=== PATIENT | male | born 1960 | race Caucasian/White ===

== ENCOUNTER 2020-09-04 10:04 | Outpatient (CLI) | payer MEDICARE, SELFPAY ==
--- NOTE | 2020-09-04 10:15 | US_ITS ---
WS: [id number] ULTRASOUND SOFT TISSUES LEFT neck. HISTORY: mass at base of neck, into left shoulder, 6 months COMPARISON: None available. TECHNIQUE: 2-D and color Doppler imaging is submitted. There is a large solid mass with central increased vascularity in the LEFT supraclavicular location. Mass is variable echogenicity but is predominantly hypoechoic. There is distortion of the adjacent so ft tissues by the mass. Mass measures 4.8 x 5.1 x 4.0 cm. There are a few additional cervical chain l ymph nodes. These additional cervical chain lymph nodes also appear abnormal and they are bilateral. Loss of the normal fatty maty. These additional lymph nodes are not enlarged but do appear abnormal. US/US soft tissue head neck [id number] IMPRESSION: 1. Palpable mass in the LEFT supraclavicular location corresponds to an abnorm al lymph node. Although small there are additional lymph nodes with abnormal co nfiguration in the cervical chains. Metastatic adenopathy versus lymphoma. 2. Recommend follow-up CT neck and chest with IV contrast.
== END 2020-09-04 10:05 | disposition home or self-care (01) ==
PROVIDERS: PCP Family Medicine Adult Medicine; Visit Provider Emergency Medicine
DX: R22.1 Localized swelling, mass and lump, neck (principal)
CPT/HCPCS: 76536

== ENCOUNTER 2020-09-08 12:40 | Outpatient (CLI) | payer MEDICARE, SELFPAY ==
--- NOTE | 2020-09-08 13:00 | CT_ITS ---
WS: [id number] CT CHEST TECHNIQUE: Contrast enhanced CT of the chest with coronal and sagittal reformatted images. CLINICAL INFORMATION: R22.1 - Localized swelling, mass and lump, neck COMPARISON: None. DLP: 588.[address] scans at [facility] use at least one of these dose optimization techniques: automat ed exposure control; mA and/or kV adjustment per patient size (includes targeted exams where dose is matched to clinical indication); or iterative reconstruction. FINDINGS: Left hilar and suprahilar mass measuring approximately 3.1 x 2.9 x 4.8 cm AP by transverse by cranioc audal. This abuts the left hilum extends into the left upper lobe. Multiple surrounding satellite so ft tissue nodules. Associated pleural thickening in the left upper lobe medially. Patchy nodular infi ltrates the left upper lobe medially which may represent postobstructive pneumonia versus additional disease. Proximal main pulmonary arteries are normal. Normal caliber thoracic aorta. No mediastinal or hilar l ymphadenopathy. No axillary lymphadenopathy. A few calcified granulomas. Slight atelectasis in the ebenezer ng bases. 2 or 3 tiny subcentimeter noncalcified subpleural nodules in the right upper lobe and right lower lobe laterally. No anterior mediastinal lymphadenopathy. No subcarinal lymphadenopathy. Normal right hilum. Low-attenuation lesion in the right hepatic lobe measuring 12 mm is indeterminant and may represent a small complex cyst or hemangioma. This can be further evaluated with ultrasound or CT abdomen pelvis . This measures approximately 12 mm. Cholelithiasis. Adrenal glands are normal. Normal GE junction. Haziness within the mid mesentery with prominent lymph nodes partially visualized. This is nonspecifi c but can be seen with sclerosing mesenteritis and lymphoma. Normal thoracic spine. CT/CT chest w con* [id number] IMPRESSION: 1. Left hilar and suprahilar mass with associated satellite nodules. Findings consistent with neoplasm. 2. Additional nodular infiltrates in the left upper lobe medially abutting the pleura may be due to additional disease versus postobstructive pneumonia. 3. No other suspicious pulmonary parenchymal opacities. 4. No anterior mediastinal lymphadenopathy. 5. Nonspecific 12 mm low-attenuation lesion within the right hepatic lobe may represent small complex cyst or hemangioma. Metastatic disease is less likely b ut not entirely excluded. This can be further evaluated with CT abdomen pelvis or ultrasound. 6. Cholelithiasis. 7. Partially visualized induration and inflammatory changes in the mid mesente ry with prominent lymph nodes nonspecific but can be seen with sclerosing mesen teritis and lymphoma. This can be further evaluated with CT abdomen pelvis.
--- NOTE | 2020-09-08 13:30 | CT_ITS ---
WS: [id number] CT NECK TECHNIQUE: Contrast-enhanced CT of the neck with coronal and sagittal reformatted images. CLINICAL INFORMATION: R22.1 - Localized swelling, mass and lump, neck COMPARISON: Ultrasound September 04, 2020 DLP: 2619.[address] scans at [facility] use at least one of these dose optimization techniques: automat ed exposure control; mA and/or kV adjustment per patient size (includes targeted exams where dose is matched to clinical indication); or iterative reconstruction. FINDINGS:Large heterogeneously enhancing centrally necrotic left supraclavicular lymph node measuring 4.8 x 4.4 x 6.8 cm (AP by transverse by craniocaudal.) This corresponds to the lymph node seen on th e recent ultrasound. Partially visualized left hilar and suprahilar mass will be discussed on the [facility] st CT. Additional enlarged left supraclavicular lymph nodes and lower cervical chain lymph nodes on the left . Partially visualized intracranial contents are normal. Mastoid air cells are well aerated. Paranasal sinuses are well aerated. Parotid glands and submandibular glands are normal. Tongue base is normal i n appearance. Normal parapharyngeal fat. No evidence of supraglottic or glottic mass. Normal piriform sinuses. Small left thyroid nodule measuring 4mm Mild spondylitic changes cervical spine. CT/CT neck w con* [id number] IMPRESSION: 1. Large heterogeneously enhancing left supra clavicular lymph node consistent with metastatic disease measuring 4.8 x 4.4 x 6.8 cm corresponds to findings o n recent ultrasound. 2. Additional enlarged pathologic lymph nodes in the left lower cervical chain and supraclavicular region. 3. Partially visualized left hilar and suprahilar mass will be discussed on th e chest CT.
[2020-09-08] MEDS: iohexol 300 mg/mL 100 mL Btl IV ×2 (13:56)
== END 2020-09-08 12:41 | disposition home or self-care (01) ==
LOC: RADWPI 12:51
PROVIDERS: PCP Family Medicine Adult Medicine; Visit Provider Emergency Medicine
DX: R22.1 Localized swelling, mass and lump, neck (principal); K76.9 Liver disease, unspecified; K80.20 Calculus of gallbladder without cholecystitis without obstruction
CPT/HCPCS: 70491; 71260; Q9967

== ENCOUNTER 2020-09-18 08:56 | Outpatient (CLI) | payer MEDICARE, SELFPAY ==
[2020-09-18] MEDS: iohexol 300 mg/mL 50 mL Btl PO (09:42)
--- NOTE | 2020-09-18 10:30 | CT_ITS ---
WS: [id number] CT scan of the abdomen and pelvis with Oral and IV contrast. Additional two-dimensional coronal and s agittal reconstruction was performed. 09/18/2020 Clinical Data: R59.0 - Localized enlarged lymph nodes Comparison: None. DLP: 1062.38 mGy-cm All CT scans at [facility] use at least one of these dose optimization techniques: automat ed exposure control; mA and/or kV adjustment per patient size (includes targeted exams where dose is matched to clinical indication); or iterative reconstruction. Findings: The lower lungs show no nodules, masses or effusions. The liver, gallbladder, spleen, adrenal glands and pancreas are normal. There is a low density area i n the anterior aspect of the right lobe measuring 1.4 cm which is probably a cyst. The kidneys show e qual bilateral contrast excretion with no cyst or masses. No hydronephrosis or renal calculi are seen . The abdominal aorta is normal in size. No appendicitis or diverticulitis is seen. Oral contrast is in the stomach, small bowel and colon, an d there is no bowel dilatation. No abscess, adenopathy, ascites, mass, obstruction or free air is see n. The bladder is unremarkable. No inguinal hernia is seen. The bones of the lower thorax, lumbar spine, pelvis, and hips are normal. No metastatic bony lesions are seen. CT/CT abdomen pelvis w con* [id number] Impression: 1. Negative for metastatic disease to the abdomen or pelvis. 2. Probable cyst of the right lobe of the liver.
[2020-09-18] MEDS: iohexol 300 mg/mL 100 mL Btl IV (10:37)
== END 2020-09-18 08:57 | disposition home or self-care (01) ==
LOC: RADWPI 09:03
PROVIDERS: PCP Family Medicine Adult Medicine; Visit Provider Emergency Medicine
DX: R22.1 Localized swelling, mass and lump, neck
CPT/HCPCS: 74177; Q9967

== ENCOUNTER → 2020-10-07 11:56 | Day surgery (SDC) | payer MEDICARE, SELFPAY ==
[2020-10-05 12:20] VITALS: BMI 27.4
--- NOTE | 2020-10-07 12:21 | US_ITS ---
WS: [id number] ULTRASOUND GUIDED BIOPSY LEFT SUPRACLAVICULAR MASS. HISTORY: left neck mass Procedure, risks, and complications are explained to the patient. Consent was obtained. Skin is clean sed with ChloraPrep and anesthetized with 1% buffered lidocaine. There is a solid mass in the LEFT supraclavicular region with increased vascularity. This mass measur es 6.7 x 3.3 cm in length and is most likely abnormal lymph node. This mass is targeted for biopsy. B iopsy is made with an 18 gauge Temno needle. Cores placed within saline as requested by pathology. No complications were encountered. Numerous biopsies were obtained. US/ biopsy [id number] IMPRESSION: Uncomplicated biopsy of the LEFT supraclavicular mass. Final pathology results are pending.
[2020-10-07 12:25] VITALS: BP 125/82; PULSE 101; RESP 18; TEMP 36.3; O2SAT 97
[2020-10-07] MEDS: sodium chloride 0.9% 1,000 ML 30 ML IV (12:41)
[2020-10-09 07:07] LABS: Miscellaneous Test See Scanned Lab Rpt
== END ==
PROVIDERS: Radiology Diagnostic Radiology; PCP Family Medicine Adult Medicine; Visit Provider Family Medicine Adult Medicine
DX: C76.8 Malignant neoplasm of other specified ill-defined sites (principal)
CPT/HCPCS: 76942; 88184; 88185; 88307; 96360; J7030; P9041

== ENCOUNTER 2020-10-13 09:50 | Outpatient (CLI) | payer MEDICARE, SELFPAY ==
[2020-10-13 12:11] LABS: Basophils % 0.5 %; Eosinophils # 0.2 10^3/uL (0.0-0.8); Eosinophils % 3.2 %; Hematocrit 30.3 % (42.0-52.0); Hemoglobin 8.5 g/dL (11.7-16.6); Lymphocytes # 0.9 10^3/uL (0.8-4.8); Lymphocytes % 14.3 %; Mean Corpuscular HGB Conc 28.1 g/dL (30.0-36.0); Mean Corpuscular Hemoglobin 20.3 pg (28.0-34.0); Mean Corpuscular Volume 72.3 fL (80-94); Mean Platelet Volume 10.2 fL (7.4-10.4); Monocytes # 0.4 10^3/uL (0.2-0.9); Monocytes % 5.5 %; Neutrophils # 4.94 10^3/uL (1.8-7.7); Nucleated Red Blood Cells % 0 %; Platelet Count 596 10^3/cmm (130-400); Red Blood Count 4.19 10^6/uL (4.1-5.3); Red Cell Distribution Width 17.4 % (12.1-15.1); White Blood Count 6.5 10^3/uL (4.0-10.0)
[2020-10-13 12:36] LABS: Alanine Aminotransferase 9 U/L (0-41); Albumin Level 3.8 g/dL (3.5-5.2); Alkaline Phosphatase 94 IU/L (40-130); Anion Gap 12.7 (5-19); Aspartate Amino Transferase 15 U/L (0-40); Blood Urea Nitrogen 5 mg/dL (6-20); Calcium 8.7 mg/dL (8.5-10.5); Carbon Dioxide 26 mmol/L (22-29); Chloride 104 mmol/L (98-107); Globulin 3.3 g/dL (1.3-4.6); Glomerular Filtration Rate 98.9 mL/min (90-130); Glucose 98 mg/dL (65-115); Lactate Dehydrogenase 281 U/L (135-225); Osmolality Calculated 285 mOsm/kg (285-295); Potassium 3.7 mmol/L (3.5-5.1); Sodium 139 mmol/L (136-145); Total Bilirubin 0.2 mg/dL (0.15-1.2); Total Protein 7.1 g/dL (6.6-8.7)
--- NOTE | 2020-10-13 18:14 | ONC CON_ITS ---
Dr. Cole New Patient Note Patient: Adarsh Parson Unit #: [id number]: 1960 Dicatated By: Curtis Cole M.D.Date of Visit: October 13, 2020 Onc MED New Patient/Consult Referring Physician: Shaniqua Suarez Chief Complaint: Metastatic melanoma. 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 This patient has a history of having undergone excision of a melanoma from the right lower back somewhere in the range of 3 to 4 years ago. The records are currently not available. The procedure was done through [facility] in [place], and it included a sentinel right axillary lymph node biopsy. He did not require any further treatment. 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 In July 2020 he presented to [facility] with a lump in the left side of his neck. He had been aware of it for about 6 months. An initial ultrasound on 09/04/2020 showed a left supraclavicular mass measuring 4.8 x 5.1 x 4.0 cm consistent with an abnormal lymph node. Further evaluation with CT scans of the neck and chest on 09/08/2020 showed a large heterogeneously enhancing left supraclavicular lymph node measuring 4.8 x 4.4 x 6.8 cm with additional enlarged pathologic lymph nodes in the lower cervical chain and supraclavicular region. A left hilar and suprahilar mass measuring approximately 3.1 x 2.9 x 4.8 cm was noted to abut the left hilum, extending into the left upper lobe. There were multiple surrounding satellite soft tissue nodules and there was associated pleural thickening in the left upper lobe medially. There were no other suspicious pulmonary parenchymal nodules and there was no mediastinal adenopathy. A 12 mm low-attenuation lesion in the right hepatic lobe was felt to be indeterminate. Haziness within the mid mesentery with prominent lymph nodes was partially visualized. Further evaluation with CT of the abdomen/pelvis on 09/18/2020 was reported to be negative for metastatic disease. The lesion in the right lobe of the liver was felt to probably be a cyst. He then underwent ultrasound directed biopsy of the left supraventricular mass on 10/07/2020. 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 By IHC, the tumor cells were positive for trim 29, melanin A, HMB-45, Sox 10, and S100 protein, consistent with metastatic melanoma. Staging PET/CT on 10/10/2020 showed FDG positive left supraclavicular mass measuring 6.1 x 4.2 cm, SUV 38.3. 2 additional adjacent nodes measuring 1.8 cm were also FDG positive. A left upper lobe lung mass measuring 4.2 x 4.6 cm and SUV 22.2 and a left upper quadrant small bowel mass measuring 5.6 x 5.2 cm had SUV 43.4, high probability of malignancy. Multiple enlarged mesenteric lymph nodes had minimal FDG activity, but were likely metastatic. He is seen now for further management. He still feels pretty good generally. He does have somewhat limited activity tolerance, mainly due to to shortness of breath. He is still doing light work. His ECOG score is 1. His appetite is not as good, and his weight is down about 10 pounds. He has not had documented fever, but he does tend to feel hot and have sweating every night. He has been having pain in the mid abdominal area which comes and goes. It is being managed adequately with hydrocodone/APAP. He has shortness of breath with activity. He has cough which comes and goes. He occasionally has chest pain. He has no other associated GI complaints. He does have some chronic constipation, but it is managed adequately with a laxative. He has no complaints. He has chronic back pain which has been managed by Dr. Pool at pain clinic. He does not complain of headache or dizziness. He occasionally has numbness in his fingers. He has no other focal neurologic symptoms. Past Medical History: He has chronic back pain. He has a history of accidental electrocution, and he has a history of melanoma skin cancer. Past Surgical History: He underwent excision of melanoma from the right lower back with sentinel right axillary lymph node biopsy 3 or 4 years ago. His other surgical/procedural history includes arthroscopic knee surgery and back surgery. Medications: HYDROcodone-Acetaminophen 1 (7.5-325 mg) Tablet Oral q 4 hours PRN Allergies: No Known Allergies. Social History: Mr. Parson is . He is a non-smoker. He does not drink alcohol. Family History: He has very little knowledge regarding his family history. He does not know anything about his father. His mother, his brother, and one sister are all , but specific cause in each case is unknown to him. Three sisters are still living. Review Of Symptoms: Constitutional - His energy is pretty good, but he does have somewhat limited activity due to shortness of breath. His appetite is not as good. His weight is down about 10 pounds. He does not have documented fever, but he does tend to feel hot and have sweating at night. ECOG score is 1, Eyes - No change in vision, ENMT - No hearing loss or tinnitus. No sinus congestion/drainage. No mouth sores. No sore throat or difficulty swallowing, Hematologic/Lymphatic - No abnormal bruising or bleeding, Respiratory - He has shortness of breath with activity. He sometimes has cough. It comes and goes. No pleuritic pain or hemoptysis, Cardiovascular - He occasionally has a little chest pain. No palpitations, Gastrointestinal - No nausea or vomiting. No heartburn or acid reflux. He has constipation, which he manages adequately with a laxative. No blood in the stool or black stools, Genitourinary (M) - No dysuria or hematuria. No urinary frequency. 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 He occasionally has numbness in his fingers. No other focal neurologic symptoms, Psychiatric - No anxiety or depression. No insomnia. Vital Signs: Performed on October 13, 2020 11:09: 2, 0, 27.08, 1.86 sq.m, 66 in, 96 %, 101 /min (HIGH), 18 /min, 134/79 mm(hg), 98.2 F (LOW), and 167.8 lbs (HIGH). Physical Examination: Constitutional - He appears to be in good general health, Eyes - Sclerae nonicteric. Conjunctivae clear, ENMT - No lesions noted in the oral cavity, Neck - There is a large mass in the left supraclavicular area measuring 8 cm. There is no other mass or adenopathy noted in the neck area, Hematologic/Lymphatic - No axillary adenopathy, Respiratory - Lungs are clear with good air movement bilaterally, Cardiovascular - Heart rhythm is regular. There is a II/ systolic murmur. There is no gallop or rub noted, Abdomen - Soft and non-tender. Liver and spleen are not enlarged. There is no abdominal mass or ascites noted and there is no inguinal adenopathy, Back/Spine - No spine or CVA tenderness noted, Extremities - No edema. Pedal pulses are palpable bilaterally, Integumentary - There are no suspicious skin lesions noted, Neurologic - No focal neurologic deficits noted. Problem List: 1. Patient with metastatic melanoma presenting with large left supraclavicular mass. By PET/CT, there are additional areas of involvement in the left suprahilar region and the left upper quadrant small bowel. 2. He has a history of having undergone excision of melanoma from the right lower back 3 or 4 years ago. The procedure included sentinel right axillary lymph node biopsy. 3. He has chronic back pain. Problems Addressed with this Encounter and Plan: Patient with metastatic melanoma presenting with large left supraclavicular mass. By PET/CT, there are additional areas of involvement in the left suprahilar region and the left upper quadrant small bowel. He has a history of having undergone excision of melanoma from the right lower back 3 or 4 years ago. The procedure included sentinel right axillary lymph node biopsy. Those records are currently not available. It appears that there was no indication for further treatment. The CT and PET/CT findings were reviewed with the patient, and I also reviewed the images with him. We discussed the fact that he now has metastatic melanoma. I do want to request records from [facility] to verify his previous treatment and pathology, but at this point he will need to proceed with systemic therapy. For future reference I am going to request a BRAF mutation analysis on the recent biopsy, but I am planning to proceed now with a trial of dual immunotherapy with nivolumab/ipilimumab, subject to verification of insurance coverage. I am going to have him see Dr. Slaughter for placement of Port-A-Cath venous access device, and he will need an a brain MRI to complete his staging. I reviewed anticipated side effects with the immunotherapy which may include enteritis/colitis, pneumonitis, endocrinopathies, dermatitis, and hepatic and/or renal dysfunction, among others. Signed By: Curtis Cole M.D. <<Signature on File>>
== END 2020-10-13 09:51 | disposition home or self-care (01) ==
LOC: ONCMED 09:53
PROVIDERS: PCP Family Medicine Adult Medicine; Visit Provider Internal Medicine Medical Oncology
DX: C49.6 Malignant neoplasm of connective and soft tissue of trunk, unspecified (principal); C77.8 Secondary and unspecified malignant neoplasm of lymph nodes of multiple regions; C78.4 Secondary malignant neoplasm of small intestine; G89.29 Other chronic pain; M54.5 Low back pain; Z79.899 Other long term (current) drug therapy
CPT/HCPCS: 36415; 80053; 81210; 83615; 85025; 99205

== ENCOUNTER 2020-10-15 09:30 | Emergency (ER) | payer MEDICARE, SELFPAY ==
--- NOTE | 2020-10-15 10:07 | ED_ITS ---
HPI - Nausea/Vomiting/Diarrhea General: Chief complaint: Nausea/Vomiting/Diarrhea Stated complaint: N/V, Trouble Eating Time Seen by Provider: 10/15/20 09:43 History of Present Illness: HPI Narrative: 60-year-old male presents to the emergency room with complaint of nausea and vomiting anorexia the last several days progressively worsening. Patient has a known history of melanoma that was treated about 5 years ago with excisional lymph node dissection. He began to notice a supra supraclavicular swelling on the left and had it biopsied came back as melanoma recurrence on further work-up he was found to have disseminated metastasis in the abdomen and chest. He is been seen by oncology and they are planning to start immune therapy he has been scheduled to have a port placed but has not been done yet. Is been taking hydrocodone for the pain seems to exacerbate his stomach issues. MD elicited complaint: nausea, vomiting and abdominal pain Pertinent past history: other (Recurrence of melanoma with disseminated metastasis) Onset (ago): day(s) Description of vomiting: watery Associated nausea: Yes Associated abdominal pain: Yes Location of pain: Diffuse Severity: moderate Quality: cramping Exacerbating factors: none Relieving factors: none Associated symtoms: Reports bloating, fatigue, anorexia, malaise, myalgias, nausea and weakness; Denies altered mental status, anxiety, change in vision, chest pain, cough, diaphoresis, decreased urine output, dizziness, dysuria, epistaxis, fecal incontinence, fevers/chills, headache(s), numbness, palpitations, rash, short of breath, syncope, tenesmus or tinnitus Review of Systems Const: Reports: fatigue and malaise; Denies: diaphoresis Eyes: Denies: change in vision ENMT: Denies: tinnitus or epistaxis Card: Denies: chest pain, palpitations or syncope Resp: Denies: dyspnea, productive cough or non-productive cough GI: Reports: nausea and bloating; Denies: fecal incontinence : Denies: dysuria Skin/Breast: Denies: rash or pruritus Neuro: Denies: headache(s) or dizziness Psych: Denies: anxiety PFS ED PFSH: Medical History (Updated 10/15/20 @ 12:00 by Adolfo Quispe DO) Accidental electrocution Hx of lymphadenopathy Lymphadenopathy of head and neck region Mass of left side of neck Melanoma Surgical History History of back surgery Hx of arthroscopy of left knee Social History Smoking and tobacco status: never smoked Alcohol intake: never Marital status: / Number of children: 1 Number of grandchildren: 3 Current occupational status: retired Physical Exam Const: COMMON NORMALS: no acute distress EXAM LIMITATIONS: no altered mental status GENERAL APPEARANCE: cooperative and comfortable ORIENTATION/CONSCIOUSNESS: Yes awake, Yes oriented to person, Yes oriented to place and Yes oriented to time HENMT: COMMON NORMALS: normocephalic, atraumatic and hearing grossly normal bilaterally HEAD & SCALP: normocephalic and atraumatic Neck/C-Spine: COMMON NORMALS: no JVD Lymph: LYMPHATIC: lymphadenopathy (Left supraclavicular) Resp: COMMON NORMALS: normal respiratory effort, No retractions, No use of accessory muscles and clear to auscultation bilaterally AUSCULTATION: clear to auscultation bilaterally Cardio: COMMON NORMALS: no JVD, regular rate, regular rhythm and No murmurs present (Cardio) RATE: regular rate RHYTHM: regular rhythm GI: COMMON NORMALS: Soft to palpation and No hepatosplenomegaly present AUSCULTATION: Yes normoactive bowel sounds PALPATION: Yes Soft to palpation, No Tenderness to palpation present (GI), No Guarding due to palpation present (GI) and Yes No hepatosplenomegaly present Extremity: COMMON NORMALS: normal to inspection, capillary refill normal, no clubbing, cyanosis or edema, no calf tenderness and no pedal edema Neuro: SENSORIUM/ORIENTATION: Yes oriented to person, Yes oriented to place and Yes oriented to time Skin: COMMON NORMALS: no rashes or lesions noted GENERAL SKIN EXAM: no rashes or lesions noted Course Vital Signs: Vital signs: Vital Signs Pulse Rate 83 10/15/20 12:35 Respiratory Rate 14 10/15/20 12:35 Blood Pressure 137/88 10/15/20 12:35 Pulse Oximetry 97 10/15/20 12:35 MDM - Nausea/Vomiting/Diarrhea MDM Narrative: Medical decision making narrative: Change him to Percocet add ondansetron. Follow-up with Dr. Cole return if has worsening problems Lab Data: Labs: Lab Results 10/15/20 10/15/20 10/15/20 Range/Units 10:28 10:28 10:28 WBC 8.9 (4.0-10.0) 10^3/ uL RBC 4.76 (4.1-5.3) 10^6/u L Hgb 9.5 L (11.7-16.6) g/dL Hct 32.5 L (42.0-52.0) % MCV 68.3 L (80-94) fL MCH 20.0 L (28.0-34.0) pg MCHC 29.2 L (30.0-36.0) g/dL RDW 17.4 H (12.1-15.1) % Plt Count 861 H (130-400) 10^3/c mm MPV 9.4 (7.4-10.4) fL Neut % (Auto) 84.8 % Lymph % (Auto) 8.8 % [place] % (Auto) 5.2 % Eos % (Auto) 0.5 % Baso % (Auto) 0.2 % Neut # (Auto) 7.51 (1.8-7.7) 10^3/u L Lymph # (Auto) 0.8 (0.8-4.8) 10^3/u L [place] # (Auto) 0.5 (0.2-0.9) 10^3/u L Eos # (Auto) 0.0 (0.0-0.8) 10^3/u L Baso # (Auto) 0.0 (0.0-0.1) 10^3/u L Nucleated RBC % (a uto) 0 % Nucleated RBCs # 0.0 /100WBC Sodium 134 L (136-145) mmol/L Potassium 4.0 (3.5-5.1) mmol/L Chloride 89 L (98-107) mmol/L Carbon Dioxide 31 H (22-29) mmol/L Anion Gap 18.0 (5-19) BUN 14 (6-20) mg/dL Creatinine 0.8 (0.7-1.2) mg/dL GFR Calculation 98.9 (90-130) mL/min Glucose 119 H (65-115) mg/dL Calculated Osmolal ity 280 L (285-295) mOsm/k g Lactic Acid 1.2 (0.5-2.2) mmol/L Calcium 9.6 (8.5-10.5) mg/dL Magnesium 2.3 (1.7-2.3) mg/dL Total Bilirubin 0.3 (0.15-1.2) mg/dL AST 12 (0-40) U/L ALT 9 (0-41) U/L Alkaline Phosphata se 105 (40-130) IU/L Creatine Kinase 42 (39-308) U/L Total Protein 8.1 (6.6-8.7) g/dL Albumin 4.2 (3.5-5.2) g/dL Globulin 3.9 (1.3-4.6) g/dL Lipase 10 L (13-60) U/L Urine Color (Yellow) Urine Appearance (CLEAR) Urine pH (5-7) Ur Specific Gravit y (1.005-1.030) Urine Protein (Negative) Urine Glucose (UA) (Normal) Urine Ketones (Negative) Urine Blood (Negative) Urine Nitrate (Negative) Urine Bilirubin (Negative) Urine Urobilinogen (Negative) mg/dL Ur Leukocyte Kandy ase (Negative) Urine RBC (0-2) /hpf Urine WBC (0-5) /hpf Ur Squamous Epith Cells (0-5) /hpf Amorphous Sediment Urine Bacteria (NONE) /hpf Hyaline Casts /lpf Urine Mucus /hpf Serum Ketones (Negative) 10/15/20 10/15/20 Range/Units 10:28 11:10 WBC (4.0-10.0) 10^3/ uL RBC (4.1-5.3) 10^6/u L Hgb (11.7-16.6) g/dL Hct (42.0-52.0) % MCV (80-94) fL MCH (28.0-34.0) pg MCHC (30.0-36.0) g/dL RDW (12.1-15.1) % Plt Count (130-400) 10^3/c mm MPV (7.4-10.4) fL Neut % (Auto) % Lymph % (Auto) % [place] % (Auto) % Eos % (Auto) % Baso % (Auto) % Neut # (Auto) (1.8-7.7) 10^3/u L Lymph # (Auto) (0.8-4.8) 10^3/u L [place] # (Auto) (0.2-0.9) 10^3/u L Eos # (Auto) (0.0-0.8) 10^3/u L Baso # (Auto) (0.0-0.1) 10^3/u L Nucleated RBC % (a uto) % Nucleated RBCs # /100WBC Sodium (136-145) mmol/L Potassium (3.5-5.1) mmol/L Chloride (98-107) mmol/L Carbon Dioxide (22-29) mmol/L Anion Gap (5-19) BUN (6-20) mg/dL Creatinine (0.7-1.2) mg/dL GFR Calculation (90-130) mL/min Glucose (65-115) mg/dL Calculated Osmolal ity (285-295) mOsm/k g Lactic Acid (0.5-2.2) mmol/L Calcium (8.5-10.5) mg/dL Magnesium (1.7-2.3) mg/dL Total Bilirubin (0.15-1.2) mg/dL AST (0-40) U/L ALT (0-41) U/L Alkaline Phosphata se (40-130) IU/L Creatine Kinase (39-308) U/L Total Protein (6.6-8.7) g/dL Albumin (3.5-5.2) g/dL Globulin (1.3-4.6) g/dL Lipase (13-60) U/L Urine Color Yellow (Yellow) Urine Appearance Sl hazy (CLEAR) Urine pH 5 (5-7) Ur Specific Gravit y 1.025 (1.005-1.030) Urine Protein Trace (Negative) Urine Glucose (UA) Norm (Normal) Urine Ketones 1+ H (Negative) Urine Blood Neg (Negative) Urine Nitrate Negative (Negative) Urine Bilirubin 1+ H (Negative) Urine Urobilinogen Norm (Negative) mg/dL Ur Leukocyte Kandy ase Negative (Negative) Urine RBC 0-4 H (0-2) /hpf Urine WBC 0-4 H (0-5) /hpf Ur Squamous Epith Cells None (0-5) /hpf Amorphous Sediment Not Reportable Urine Bacteria Trace (NONE) /hpf Hyaline Casts 0-4 H /lpf Urine Mucus 1+ /hpf Serum Ketones Negative (Negative) Discharge Plan Discharge Patient Disposition: Home Clinical Impression: Melanoma, Metastatic melanoma Condition: Stable Prescriptions: New Zofran 4 mg tablet 4 mg PO Q6H PRN (Reason: nausea and vomiting) Qty: 20 RF: 0 oxycodone 10 mg tablet 10 mg PO Q8H PRN (Reason: pain) Qty: 30 RF: 0 No Action hydrocodone-acetaminophen 7.5-325 mg tablet 1 tab PO Q4H PRN (Reason: Pain) RF: 0 Discharge Orders: Discharge ED (Routine); Ordered 10/15/20 Ordered By: Adolfo Quispe Referrals: Onofre Churchill MD [Primary Care Provider] - Patient Instructions: Opioid Safety Coding Level of Care Code ED Compensation And Benefits Advisor for Emmag Fwd Exam Comprehensive
[2020-10-15 10:08] VITALS: BMI 28.2
--- NOTE | 2020-10-15 10:10 | ECG_ITS ---
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 Measurements Intervals [place] Rate: 85 P: 44 CT: 140 QRS: 24 QRSD: 83 T: 34 QT: 352 QTc: 420 Interpretive Statements SINUS RHYTHM No previous ECG available for comparison Electronically Signed On 10-15-2020 20:48:37 CDT by Nnai Appiah M.D. [id number]
[2020-10-15] MEDS: sodium chloride 0.9% 1,000 ML 999 ML IV ×2 (10:32→11:59)
[2020-10-15 10:34] VITALS: RESP 18; O2SAT 96
[2020-10-15] MEDS: morphine 4 mg/mL SDV 1 mL IVP (10:34)
[2020-10-15] MEDS: ondansetron 2 mg/ML SDV 2 mL 4 MG IVP (10:34)
[2020-10-15 10:42] LABS: Basophils % 0.2 %; Eosinophils % 0.5 %; Hematocrit 32.5 % (42.0-52.0); Hemoglobin 9.5 g/dL (11.7-16.6); Lymphocytes # 0.8 10^3/uL (0.8-4.8); Lymphocytes % 8.8 %; Mean Corpuscular HGB Conc 29.2 g/dL (30.0-36.0); Mean Corpuscular Volume 68.3 fL (80-94); Mean Platelet Volume 9.4 fL (7.4-10.4); Monocytes # 0.5 10^3/uL (0.2-0.9); Monocytes % 5.2 %; Neutrophils # 7.51 10^3/uL (1.8-7.7); Neutrophils % 84.8 %; Nucleated Red Blood Cells % 0 %; Platelet Count 861 10^3/cmm (130-400); Red Blood Count 4.76 10^6/uL (4.1-5.3); Red Cell Distribution Width 17.4 % (12.1-15.1); White Blood Count 8.9 10^3/uL (4.0-10.0)
[2020-10-15 10:49] LABS: Ketone (Acetest) Serum Negative (Negative)
[2020-10-15 10:56] LABS: Lactic Sepsis W/Reflex 1.2 mmol/L (0.5-2.2)
[2020-10-15 10:58] LABS: Alanine Aminotransferase 9 U/L (0-41); Albumin Level 4.2 g/dL (3.5-5.2); Alkaline Phosphatase 105 IU/L (40-130); Aspartate Amino Transferase 12 U/L (0-40); Blood Urea Nitrogen 14 mg/dL (6-20); Calcium 9.6 mg/dL (8.5-10.5); Carbon Dioxide 31 mmol/L (22-29); Chloride 89 mmol/L (98-107); Creatine Phosphokinase 42 U/L (39-308); Globulin 3.9 g/dL (1.3-4.6); Glomerular Filtration Rate 98.9 mL/min (90-130); Glucose 119 mg/dL (65-115); Lipase 10 U/L (13-60); Magnesium 2.3 mg/dL (1.7-2.3); Osmolality Calculated 280 mOsm/kg (285-295); Sodium 134 mmol/L (136-145); Total Bilirubin 0.3 mg/dL (0.15-1.2); Total Protein 8.1 g/dL (6.6-8.7)
[2020-10-15 11:07] VITALS: BP 130/86; PULSE 79; RESP 16; O2SAT 98
--- NOTE | 2020-10-15 11:09 | PC.NURSE ---
Pt resting quietly between care, vss, pt sts he is feeling much better, no pain to speak of. Attempting to provide UA at this time, no other immediate needs identified, will continue to monitor.
[2020-10-15 11:39] LABS: Add Urine Microscopic? YES; Bacteria Urine TRACE /hpf; Bilirubin Urine 1+ (Negative); Blood Urine Neg (Negative); Glucose Urine UA Norm (Normal); Hyaline Casts Urine 0-4 /lpf; Ketones Urine 1+ (Negative); Leukocyte Esterase Urine Negative (Negative); Mucus Urine 1+ /hpf; Nitrate Urine Negative (Negative); Protein Urine Trace (Negative); RBC Urine 0-4 /hpf (0-2); Specific Gravity, Urine 1.025 (1.005-1.030); Urine Appearance SL Hazy (CLEAR); Urine Color Yellow (Yellow); Urobilinogen Urine Norm (Negative); WBC Urine 0-4 /hpf (0-5); pH Urine 5 (5-7)
[2020-10-15 11:59] VITALS: BP 122/81; PULSE 79; RESP 14; O2SAT 98
[2020-10-15 12:35] VITALS: BP 137/88; PULSE 83; RESP 14; O2SAT 97
== END 2020-10-15 12:37 | disposition home or self-care (01) ==
PROVIDERS: Emergency Provider Family Medicine; PCP Family Medicine Adult Medicine
DX: C43.9 Malignant melanoma of skin, unspecified (principal)
CPT/HCPCS: 80053; 81001; 82009; 82550; 83605; 83690; 83735; 85025; 93005; 96361; 96374; 96375; 99284; J2270; J2405; J7030

== ENCOUNTER 2020-10-16 04:13 | Inpatient (IN) | payer MEDICARE, SELFPAY ==
[2020-10-16] VITALS (21 sets, daily range): BP systolic 120–135; BP diastolic 76–97; PULSE 70–102; RESP 12–22; TEMP 36.6–37.4; O2SAT 92–100; BMI 26.6
--- NOTE | 2020-10-16 04:17 | CTR_ITS ---
PROCEDURE INFORMATION: Exam: CT Abdomen And Pelvis With Contrast Exam date and time: 10/16/2020 4:21 AM Age: 60 years old Clinical indication: Abdominal pain; Patient HX: Epigastric pain. History of metastatic melanoma. ; Additional info: Abd pain TECHNIQUE: Imaging protocol: Computed tomography of the abdomen and pelvis with contrast. Radiation optimization: All CT scans at this facility use at least one of these dose optimization techniques: automated exposure control; mA and/or kV adjustment per patient size (includes targeted exams where dose is matched to clinical indication); or iterative reconstruction. Contrast material: OMNI 300; Contrast volume: 95 ml; Contrast route: INTRAVENOUS (IV); COMPARISON: CT abdomen pelvis w con* [id number] 09/18/2020 10:34 AM RADIATION DOSE METRICS: Total DLP (mGy-cm): 1488.4 FINDINGS: Lungs: Continued 3 mm nodule in the left lower lobe on image 1 of series 2 and 3 calcified granulomas of similar size in the posterior medial left lung base. Interval decreased visualization of a 2 mm nodule far medially in the right lower lobe on image 3. Interval increase in the stranding atelectasis in the medial aspect of the right posterior sulcus. Liver: No significant change in the 12 mm mass measuring 9 HU in the anterior margin of the right liver. Too much smaller low-density foci also evident in the liver. Gallbladder and bile ducts: Gallstones again evident. Still no biliary ductal dilatation. Pancreas: No interval pancreatic disease. Spleen: Still no splenomegaly. Adrenal glands: Still no adrenal mass. Kidneys and ureters: Still no hydronephrosis. Stomach and bowel: Interval prominent gastric, duodenal and proximal jejunal dilatation. Interval worsening of the jejunojejunal intussusception in the left mid abdomen with a mass effect at the head of the intussusception still likely; interval increase in the depth of the distal part of the intussusception from 5.4 cm to 5.9 cm and suspicion of interval increase in the length of the intussusception despite the bending of the bowel in this area. Wall thickening at the proximal end of the intussusception slightly more apparent than before. Continued slight haziness in the left upper mesentery. No dilatation of the small bowel distal to the intussusception. Appendix: Normal appendix. Intraperitoneal space: Still no free air. Vasculature: Continued slight atherosclerosis. Still no aortic aneurysm. Lymph nodes: Continued enlarged periportal node and enlargement of several mesenteric nodes. No interval enlarged nodes elsewhere. Urinary bladder: Unremarkable as visualized. Reproductive: Continued prostatic enlargement. Bones/joints: Old compression fractures again evident. Continued degeneration of several discs. No interval large bony mass. Soft tissues: Continued small dense calcification in the subcutaneous fat lateral to the left hip. Continued short linear focus of fat in the inferior right iliopsoas muscle. CT/CT abdomen pelvis w con* [id number] IMPRESSION: 1. Interval worsening of the jejunojejunal intussusception resulting in development of a small bowel obstruction. Concern for developing or worsening ischemic change in some of the small bowel due to the intussusception. Still no free air. 2. Continued slight haziness and several enlarged nodes in the proximal mesentery and an enlarged periportal node. 3. Cholelithiasis again evident. 4. No change in the possible cyst in the right lobe of the liver. Two much smaller low-density foci also evident in the liver, too small to characterize. 5. Continued prostatic enlargement. Calcified granulomas and other possible granulomas still present in the lung bases. Other findings detailed above. Radiation Dose CTDIVOL = (mGy): DLP = 1488.4 (mGy-cm)
--- NOTE | 2020-10-16 04:22 | W.ED.ABDPA2 ---
HPI - Abdominal Pain General: Chief Complaint: Abdominal Pain Stated Complaint: abd pain/has stomach cancer Time Seen by Provider: 10/16/20 04:16 Source: patient Mode of arrival: ambulatory Limitations: no limitations History of Present Illness: HPI narrative: 60-year-old male has a history of melanoma with metastatic disease to his chest and abdomen. Patient has chronic abdominal pain from this but states has had increasing pain over last 2 days. He was seen here yesterday and has been taking Percocet and states his pain is continued. He states he has had constipation along with vomiting. He states his pain is diffuse and rates it an 8 out of 10. Denies any worsening improving factors. MD elicited complaint: abdominal pain Associated Symptoms: Reports constipation, nausea and vomiting; Denies chills, dysuria and fever(s) Review of Systems Const: Denies: fever(s), chills, body aches or change in appetite Eyes: Denies: blurry vision or eye discomfort ENMT: Denies: throat pain or dental pain Card: Denies: chest pain Resp: Denies: dyspnea GI: Reports: abdominal pain, nausea, vomiting and constipation : Denies: dysuria Musc: Denies: neck pain or back pain Skin/Breast: Denies: rash Neuro: Denies: headache(s) Psych: Denies: depression [place]/Lymph: Denies: easy bruising All/Imm: Denies: urticaria PFSH ED PFSH: Medical History (Updated 10/16/20 @ 05:49 by Fanny Mishra MD) Accidental electrocution Hx of lymphadenopathy Lymphadenopathy of head and neck region Mass of left side of neck Melanoma Surgical History History of back surgery Hx of arthroscopy of left knee Social History Smoking and tobacco status: never smoked Alcohol intake: never Marital status: / Number of children: 1 Number of grandchildren: 3 Current occupational status: retired Physical Exam Const: COMMON NORMALS: no acute distress, patient oriented x3 and healthy appearing HENMT: COMMON NORMALS: normocephalic and atraumatic HEAD & SCALP: normocephalic and atraumatic Eye: COMMON NORMALS: Equal, round and reactive pupils present and EOMs intact bilaterally PUPIL: Yes Equal, round and reactive pupils present Neck/C-Spine: COMMON NORMALS: full ROM and supple Chest: COMMONS NORMALS: normal inspection of the chest and normal palpation of entire chest wall Resp: COMMON NORMALS: normal respiratory effort, No retractions, No use of accessory muscles and clear to auscultation bilaterally AUSCULTATION: clear to auscultation bilaterally Cardio: COMMON NORMALS: regular rate, regular rhythm and No murmurs present (Cardio) RATE: regular rate RHYTHM: regular rhythm GI: COMMON NORMALS: Normal to inspection, nondistended, normoactive bowel sounds present, Soft to palpation, non-tender and no masses PALPATION: Yes Soft to palpation Extremity: COMMON NORMALS: normal to inspection and full ROM Neuro: COMMON NORMALS: patient oriented x3, moves all extremities and no focal motor deficits Psych: COMMON NORMALS: mental status grossly normal, Normal thought process present and cooperative THOUGHT PROCESS: Normal thought process present Skin: COMMON NORMALS: no rashes or lesions noted and no wounds GENERAL SKIN EXAM: no rashes or lesions noted Course Vital Signs: Vital signs: Vital Signs Temperature 98.1 F 10/16/20 04:17 Pulse Rate 70 10/16/20 05:25 Respiratory Rate 16 10/16/20 05:25 Blood Pressure 122/76 10/16/20 05:25 Pulse Oximetry 97 10/16/20 05:25 MDM - Abdominal Pain MDM Narrative: Medical decision making narrative: Patient presents with abdominal pain along with vomiting. Patient CT scan here showed a bowel obstruction with intussusception that seen a month ago. Patient's white count here is normal and he is afebrile and he had no free air. We will send a lactate. I spoke to the hospitalist who is admitting also spoke to surgeon informed him of the findings of the CT scan and he is consulted. We will place an NG tube. Patient has been stable while here. Lab Data: Labs: Lab Results 10/16/20 10/16/20 Range/Units 04:36 04:36 WBC 7.8 (4.0-10.0) 10^3/ uL RBC 4.67 (4.1-5.3) 10^6/u L Hgb 9.2 L (11.7-16.6) g/dL Hct 32.8 L (42.0-52.0) % MCV 70.2 L (80-94) fL MCH 19.7 L (28.0-34.0) pg MCHC 28.0 L (30.0-36.0) g/dL RDW 17.6 H (12.1-15.1) % Plt Count 842 H (130-400) 10^3/c mm MPV 9.0 (7.4-10.4) fL Neut % (Auto) 81.8 % Lymph % (Auto) 9.7 % [place] % (Auto) 7.3 % Eos % (Auto) 0.5 % Baso % (Auto) 0.3 % Neut # (Auto) 6.40 (1.8-7.7) 10^3/u L Lymph # (Auto) 0.8 (0.8-4.8) 10^3/u L [place] # (Auto) 0.6 (0.2-0.9) 10^3/u L Eos # (Auto) 0.0 (0.0-0.8) 10^3/u L Baso # (Auto) 0.0 (0.0-0.1) 10^3/u L Nucleated RBC % (a uto) 0 % Nucleated RBCs # 0.0 /100WBC Sodium 135 L (136-145) mmol/L Potassium 3.7 (3.5-5.1) mmol/L Chloride 92 L (98-107) mmol/L Carbon Dioxide 31 H (22-29) mmol/L Anion Gap 15.7 (5-19) BUN 12 (6-20) mg/dL Creatinine 0.7 (0.7-1.2) mg/dL GFR Calculation 115.4 (90-130) mL/min Glucose 128 H (65-115) mg/dL Calculated Osmolal ity 281 L (285-295) mOsm/k g Calcium 8.8 (8.5-10.5) mg/dL Total Bilirubin 0.2 (0.15-1.2) mg/dL AST 10 (0-40) U/L ALT 7 (0-41) U/L Alkaline Phosphata se 92 (40-130) IU/L Total Protein 7.4 (6.6-8.7) g/dL Albumin 4.0 (3.5-5.2) g/dL Globulin 3.4 (1.3-4.6) g/dL Lipase 9 L (13-60) U/L Imaging Data ^: CT Abd/Pel: Radiologist's impression: [employer] [id number] [address] Scan Report Signed Patient: Adarsh Parson Unit #: [id number] : 1960 Age/Sex: 60 / M ADM Date: 10/16/20 Loc: ER Room/Bed: Attending Dr: Ordering Provider/Ordering MD: Fanny Mishra MD Date of Service: 10/16/20 Procedure(s): CT abdomen pelvis w con* [id number] Accession Number(s): [id number] Report Number: [id number] PROCEDURE INFORMATION: Exam: CT Abdomen And Pelvis With Contrast Exam date and time: 10/16/2020 4:21 AM Age: 60 years old Clinical indication: Abdominal pain; Patient HX: Epigastric pain. History of metastatic melanoma. ; Additional info: Abd pain TECHNIQUE: Imaging protocol: Computed tomography of the abdomen and pelvis with contrast. Radiation optimization: All CT scans at this facility use at least one of these dose optimization techniques: automated exposure control; mA and/or kV adjustment per patient size (includes targeted exams where dose is matched to clinical indication); or iterative reconstruction. Contrast material: OMNI 300; Contrast volume: 95 ml; Contrast route: INTRAVENOUS (IV); COMPARISON: CT abdomen pelvis w con* [id number] 09/18/2020 10:34 AM RADIATION DOSE METRICS: Total DLP (mGy-cm): 1488.4 FINDINGS: Lungs: Continued 3 mm nodule in the left lower lobe on image 1 of series 2 and 3 calcified granulomas of similar size in the posterior medial left lung base. Interval decreased visualization of a 2 mm nodule far medially in the right lower lobe on image 3. Interval increase in the stranding atelectasis in the medial aspect of the right posterior sulcus. Liver: No significant change in the 12 mm mass measuring 9 HU in the anterior margin of the right liver. Too much smaller low-density foci also evident in the liver. Gallbladder and bile ducts: Gallstones again evident. Still no biliary ductal dilatation. Pancreas: No interval pancreatic disease. Spleen: Still no splenomegaly. Adrenal glands: Still no adrenal mass. Kidneys and ureters: Still no hydronephrosis. Stomach and bowel: Interval prominent gastric, duodenal and proximal jejunal dilatation. Interval worsening of the jejunojejunal intussusception in the left mid abdomen with a mass effect at the head of the intussusception still likely; interval increase in the depth of the distal part of the intussusception from 5.4 cm to 5.9 cm and suspicion of interval increase in the length of the intussusception despite the bending of the bowel in this area. Wall thickening at the proximal end of the intussusception slightly more apparent than before. Continued slight haziness in the left upper mesentery. No dilatation of the small bowel distal to the intussusception. Appendix: Normal appendix. Intraperitoneal space: Still no free air. Vasculature: Continued slight atherosclerosis. Still no aortic aneurysm. Lymph nodes: Continued enlarged periportal node and enlargement of several mesenteric nodes. No interval enlarged nodes elsewhere. Urinary bladder: Unremarkable as visualized. Reproductive: Continued prostatic enlargement. Bones/joints: Old compression fractures again evident. Continued degeneration of several discs. No interval large bony mass. Soft tissues: Continued small dense calcification in the subcutaneous fat lateral to the left hip. Continued short linear focus of fat in the inferior right iliopsoas muscle. CT/CT abdomen pelvis w con* [id number] IMPRESSION: 1. Interval worsening of the jejunojejunal intussusception resulting in development of a small bowel obstruction. Concern for developing or worsening ischemic change in some of the small bowel due to the intussusception. Still no free air. 2. Continued slight haziness and several enlarged nodes in the proximal mesentery and an enlarged periportal node. 3. Cholelithiasis again evident. 4. No change in the possible cyst in the right lobe of the liver. Two much smaller low-density foci also evident in the liver, too small to characterize. 5. Continued prostatic enlargement. Calcified granulomas and other possible granulomas still present in the lung bases. Other findings detailed above. Discharge Plan Discharge Patient Disposition: Admitted As Inpatient Clinical Impression: Metastatic melanoma, Bowel obstruction, Intussusception Condition: Stable Coding Level of Care Code ED American History Teacher for Yael Fwd Exam Comprehensive
[2020-10-16] MEDS: sodium chloride 0.9% 1,000 ML 999 ML IV (04:28)
[2020-10-16] MEDS: ondansetron 2 mg/ML SDV 2 mL 4 MG IVP ×2 (04:35→23:24)
[2020-10-16] MEDS: HYDROmorphone 1 mg/mL INJ 1 mL IVP (04:44)
[2020-10-16] MEDS: iohexol 300 mg/mL 100 mL Btl IV (04:44)
[2020-10-16 04:46] LABS: Basophils % 0.3 %; Eosinophils % 0.5 %; Hematocrit 32.8 % (42.0-52.0); Hemoglobin 9.2 g/dL (11.7-16.6); Lymphocytes # 0.8 10^3/uL (0.8-4.8); Lymphocytes % 9.7 %; Mean Corpuscular Hemoglobin 19.7 pg (28.0-34.0); Mean Corpuscular Volume 70.2 fL (80-94); Monocytes # 0.6 10^3/uL (0.2-0.9); Monocytes % 7.3 %; Neutrophils % 81.8 %; Nucleated Red Blood Cells % 0 %; Platelet Count 842 10^3/cmm (130-400); Red Blood Count 4.67 10^6/uL (4.1-5.3); Red Cell Distribution Width 17.6 % (12.1-15.1); White Blood Count 7.8 10^3/uL (4.0-10.0)
[2020-10-16 05:02] LABS: Alanine Aminotransferase 7 U/L (0-41); Alkaline Phosphatase 92 IU/L (40-130); Anion Gap 15.7 (5-19); Aspartate Amino Transferase 10 U/L (0-40); Blood Urea Nitrogen 12 mg/dL (6-20); Calcium 8.8 mg/dL (8.5-10.5); Carbon Dioxide 31 mmol/L (22-29); Chloride 92 mmol/L (98-107); Globulin 3.4 g/dL (1.3-4.6); Glomerular Filtration Rate 115.4 mL/min (90-130); Glucose 128 mg/dL (65-115); Lipase 9 U/L (13-60); Osmolality Calculated 281 mOsm/kg (285-295); Potassium 3.7 mmol/L (3.5-5.1); Sodium 135 mmol/L (136-145); Total Bilirubin 0.2 mg/dL (0.15-1.2); Total Protein 7.4 g/dL (6.6-8.7)
[2020-10-16 05:53] LABS: Lactate (Lactic Acid level) 1.1 mmol/L (0.5-2.2)
[2020-10-16] MEDS: LORazepam 2 mg/mL INJ 1 mL 1 MG IVP (05:57)
--- NOTE | 2020-10-16 06:24 | P.HP_ITS ---
Providers/Chief Complaint Admitting Physician: Malik Godinez MD Primary Care Provider: Onofre Churchill MD Chief Complaint: abd pain/has stomach cancer History of Present Illness Adarsh Parson is a 60 year old male who has history of metastatic large cell cancer, metastatic melanoma, left supraclavicular mass(currently awaiting Port-A-Cath placement for initiation of immunotherapy) presented today with chief complaint of worsening abdominal pain. Patient is stating that his sympt oms probably started around 5 weeks ago, he did not seek any medical attention in the beginning, he kept taking hydrocodone that he used to take for his back pain but his symptoms worsened in the last few days, he has not been able to keep anything down for last 1 week at least, every time he would eat he experiences projectile vomiting. He has not noticed any fever, chest pain, his last bowel movement was on Monday. He was seen in the ER 24 hours ago for his complaints, he was discharged after getting opioids. At home his symptoms worsened, his abdominal pain was excruciating and he was experiencing recurrent nausea and vomiting hence came back in the ER. Diagnostics in the ER revealed small obstruction, NG tube was placed by the time I saw him NG tube was draining bilious content he was hemodynamically stable was able to mention above HPI. Dr. Slaughter has been notified, normal CBC and BMP, EKG is normal without QTC prolongation His left neck mass biopsy report preliminary report is showing large cell carcinoma. IMPRESSION: 1. Interval worsening of the jejunojejunal intussusception resulting in development of a small bowel obstruction. Concern for developing or worsening ischemic change in some of the small bowel due to the intussusception. Still no free air. 2. Continued slight haziness and several enlarged nodes in the proximal mesentery and an enlarged periportal node. 3. Cholelithiasis again evident. 4. No change in the possible cyst in the right lobe of the liver. Two much smaller low-density foci also evident in the liver, too small to characterize. 5. Continued prostatic enlargement. Calcified granulomas and other possible granulomas still present in the lung bases Review of Systems Const: Denies: fever(s) Eyes: Denies: change in vision ENMT: Denies: throat pain Card: Denies: chest pain Resp: Denies: dyspnea GI: Reports: abdominal pain, nausea, vomiting and constipation : Denies: flank pain Musc: Denies: neck pain Skin/Breast: Reports: rash and lesions Neuro: Denies: headache(s) Psych: Denies: anxiety Endo: Denies: polyuria Gómez/Lymph: Denies: easy bruising All/Imm: Denies: urticaria Medications/Allergies Home Medications Medication Instructions Recorded Confirmed Last Taken Type hydrocodone 7.5 mg-acetaminophen 1 tab PO Q4H PRN 08/03/20 10/07/20 10/06/20 19:00 History 325 mg tablet ondansetron HCl [Zofran] 4 mg PO Q6H PRN #20 tab 10/15/20 Unknown Rx oxycodone 10 mg PO Q8H PRN #30 tab 10/15/20 Unknown Rx Allergies Allergy/AdvReac Type Severity Reaction Status Date / Time No Known Allergies Allergy Verified 10/16/20 04:20 PFSH Acute PFSH: Medical History Accidental electrocution Hx of lymphadenopathy Lymphadenopathy of head and neck region Mass of left side of neck Melanoma Surgical History History of back surgery Hx of arthroscopy of left knee Family History (Updated 10/16/20 @ 06:57 by Malik Godinez MD) Other Family history non-contributory Social History Smoking and tobacco status: never smoked Alcohol intake: never Marital status: / Number of children: 1 Number of grandchildren: 3 Current occupational status: retired Vitals/I&O/Wt Last Vital Signs Temp 98.1 F 10/16/20 04:17 Pulse 70 10/16/20 05:25 Resp 16 10/16/20 05:25 BP 122/76 10/16/20 05:25 Pulse Ox 97 10/16/20 05:25 10/15/20 10/15/20 10/16/20 14:59 22:59 06:59 Intake Total 1000 / 1000 Balance 1000 / 1000 Weight last 48 hrs Weight 74.843 kg Physical Exam Narrative: EXAM NARRATIVE: Very pleasant and cooperative middle-aged male He has NG tube which is draining bilious content Hemodynamically stable Awake alert oriented x3 GCS 15 Clinically looks dehydrated S1, S2 no murmur appreciated Abdomen soft on palpation bowel sounds hyperactive, no active signs of peritonitis Lower extremity no edema gangrene ulcer Bilateral breath sounds without adventitious rhonchi or audible wheezing Appropriate mood and affect Very pleasant and cooperative Left supraclavicular mass Data : 10/16/20 04:36 10/16/20 04:36 A&P Assessment and plan (1) Metastatic melanoma: Status: Acute (2) Bowel obstruction: Status: Acute (3) Intussusception: Status: Acute (4) Mass of left side of neck: Status: Acute (5) Mass of left lung: Status: Acute (6) Lymphadenopathy of head and neck region: Status: Acute Additional A&P Information Small bowel obstruction Never had any abdominal surgery Lymphadenopathy evident on CT abdomen, not sure whether this is related to metastatic cancer, previous scan did show involvement of left upper quadrant of small bowel Currently hemodynamically stable no active signs of peritonitis, no active signs of sepsis, NG tube draining bilious content patient symptoms improved after placement of NG tube CT abdomen pelvis report reviewed N.p.o., Dr. Slaughter consulted and notified No need of antibiotics, continue IV fluid hydration Left supraclavicular mass Biopsy report is showing large cell carcinoma History of metastatic melanoma as well Patient is awaiting placement of Port-A-Cath by Dr. Hauser for initiation of immunotherapy He follows up with Dr. Cole Has history of excision of melanoma from lower back 3 to 4 years ago Takes hydrocodone for chronic back pain N.p.o. Full code DVT prophylaxis SCDs no anticoagulation in anticipation of any intervention Attestations Medical Necessity Statement*: Anticipating stay in the hospital cross more than 2 midnights for SBO Time Spent in Patient Care: (>than 50% of time spent in counselling and/or direct pt care on unit) . 30mins Coding Level of Care Code Acute Physician Relations Manager for Chg Fwd Diagnoses Metastatic melanoma C79.9 Bowel obstruction K56.609 Intussusception K56.1 Mass of left side of neck R22.1 Mass of left lung R91.8 Lymphadenopathy of head and neck region R59.0
--- NOTE | 2020-10-16 06:40 | PC.NURSE ---
Per Dr Barahona, xray confirmation not required due to verification by suction
--- NOTE | 2020-10-16 07:16 | PC.NURSE ---
Spoke with 2nd floor Cherri regarding if pt was waiting on something for transport. Per Cherri, graphics manager was waiting for change of shift report to be done. Pt may be transported.
--- NOTE | 2020-10-16 08:33 | P.CONIM_ITS ---
Providers/Reason For Consult Consulting Physican/Specialty*: Kerwin Slaughter MD Reason for Consult*: Small bowel obstruction with intussusception Attending Physician: January Cotto MD Primary Care Provider: Onofre Churchill MD History of Present Illness History of Present Illness Chief Complaint: Abdominal pain History of present illness: Mr. Adarsh Parson is a pleasant 60 year old male presents to the emergency department with worsening upper abdominal pain and multiple episodes of nausea and vomiting. Patient's pain is more dull aching last bowel movement he had was last Monday and he continues to pass intermittently gas. Patient gives remote history of back lipoma with sentinel lymph node that was done o about 4 years ago. Apparently the patient had a CT scan back in September 2020 and showed: Previously described induration in the mesentery with prominent lymph nodes non specific but can be seen with mesenteric adenitis or lymphoma. This is similar to the prior CT. In addition there is small bowel intussusception in the left upper quadrant with a targetoid appearance suspicious for intraluminal small bowel mass such as lymphoma. This is best seen on series 2 image 31. No evidence of high-grade small or large bowel obstruction. Consider PET CT for further evaluation. Further work-up was done at the emergency department and showed on the CT scan; 1. Interval worsening of the jejunojejunal intussusception resulting in development of a small bowel obstruction. Concern for developing or worsening ischemic change in some of the small bowel due to the intussusception. Still no free air. 2. Continued slight haziness and several enlarged nodes in the proximal mesentery and an enlarged periportal node. 3. Cholelithiasis again evident. 4. No change in the possible cyst in the right lobe of the liver. Two much smaller low-density foci also evident in the liver, too small to characterize. 5. Continued prostatic enlargement. Calcified granulomas and other possible granulomas still present in the lung bases. Other findings detailed above. Based on the fact that most likely the patient's bowel obstruction picture secondary to the jejunal jejunal intussusception. NG tube was placed in the emergency department and general surgery was consulted for further evaluation potential management. Patient already feels better after NG being placed. Review of Systems General: Reports: 10 or more systems reviewed and unremarkable except in HPI and below Meds/Allergies Home Medications and Allergies Home Medications Medication Instructions Recorded Confirmed Last Taken Type hydrocodone 7.5 mg-acetaminophen 1 tab PO Q4H PRN 08/03/20 10/16/20 10/06/20 19:00 History 325 mg tablet ondansetron HCl [Zofran] 4 mg PO Q6H PRN #20 tab 10/15/20 10/16/20 Unknown Rx oxycodone 10 mg PO Q8H PRN #30 tab 10/15/20 10/16/20 Unknown Rx Allergies Allergy/AdvReac Type Severity Reaction Status Date / Time No Known Allergies Allergy Verified 10/16/20 10:02 PFSH Acute PFSH: Medical History Accidental electrocution Hx of lymphadenopathy Lymphadenopathy of head and neck region Mass of left side of neck Melanoma Surgical History History of back surgery Hx of arthroscopy of left knee Family History Other Family history non-contributory Social History Smoking and tobacco status: never smoked Alcohol intake: never Marital status: / Number of children: 1 Number of grandchildren: 3 Current occupational status: retired Vitals/I&O/Wt Last Vital Signs Temp 98.0 F 10/16/20 07:57 Pulse 91 10/16/20 07:57 Resp 18 10/16/20 07:57 BP 125/78 10/16/20 07:57 Pulse Ox 95 10/16/20 07:57 10/15/20 10/16/20 10/16/20 22:59 06:59 14:59 Intake Total 1000 / 1000 0 / 0 Balance 1000 / 1000 0 / 0 Weight last 48 hrs Weight 165 lb Physical Exam Narrative: EXAM NARRATIVE: Patient is conscious alert oriented X3 BMI 27 Head and neck examination PERRLA no masses no cervical lymphadenopathy no jaundice NG in place with gastric content in the canister Cardiac examination audible S1-S2 no murmurs no gallops no arrhythmias Chest is clear bilateral,abscence of Rhonchi or wheezes,no surgical emphysema Abdomen nontender nondistended soft no organomegaly guarding or rigidity/no signs of peritonitis Extremities no cyanosis no clubbing no edema A&P Assessment and plan (1) Bowel obstruction: After thorough history physical examination and reviewing the chart and images of the CT scan of the abdomen and pelvis with my personal interpretation. I did prevocational/rehabilitation counselor the patient for diagnostic laparoscopy with possible laparotomy with possible bowel resection. Indications, risks, benefits and alternatives all discussed with the patient and he did agree to proceed accordingly. Informed consent per chart Thank you for consulting general surgery to participate taking care Mr. Parson Status: Acute Consult Attestations Medical Necessity Statement: Inpatient hospitalization for perioperative surgical care. Time Spent in Patient Care: (>than 50% of time spent in counselling and/or direct pt care on unit) . Coding Level of Care Code Acute Wolf Hunter for Yael Jimenez Diagnoses Bowel obstruction K56.609
[2020-10-16] MEDS: dextrose 5%-sod chloride 0.45% 1,000 ML 75 ML IV (08:39)
--- NOTE | 2020-10-16 11:14 | P.PN_ITS ---
Subjective Subjective: Interval history: Overnight labs and H&P reviewed. Continue to complain of abdominal pain and multiple episodes of nausea and vomiting, plan for or this afternoon. Medications: Reviewed: Yes Vitals/I&O/Wt Last Vital Signs Temp 98.0 F 10/16/20 07:57 Pulse 91 10/16/20 07:57 Resp 18 10/16/20 07:57 BP 125/78 10/16/20 07:57 Pulse Ox 95 10/16/20 07:57 10/15/20 10/16/20 10/16/20 22:59 06:59 14:59 Intake Total 1000 / 1000 0 / 0 Balance 1000 / 1000 0 / 0 Weight last 48 hrs Weight 74.843 kg Physical Exam Narrative: EXAM NARRATIVE: GEN: Awake, alert and oriented, no acute distress CVS: S1S2 N RS: CTA B/L all areas Abd: Soft, distended FINISHED CARPET INSPECTOR: no focal neuro deficits Data : 10/16/20 04:36 10/16/20 04:36 A&P Assessment and plan (1) Metastatic melanoma: Status: Acute (2) Bowel obstruction: Status: Acute (3) Intussusception: Status: Acute (4) Mass of left side of neck: Status: Acute (5) Mass of left lung: Status: Acute (6) Lymphadenopathy of head and neck region: Status: Acute Additional A&P Information Small bowel obstruction 2/2 jejunojejunal intussusception Planned for OR this afternoon Appreciate surgery consult Currently on abx coverage with Unasyn Left supraclavicular mass Biopsy report is showing large cell carcinoma History of metastatic melanoma as well Has history of excision of melanoma from lower back 3 to 4 years ago Takes hydrocodone for chronic back pain N.p.o. Full code DVT prophylaxis SCDs for now Attestations Medical Necessity Statement*: Planned for OR this afternoon Coding Level of Care Code Acute Financial Analysis Advisor for g Fwd Diagnoses Metastatic melanoma C79.9 Bowel obstruction K56.609 Intussusception K56.1 Mass of left side of neck R22.1 Mass of left lung R91.8 Lymphadenopathy of head and neck region R59.0
[2020-10-16] MEDS: acetaminophen 1,000 MG/100 ML PIGGYBACK 400 MG IV (12:23)
--- NOTE | 2020-10-16 12:29 | P.ANESASSM_ITS ---
Pre-Anesthetic Assessment Pre-Anesthetic Assessment: Height/Weight: Height 1.68 m Weight 74.843 kg Temp Pulse Resp BP Pulse Ox 98.2 F 96 18 135/85 96 10/16/20 12:18 10/16/20 12:18 10/16/20 12:18 10/16/20 12:18 10/16/20 12:18 Preop Diagnosis: Small bowel obstruction with intussusception Proposed Procedure: Operation Date: 10/16/20 12:00 Proposed Procedures p exploratory laparoscopy, possible laparotomy, possible bowel resection(Not Applicable) - Kerwin Slaughter MD Familial anesthetic complications: none Was Beta Champ taken within 24 hours: N/A Was Clonidine taken within 24 hours: N/A Last intake: 1800 10/15/20 crackers 0300 clear liquids. Social: Social History: No alcohol and No tobacco Exam: Pre-Anes Outpt Exam: alert and oriented x 3 Airway: Submandibular: WNL Cervical ROM: WNL MP: 2 Dentition: Full History/ROS: No significant history except as noted Pulmonary: Pulmonary: None reported CV/HEM: CV/HEM: None reported : : None reported Hepatic: Hepatic: None reported GI: GI: None reported Metabolic: Metabolic: None reported Musc/skel: Musc/skel: Lower Back Pain and Weakness Neuropsych: Neuropsych: None reported Comments: lymphoma recurrent. cancer see previous CT scans. Anesthetic Plan: ASA status: 4E Anesthesia: Anesthesia Evaluation and General Risk of > 500 ml blood loss (7ml/kg in children): No Meds/Allergies Current Medications: Current Medications Generic Name Dose Route Start Last Admin Trade Name Freq PRN Reason Stop Dose Admin Dextrose/Sodium Ch loride 1,000 mls @ 75 ml s/hr 10/16/20 07:33 10/16/20 08:39 Dextrose 5%-Sod Chloride 0.45% IV 75 mls/hr .[id number] BIBIANA Administration PFSH Anesthesia PFSH: Medical History Accidental electrocution Hx of lymphadenopathy Lymphadenopathy of head and neck region Mass of left side of neck Melanoma Surgical History History of back surgery Hx of arthroscopy of left knee Family History Other Family history non-contributory Social History Smoking and tobacco status: never smoked Alcohol intake: never Marital status: / Number of children: 1 Number of grandchildren: 3 Current occupational status: retired Data Anesthesia CBC & Chem 7: 10/16/20 04:36 10/16/20 04:36 Other Labs: Laboratory Results - last 48 hr 10/16/20 10/16/20 10/16/20 04:30 04:36 04:36 WBC 7.8 RBC 4.67 Hgb 9.2 L Hct 32.8 L MCV 70.2 L MCH 19.7 L MCHC 28.0 L RDW 17.6 H Plt Count 842 H MPV 9.0 Neut % (Auto) 81.8 Lymph % (Auto) 9.7 [place] % (Auto) 7.3 Eos % (Auto) 0.5 Baso % (Auto) 0.3 Neut # (Auto) 6.40 Lymph # (Auto) 0.8 [place] # (Auto) 0.6 Eos # (Auto) 0.0 Baso # (Auto) 0.0 Nucleated RBC % (auto) 0 Nucleated RBCs # 0.0 Sodium 135 L Potassium 3.7 Chloride 92 L Carbon Dioxide 31 H Anion Gap 15.7 BUN 12 Creatinine 0.7 GFR Calculation 115.4 Glucose 128 H Calculated Osmolality 281 L Lactate 1.1 Calcium 8.8 Total Bilirubin 0.2 AST 10 ALT 7 Alkaline Phosphatase 92 Total Protein 7.4 Albumin 4.0 Globulin 3.4 Lipase 9 L Cardiac Studies: No Data to Display
[2020-10-16] MEDS: ampicillin-sulbactam 3 GM in sodium chloride 0.9% (plus) 50 ML IV ×2 (12:34→18:36)
--- NOTE | 2020-10-16 13:05 | PC.CHAP ---
Pastoral Care Encounter/Spiritual Assessment Type of Contact [] Declined bracer visit [] Patient/Family/Request visit [] Outpatient visit [] Follow-up visit [] Physician referral [] Code/Alert [xx] Routine visit [] Staff referral [] Actively dying [] Patient sleeping [] Family support [] [] Out of room [] Palliative care [] [] Receiving care in room [] Pre-surgical visit [] Trauma [] Long length of stay [] ICU visit [] Other: Relational/Emotional Strength [xx] Patient feels connected with others/family/visitors/staff [] Distress [] Loneliness/isolation [] Abandonment Spirituality of Patient [] Person of Yuki [] Attends Advent of their Yuki [xx] Believes in Prayer [] Reads Bible or Alevism materials [] There are Spiritual issues to be addressed Checkout Operator Interventions [xx] Prayer [xx] Active listening [xx] Non-anxious presence [] Spiritual/emotional support [] Crisis/trauma care [] Spiritual counseling [] Bereavement support [] Provided bereavement packet [] Provided Bible/devotional materials [] Provided toy/stuffed animal, coloring book to patient or family member [] Provided Communion [] Anointing/[place] [] Salvation [xx] Completed spiritual assessment [] Other: Impact on Illness or Injury [] Angry [] Fearful [] Anxious [] Often cries [] Exhaustion [] Unable to work [] Unable to attend rastafarian [] Unable to walk/stand [] Unable to read [] Unable to drive [] Unable to eat/drink [] Unable to sleep [] Unable to be with family [] Patient intubated [] Other: Summary Patient's nephew was present for visit. Neither patient nor nephew were talkative but patient did want prayer. Time spent with patient 5 minutes
[2020-10-16] MEDS: lidocaine 2% INJ 20 mL INJECTION (14:20)
--- NOTE | 2020-10-16 14:38 | P.OP_ITS ---
Operative Report Date of procedure: October 16, 2020 Pre-op Diagnosis: Small bowel obstruction with intussusception Post-op Findings: Small bowel obstruction with proximal dilated jejunal loops and distal collapsed bowel loops. Intussusception located 60 cm from the ligament of Treitz The rest of the bowel and viscera show normal looking Procedure Done: 1-Diagnostic laparoscopy 2-small bowel resection with [id number]-lh-nyzf anastomosis Implants: 2 pieces of Surgicel Specimens removed/disposition: Mesenteric nodule small bowel mass/intussusception Staple line Surgeon: Kerwin Slaughter [place] [employer] Bailiff: Surgical techjames Rojas, medical student Anne Powers Circulating nurse Rebecca Haynes Anesthesia: General (network security architect Ning/Neno) Estimated blood loss (mL): 15 IV fluids (mL): 1,700 IV fluids: 5% to 50 mL of albumin Urine output (mL): 350 Condition: stable Disposition: floor Brief History: Small bowel obstruction secondary to small bowel intussusception. History of melanoma of the back. Full H&P and informed consent per chart Procedure: After identifying the patient in the holding area, was taken to the operating room, placed in supine position, intubated by anesthesia, prophylactic IV antibiotics were given per protocol. NG tube was already in. Powers catheter was inserted by the circulating nurse revealing clear urine,time- out was done verifying the patient's name/date of /planned procedure and destination after the procedure, all were in agreement. Patient was appropriately secured to the table, all pressure points were padded and shoulder supports and leg board were applied to secure the patient. Prep and drape of the abdomen was done under the usual sterile technique, a Vann trocar technique was used through a supraumbilical skin incision, tww stay sutures were applied to the fascia, and safe entrance to the abdominal cavity was achieved, low flow followed by high flow of CO2 gas, started by 0 scope 10 mm, no injuries were detected, followed by that a 30? millimeter scope was inserted. A 5 mm trocar was inserted under direct vision in the right upper quadrant, followed by a right lower quadrant, and another two 5 mm trocars were inserted as a mirror image from the first 2 but on the left side, to enable running the small bowel, from each side of the operating table. Position of the patient was done in T [place] and reversed T [place] so I was able to inspect the whole abdominal cavity safely. First the patient was placed in a reversed T [place], the omentum was lifted up, given to try to was identified, I was standing at the right side table, the bowel was then ran from the ligament of Treitz all the way to the proximal ileum, then I switched it and went to the other side of the table, the remaining of the bowel were again to the ileocecal junction. Normal appendix was identified. About 60 cm from the ligament of Treitz and intussusception mass was identified with proximal dilated bowels and distal collapsed segments. I also noticed a small mesenteric nodule that was excised and sent separately for permanent pathology. I was able to check on the entire colon didn't show any pathological changes, rest of the viscera looked normal. No ascites. At this point I extended midline the skin incision as I extended cephalad and caudad to the Vann trocar insertion site and I carried the dissection all the way to the subcutaneous and the fascia was opened.A wound protector device was inserted and the remaining of the trochars were removed the intussusception mass was delivered through the wound. At This point windows were created at the mesentery of the small bowel segment needed to be excised. LigaSure device was used to control the mesentery as a high ligation and a WANDA 55 mm blue load was used to divide proximal and distal with appropriate safety margin to the mass. Specimen was passed to the circulating nurse for permanent pathology. The healthy segments of the small bowel were brought [id number], 3-0 silk stay sutures were applied at 2 points, proximal and distal, and enterotomies were created to allow the 2 limbs of WANDA 55 blue load stapler to create a [id number] functional anastomosis, enterotomy sites were closed using an additional 55 mm blue load across the enterotomy sites and the staple line was passed to the circulating nurse for pathology. Interrupted sutures of the seromuscular layer, followed by closure of the mesenteric rent. Additional 3-0 silk were applied at the junction between the two anastomoses and at the staple line for minimal oozing Anastomosis is patent and patent. The bowel segment now dropped back to the abdominal cavity and gas was allowed to inflate again after appropriate sealing and after insertion of the other trochars under direct vision. Final look laparoscopy showed no injuries or bleeding I decided just to put 2 pieces of Surgicel and one at the mesentery of the transverse colon and another one on to the staple line to secure hemostasis. Continued to have viable bowel, gas was allowed to escape all trocars were taken out, Vann trocar entrance site was closed by running PDS looped suture under direct visualization, followed by deep subdermal 3-0 Vicryl after thorough irrigation of the wound then skin lisa followed by dry dressing. The nasogastric tube and Powers catheter were kept in place. Patient tolerated the procedure well and got extubated, was taken to the recovery area in stable condition Count of instruments, needles and sponges were completed at the end of the procedure I was present for the whole entire procedure The small bowel intussusception segment was opened at the back of the table revealing a large polypoidal mass causing obstruction and a nidus for intussusception.
--- NOTE | 2020-10-16 14:46 | P.PCN_ITS ---
PACU note PACU note: VSS, Good respiratory effort, report to ACCOUNTING SPECIALIST Post-Anesthesia Exam: awake
--- NOTE | 2020-10-16 14:46 | PM.PACU ---
PACU note PACU note: VSS, Good respiratory effort, report to HAND SEWER Post-Anesthesia Exam: awake
--- NOTE | 2020-10-16 15:48 | ANE.PACU2 ---
Inpatient post-anesthesia follow up: Airway intact: Yes Vital signs: Temperature 97.9 F Pulse Rate [Monito r] 96 Pulse Rate 87 Respiratory Rate 18 Blood Pressure [Ri ght Arm] 130/77 Blood Pressure 126/85 Pulse Oximetry 94 Oxygen Delivery Me thod Room Air Oxygen Flow Rate 8 Fraction of Inspir ed Oxygen Hydration adequate: Yes Nausea and vomiting: No Pain level: 2 Mental status: Baseline
[2020-10-17] VITALS (14 sets, daily range): BP systolic 112–143; BP diastolic 72–88; PULSE 84–101; RESP 16–20; TEMP 36.6–37.1; O2SAT 95–96
[2020-10-17] MEDS: ampicillin-sulbactam 3 GM in sodium chloride 0.9% (plus) 50 ML IV ×4 (00:50→19:30)
[2020-10-17] MEDS: dextrose 5%-sod chloride 0.45% 1,000 ML 75 ML IV ×2 (02:20→15:40)
[2020-10-17 06:08] LABS: Basophils % 0.2 %; Eosinophils % 0.2 %; Hematocrit 26.8 % (42.0-52.0); Hemoglobin 7.6 g/dL (11.7-16.6); Lymphocytes # 0.9 10^3/uL (0.8-4.8); Mean Corpuscular HGB Conc 28.4 g/dL (30.0-36.0); Mean Corpuscular Hemoglobin 19.9 pg (28.0-34.0); Mean Corpuscular Volume 70.2 fL (80-94); Mean Platelet Volume 9.3 fL (7.4-10.4); Monocytes # 0.8 10^3/uL (0.2-0.9); Neutrophils # 6.81 10^3/uL (1.8-7.7); Neutrophils % 80.1 %; Nucleated Red Blood Cells % 0 %; Platelet Count 650 10^3/cmm (130-400); Red Blood Count 3.82 10^6/uL (4.1-5.3); Red Cell Distribution Width 17.4 % (12.1-15.1); White Blood Count 8.5 10^3/uL (4.0-10.0)
[2020-10-17 06:15] LABS: Anion Gap 11.3 (5-19); Blood Urea Nitrogen 8 mg/dL (6-20); Calcium 7.8 mg/dL (8.5-10.5); Carbon Dioxide 27 mmol/L (22-29); Chloride 100 mmol/L (98-107); Glomerular Filtration Rate 137.9 mL/min (90-130); Glucose 120 mg/dL (65-115); Osmolality Calculated 280 mOsm/kg (285-295); Potassium 3.3 mmol/L (3.5-5.1); Sodium 135 mmol/L (136-145)
--- NOTE | 2020-10-17 06:29 | PM.PN ---
Subjective Subjective: Interval history: Patient overall feels better yet his uncomfortable with NG tube. Pain is under control. Adequate urine output. Noticed slight drift in H&H. Medications: Reviewed: Yes Vitals/I&O/Wt Last Vital Signs Temp 98.6 F 10/17/20 04:00 Pulse 84 10/17/20 04:00 Resp 17 10/17/20 04:00 BP 123/81 10/17/20 04:00 Pulse Ox 95 10/17/20 04:00 10/16/20 10/16/20 10/17/20 14:59 22:59 06:59 Intake Total 850 / 850 1050 / 1900 50 / 1950 Output Total 715 / 715 550 / 1265 300 / 1565 Balance 135 / 135 500 / 635 -250 / 385 Weight last 48 hrs Weight 165 lb Physical Exam Narrative: EXAM NARRATIVE: Patient is conscious alert oriented X3 BMI 27 Head and neck examination PERRLA no masses no cervical lymphadenopathy no jaundice NG in place with gastric output Cardiac examination audible S1-S2 no murmurs no gallops no arrhythmias Chest is clear bilateral,abscence of Rhonchi or wheezes,no surgical emphysema Abdomen nontender nondistended soft no organomegaly guarding or rigidity/no signs of peritonitis Dressing in place dry Powers catheter in place with clear urine Extremities no cyanosis no clubbing no edema Urinary Catheter Management^: f: Cath Placed During This Visit: yes Reason for Continuing Indwelling Catheter: Perioperative Use in Selected Surgeries Urinary Catheter Date of Insertion: 10/16/20 Urinary Catheter Time of Insertion: 13:00 Data : 10/18/20 05:10 10/18/20 05:10 A&P Assessment and plan (1) Bowel obstruction: Status post diagnostic laparoscopy with small bowel resection for small bowel intussusception. 10/17/2019 Continue NG to low intermittent wall suction DC Powers catheter Strict I's and O's Chloraseptic [place] to help with minimize irritation of the NG of the back of the throat Encourage ambulation Incentive spirometer every hour Close monitoring of H&H Once patient starts passing gas will clamp NG and check residuals Pain control Thank you for consulting general surgery to participate taking care Mr. Parson Status: Acute Attestations Medical Necessity Statement*: Patient requiring inpatient hospitalization passing 2 midnights, awaiting bowel functions. Time Spent in Patient Care: (>than 50% of time spent in counselling and/or direct pt care on unit). Coding Level of Care Code Acute Cyber Incident Responder for Chg Fwd Diagnoses Bowel obstruction K56.609
[2020-10-17] MEDS: phenol oral Spray 177 mL 3 SPRAY MUCOUS MEM (07:54)
[2020-10-17] MEDS: morphine 4 mg/mL SDV 1 mL 2 MG IVP ×6 (11:19→23:09)
[2020-10-17] MEDS: metoclopramide 5 mg/mL SDV 2 mL IVP (15:39)
--- NOTE | 2020-10-17 16:23 | P.PN_ITS ---
Subjective Subjective: Interval history: Continues NGT to suction, has not passed flatus or feces yet, complaining of reflux and nausea. Medications: Reviewed: Yes Vitals/I&O/Wt Last Vital Signs Temp 98.7 F 10/17/20 15:56 Pulse 94 10/17/20 15:56 Resp 16 10/17/20 15:56 BP 143/83 10/17/20 15:56 Pulse Ox 96 10/17/20 15:56 10/17/20 10/17/20 10/17/20 06:59 14:59 22:59 Intake Total 100 / 2000 50 / 50 1000 / 1050 Output Total 600 / 1865 Balance -500 / 135 50 / 50 1000 / 1050 Weight last 48 hrs Weight 74.843 kg Physical Exam Narrative: EXAM NARRATIVE: GEN: Awake, alert and oriented, no acute distress HEENT NGT in place to suction currently CVS: S1S2 N RS: CTA B/L all areas Abd: Soft, distended CARE SERVICES MANAGER: no focal neuro deficits Urinary Catheter Management^: f: Cath Placed During This Visit: yes, but has since been removed by the nurse Reason for Continuing Indwelling Catheter: Decision to DC Catheter Urinary Catheter Date of Insertion: 10/16/20 Urinary Catheter Time of Insertion: 13:00 Date Urinary Catheter Removed: 10/17/20 Time Urinary Catheter Discontinued: 06:53 Data : 10/17/20 05:20 10/17/20 05:20 A&P Assessment and plan (1) Metastatic melanoma: Status: Acute (2) Bowel obstruction: Status: Acute (3) Intussusception: Status: Acute (4) Mass of left side of neck: Status: Acute (5) Mass of left lung: Status: Acute (6) Lymphadenopathy of head and neck region: Status: Acute Additional A&P Information Small bowel obstruction 2/2 jejunojejunal intussusception Status post diagnostic laparoscopy and small bowel resection on October 16, 2020. 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 Full code DVT prophylaxis SCDs for now Attestations Medical Necessity Statement*: s/p small bowel resetcion, awaituing return of bowel function Coding Level of Care Code Acute Tunnel Kiln Repairer for Chg Fwd Diagnoses Metastatic melanoma C79.9 Bowel obstruction K56.609 Intussusception K56.1 Mass of left side of neck R22.1 Mass of left lung R91.8 Lymphadenopathy of head and neck region R59.0
[2020-10-17] MEDS: lidocaine 1% 5 ML in potassium chloride premix 100 ML 25 ML IV (16:56)
--- NOTE | 2020-10-17 19:48 | PC.NURSE ---
walked pt walked 2 x both nurse stations.
[2020-10-18] VITALS (13 sets, daily range): BP systolic 108–136; BP diastolic 72–80; PULSE 91–115; RESP 16–20; TEMP 36.9–37.6; O2SAT 94–98
[2020-10-18] MEDS: ampicillin-sulbactam 3 GM in sodium chloride 0.9% (plus) 50 ML IV ×2 (00:46→06:51)
[2020-10-18 05:57] LABS: Basophils # 0.1 10^3/uL (0.0-0.1); Basophils % 0.7 %; Eosinophils # 0.2 10^3/uL (0.0-0.8); Eosinophils % 2.3 %; Hematocrit 26.9 % (42.0-52.0); Hemoglobin 7.5 g/dL (11.7-16.6); Lymphocytes # 0.9 10^3/uL (0.8-4.8); Lymphocytes % 12.1 %; Mean Corpuscular HGB Conc 27.9 g/dL (30.0-36.0); Mean Corpuscular Hemoglobin 19.7 pg (28.0-34.0); Mean Corpuscular Volume 70.6 fL (80-94); Mean Platelet Volume 9.3 fL (7.4-10.4); Monocytes # 0.7 10^3/uL (0.2-0.9); Monocytes % 8.6 %; Neutrophils # 5.73 10^3/uL (1.8-7.7); Neutrophils % 75.9 %; Nucleated Red Blood Cells % 0 %; Platelet Count 626 10^3/cmm (130-400); Red Blood Count 3.81 10^6/uL (4.1-5.3); Red Cell Distribution Width 17.3 % (12.1-15.1); White Blood Count 7.5 10^3/uL (4.0-10.0)
[2020-10-18] MEDS: dextrose 5%-sod chloride 0.45% 1,000 ML 75 ML IV ×2 (06:00→19:32)
[2020-10-18 06:21] LABS: Alanine Aminotransferase < 5 U/L (0-41); Albumin Level 3.3 g/dL (3.5-5.2); Alkaline Phosphatase 76 IU/L (40-130); Anion Gap 12.5 (5-19); Aspartate Amino Transferase 7 U/L (0-40); Blood Urea Nitrogen 7 mg/dL (6-20); Calcium 8.2 mg/dL (8.5-10.5); Carbon Dioxide 27 mmol/L (22-29); Chloride 104 mmol/L (98-107); Globulin 2.8 g/dL (1.3-4.6); Glomerular Filtration Rate 137.9 mL/min (90-130); Glucose 109 mg/dL (65-115); Osmolality Calculated 289 mOsm/kg (285-295); Potassium 3.5 mmol/L (3.5-5.1); Sodium 140 mmol/L (136-145); Total Bilirubin 0.2 mg/dL (0.15-1.2); Total Protein 6.1 g/dL (6.6-8.7)
--- NOTE | 2020-10-18 06:50 | P.PN_ITS ---
Subjective Subjective: Interval history: Patient seems to feel much better today, 200 mL per NG overnight shift. Starts to have more bowel activity but not passing gas or having a bowel movement yet. Stable H&H and continues to have appropriate vital signs and adequate urine output Medications: Reviewed: Yes Vitals/I&O/Wt Last Vital Signs Temp 98.7 F 10/18/20 04:00 Pulse 91 10/18/20 04:00 Resp 17 10/18/20 04:00 BP 108/72 10/18/20 04:00 Pulse Ox 95 10/18/20 04:00 10/17/20 10/17/20 10/18/20 14:59 22:59 06:59 Intake Total 50 / 50 1155 / 1205 1050 / 2255 Output Total 725 / 725 Balance 50 / 50 430 / 480 1050 / 1530 Physical Exam Narrative: EXAM NARRATIVE: Patient is conscious alert oriented X3 BMI 27 Head and neck examination PERRLA no masses no cervical lymphadenopathy no jaundice NG in place with gastric output Cardiac examination audible S1-S2 no murmurs no gallops no arrhythmias Chest is clear bilateral,abscence of Rhonchi or wheezes,no surgical emphysema Abdomen nontender nondistended soft no organomegaly guarding or rigidity/no signs of peritonitis/incisions are clean dry and intact Extremities no cyanosis no clubbing no edema Urinary Catheter Management^: f: Cath Placed During This Visit: yes, but has since been removed by the nurse Reason for Continuing Indwelling Catheter: Decision to DC Catheter Urinary Catheter Date of Insertion: 10/16/20 Urinary Catheter Time of Insertion: 13:00 Date Urinary Catheter Removed: 10/17/20 Time Urinary Catheter Discontinued: 06:53 Data : 10/18/20 05:10 10/18/20 05:10 A&P Assessment and plan (1) Bowel obstruction: Status post diagnostic laparoscopy with small bowel resection for small bowel intussusception. 10/17/2019 Continue NG to low intermittent wall suction Encourage ambulation Strict I's and O's Continue Chloraseptic [place] to help with minimize irritation of the NG of the back of the throat Incentive spirometer every hour Close monitoring of H&H Once patient starts passing gas will clamp NG for 2-hour and check residuals if less than 200 and and will DC NG tube. From surgical standpoint of view patient does not require more antibiotics Thank you for consulting general surgery to participate taking care Mr. Parson Status: Acute Attestations Medical Necessity Statement*: Patient requiring inpatient hospitalization passing 2 midnights, awaiting bowel functions. Time Spent in Patient Care: (>than 50% of time spent in counselling and/or direct pt care on unit) . Coding Level of Care Code Acute Waste Management Specialist for Yael Jimenez Diagnoses Bowel obstruction K56.609
[2020-10-18] MEDS: glycerin adult supp 1 EACH PR (06:51)
[2020-10-18] MEDS: morphine 4 mg/mL SDV 1 mL 2 MG IVP ×6 (08:03→22:55)
--- NOTE | 2020-10-18 16:01 | P.PN_ITS ---
Subjective Subjective: Interval history: no new complaints, still with NGT to suction, not passed feces or flatus yet , Hb at 7.5 Medications: Reviewed: Yes Vitals/I&O/Wt Last Vital Signs Temp 99.1 F 10/18/20 11:24 Pulse 100 10/18/20 11:24 Resp 18 10/18/20 13:55 BP 111/75 10/18/20 11:24 Pulse Ox 96 10/18/20 11:24 10/18/20 10/18/20 10/18/20 06:59 14:59 22:59 Intake Total 1050 / 2255 50 / 50 Output Total 875 / 875 Balance 1050 / 1530 -825 / -825 Physical Exam Narrative: EXAM NARRATIVE: GEN: Awake, alert and oriented, no acute distress HEENT NGT in place to suction currently CVS: S1S2 N RS: CTA B/L all areas Abd: Soft, distended ROVING OR YARN COLOR CHECKER: no focal neuro deficits Urinary Catheter Management^: f: Cath Placed During This Visit: yes, but has since been removed by the nurse Reason for Continuing Indwelling Catheter: Decision to DC Catheter Urinary Catheter Date of Insertion: 10/16/20 Urinary Catheter Time of Insertion: 13:00 Date Urinary Catheter Removed: 10/17/20 Time Urinary Catheter Discontinued: 06:53 Data : 10/18/20 05:10 10/18/20 05:10 A&P Assessment and plan (1) Metastatic melanoma: Status: Acute (2) Bowel obstruction: Status: Acute (3) Intussusception: Status: Acute (4) Mass of left side of neck: Status: Acute (5) Mass of left lung: Status: Acute (6) Lymphadenopathy of head and neck region: Status: Acute Additional A&P Information Small bowel obstruction 2/2 jejunojejunal intussusception Status post diagnostic laparoscopy and small bowel resection on October 16, 2020. 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 Full code DVT prophylaxis : heparin Attestations Medical Necessity Statement*: awaiting return of bowel function Coding Level of Care Code Acute Christian Science Reader for Chg Fwd Diagnoses Metastatic melanoma C79.9 Bowel obstruction K56.609 Intussusception K56.1 Mass of left side of neck R22.1 Mass of left lung R91.8 Lymphadenopathy of head and neck region R59.0
[2020-10-18] MEDS: pantoprazole 40 mg SDV IVP (16:25)
[2020-10-18] MEDS: heparin 5,000 unit/mL INJ 1 mL 5000 UNIT SUBCUT ×2 (16:34→23:26)
[2020-10-19] VITALS (11 sets, daily range): BP systolic 105–131; BP diastolic 71–82; PULSE 82–97; RESP 14–18; TEMP 36.7–37.2; O2SAT 96–97
[2020-10-19] MEDS: morphine 4 mg/mL SDV 1 mL 2 MG IVP ×6 (02:37→21:46)
--- NOTE | 2020-10-19 04:23 | PM.PN ---
Subjective Subjective: Interval history: Patient thinks that he had passed some gas. Minimal output per NG Medications: Reviewed: Yes Vitals/I&O/Wt Last Vital Signs Temp 99.7 F H 10/18/20 23:38 Pulse 115 H 10/18/20 23:38 Resp 16 10/19/20 04:19 BP 119/79 10/18/20 23:38 Pulse Ox 95 10/18/20 23:38 10/18/20 10/18/20 10/19/20 14:59 22:59 06:59 Intake Total 50 / 50 1000 / 1050 Output Total 875 / 875 575 / 1450 350 / 1800 Balance -825 / -825 425 / -400 -350 / -750 Physical Exam Narrative: EXAM NARRATIVE: Patient is conscious alert oriented X3 BMI 27 Head and neck examination PERRLA no masses no cervical lymphadenopathy no jaundice NG in place with gastric output minimal Abdomen nontender nondistended soft no organomegaly guarding or rigidity/no signs of peritonitis/incisions are clean dry and intact Extremities no cyanosis no clubbing no edema Urinary Catheter Management^: f: Cath Placed During This Visit: yes, but has since been removed by the nurse Reason for Continuing Indwelling Catheter: Decision to DC Catheter Urinary Catheter Date of Insertion: 10/16/20 Urinary Catheter Time of Insertion: 13:00 Date Urinary Catheter Removed: 10/17/20 Time Urinary Catheter Discontinued: 06:53 Data : 10/19/20 04:55 10/19/20 04:55 A&P Assessment and plan (1) Bowel obstruction: Status post diagnostic laparoscopy with small bowel resection for small bowel intussusception. 10/17/2019 We will clamp NG for 2 hours and will check residuals if less than 200 mL will DC NG tube and start patient slowly on clear liquid diet Encourage ambulation Strict I's and O's Continue Chloraseptic [place] to help with minimize irritation of the NG of the back of the throat Incentive spirometer every hour Close monitoring of H&H Assurance and education All questions have been answered and all concerns have been addressed to patient's satisfaction. Thank you for consulting general surgery to participate taking care Mr. Parson Status: Acute Attestations Medical Necessity Statement*: Continue inpatient hospitalization passing 2 midnightS, awaiting bowel functions Time Spent in Patient Care: (>than 50% of time spent in counselling and/or direct pt care on unit). Coding Level of Care Code Acute Cytogenetics Laboratory Manager for Chg Fwd Diagnoses Bowel obstruction K56.609
--- NOTE | 2020-10-19 05:25 | PC.NURSE ---
Shift Summary Patient has walked multiple laps early on in the night, still complains of abdominal pain frequently especially after coughing, received multiple doses of morphine tonight to help manage his pain. The Surgeon came by at 0400 and discussed clamping trials with patient, if he can go 2 hours with it clamped and have less than 200 out of his NG then he potentially can have the NG tube removed. Patient is extremely thrilled about this news, but is unable to have liquids until he can pass gas. Patient has rested maybe a few hours in the night, is on Ivf and has had okay urine output.
[2020-10-19 05:52] LABS: Alanine Aminotransferase 6 U/L (0-41); Albumin Level 3.5 g/dL (3.5-5.2); Alkaline Phosphatase 84 IU/L (40-130); Anion Gap 11.3 (5-19); Aspartate Amino Transferase 8 U/L (0-40); Blood Urea Nitrogen 9 mg/dL (6-20); Calcium 8.3 mg/dL (8.5-10.5); Carbon Dioxide 26 mmol/L (22-29); Chloride 99 mmol/L (98-107); Globulin 2.9 g/dL (1.3-4.6); Glomerular Filtration Rate 115.4 mL/min (90-130); Glucose 116 mg/dL (65-115); Osmolality Calculated 276 mOsm/kg (285-295); Potassium 3.3 mmol/L (3.5-5.1); Sodium 133 mmol/L (136-145); Total Bilirubin 0.3 mg/dL (0.15-1.2); Total Protein 6.4 g/dL (6.6-8.7)
[2020-10-19 06:22] LABS: Basophils # 0.1 10^3/uL (0.0-0.1); Basophils % 0.6 %; Eosinophils # 0.2 10^3/uL (0.0-0.8); Eosinophils % 2.4 %; Hematocrit 26.8 % (42.0-52.0); Hemoglobin 7.6 g/dL (11.7-16.6); Lymphocytes % 11.3 %; Mean Corpuscular HGB Conc 28.4 g/dL (30.0-36.0); Mean Corpuscular Hemoglobin 19.8 pg (28.0-34.0); Mean Platelet Volume 9.4 fL (7.4-10.4); Monocytes # 0.7 10^3/uL (0.2-0.9); Monocytes % 8.2 %; Neutrophils # 6.72 10^3/uL (1.8-7.7); Nucleated Red Blood Cells % 0 %; Platelet Count 628 10^3/cmm (130-400); Red Blood Count 3.83 10^6/uL (4.1-5.3); Red Cell Distribution Width 17.6 % (12.1-15.1); White Blood Count 8.7 10^3/uL (4.0-10.0)
--- NOTE | 2020-10-19 06:44 | PC.NURSE ---
Patient NG tube removed, after 2 hours of clamping trial he had no residuals from it and Dr Slaughter said we could remove the tube if after 2 hours of clamping he had residuals less than 200. Patient tolerated it well, he can not have clear liquids until after he passes gas though and removal of the tube caused a small nose bleed that patient is holding pressure on at this time.
[2020-10-19] MEDS: heparin 5,000 unit/mL INJ 1 mL 5000 UNIT SUBCUT ×3 (08:49→23:36)
[2020-10-19] MEDS: pantoprazole 40 mg SDV IVP (08:51)
[2020-10-19] MEDS: dextrose 5%-sod chloride 0.45% 1,000 ML 75 ML IV ×2 (08:51→21:39)
--- NOTE | 2020-10-19 10:45 | PC.NURSE ---
Dr. Slaughter updated on patient. new orders given for a suppository.
[2020-10-19] MEDS: glycerin adult supp 1 EACH PR (11:16)
--- NOTE | 2020-10-19 11:37 | PC.SOCIAL ---
*IMM UPDATE* Gave patient IMM update. Provided copy of pg 2. Verbalized understanding. Initialed, dated, timed and placed in chart.
--- NOTE | 2020-10-19 12:30 | PM.PN ---
Subjective Subjective: Interval history: Patient is passing gas.Deny any abdominal pain, nausea, vomiting. N.G tube has been removed. Started ON CLD. Medications: Reviewed: Yes Vitals/I&O/Wt Last Vital Signs Temp 98.9 F 10/19/20 12:00 Pulse 97 10/19/20 12:00 Resp 18 10/19/20 12:00 BP 116/77 10/19/20 12:00 Pulse Ox 96 10/19/20 12:00 10/18/20 10/19/20 10/19/20 22:59 06:59 14:59 Intake Total 1000 / 1050 998.75 / 998.75 Output Total 575 / 1450 550 / 2000 225 / 225 Balance 425 / -400 -550 / -950 773.75 / 773.75 Physical Exam Const: COMMON NORMALS: patient oriented x3 HENMT: COMMON NORMALS: normocephalic and atraumatic HEAD & SCALP: normocephalic and atraumatic Resp: COMMON NORMALS: clear to auscultation bilaterally AUSCULTATION: clear to auscultation bilaterally Cardio: COMMON NORMALS: regular rate, regular rhythm, S1 normal heart sound present, S2 normal heart sound present, No gallops present (Cardio), No murmurs present (Cardio), No rub (Cardio) and Peripheral pulses 2+ throughout RATE: regular rate RHYTHM: regular rhythm HEART SOUNDS: S1 normal heart sound present and S2 normal heart sound present PERIPHERAL PULSES: Peripheral pulses 2+ throughout GI: COMMON NORMALS: Normal to inspection, nondistended, normoactive bowel sounds present, Soft to palpation, non-tender, No hepatosplenomegaly present and no masses AUSCULTATION: Yes normoactive bowel sounds PALPATION: Yes Soft to palpation and Yes No hepatosplenomegaly present RECTAL EXAM: Yes deferred OTHER: incisions are clean dry and intact Extremity: COMMON NORMALS: no clubbing, cyanosis or edema and no pedal edema Neuro: COMMON NORMALS: patient oriented x3 Urinary Catheter Management^: f: Cath Placed During This Visit: yes, but has since been removed by the nurse Reason for Continuing Indwelling Catheter: Decision to DC Catheter Urinary Catheter Date of Insertion: 10/16/20 Urinary Catheter Time of Insertion: 13:00 Date Urinary Catheter Removed: 10/17/20 Time Urinary Catheter Discontinued: 06:53 Data : 10/19/20 04:55 10/19/20 04:55 A&P Assessment and plan (1) Metastatic melanoma: Status: Acute (2) Bowel obstruction: Status: Acute (3) Intussusception: Status: Acute (4) Mass of left side of neck: Status: Acute (5) Mass of left lung: Status: Acute (6) Lymphadenopathy of head and neck region: Status: Acute (7) Anemia: Microcytic anemia Anemia dental service chief CBC Transfuse to maintain hemoglobin greater than 7 Status: Acute (8) Thrombocytosis: Reactive thrombocytosis. Monitor platelet count Status: Acute (9) Hyponatremia: Status: Acute (10) Hypokalemia: Status: Acute Additional A&P Information Small bowel obstruction 2/2 jejunojejunal intussusception Status post diagnostic laparoscopy and small bowel resection on October 16, 2020. 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 Full code DVT prophylaxis : heparin Attestations Medical Necessity Statement*: Patient is to the hospital for management of small bowel obstruction.Status post diagnostic laparoscopy and small bowel resection. Coding Level of Care Code Acute Radial Drill Press Set Up Operator for Chg Fwd Diagnoses Metastatic melanoma C79.9 Bowel obstruction K56.609 Intussusception K56.1 Mass of left side of neck R22.1 Mass of left lung R91.8 Lymphadenopathy of head and neck region R59.0 Anemia D64.9 Thrombocytosis D47.3 Hyponatremia E87.1 Hypokalemia E87.6
[2020-10-20] VITALS (13 sets, daily range): BP systolic 108–142; BP diastolic 69–88; PULSE 77–100; RESP 13–18; TEMP 36.7–37.4; O2SAT 94–98
[2020-10-20 02:25] LABS: Basophils % 0.7 %; Eosinophils # 0.4 10^3/uL (0.0-0.8); Eosinophils % 8.1 %; Hematocrit 24.9 % (42.0-52.0); Hemoglobin 7.1 g/dL (11.7-16.6); Lymphocytes # 1.1 10^3/uL (0.8-4.8); Lymphocytes % 19.4 %; Mean Corpuscular HGB Conc 28.5 g/dL (30.0-36.0); Mean Corpuscular Hemoglobin 19.7 pg (28.0-34.0); Mean Platelet Volume 9.4 fL (7.4-10.4); Monocytes # 0.5 10^3/uL (0.2-0.9); Monocytes % 8.5 %; Neutrophils # 3.42 10^3/uL (1.8-7.7); Neutrophils % 63.1 %; Nucleated Red Blood Cells % 0 %; Platelet Count 587 10^3/cmm (130-400); Red Blood Count 3.61 10^6/uL (4.1-5.3); Red Cell Distribution Width 17.4 % (12.1-15.1); White Blood Count 5.4 10^3/uL (4.0-10.0)
[2020-10-20 02:44] LABS: Anion Gap 10.3 (5-19); Blood Urea Nitrogen 6 mg/dL (6-20); Calcium 8.1 mg/dL (8.5-10.5); Carbon Dioxide 27 mmol/L (22-29); Chloride 103 mmol/L (98-107); Glomerular Filtration Rate 137.9 mL/min (90-130); Glucose 106 mg/dL (65-115); Osmolality Calculated 282 mOsm/kg (285-295); Potassium 3.3 mmol/L (3.5-5.1); Sodium 137 mmol/L (136-145)
[2020-10-20 02:55] LABS: Ferritin 47 ng/mL (30-400); Iron 8 ug/dL (59-158); Percent Saturation 4.1 % (20-50); Total Iron Binding Capacity 192 mcg/dl; Transferrin 169 mg/dL (200-360); Unsaturated Iron Binding 184 ug/dL (112-347)
[2020-10-20 03:10] LABS: Vitamin B12 441 pg/mL (232-1245)
[2020-10-20 03:13] LABS: Folate Level 7.1 ng/mL (4.5-32.2)
--- NOTE | 2020-10-20 06:41 | PM.PN ---
Subjective Subjective: Interval history: Patient passing gas and had bowel movement. Tolerating p.o. intake and having adequate urine output. Medications: Reviewed: Yes Vitals/I&O/Wt Last Vital Signs Temp 98.2 F 10/20/20 04:00 Pulse 96 10/20/20 04:00 Resp 17 10/20/20 04:00 BP 108/74 10/20/20 04:00 Pulse Ox 96 10/20/20 04:00 10/19/20 10/19/20 10/20/20 14:59 22:59 06:59 Intake Total 998.75 / 998.75 1200 / 2198.75 240 / 2438.75 Output Total 225 / 225 600 / 825 Balance 773.75 / 773.75 1200 / 1973.75 -360 / 1613.75 Physical Exam Narrative: EXAM NARRATIVE: Patient is conscious alert oriented X3 BMI 27 Head and neck examination PERRLA no masses no cervical lymphadenopathy no jaundice Abdomen nontender nondistended soft no organomegaly guarding or rigidity/no signs of peritonitis/incisions are clean dry and intact, skin lisa in place. Extremities no cyanosis no clubbing no edema Urinary Catheter Management^: f: Cath Placed During This Visit: yes, but has since been removed by the nurse Reason for Continuing Indwelling Catheter: Decision to DC Catheter Urinary Catheter Date of Insertion: 10/16/20 Urinary Catheter Time of Insertion: 13:00 Date Urinary Catheter Removed: 10/17/20 Time Urinary Catheter Discontinued: 06:53 Data : 10/20/20 01:58 10/20/20 01:58 A&P Assessment and plan (1) Bowel obstruction: Status post diagnostic laparoscopy with small bowel resection for small bowel intussusception. 10/17/2019 We will advance to full liquid diet and add protein shakes 3 to 4 cans a day. As patient tolerates that can be discharged home from surgical standpoint of view once medically appropriate and follow-up with me in 1 week to discuss port placement. Encourage ambulation Strict I's and O's Incentive spirometer every hour Some drift in H&H yet patient does not demonstrate any tachycardia or hypotension to require blood transfusion. Will defer to hospitalist service for potential iron supplementation like ferrous gluconate. Avoid constipation We will continue coordinating with Dr. Hurtado and Dr. Cole Assurance and education All questions have been answered and all concerns have been addressed to patient's satisfaction. Thank you for consulting general surgery to participate taking care Mr. Parsno Status: Acute Attestations Medical Necessity Statement*: Patient required inpatient hospitalization passing 2 midnights for perioperative care and resumption of bowel functions. Time Spent in Patient Care: (>than 50% of time spent in counselling and/or direct pt care on unit). Coding Level of Care Code Acute Mud Mill Tender for Yael Jimenez Diagnoses Bowel obstruction K56.609
--- NOTE | 2020-10-20 06:43 | PC.NURSE ---
Morning Rounding with Dr. Alan, verbal orders for pt to advance to full liquid diet with protein shakes three times daily, discussed plan for the day and possible discharge, orders to decrease IV fluids to 30 mls per hour.
[2020-10-20] MEDS: pantoprazole 40 mg SDV IVP (07:25)
[2020-10-20] MEDS: heparin 5,000 unit/mL INJ 1 mL 5000 UNIT SUBCUT ×2 (07:26→17:06)
[2020-10-20] MEDS: iron sucrose 200 MG in sodium chloride 0.9% (100 ml) 100 ML 220 MG IV (09:18)
[2020-10-20] MEDS: lidocaine 1% 5 ML in potassium chloride premix 100 ML 50 ML IV (11:01)
--- NOTE | 2020-10-20 12:11 | P.PN_ITS ---
Subjective Subjective: Interval history: Patient was seen and examined this morning,no acute event overnight, currently he is passing gas and also had BM.Hb has dropped to 7.1 Medications: Reviewed: Yes Vitals/I&O/Wt Last Vital Signs Temp 98.9 F 10/20/20 11:33 Pulse 90 10/20/20 11:33 Resp 16 10/20/20 11:33 BP 117/74 10/20/20 11:33 Pulse Ox 97 10/20/20 11:33 10/19/20 10/20/20 10/20/20 22:59 06:59 14:59 Intake Total 1200 / 2198.75 240 / 2438.75 230 / 230 Output Total 600 / 825 600 / 600 Balance 1200 / 1973.75 -360 / 1613.75 -370 / -370 Physical Exam Const: COMMON NORMALS: patient oriented x3 HENMT: COMMON NORMALS: normocephalic and atraumatic HEAD & SCALP: normocephalic and atraumatic Resp: COMMON NORMALS: clear to auscultation bilaterally AUSCULTATION: clear to auscultation bilaterally Cardio: COMMON NORMALS: regular rate, regular rhythm, S1 normal heart sound present, S2 normal heart sound present, No gallops present (Cardio), No murmurs present (Cardio), No rub (Cardio) and Peripheral pulses 2+ throughout RATE: regular rate RHYTHM: regular rhythm HEART SOUNDS: S1 normal heart sound present and S2 normal heart sound present PERIPHERAL PULSES: Peripheral pulses 2+ throughout GI: COMMON NORMALS: Normal to inspection, nondistended, normoactive bowel sounds present, Soft to palpation, non-tender, No hepatosplenomegaly present and no masses AUSCULTATION: Yes normoactive bowel sounds PALPATION: Yes Soft to palpation and Yes No hepatosplenomegaly present RECTAL EXAM: Yes deferred OTHER: incisions are clean dry and intact Extremity: COMMON NORMALS: no clubbing, cyanosis or edema and no pedal edema Neuro: COMMON NORMALS: patient oriented x3 Urinary Catheter Management^: f: Cath Placed During This Visit: yes, but has since been removed by the nurse Reason for Continuing Indwelling Catheter: Decision to DC Catheter Urinary Catheter Date of Insertion: 10/16/20 Urinary Catheter Time of Insertion: 13:00 Date Urinary Catheter Removed: 10/17/20 Time Urinary Catheter Discontinued: 06:53 Data : 10/20/20 01:58 10/20/20 01:58 A&P Assessment and plan (1) Metastatic melanoma: Status: Acute (2) Bowel obstruction: Status: Acute (3) Intussusception: Status: Acute (4) Mass of left side of neck: Status: Acute (5) Mass of left lung: Status: Acute (6) Lymphadenopathy of head and neck region: Status: Acute (7) Anemia: Microcytic Iron Deficiency anemia Anemia panel; Serum Iron : 8, TIBC : 192, % Sat: 4.1, Transferrn : 169, F erritin: 47. Vitamin B12: 441, Folate 7.1 Venofer I.V Oral Ferrous sulfate FOBT Hb has dropped to 7.1.Current Plan is to transfuse 1 u PRBC Monitor CBC Status: Acute (8) Thrombocytosis: Reactive thrombocytosis. Monitor platelet count Status: Acute (9) Hyponatremia: Status: Acute (10) Hypokalemia: Status: Acute Additional A&P Information Small bowel obstruction 2/2 jejunojejunal intussusception Status post diagnostic laparoscopy and small bowel resection on October 16, 2020. 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 Post op care. Coding Level of Care Code Acute Dry Cleaning Manager for Chg Fwd Diagnoses Metastatic melanoma C79.9 Bowel obstruction K56.609 Intussusception K56.1 Mass of left side of neck R22.1 Mass of left lung R91.8 Lymphadenopathy of head and neck region R59.0 Anemia D64.9 Thrombocytosis D47.3 Hyponatremia E87.1 Hypokalemia E87.6
[2020-10-20] MEDS: sodium chloride 0.9% (100 ml) 100 ML 30 ML (14:36)
[2020-10-20] MEDS: HYDROcodone-acetaminophen 5-325 mg Tablet 1 TAB PO ×2 (15:59→22:21)
[2020-10-21 00:08] VITALS: BP 109/72; PULSE 76; RESP 18; TEMP 36.6; O2SAT 96
[2020-10-21] MEDS: heparin 5,000 unit/mL INJ 1 mL 5000 UNIT SUBCUT (00:33)
[2020-10-21 02:47] LABS: Basophils # 0.1 10^3/uL (0.0-0.1); Basophils % 0.9 %; Eosinophils # 0.5 10^3/uL (0.0-0.8); Eosinophils % 9.1 %; Hematocrit 28.3 % (42.0-52.0); Hemoglobin 8.2 g/dL (11.7-16.6); Lymphocytes % 18.1 %; Mean Corpuscular Hemoglobin 20.8 pg (28.0-34.0); Mean Corpuscular Volume 71.8 fL (80-94); Mean Platelet Volume 9.3 fL (7.4-10.4); Monocytes # 0.5 10^3/uL (0.2-0.9); Monocytes % 8.2 %; Neutrophils # 3.45 10^3/uL (1.8-7.7); Neutrophils % 63.2 %; Nucleated Red Blood Cells % 0 %; Platelet Count 506 10^3/cmm (130-400); Red Blood Count 3.94 10^6/uL (4.1-5.3); Red Cell Distribution Width 18.7 % (12.1-15.1); White Blood Count 5.5 10^3/uL (4.0-10.0)
[2020-10-21 03:08] LABS: Anion Gap 10.3 (5-19); Blood Urea Nitrogen 4 mg/dL (6-20); Calcium 8.1 mg/dL (8.5-10.5); Carbon Dioxide 26 mmol/L (22-29); Chloride 104 mmol/L (98-107); Glomerular Filtration Rate 115.4 mL/min (90-130); Glucose 101 mg/dL (65-115); Osmolality Calculated 281 mOsm/kg (285-295); Potassium 3.3 mmol/L (3.5-5.1); Sodium 137 mmol/L (136-145)
[2020-10-21] MEDS: dextrose 5%-sod chloride 0.45% 1,000 ML 30 ML IV (03:57)
[2020-10-21 04:14] VITALS: BP 112/70; PULSE 67; RESP 18; TEMP 36.6; O2SAT 96
--- NOTE | 2020-10-21 06:41 | PM.PN ---
Subjective Subjective: Interval history: Patient continues to do well and tolerating p.o. intake. Passing gas and having bowel movements. Received 1 unit of packed RBCs per hospitalist service and currently hemoglobin is 8.2 g. Medications: Reviewed: Yes Vitals/I&O/Wt Last Vital Signs Temp 97.8 F 10/21/20 04:14 Pulse 67 10/21/20 04:14 Resp 18 10/21/20 04:14 BP 112/70 10/21/20 04:14 Pulse Ox 96 10/21/20 04:14 10/20/20 10/20/20 10/21/20 14:59 22:59 06:59 Intake Total 935 / 935 930 / 1865 400 / 2265 Output Total 600 / 600 1200 / 1800 800 / 2600 Balance 335 / 335 -270 / 65 -400 / -335 Physical Exam Narrative: EXAM NARRATIVE: Patient is conscious alert oriented X3 BMI 27 Head and neck examination PERRLA no masses no cervical lymphadenopathy no jaundice Abdomen nontender nondistended soft no organomegaly guarding or rigidity/no signs of peritonitis/incisions are clean dry and intact, skin lisa in place. Extremities no cyanosis no clubbing no edema Urinary Catheter Management^: f: Cath Placed During This Visit: yes, but has since been removed by the nurse Reason for Continuing Indwelling Catheter: Decision to DC Catheter Urinary Catheter Date of Insertion: 10/16/20 Urinary Catheter Time of Insertion: 13:00 Date Urinary Catheter Removed: 10/17/20 Time Urinary Catheter Discontinued: 06:53 Data : 10/21/20 02:01 10/21/20 02:01 A&P Assessment and plan (1) Bowel obstruction: Status post diagnostic laparoscopy with small bowel resection for small bowel intussusception. 10/17/2019 Advance to soft GI diet Discharge home from surgical standpoint of view once medically appropriate and follow-up with me in 1 week to discuss port placement. Encourage ambulation Strict I's and O's Incentive spirometer every hour Avoid constipation We will continue coordinating with Dr. Hurtado and Dr. Cole Assurance and education All questions have been answered and all concerns have been addressed to patient's satisfaction. Thank you for consulting general surgery to participate taking care Mr. Parson Status: Acute Attestations Medical Necessity Statement*: Patient required inpatient hospitalization passing 2 midnights, for perioperative care and awaiting bowel functions. Time Spent in Patient Care: 16 - 35 minutes (>than 50% of time spent in counselling and/or direct pt care on unit). Coding Level of Care Code Acute Battery Container Finishing Hand for Chg Fwd Diagnoses Bowel obstruction K56.609
[2020-10-21 08:00] VITALS: BP 122/81; PULSE 74; RESP 17; TEMP 37.2; O2SAT 97
[2020-10-21] MEDS: pantoprazole 40 mg SDV IVP (09:24)
--- NOTE | 2020-10-21 10:44 | P.DS_ITS ---
Discharge Providers Date of Admission: 10/16/20 05:46 Date of Discharge: October 21, 2020 Attending Provider at Admission: Malik Godinez MD Attending Provider at Discharge: Trell Hurtado MD Primary Care Provider: Onofre Churchill MD Diagnoses at Discharge Discharge Diagnosis (1) Bowel obstruction: Status: Acute Reason for Visit Reason for Visit: abd pain/has stomach cancer Hospital Course Hospital Course 60 year old male who has history of metastatic large cell cancer, metastatic melanoma, left supraclavicular mass(currently awaiting Port-A-Cath placement for initiation of immunotherapy) presented with chief complaint of worsening abdominal pain.On admission Patient stated that his symptoms probably started around 5 weeks ago, he did not seek any medical attention in the beginning, he kept taking hydrocodone that he used to take for his back pain but his symptoms worsened in the last few days, he has not been able to keep anything down for last 1 week at least, every time he would eat he experiences projectile vomiting.Diagnostics in the ER revealed small obstruction, NG tube was placed.C.T abdomen and pelvis showed Interval worsening of the jejunojejunal intussusception resulting in development of a small bowel obstruction. Concern for developing or worsening ischemic change in some of the small bowel due to the intussusception. Still no free air. Surgery was on board S/P diagnostic laparoscopy and small bowel resection on October 16, 2020, initially he was kept n.p.o. once the bowel function returned, he was started on clear liquid diets and later it was advanced. At the time of discharge he was tolerating diet well, denied any abdominal pain nausea vomiting, he was passing gas as well as stool. During the hospital stay he was also managed for microcytic iron deficiency anemia Anemia panel; Serum Iron : 8, TIBC : 192, % Sat: 4.1, Transferrn : 169, Ferritin: 47. Vitamin B12: 441, Folate 7.1.He received 1 dose of IV Venofer, he will continue to follow with his bell ringer as an outpatient for continued management.During the hospital stay his hemoglobin also dropped to 7.1 he received 1 unit PRBC transfusion, posttransfusion H&H was stable. Patient responded well to the above medical management and is being discharged in stable condition. He will continue to follow with surgery as well as his oncologist as an outpatient. Physical Exam Const: COMMON NORMALS: patient oriented x3 HENMT: COMMON NORMALS: normocephalic and atraumatic HEAD & SCALP: normocephalic and atraumatic Resp: COMMON NORMALS: clear to auscultation bilaterally AUSCULTATION: clear to auscultation bilaterally Cardio: COMMON NORMALS: regular rate, regular rhythm, S1 normal heart sound present, S2 normal heart sound present, No gallops present (Cardio), No murmurs present (Cardio), No rub (Cardio) and Peripheral pulses 2+ throughout RATE: regular rate RHYTHM: regular rhythm HEART SOUNDS: S1 normal heart sound present and S2 normal heart sound present PERIPHERAL PULSES: Peripheral pulses 2+ throughout GI: COMMON NORMALS: Normal to inspection, nondistended, normoactive bowel sounds present, Soft to palpation, non-tender, No hepatosplenomegaly present and no masses AUSCULTATION: Yes normoactive bowel sounds PALPATION: Yes Soft to palpation and Yes No hepatosplenomegaly present RECTAL EXAM: Yes deferred OTHER: incisions are clean dry and intact Extremity: COMMON NORMALS: no clubbing, cyanosis or edema and no pedal edema Neuro: COMMON NORMALS: patient oriented x3 Urinary Catheter Management^: f: Cath Placed During This Visit: yes, but has since been removed by the nurse Reason for Continuing Indwelling Catheter: Decision to DC Catheter Urinary Catheter Date of Insertion: 10/16/20 Urinary Catheter Time of Insertion: 13:00 Date Urinary Catheter Removed: 10/17/20 Time Urinary Catheter Discontinued: 06:53 Discharge Data Data Completed and Pending: Completed Studies During Hospitalization Category Date Time Status CT abdomen pelvis w con* [id number] Urge nt Cat Scan 10/16/20 04:17 Completed Pending at discharge Category Date Time Status ES surgery / GI i mages Routine Exams 10/16/20 12:23 Taken Pathology: Surgic al [PTH] Routine Pth 10/16/20 14:44 Received Labs from last 24 hours 10/21/20 10/21/20 10/20/20 02:01 02:01 11:36 WBC 5.5 RBC 3.94 L Hgb 8.2 L Hct 28.3 L MCV 71.8 L MCH 20.8 L MCHC 29.0 L RDW 18.7 H Plt Count 506 H MPV 9.3 Neut % (Auto) 63.2 Lymph % (Auto) 18.1 [place] % (Auto) 8.2 Eos % (Auto) 9.1 Baso % (Auto) 0.9 Neut # (Auto) 3.45 Lymph # (Auto) 1.0 [place] # (Auto) 0.5 Eos # (Auto) 0.5 Baso # (Auto) 0.1 Nucleated RBC % (a uto) 0 Nucleated RBCs # 0.0 Sodium 137 Potassium 3.3 L Chloride 104 Carbon Dioxide 26 Anion Gap 10.3 BUN 4 L Creatinine 0.7 GFR Calculation 115.4 Glucose 101 Calculated Osmolal ity 281 L Calcium 8.1 L Blood Type A Positive Rho(D) Type Positive / 4+ Antibody Screen Negative Crossmatch See Detail Vitals: Last Vital Signs Temp 98.9 F 10/21/20 08:00 Pulse 74 10/21/20 08:00 Resp 17 10/21/20 08:00 BP 122/81 10/21/20 08:00 Pulse Ox 97 10/21/20 08:00 Discharge Plan Discharge Patient Disposition: Home Condition: Stable Prescriptions: New Miralax 17 gram/dose powder 17 g PO PRN Qty: 119 RF: 0 Continued hydrocodone-acetaminophen 7.5-325 mg tablet 1 tab PO Q4H PRN (Reason: Pain) RF: 0 ondansetron HCl [Zofran] 4 mg tablet 4 mg PO Q6H PRN (Reason: nausea and vomiting) Qty: 20 RF: 0 oxycodone 10 mg tablet 10 mg PO Q8H PRN (Reason: pain) Qty: 30 RF: 0 Discharge Orders: Discharge Order (Routine); Ordered 10/21/20 Ordered By: Trell Hurtado Referrals: Onofre Churchill MD [Primary Care Provider] - 10/29/20 10:00 am Kerwin Slaughter MD [Physician] - 10/28/20 3:10 pm (Return to surgery office return to surgery office in 1 week) Discharge Diet: GI Soft Discharge Activity: Limit activity as instructed Patient Instructions: Bowel Obstruction, Polyethylene Glycol 3350 (By mouth), Colectomy (DC), Opioid Safety Activity Restrictions/Additional Instructions: 1. Patient can shower 2. No dressing is needed 3. Up and walking as tolerated 4. Do not lift more than 5 pounds first 2 weeks after surgery and not more than 25 pounds 6 to 8 weeks after surgery. 5. Do not operate heavy machinery or drive while using pain medications. 6.Contact the office or return to the ER for worsening nausea vomiting fevers or chills, or noticing any redness around incision sites or discharge. 7. Avoid constipation Discharge Attestations Time Spent in Discharge Care*: less than 30 min Specific Discharge Activities: educating patient, educating and/or supporting family/caregiver, discussing with pcp/other providers, discussing with comp field case manager/social workers/dc planners, documenting/other paperwork and evaluating patient/reviewing data Status at Discharge: Cognitive status at discharge: cognitively intact , Behavioral status at discharge: cooperative , Functional status at discharge: independent ambulation Overall status at discharge: patient is back to baseline Quality Metrics Clinical Quality Measures During this hospital stay, did patient experience: None Coding Level of Care Code Acute Emmag ELMO CHRISTOPHER note Diagnoses Bowel obstruction K56.609
[2020-10-21 11:26] VITALS: BP 122/81; PULSE 74; RESP 17; TEMP 37.2; O2SAT 97
[2020-10-21 11:27] VITALS: BP 122/81; PULSE 74; RESP 17; TEMP 37.2; O2SAT 97
--- NOTE | 2020-10-21 11:45 | PC.SOCIAL ---
IMM Update Pg. 2 of IMM updated and reviewed with patient who verbalized understanding. Copy provided.
== END 2020-10-21 12:50 | disposition home or self-care (01) | DRG 330 ==
LOC: ER 05:49 → MEDSURG 06:09
PROVIDERS: Student in an Organized Health Care Education/Training Program; Surgery; Admitting Provider Internal Medicine; Emergency Provider Emergency Medicine; PCP Family Medicine Adult Medicine; Visit Provider Internal Medicine
PROC: 0DB80ZZ Excision of Small Intestine, Open Approach (ICD-10-PCS; principal; 2020-10-16 12:00)
DX: K56.1 Intussusception (principal); E87.1 Hypo-osmolality and hyponatremia; C79.89 Secondary malignant neoplasm of other specified sites; D50.9 Iron deficiency anemia, unspecified; K80.20 Calculus of gallbladder without cholecystitis without obstruction; R91.8 Other nonspecific abnormal finding of lung field; R59.0 Localized enlarged lymph nodes; N40.0 Benign prostatic hyperplasia without lower urinary tract symptoms; K76.89 Other specified diseases of liver; E87.6 Hypokalemia; D47.3 Essential (hemorrhagic) thrombocythemia; Z85.820 Personal history of malignant melanoma of skin; Z79.891 Long term (current) use of opiate analgesic
CPT/HCPCS: 36415; 36430; 74177; 80048; 80053; 81001; 81210; 82009; 82550; 82607; 82728; 82746; 83540; 83550; 83605; 83615; 83690; 83735; 84466; 85025; 86850; 86900; 86920; 88305; 93005; 96361; 96365; 96372; 96374; 96375; 99205; 99284; 99285; C9113; J0295; J1170; J1644; J1756; J2060; J2270; J2405; J2710; J2765; J3010; J3480; J3490; J7030; J7799; P9016; P9041; Q9967

== ENCOUNTER 2020-10-28 07:59 | Outpatient (CLI) | payer MEDICARE, SELFPAY ==
--- NOTE | 2020-10-28 08:09 | MR_ITS ---
WS: [id number] MRI HEAD WITH CONTRAST TECHNIQUE: Sagittal T1, T2 axial, T2 axial FLAIR, axial susceptibility weighted imaging, axial diffus ion weighted images, and coronal T2 images were obtained. Pre and post-T1 axial and post T1 coronal i mages. ADC and FSPGR images. CLINICAL INFORMATION: MELANOMA COMPARISON: None. FINDINGS: No evidence of restricted diffusion to suggest acute ischemia. Ventricular system and basal cisterns are patent. No hemosiderin on susceptibly weighted images. Mild small vessel changes. Mild parenchyma l volume loss. Normal posterior fossa. Normal vascular flow voids at the skull base. No extra axial f luid collections. No evidence of mass or mass effect. Normal optic chiasm and pituitary infundibulum. Mild symmetric at rophy temporal lobes and hippocampal formations. No abnormal gadolinium enhancement. No evidence of e nhancing intracranial metastatic disease. Normal cavernous sinuses and Meckel's cave. MR/MR head wo/w con [id number] IMPRESSION: 1. No evidence of restricted diffusion to suggest acute ischemia. 2. Mild small vessel changes with mild parenchymal volume loss. 3. No evidence of enhancing intracranial metastatic disease. 4. No hemosiderin on the susceptibility weighted images. 5. No evidence of enhancing intracranial metastatic disease.
== END 2020-10-28 08:00 | disposition home or self-care (01) ==
LOC: RADSHAW 08:02
PROVIDERS: PCP Family Medicine Adult Medicine; Visit Provider Internal Medicine Medical Oncology
DX: C43.59 Malignant melanoma of other part of trunk (principal)
CPT/HCPCS: 70553; A9577

== ENCOUNTER → 2020-10-30 09:55 | Outpatient (BNVA) | payer MEDICARE, SELFPAY | PROVIDERS: PCP Family Medicine Adult Medicine; Visit Provider Surgery | DX: Z01.812 Encounter for preprocedural laboratory examination (principal); Z20.822 Contact with and (suspected) exposure to COVID-19 | CPT/HCPCS: 87635 ==

== ENCOUNTER 2020-11-05 06:30 | Day surgery (SDC) | payer MEDICARE, SELFPAY ==
[2020-11-02 10:00] VITALS: BMI 26.6
--- NOTE | 2020-11-05 | SCC_ITS ---
Procedure Done: 1.Right subclavian vein PowerPort placement 2.Fluoroscopic guidance and interpretation for placement of catheter 10.5 seconds of fluoroscopic guidance, for a cumulative dose of 1.68 mGy, was provided to Dr. Slaughter by the radiology department. C-arm images of the chest were saved for the patient's permanent record. [facility]
--- NOTE | 2020-11-05 06:33 | SC_ITS ---
WS: [id number] Exam: C-arm FL for CVA [id number] Date/Time of Exam: 11/05/2020 6:33 AM Reason For Exam: Powerport Placement A single anterior posterior C-arm image of the right chest is submitted for evaluation. A right subclavian central line is noted and appears to end in the region of the lower one third of t he SVC. No other significant finding on this limited image.
[2020-11-05 06:40] VITALS: BP 132/95; PULSE 61; RESP 18; TEMP 37.5; O2SAT 100
[2020-11-05] MEDS: sodium chloride 0.9% 1,000 ML 30 ML IV (07:07)
--- NOTE | 2020-11-05 08:00 | W.PM.OPSUD ---
Surgery/Procedure H&P Update DATE OF PROCEDURE: November 05, 2020 DATE H&P PERFORMED: 10/28/20 H&P UPDATE INFORMATION: I have reviewed H&P completed within last 30 days, I have examined patient prior to procedure and No changes to prior documentation PREOP DIAGNOSIS: Metastatic melanoma PRIMARY INDICATION FOR PROCEDURE: THE SAME PLANNED PROCEDURE: Operation Date: 11/05/20 08:10 Proposed Procedures p Portacath Placement 70855 C43.9(Not Applicable) - Kerwin Slaughter MD
--- NOTE | 2020-11-05 08:00 | ANES.PREANE2 ---
Pre-Anesthetic Assessment Pre-Anesthetic Assessment: Height/Weight: Height 1.68 m Weight 74.843 kg Temp Pulse Resp BP Pulse Ox 99.5 F 61 18 132/95 100 11/05/20 06:40 11/05/20 06:40 11/05/20 06:40 11/05/20 06:40 11/05/20 06:40 Preop Diagnosis: Metastatic melanoma Proposed Procedure: Operation Date: 11/05/20 08:10 Proposed Procedures p Portacath Placement 62624 C43.9(Not Applicable) - Kerwin Slaughter MD Was Beta Champ taken within 24 hours: N/A Was Clonidine taken within 24 hours: N/A Last intake: Intake Last Liquid Date 11/04/20 Last Liquid Time 21:00 Last Solid Date 11/04/20 Last Solid Time 21:00 Social: Social History: No alcohol and No tobacco Exam: Pre-Anes Outpt Exam: alert, oriented x 3, clear to auscultation bilaterally and regular rate & rhythm Airway: Submandibular: WNL Cervical ROM: WNL MP: 1 History/ROS: No significant history except as noted Pulmonary: Comments: Left neck and left lung mass CV/HEM: CV/HEM: None reported : : None reported Hepatic: Comments: liver cyst GI: GI: None reported Metabolic: Metabolic: None reported Musc/skel: Musc/skel: Lower Back Pain Neuropsych: Neuropsych: None reported Anesthetic Plan: ASA status: 3 Anesthesia: MAC Risk of > 500 ml blood loss (7ml/kg in children): No Meds/Allergies Current Medications: Current Medications Generic Name Dose Route Start Last Admin Trade Name Freq PRN Reason Stop Dose Admin Sodium Chloride 1,000 mls @ 30 ml s/hr 11/05/20 06:45 11/05/20 07:07 Sodium Chloride 0.9% IV 11/06/20 06:44 30 mls/hr .Q24H BIB[place] Administration PFSH Anesthesia PFSH: Medical History (Updated 10/29/20 @ 16:33 by Onofre Churchill MD) Accidental electrocution Anemia Bowel obstruction Hospital discharge follow-up Hx of lymphadenopathy Hypokalemia Hyponatremia Intussusception Lymphadenopathy of head and neck region Mass of left lung Mass of left side of neck Melanoma Metastatic melanoma Thrombocytosis Surgical History History of back surgery Hx of arthroscopy of left knee Family History Other Family history non-contributory Social History Smoking and tobacco status: never smoked Alcohol intake: never Marital status: / Number of children: 1 Number of grandchildren: 3 Current occupational status: retired Data Anesthesia Cardiac Studies: No Data to Display
[2020-11-05] MEDS: lidocaine 2% INJ 20 mL INJECTION (08:24)
[2020-11-05] MEDS: heparin, porcine 1,000 unit/mL INJ 10 mL 9000 UNIT INJECTION (08:25)
--- NOTE | 2020-11-05 08:36 | P.OP_ITS ---
Operative Report Date of procedure: November 05, 2020 Pre-op Diagnosis: Metastatic melanoma Post-op diagnosis: same Procedure Done: 1.Right subclavian vein PowerPort placement 2.Fluoroscopic guidance and interpretation for placement of catheter Surgeon: Kerwin Slaughter [employer] Specialist: clinical pharmacy technician [employer] Circulating nurse Nhung Mathews Anesthesia: MAC (Margot Aragon) Estimated blood loss (mL): 5 Condition: stable Disposition: same day Brief History: Metastatic melanoma, full H&P and informed consent per chart Procedure: Patient was identified in the holding area and taken to the operative room and placed in supine position IV propofol was given by the anesthesia provider ,both arms were tucked,Time-out was done verifying the patient's name/date of /planned procedure and destination after the procedure, all were in agreement. SCDs confirmed to be functioning, preoperative antibiotics administered per protocol, and beta yasemin protocol was confirmed, appropriate positioning of the patient was done by me. Medications were reviewed to assess for anticoagulant usage. Risks and benefits and prevention of central line associated blood stream infection (CLABSI) were discussed with the patient/CPOA, and a consent was obtained. Monitors were in place and monitored throughout the procedure. All necessary supplies were available prior to start. Hand hygiene was completed prior to starting. Maximum barrier technique was utilized including a sterile gown, sterile gloves with a hat and mask. Site was was prepped with [chlorhexidine] and a full body drape was placed. 5 mL of 2% lidocaine was injected into the skin with a 25 gauge needle. Prep& drape was done under the usual sterile technique, lidocaine 2% was injected at the site of the right subclavian vein stick that retrieved venous blood was obtained from the first stick, a guidewire was then threaded and under the guidance of fluoroscopy position was confirmed to be in the IVC and my interpretation, there was no PVC changes, at that point the guidewire was secured to the drapes with a hemostat and the needle was taken out, attention was then deviated towards creation of a pocket for the port were lidocaine 2% was injected using an 15 blade knife skin incision was created dissection using the Bovie to create a pocket for the Port-A-Cath to be accommodated, hemostasis was secured, after the port being appropriately flushed it was inserted into the pocket and a tunneler was used to accommodate the catheter of the port cath to be delivered through the incision first created at the site of the stick, at that point under fluoroscopy an estimated length was measured for the catheter and was cut at the designed level, followed by that a dilator with the sheath introduced onto the guidewire the dilator and the wire were retrieved and the catheter of the port was introduced via the sheath where it was peeled off and the catheter maintained to be in the SVC that was confirmed with fluoroscopy, and the fluoroscopy interpretation was done by me throughout the entire procedure. The port was kept in its pocket,3-0 Vicryl deep subdermal interrupted sutures, skin was then closed by 4-0 Monocryl as subcuticular closure. The stick site was closed by 4-0 Monocryl and Dermabond was used followed by dressing. Patient tolerated the procedure well was taken to the recovery area Count was correct at the end of the procedure I was present for the whole entire procedure. Position of the catheter was checked with a postoperative chest x-ray and it was in good position without evidence of pneumothorax
--- NOTE | 2020-11-05 08:40 | XR_ITS ---
WS: [id number] Exam: XR chest 1V portable [id number] Date/Time of Exam: 11/05/2020 8:43 AM Reason For Exam: Status post right subclavian vein PowerPort placement A right subclavian port is noted ending at the cavoatrial junction. There is a 4.4 cm left suprahilar mass suspicious for malignancy. The lungs are otherwise clear and fully inflated. No no pleural no p leural effusion noted. Regional bony elements are intact. XR/XR chest 1V portable [id number] IMPRESSION: 1. 4.4 cm left suprahilar mass apparently representing the patient's known mimi gnancy. 2. A right subclavian port in satisfactory position.
[2020-11-05 08:47] VITALS: BP 112/78; PULSE 71; RESP 18; TEMP 36.6; O2SAT 97
[2020-11-05 08:50] VITALS: BP 125/82; PULSE 55; RESP 18; O2SAT 97
[2020-11-05 08:55] VITALS: BP 112/77; PULSE 61; RESP 16; TEMP 36.4; O2SAT 98
[2020-11-05 09:01] VITALS: BP 119/80; PULSE 66; RESP 18; O2SAT 98
[2020-11-05 09:37] VITALS: BP 108/72; PULSE 71; RESP 18; O2SAT 98
--- NOTE | 2020-11-05 14:06 | ANE.PACU2 ---
Inpatient post-anesthesia follow up: Airway intact: Yes Vital signs: Temperature 97.6 F Pulse Rate 71 Respiratory Rate 18 Blood Pressure 108/72 Pulse Oximetry 98 Oxygen Delivery Me thod Room Air Oxygen Flow Rate Fraction of Inspir ed Oxygen Hydration adequate: Yes Nausea and vomiting: No Pain level: 2 Mental status: Baseline
== END 2020-11-05 09:42 | disposition home or self-care (01) ==
PROVIDERS: PCP Family Medicine Adult Medicine; Visit Provider Surgery
PROC: (CPT 36561; principal; 2020-11-05 08:00)
DX: C43.9 Malignant melanoma of skin, unspecified (principal)
CPT/HCPCS: 36561; 71045; 76000; 77001; 96365; C1788; J0690; J1644; J2704; J3010; J7030

== ENCOUNTER 2020-11-19 05:45 | Outpatient (RCR) | payer MEDICARE, SELFPAY ==
[2020-11-18 16:02] LABS: Basophils # 0.1 10^3/uL (0.0-0.1); Basophils % 1.1 %; Eosinophils # 0.2 10^3/uL (0.0-0.8); Eosinophils % 2.7 %; Hematocrit 37.2 % (42.0-52.0); Lymphocytes # 1.2 10^3/uL (0.8-4.8); Lymphocytes % 18.2 %; Mean Corpuscular HGB Conc 29.6 g/dL (30.0-36.0); Mean Corpuscular Volume 74.4 fL (80-94); Mean Platelet Volume 10.3 fL (7.4-10.4); Monocytes # 0.3 10^3/uL (0.2-0.9); Monocytes % 4.9 %; Neutrophils % 72.9 %; Nucleated Red Blood Cells % 0 %; Platelet Count 406 10^3/cmm (130-400); Red Cell Distribution Width 23.3 % (12.1-15.1); White Blood Count 6.3 10^3/uL (4.0-10.0)
[2020-11-18 16:44] LABS: Alanine Aminotransferase 11 U/L (0-41); Albumin Level 4.1 g/dL (3.5-5.2); Alkaline Phosphatase 101 IU/L (40-130); Anion Gap 16.5 (5-19); Aspartate Amino Transferase 17 U/L (0-40); Blood Urea Nitrogen 8 mg/dL (6-20); Calcium 8.4 mg/dL (8.5-10.5); Carbon Dioxide 23 mmol/L (22-29); Chloride 101 mmol/L (98-107); Globulin 2.7 g/dL (1.3-4.6); Glomerular Filtration Rate 98.9 mL/min (90-130); Glucose 166 mg/dL (65-115); Lactate Dehydrogenase 279 U/L (135-225); Osmolality Calculated 286 mOsm/kg (285-295); Potassium 3.5 mmol/L (3.5-5.1); Sodium 137 mmol/L (136-145); Total Bilirubin 0.2 mg/dL (0.15-1.2); Total Protein 6.8 g/dL (6.6-8.7)
[2020-11-19] MEDS: famotidine 20 mg/2 mL INJ IVP (13:52)
[2020-11-19] MEDS: acetaminophen 325 mg Tablet 650 MG PO (13:52)
[2020-11-19] MEDS: sodium chloride 0.9% 250 ML 75 ML IV (13:52)
[2020-11-19] MEDS: dexamethasone 20 MG in sodium chloride 0.9% 50 ML 188 MG IV (13:53)
[2020-11-19 13:59] LABS: Thyroid Stimulating Hormone 2.05 uIU/mL (0.27-4.20)
[2020-11-19] MEDS: sodium chloride 0.9% (100 ml) 100 ML 500 ML (14:10)
[2020-11-19] MEDS: diphenhydrAMINE 50 mg/mL SDV 1mL IVP (14:10)
--- NOTE | 2020-11-23 08:28 | ONC FU_ITS ---
Dr. Cole Patient Follow-Up Note Patient: Adarsh Parson Unit #: [id number]: 1960 Dicatated By: Curtis Cole M.D.Date of Visit:Nov 19, 2020 Onc Med Follow-up/Prog Note Chief Complaint: Metastatic melanoma. History of Present Illness: This is a 60-year-old man with metastatic melanoma, BRAF mutation negative. He has a history of having undergone excision of a melanoma from the right lower back somewhere in the range of 3 to 4 years ago. The records were not available. The procedure was done through [facility] in [place], and it included a right axillary sentinel lymph node biopsy. He did not require any further treatment. He continued regular follow-up with his pusher runner in [place]. In July 2020 he presented to [facility] with a lump in the left side of his neck. He had been aware of it for about 6 months. An initial ultrasound on 09/04/2020 showed a left supraclavicular mass measuring 4.8 x 5.1 x 4.0 cm consistent with an abnormal lymph node. Further evaluation with CT scans of the neck and chest on 09/08/2020 showed a large heterogeneously enhancing left supraclavicular lymph node measuring 4.8 x 4.4 x 6.8 cm with additional enlarged pathologic lymph nodes in the lower cervical chain and supraclavicular region. A left hilar and suprahilar mass measuring approximately 3.1 x 2.9 x 4.8 cm was noted to abut the left hilum, extending into the left upper lobe. There were multiple surrounding satellite soft tissue nodules and there was associated pleural thickening in the left upper lobe medially. There were no other suspicious pulmonary parenchymal nodules and there was no mediastinal adenopathy. A 12 mm low-attenuation lesion in the right hepatic lobe was felt to be indeterminate. Haziness within the mid mesentery with prominent lymph nodes was partially visualized. Further evaluation with CT of the abdomen/pelvis on 09/18/2020 was reported to be negative for metastatic disease. The lesion in the right lobe of the liver was felt to probably be a cyst. He then underwent ultrasound directed biopsy of the left supraventricular mass on 10/07/2020. 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 By IHC, the tumor cells were positive for trim 29, melanin A, HMB-45, Sox 10, and S100 protein, consistent with metastatic melanoma. Staging PET/CT on 10/10/2020 showed FDG positive left supraclavicular mass measuring 6.1 x 4.2 cm, SUV 38.3. 2 additional adjacent nodes measuring 1.8 cm were also FDG positive. A left upper lobe lung mass measuring 4.2 x 4.6 cm and SUV 22.2 and a left upper quadrant small bowel mass measuring 5.6 x 5.2 cm had SUV 43.4, high probability of malignancy. Multiple enlarged mesenteric lymph nodes had minimal FDG activity, but were likely metastatic. I had seen him initially on 10/13/2020. I had discussed the possibility of proceeding with a trial of dual immunotherapy with nivolumab/ipilimumab. At that point I had also requested a BRAF mutation analysis, and that ultimately came back negative. In the meantime, on 10/16/2020 he was admitted to the hospital after presenting to the emergency room with worsening abdominal pain. His CT abdomen/pelvis showed worsening of the jejunojejunal intussusception with development of small bowel obstruction. He underwent diagnostic laparoscopy followed by exploratory laparotomy with partial small bowel resection and [id number] anastomosis. Pathology on the small bowel was consistent with metastatic melanoma. The proximal and distal margins were uninvolved. His medical history is otherwise significant for chronic back pain following previous back surgery. He has had no other ongoing medical illnesses. He also has a history of accidental electrocution. He is a non-smoker. He is seen for a follow-up visit. He is feeling great now. His energy is better and he is pretty much back to normal activity. ECOG score is 0. He has good appetite. He has not had fever. He sometimes has sweating at night, but it is less now than it had been. He has no shortness of breath, cough, or chest pain. He currently has no GI or complaints. In particular, he is not having abdominal pain, and he has no problems with his bowel function. He has chronic back pain, which is unchanged. He does not complain of headache or dizziness. He occasionally has numbness in his hands. He has no other focal neurologic symptoms. Medications: HYDROcodone-Acetaminophen 1 (7.5-325 mg) Tablet Oral q 4 hours PRN Allergies: No Known Allergies. Vital Signs: Performed on Nov 19, 2020 13:11 Height - 66.00 in Weight - 163.4 lbs (LOW) BSA - 1.84 sq.m BMI - 26.37 Temperature - 98.2 F (LOW) Pulse - 60 /min Respiration - 18 /min BP - 127/83 mm(hg) O2 Sat - 98 % Pain - 0 Fatigue - 0 Physical Examination: Constitutional - He looks good generally, Eyes - Sclerae nonicteric. Conjunctivae clear, ENMT - No lesions noted in the oral cavity, Hematologic/Lymphatic - There is a large mass in the left supraclavicular area measuring approximately 9 x 7 cm. There is no other adenopathy noted in the neck or axilla, Respiratory - Lungs are clear with good air movement bilaterally, Cardiovascular - Heart rhythm is regular. There is a II/ systolic murmur. There is no gallop or rub noted, Abdomen - Soft and non-tender. The incision appears well-healed. Liver and spleen are not enlarged. There is no abdominal mass or ascites noted and there is no inguinal adenopathy, Extremities - No edema, Neurologic - No focal neurologic deficits noted. Lab/Imaging: CBC shows hemoglobin 11.0 g, white blood cell count 6300, and platelet count 406,000. The red cell indices are hypochromic/microcytic. Comprehensive metabolic profile shows normal renal function with BUN 8 and creatinine 0.8 mg/dL. Bilirubin and liver enzymes are normal. LDH is mildly elevated at 279/225 U/L. TSH is normal at 2.05 ???/mL. Problem List: 1. Metastatic melanoma, BRAF mutation negative, confirmed by biopsy of left supraclavicular mass on 10/07/2020. By PET/CT, there were additional areas of involvement in the left suprahilar region and the left upper quadrant small bowel. 2. He had associated iron deficiency anemia. 3. On 10/16/2020 he underwent exploratory laparotomy with partial small bowel resection for intussusception/small bowel obstruction due to the metastatic melanoma. 4. He has a history of having undergone excision of melanoma from the right lower back 3 or 4 years ago. The procedure included right axillary sentinel lymph node biopsy. 5. He has chronic back pain. Problems Addressed with this Encounter and Plan: 1. Patient with metastatic melanoma, BFAF mutation negative, presenting with large left supraclavicular mass. By PET/CT, there were additional areas of involvement in the left suprahilar region and the left upper quadrant small bowel. On 10/16/2020 he underwent exploratory laparotomy with partial small bowel resection for intussusception/small bowel obstruction due to the metastatic melanoma. He is now doing well clinically following recovery from the surgery last month. He has opted to proceed with dual immunotherapy with nivolumab/ipilimumab, as previously recommended. I reviewed anticipated side effects, which are immune-mediated and may include enteritis or colitis, pneumonitis, endocrinopathies, renal or hepatic dysfunction, and skin eruption, among others. He is advised that the GI toxicities, in particular, may be severe, and he is to call or report to the emergency room with recurrence of abdominal pain or with diarrhea or other significant GI symptoms. He would be due for treatment again in 3 weeks, but he prefers to defer that appointment until after the December 13 holiday. 2. He had iron deficiency anemia associated with the metastatic lesion involving the small bowel. It does appear to be showing correction on oral iron supplementation. It will require ongoing monitoring. Signed By: Curtis Cole M.D. <<Signature on File>>
== END 2020-12-09 23:59 | disposition home or self-care (01) ==
LOC: ONCMED 05:45
PROVIDERS: PCP Family Medicine Adult Medicine; Visit Provider Internal Medicine Medical Oncology
DX: Z51.12 Encounter for antineoplastic immunotherapy (principal); C43.59 Malignant melanoma of other part of trunk; C77.0 Secondary and unspecified malignant neoplasm of lymph nodes of head, face and neck; D50.9 Iron deficiency anemia, unspecified; M54.5 Low back pain; G89.29 Other chronic pain; Z79.899 Other long term (current) drug therapy
CPT/HCPCS: 36591; 80053; 83615; 84443; 85025; 96367; 96375; 96413; 96417; 99215; J1100; J1200; J3490; J7050; J9228; J9299

== ENCOUNTER 2021-01-04 05:45 | Outpatient (RCR) | payer MEDICARE, SELFPAY ==
[2020-12-15 09:15] LABS: Basophils % 0.6 %; Eosinophils # 0.4 10^3/uL (0.0-0.8); Eosinophils % 6.1 %; Hematocrit 41.5 % (42.0-52.0); Hemoglobin 12.5 g/dL (11.7-16.6); Lymphocytes # 1.3 10^3/uL (0.8-4.8); Lymphocytes % 19.8 %; Mean Corpuscular HGB Conc 30.1 g/dL (30.0-36.0); Mean Corpuscular Hemoglobin 22.9 pg (28.0-34.0); Mean Corpuscular Volume 76.1 fL (80-94); Mean Platelet Volume 10.1 fL (7.4-10.4); Monocytes # 0.4 10^3/uL (0.2-0.9); Monocytes % 6.7 %; Neutrophils # 4.33 10^3/uL (1.8-7.7); Neutrophils % 66.5 %; Nucleated Red Blood Cells % 0 %; Platelet Count 353 10^3/cmm (130-400); Red Blood Count 5.45 10^6/uL (4.1-5.3); Red Cell Distribution Width 23.8 % (12.1-15.1); White Blood Count 6.5 10^3/uL (4.0-10.0)
[2020-12-15 09:45] LABS: Alanine Aminotransferase 18 U/L (0-41); Albumin Level 4.1 g/dL (3.5-5.2); Alkaline Phosphatase 102 IU/L (40-130); Anion Gap 14.8 (5-19); Aspartate Amino Transferase 20 U/L (0-40); Blood Urea Nitrogen 7 mg/dL (6-20); Carbon Dioxide 23 mmol/L (22-29); Chloride 107 mmol/L (98-107); Globulin 2.5 g/dL (1.3-4.6); Glomerular Filtration Rate 115.4 mL/min (90-130); Glucose 122 mg/dL (65-115); Lactate Dehydrogenase 254 U/L (135-225); Osmolality Calculated 291 mOsm/kg (285-295); Potassium 3.8 mmol/L (3.5-5.1); Sodium 141 mmol/L (136-145); Total Bilirubin 0.3 mg/dL (0.15-1.2); Total Protein 6.6 g/dL (6.6-8.7)
[2020-12-15] MEDS: diphenhydrAMINE 50 mg/mL SDV 1mL IVP (10:30)
[2020-12-15] MEDS: sodium chloride 0.9% 250 ML 75 ML IV (10:30)
[2020-12-15] MEDS: famotidine 20 mg/2 mL INJ IVP (10:35)
[2020-12-15] MEDS: acetaminophen 325 mg Tablet 650 MG PO (10:40)
[2020-12-15] MEDS: dexamethasone 20 MG in sodium chloride 0.9% 50 ML 187 MG IV (10:40)
--- NOTE | 2020-12-16 06:26 | ONC FU_ITS ---
Dr. Cole Patient Follow-Up Note Patient: Adarsh Parson Unit #: [id number]: 1960 Dicatated By: Curtis Cole M.D.Date of Visit:Dec 15, 2020 Onc Med Follow-up/Prog Note Chief Complaint: Metastatic melanoma. History of Present Illness: This is a 60-year-old man with metastatic melanoma, BRAF mutation negative. He has a history of having undergone excision of a melanoma from the right lower back somewhere in the range of 3 to 4 years ago. The records were not available. The procedure was done through [facility] in [place], and it included a right axillary sentinel lymph node biopsy. He did not require any further treatment. He continued regular follow-up with his cook manager in [place]. In July 2020 he presented to [facility] with a lump in the left side of his neck. He had been aware of it for about 6 months. An initial ultrasound on 09/04/2020 showed a left supraclavicular mass measuring 4.8 x 5.1 x 4.0 cm consistent with an abnormal lymph node. Further evaluation with CT scans of the neck and chest on 09/08/2020 showed a large heterogeneously enhancing left supraclavicular lymph node measuring 4.8 x 4.4 x 6.8 cm with additional enlarged pathologic lymph nodes in the lower cervical chain and supraclavicular region. A left hilar and suprahilar mass measuring approximately 3.1 x 2.9 x 4.8 cm was noted to abut the left hilum, extending into the left upper lobe. There were multiple surrounding satellite soft tissue nodules and there was associated pleural thickening in the left upper lobe medially. There were no other suspicious pulmonary parenchymal nodules and there was no mediastinal adenopathy. A 12 mm low-attenuation lesion in the right hepatic lobe was felt to be indeterminate. Haziness within the mid mesentery with prominent lymph nodes was partially visualized. Further evaluation with CT of the abdomen/pelvis on 09/18/2020 was reported to be negative for metastatic disease. The lesion in the right lobe of the liver was felt to probably be a cyst. He then underwent ultrasound directed biopsy of the left supraventricular mass on 10/07/2020. 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 By IHC, the tumor cells were positive for trim 29, melanin A, HMB-45, Sox 10, and S100 protein, consistent with metastatic melanoma. Staging PET/CT on 10/10/2020 showed FDG positive left supraclavicular mass measuring 6.1 x 4.2 cm, SUV 38.3. 2 additional adjacent nodes measuring 1.8 cm were also FDG positive. A left upper lobe lung mass measuring 4.2 x 4.6 cm and SUV 22.2 and a left upper quadrant small bowel mass measuring 5.6 x 5.2 cm had SUV 43.4, high probability of malignancy. Multiple enlarged mesenteric lymph nodes had minimal FDG activity, but were likely metastatic. I had seen him initially on 10/13/2020. I had discussed the possibility of proceeding with a trial of dual immunotherapy with nivolumab/ipilimumab. At that point I had also requested a BRAF mutation analysis, and that ultimately came back negative. In the meantime, on 10/16/2020 he was admitted to the hospital after presenting to the emergency room with worsening abdominal pain. His CT abdomen/pelvis showed worsening of the jejunojejunal intussusception with development of small bowel obstruction. He underwent diagnostic laparoscopy followed by exploratory laparotomy with partial small bowel resection and [id number] anastomosis. Pathology on the small bowel was consistent with metastatic melanoma. The proximal and distal margins were uninvolved. His medical history is otherwise significant for chronic back pain following previous back surgery. He has had no other ongoing medical illnesses. He also has a history of accidental electrocution. He is a non-smoker. INTERIM HISTORY: He began cycle 1 of dual immunotherapy with nivolumab/ipilimumab on 11/19/2020. He tolerated it without acute toxicity. He had subsequently developed a rash on his arms, chest, and back. It was not itchy and it otherwise was not bothering him. He said it was like a heat rash. It resolved within a week or so. He still has good energy and activity tolerance. ECOG score is 0. His appetite is good and he has gained weight. He does not have fever or night sweats. He had a little bit of sore throat, that resolved. He has no shortness of breath, cough, or chest pain. He has no GI or complaints. In particular, he did not experience any abdominal pain or diarrhea. He has no significant joint or bone pain. He says he had a little bit of headache last night. He has not had dizziness. He occasionally has some numbness/tingling in his fingers. He has no other focal neurologic symptoms. Medications: HYDROcodone-Acetaminophen 1 (7.5-325 mg) Tablet Oral q 4 hours PRN Allergies: No Known Allergies. Vital Signs: Performed on Dec 15, 2020 10:16 Height - 66.00 in Weight - 168.6 lbs (HIGH) BSA - 1.86 sq.m BMI - 27.21 Temperature - 98.6 F Pulse - 67 /min Respiration - 18 /min BP - 153/82 mm(hg) (HIGH) O2 Sat - 92 % (LOW) Pain - 0 Fatigue - 0 Physical Examination: Constitutional - He looks good generally, Eyes - Sclerae nonicteric. Conjunctivae clear, ENMT - No lesions noted in the oral cavity, Hematologic/Lymphatic - There has been dramatic improvement in the left supraclavicular mass, which is now down to a small residual nodule measuring in the range of 1 to 2 cm. There is no other adenopathy noted in the neck or axillae, Respiratory - Lungs are clear with good air movement bilaterally, Cardiovascular - Heart rhythm is regular. There is a II/ systolic murmur. There is no gallop or rub noted, Abdomen - Soft . Liver and spleen are not enlarged. There is no abdominal mass or ascites noted and there is no inguinal adenopathy, Extremities - No edema, Neurologic - No focal neurologic deficits noted. Lab/Imaging: Test performed on Dec 15, 2020 08:40 LDH (Total) 254 U/L Sodium 141 mmol/L TSH 2.90 uIU/mL Potassium 3.8 mmol/L Chloride 107 mmol/L CO2 23 mmol/L Anion Gap 14.8 BUN 7 mg/dL Creatinine 0.7 mg/dL Cr Clearance (Est) 122.3300 mL/min eGFR 115.4 mL/min Glucose 122 mg/dL Osmolality - Calculated 291 mOsm/kg Calcium 9.0 mg/dL Protein, Total 6.6 g/dL Albumin 4.1 g/dL Globulin 2.5 g/dL Bilirubin, Total 0.3 mg/dL ALT (SGPT) 18 U/L AST (SGOT) 20 U/L Alkaline Phosphatase 102 IU/L WBC 6.5 10 3/uL RBC 5.45 10 6/uL HGB 12.5 g/dL HCT 41.5 % MCV 76.1 fL MCH 22.9 pg MCHC 30.1 g/dL RDW 23.8 % Platelet Count 353 10 3/cmm MPV 10.1 fL Neutrophils 4.33 10 3/uL Lymphocytes 1.3 10 3/uL Monocytes 0.4 10 3/uL Eosinophils 0.4 10 3/uL Basophils 0.0 10 3/uL Neutrophil % 66.5 % Lymphocyte % 19.8 % Monocyte % 6.7 % Eosinophil % 6.1 % Basophils % 0.6 % NRBC % 0 % Problem List: 1. Metastatic melanoma, BRAF mutation negative, confirmed by biopsy of left supraclavicular mass on 10/07/2020. By PET/CT, there were additional areas of involvement in the left suprahilar region and the left upper quadrant small bowel. 2. He had associated iron deficiency anemia. 3. On 10/16/2020 he underwent exploratory laparotomy with partial small bowel resection for intussusception/small bowel obstruction due to the metastatic melanoma. 4. He has a history of having undergone excision of melanoma from the right lower back 3 or 4 years ago. The procedure included right axillary sentinel lymph node biopsy. 5. He has chronic back pain. Problems Addressed with this Encounter and Plan: 1. Patient with metastatic melanoma, BFAF mutation negative, presenting with large left supraclavicular mass. By PET/CT, there were additional areas of involvement in the left suprahilar region and the left upper quadrant small bowel. On 10/16/2020 he underwent exploratory laparotomy with partial small bowel resection for intussusception/small bowel obstruction due to the metastatic melanoma. On 11/20/2019 when he began cycle 1 of dual immunotherapy with nivolumab/ipilimumab. He has tolerated the treatment extremely well. The only side effect he experienced was a transient skin eruption. He appears to be showing a dramatic response by clinical evaluation. He will proceed now with his second cycle of treatment. It is being administered with a short delay, but that was at his request because of the holiday weekend. The dosages will remain the same. He returns in 3 weeks. 2. He had iron deficiency anemia associated with the metastatic lesion involving the small bowel. It does appear to be showing correction on oral iron supplementation. It will require ongoing monitoring. Signed By: Curtis Cole M.D. <<Signature on File>>
[2021-01-04] MEDS: alteplase 1 mg/mL SDV 2 mL 2 MG IV (08:56)
[2021-01-04 10:00] LABS: Basophils # 0.1 10^3/uL (0.0-0.1); Basophils % 0.9 %; Eosinophils # 0.4 10^3/uL (0.0-0.8); Eosinophils % 5.5 %; Hemoglobin 13.1 g/dL (11.7-16.6); Lymphocytes # 1.1 10^3/uL (0.8-4.8); Lymphocytes % 16.6 %; Mean Corpuscular HGB Conc 31.2 g/dL (30.0-36.0); Mean Corpuscular Hemoglobin 24.6 pg (28.0-34.0); Mean Corpuscular Volume 78.9 fL (80-94); Mean Platelet Volume 9.8 fL (7.4-10.4); Monocytes # 0.5 10^3/uL (0.2-0.9); Monocytes % 6.9 %; Neutrophils # 4.53 10^3/uL (1.8-7.7); Neutrophils % 69.8 %; Nucleated Red Blood Cells % 0 %; Platelet Count 299 10^3/cmm (130-400); Red Blood Count 5.32 10^6/uL (4.1-5.3); Red Cell Distribution Width 21.5 % (12.1-15.1); White Blood Count 6.5 10^3/uL (4.0-10.0)
[2021-01-04 10:42] LABS: Alanine Aminotransferase 36 U/L (0-41); Albumin Level 4.1 g/dL (3.5-5.2); Alkaline Phosphatase 95 IU/L (40-130); Anion Gap 11.2 (5-19); Aspartate Amino Transferase 29 U/L (0-40); Blood Urea Nitrogen 9 mg/dL (6-20); Calcium 8.9 mg/dL (8.5-10.5); Carbon Dioxide 27 mmol/L (22-29); Chloride 107 mmol/L (98-107); Globulin 2.3 g/dL (1.3-4.6); Glomerular Filtration Rate 115.4 mL/min (90-130); Glucose 84 mg/dL (65-115); Lactate Dehydrogenase 225 U/L (135-225); Osmolality Calculated 290 mOsm/kg (285-295); Potassium 4.2 mmol/L (3.5-5.1); Sodium 141 mmol/L (136-145); Thyroid Stimulating Hormone 2.27 uIU/mL (0.27-4.20); Total Bilirubin 0.3 mg/dL (0.15-1.2); Total Protein 6.4 g/dL (6.6-8.7)
[2021-01-04] MEDS: sodium chloride 0.9% 250 ML 75 ML IV (11:07)
[2021-01-04] MEDS: acetaminophen 325 mg Tablet 650 MG PO (11:07)
[2021-01-04] MEDS: famotidine 20 mg/2 mL INJ IVP (11:07)
[2021-01-04] MEDS: diphenhydrAMINE 50 mg/mL SDV 1mL IVP (11:09)
[2021-01-04] MEDS: dexamethasone 20 MG in sodium chloride 0.9% 50 ML 188 MG IV (11:19)
== END 2021-01-09 23:59 | disposition home or self-care (01) ==
LOC: ONCMED 05:45
PROVIDERS: PCP Family Medicine Adult Medicine; Visit Provider Internal Medicine Medical Oncology
DX: Z51.12 Encounter for antineoplastic immunotherapy (principal); Z51.11 Encounter for antineoplastic chemotherapy; C43.59 Malignant melanoma of other part of trunk; C77.0 Secondary and unspecified malignant neoplasm of lymph nodes of head, face and neck; D50.9 Iron deficiency anemia, unspecified; G89.29 Other chronic pain; M54.5 Low back pain; Z79.899 Other long term (current) drug therapy
CPT/HCPCS: 36415; 80053; 83615; 84443; 85025; 96367; 96375; 96413; 96415; 96417; 99214; J1100; J1200; J2997; J3490; J7050; J9228; J9299

== ENCOUNTER 2021-01-25 05:53 | Outpatient (RCR) | payer MEDICARE, SELFPAY ==
[2021-01-25 11:29] LABS: Basophils # 0.1 10^3/uL (0.0-0.1); Basophils % 0.9 %; Eosinophils # 0.4 10^3/uL (0.0-0.8); Eosinophils % 5.5 %; Hematocrit 40.5 % (42.0-52.0); Lymphocytes # 1.2 10^3/uL (0.8-4.8); Lymphocytes % 18.3 %; Mean Corpuscular HGB Conc 32.1 g/dL (30.0-36.0); Mean Platelet Volume 9.8 fL (7.4-10.4); Monocytes # 0.5 10^3/uL (0.2-0.9); Monocytes % 8.3 %; Neutrophils # 4.32 10^3/uL (1.8-7.7); Neutrophils % 66.7 %; Nucleated Red Blood Cells % 0 %; Platelet Count 312 10^3/cmm (130-400); Red Cell Distribution Width 17.5 % (12.1-15.1); White Blood Count 6.5 10^3/uL (4.0-10.0)
[2021-01-25 11:52] LABS: Alanine Aminotransferase 25 U/L (0-41); Albumin Level 3.9 g/dL (3.5-5.2); Alkaline Phosphatase 91 IU/L (40-130); Anion Gap 14.4 (5-19); Aspartate Amino Transferase 25 U/L (0-40); Blood Urea Nitrogen 10 mg/dL (8-23); Calcium 8.6 mg/dL (8.5-10.5); Carbon Dioxide 25 mmol/L (22-29); Chloride 107 mmol/L (98-107); Globulin 2.1 g/dL (1.3-4.6); Glomerular Filtration Rate 137.4 mL/min (90-130); Glucose 115 mg/dL (65-115); Osmolality Calculated 296 mOsm/kg (285-295); Potassium 3.4 mmol/L (3.5-5.1); Sodium 143 mmol/L (136-145); Total Bilirubin 0.3 mg/dL (0.15-1.2)
[2021-01-25] MEDS: sodium chloride 0.9% 250 ML 75 ML IV (13:30)
[2021-01-25] MEDS: diphenhydrAMINE 50 mg/mL SDV 1mL IV (13:30)
[2021-01-25] MEDS: acetaminophen 325 mg Tablet 650 MG PO (13:32)
[2021-01-25] MEDS: famotidine 20 mg/2 mL INJ IVP (13:32)
--- NOTE | 2021-01-25 13:33 | ONC FU_ITS ---
Dr. Cole Patient Follow-Up Note Patient: Adarsh Parson Unit #: [id number]: 1960 Dicatated By: Curtis Cole M.D.Date of Visit:Jan 25, 2021 Onc Med Follow-up/Prog Note Chief Complaint: Metastatic melanoma. History of Present Illness: This is a 60-year-old man with metastatic melanoma, BRAF mutation negative. He has a history of having undergone excision of a melanoma from the right lower back somewhere in the range of 3 to 4 years ago. The records were not available. The procedure was done through [facility] in [place], and it included a right axillary sentinel lymph node biopsy. He did not require any further treatment. 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 In July 2020 he presented to [facility] with a lump in the left side of his neck. He had been aware of it for about 6 months. An initial ultrasound on 09/04/2020 showed a left supraclavicular mass measuring 4.8 x 5.1 x 4.0 cm consistent with an abnormal lymph node. Further evaluation with CT scans of the neck and chest on 09/08/2020 showed a large heterogeneously enhancing left supraclavicular lymph node measuring 4.8 x 4.4 x 6.8 cm with additional enlarged pathologic lymph nodes in the lower cervical chain and supraclavicular region. A left hilar and suprahilar mass measuring approximately 3.1 x 2.9 x 4.8 cm was noted to abut the left hilum, extending into the left upper lobe. There were multiple surrounding satellite soft tissue nodules and there was associated pleural thickening in the left upper lobe medially. There were no other suspicious pulmonary parenchymal nodules and there was no mediastinal adenopathy. A 12 mm low-attenuation lesion in the right hepatic lobe was felt to be indeterminate. Haziness within the mid mesentery with prominent lymph nodes was partially visualized. Further evaluation with CT of the abdomen/pelvis on 09/18/2020 was reported to be negative for metastatic disease. The lesion in the right lobe of the liver was felt to probably be a cyst. He then underwent ultrasound directed biopsy of the left supraventricular mass on 10/07/2020. 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 By IHC, the tumor cells were positive for trim 29, melanin A, HMB-45, Sox 10, and S100 protein, consistent with metastatic melanoma. Staging PET/CT on 10/10/2020 showed FDG positive left supraclavicular mass measuring 6.1 x 4.2 cm, SUV 38.3. 2 additional adjacent nodes measuring 1.8 cm were also FDG positive. A left upper lobe lung mass measuring 4.2 x 4.6 cm and SUV 22.2 and a left upper quadrant small bowel mass measuring 5.6 x 5.2 cm had SUV 43.4, high probability of malignancy. Multiple enlarged mesenteric lymph nodes had minimal FDG activity, but were likely metastatic. I had seen him initially on 10/13/2020. I had discussed the possibility of proceeding with a trial of dual immunotherapy with nivolumab/ipilimumab. At that point I had also requested a BRAF mutation analysis, and that ultimately came back negative. In the meantime, on 10/16/2020 he was admitted to the hospital after presenting to the emergency room with worsening abdominal pain. His CT abdomen/pelvis showed worsening of the jejunojejunal intussusception with development of small bowel obstruction. He underwent diagnostic laparoscopy followed by exploratory laparotomy with partial small bowel resection and [id number] anastomosis. Pathology on the small bowel was consistent with metastatic melanoma. The proximal and distal margins were uninvolved. His medical history is otherwise significant for chronic back pain following previous back surgery. He has had no other ongoing medical illnesses. He also has a history of accidental electrocution. He is a non-smoker. INTERIM HISTORY: He began cycle 1 of dual immunotherapy with nivolumab/ipilimumab on 11/19/2020. He had subsequently developed a rash on his arms, chest, and back. It was not itchy and it otherwise was not bothering him. He said it was like a heat rash. It resolved within a week or so. He otherwise tolerated the treatment well. He continued with cycle 2 on 12/15/2020 and with cycle 3 on 01/04/2021. He has been feeling good generally. He has continued to have some skin eruption on his arms, but that is likely to be sun related, as he does work outdoors 10 to 12 hours a day. He says his energy is not as good, but he still has normal activity. ECOG score is 0. He has good appetite. He has no fever or night sweats. He has not had soreness in the mouth or throat. He has no shortness of breath, cough, or chest pain. He has no GI or complaints. In particular, he has not had any diarrhea. He has some joint pain, mainly in the hands. It is not getting any worse. He does not complain of headache or dizziness, and he has no focal neurologic symptoms. Medications: HYDROcodone-Acetaminophen 1 (7.5-325 mg) Tablet Oral q 4 hours PRN Allergies: No Known Allergies. Vital Signs: Performed on Jan 25, 2021 13:10 Height - 66.00 in Weight - 174.2 lbs (HIGH) BSA - 1.89 sq.m BMI - 28.12 Temperature - 98.4 F Pulse - 72 /min Respiration - 18 /min BP - 135/81 mm(hg) O2 Sat - 98 % Pain - 0 Fatigue - 5 Physical Examination: Constitutional - He looks good generally, Eyes - Sclerae nonicteric. Conjunctivae clear, ENMT - No lesions noted in the oral cavity, Hematologic/Lymphatic - No cervical, clavicular, or axillary adenopathy noted, Respiratory - Lungs are clear with good air movement bilaterally, Cardiovascular - Heart rhythm is regular. There is no murmur, gallop, or rub noted, Abdomen - Soft . Liver and spleen are not enlarged. There is no abdominal mass or ascites noted and there is no inguinal adenopathy, Extremities - No edema, Integumentary - There is erythema and desquamation on the dorsum of both arms, Neurologic - No focal neurologic deficits noted. Lab/Imaging: Test performed on Jan 25, 2021 11:04 Sodium 143 mmol/L Potassium 3.4 mmol/L Chloride 107 mmol/L CO2 25 mmol/L Anion Gap 14.4 BUN 10 mg/dL Creatinine 0.6 mg/dL Cr Clearance (Est) 140.9500 mL/min eGFR 137.4 mL/min Glucose 115 mg/dL Osmolality - Calculated 296 mOsm/kg Calcium 8.6 mg/dL Protein, Total 6.0 g/dL Albumin 3.9 g/dL Globulin 2.1 g/dL Bilirubin, Total 0.3 mg/dL ALT (SGPT) 25 U/L AST (SGOT) 25 U/L Alkaline Phosphatase 91 IU/L WBC 6.5 10 3/uL RBC 5.00 10 6/uL HGB 13.0 g/dL HCT 40.5 % MCV 81.0 fl MCH 26.0 pg MCHC 32.1 g/dL RDW 17.5 % Platelet Count 312 10 3/cmm MPV 9.8 fL Neutrophils 4.32 10 3/uL Lymphocytes 1.2 10 3/uL Monocytes 0.5 10 3/uL Eosinophils 0.4 10 3/uL Basophils 0.1 10 3/uL Neutrophil % 66.7 % Lymphocyte % 18.3 % Monocyte % 8.3 % Eosinophil % 5.5 % Basophils % 0.9 % NRBC % 0 % Problem List: 1. Metastatic melanoma, BRAF mutation negative, confirmed by biopsy of left supraclavicular mass on 10/07/2020. By PET/CT, there were additional areas of involvement in the left suprahilar region and the left upper quadrant small bowel. 2. He had associated iron deficiency anemia. 3. On 10/16/2020 he underwent exploratory laparotomy with partial small bowel resection for intussusception/small bowel obstruction due to the metastatic melanoma. 4. He has a history of having undergone excision of melanoma from the right lower back 3 or 4 years ago. The procedure included right axillary sentinel lymph node biopsy. 5. He has chronic back pain. Problems Addressed with this Encounter and Plan: 1. Patient with metastatic melanoma, BFAF mutation negative, presenting with large left supraclavicular mass. By PET/CT, there were additional areas of involvement in the left suprahilar region and the left upper quadrant small bowel. On 10/16/2020 he underwent exploratory laparotomy with partial small bowel resection for intussusception/small bowel obstruction due to the metastatic melanoma. On 11/20/2019 when he began cycle 1 of dual immunotherapy with nivolumab/ipilimumab. He has now completed 3 cycles of treatment. Toxicities have been limited to mild fatigue and a skin eruption. At least some compound of the skin eruption is likely due to sun sensitivity. Overall, he has tolerated treatment extremely well. He will proceed now with his fourth and final cycle of treatment with ipililumab/nivolumab. The dosages remain the same. He returns in 3 weeks. He will have restaging CT scans with that visit. Assuming he is confirmed to have complete response, he will then continue treatment with nivolumab monotherapy at 4-week dosing. 2. He had iron deficiency anemia associated with the metastatic lesion involving the small bowel. It does appear to have adequately corrected with oral iron supplementation. Signed By: Curtis Cole M.D. <<Signature on File>>
[2021-01-25] MEDS: dexamethasone 20 MG in sodium chloride 0.9% 50 ML 187 MG IV (13:35)
== END 2021-02-09 23:59 | disposition home or self-care (01) ==
LOC: ONCMED 05:53
PROVIDERS: PCP Family Medicine Adult Medicine; Visit Provider Internal Medicine Medical Oncology
DX: Z51.12 Encounter for antineoplastic immunotherapy (principal); C43.59 Malignant melanoma of other part of trunk; C77.0 Secondary and unspecified malignant neoplasm of lymph nodes of head, face and neck; D50.9 Iron deficiency anemia, unspecified; M54.5 Low back pain; G89.29 Other chronic pain; Z79.899 Other long term (current) drug therapy
CPT/HCPCS: 36415; 80053; 85025; 96367; 96375; 96413; 96417; 99214; J1100; J1200; J3490; J7050; J9228; J9299

== ENCOUNTER 2021-02-11 10:52 | Outpatient (CLI) | payer MEDICARE, SELFPAY ==
--- NOTE | 2021-02-11 11:25 | CT_ITS ---
WS: [id number] CT CHEST, ABDOMEN AND PELVIS WITH CONTRAST HISTORY: MELANOMA TECHNIQUE: Contiguous 5 mm axial imaging performed through the chest, abdomen and pelvis with IV cont rast, oral contrast has been provided. Coronal and sagittal reformats chest. Coronal and sagittal ref ormats through the abdomen and pelvis. All CT scans at [facility] use at least one of these d ose optimization techniques: automated exposure control; mA and/or kV adjustment per patient size (in cludes targeted exams where dose is matched to clinical indication); or iterative reconstruction. CONTRAST: Omnipaque 300; 95 mL IV. DLP: 1448.7 mGy.cm COMPARISON: 10/16/2020 and 09/08/[address]: Significant improvement in the dominant nodule and a satellite lesions in the LEFT upper lo be since 09/08/2020. There is residual solid nodule measuring 1.9 x 1.1 cm the small amount of adjacen t bronchial thickening. Subpleural 5 mm nodule LEFT lower lobe. 5 mm nodule along the inferior RIGHT major fissure. Subpleural nodule RIGHT lower lobe. No mediastinal or hilar lymph nodes. Heart size is normal. Normal size aorta and pulmonary artery. No osteoblastic or osteolytic bone disease. Abdomen CT: Normal size liver and spleen. Lobulated low-attenuation nodule measuring 10 mm in the ant erior liver similar to prior studies. There are few at additional very tiny hypodense areas which are also stable. No metastatic disease. Normal portal vein. Cholelithiasis without acute cholecystitis. Normal pancreas. No adrenal mass. Kidneys are negative. Normal aorta. Again noted is the mesenteric misting and small mesenteric lymph nodes. The lymph nodes appear slight ly smaller in size and less vascular. No ascites. Postsurgical changes along the fracture anterior ab dominal wall. Visualized GI tract is negative for acute process. No obstruction. The appendix is normal. No intussu sception identified within the small bowel. Postsurgical changes in the LEFT jejunum. No obstruction at this site. Pelvic CT: Very slightly prominent prostate gland. No adenopathy or free fluid. Urinary bladder is ne gative. No inguinal lymph nodes. Lytic area in the lateral RIGHT femoral head stable since 09/18/2020. CT/CT chest abd pel w con* IMPRESSION: 1. Significant decrease in size of the mass with satellite lesions in the LEFT upper lobe. Residual mass measures 1.9 x 1.1 cm. There are a few additional no dules throughout the lungs which are stable with the exception of a 5 mm subple ural nodule in the LEFT lower lobe. Recommend follow-up chest CT in 3 months. 2. Central mesenteric misting subcentimeter lymph nodes. No progression of the lymph nodes or sclerosing mesenteritis. 3. Cholelithiasis.
[2021-02-11 12:15] LABS: Basophils % 0.7 %; Eosinophils # 0.3 10^3/uL (0.0-0.8); Eosinophils % 4.4 %; Hematocrit 44.7 % (42.0-52.0); Hemoglobin 14.4 g/dL (11.7-16.6); Lymphocytes % 17.3 %; Mean Corpuscular HGB Conc 32.2 g/dL (30.0-36.0); Mean Corpuscular Hemoglobin 26.5 pg (28.0-34.0); Mean Corpuscular Volume 82.3 fl (80-94); Mean Platelet Volume 10.2 fL (7.4-10.4); Monocytes # 0.4 10^3/uL (0.2-0.9); Monocytes % 5.9 %; Neutrophils # 4.22 10^3/uL (1.8-7.7); Neutrophils % 71.4 %; Nucleated Red Blood Cells % 0 %; Platelet Count 352 10^3/cmm (130-400); Red Blood Count 5.43 10^6/uL (4.1-5.3); Red Cell Distribution Width 15.8 % (12.1-15.1); White Blood Count 5.9 10^3/uL (4.0-10.0)
[2021-02-11 12:58] LABS: Alanine Aminotransferase 16 U/L (0-41); Albumin Level 4.2 g/dL (3.5-5.2); Alkaline Phosphatase 93 IU/L (40-130); Anion Gap 13.6 (5-19); Aspartate Amino Transferase 16 U/L (0-40); Blood Urea Nitrogen 9 mg/dL (8-23); Calcium 8.8 mg/dL (8.5-10.5); Carbon Dioxide 26 mmol/L (22-29); Chloride 104 mmol/L (98-107); Globulin 2.6 g/dL (1.3-4.6); Glomerular Filtration Rate 98.6 mL/min (90-130); Glucose 115 mg/dL (65-115); Lactate Dehydrogenase 179 U/L (135-225); Osmolality Calculated 290 mOsm/kg (285-295); Potassium 3.6 mmol/L (3.5-5.1); Sodium 140 mmol/L (136-145); Thyroid Stimulating Hormone 1.93 uIU/mL (0.27-4.20); Total Bilirubin 0.3 mg/dL (0.15-1.2); Total Protein 6.8 g/dL (6.6-8.7)
[2021-02-11] MEDS: iohexol 300 mg/mL 100 mL Btl IV (13:04)
[2021-02-11] MEDS: iohexol 300 mg/mL 50 mL Btl PO (13:04)
== END 2021-02-11 10:53 | disposition home or self-care (01) ==
PROVIDERS: PCP Family Medicine Adult Medicine; Visit Provider Internal Medicine Medical Oncology
DX: C43.59 Malignant melanoma of other part of trunk (principal); C77.0 Secondary and unspecified malignant neoplasm of lymph nodes of head, face and neck; C78.02 Secondary malignant neoplasm of left lung; K80.20 Calculus of gallbladder without cholecystitis without obstruction
CPT/HCPCS: 36415; 71260; 74177; 80053; 83615; 84443; 85025; Q9967

== ENCOUNTER 2021-02-16 05:49 | Outpatient (CLI) | payer MEDICARE, SELFPAY ==
[2021-02-16] MEDS: sodium chloride 0.9% 250 ML IV (10:40)
--- NOTE | 2021-02-16 11:30 | ONC FU_ITS ---
Dr. Cole Patient Follow-Up Note Patient: Adarsh Parson Unit #: [id number]: 1960 Dicatated By: Curtis Cole M.D.Date of Visit:Feb 16, 2021 Onc Med Follow-up/Prog Note Chief Complaint: Metastatic melanoma. History of Present Illness: This is a 61 year-old man with metastatic melanoma, BRAF mutation negative. He has a history of having undergone excision of a melanoma from the right lower back somewhere in the range of 3 to 4 years ago. The records were not available. The procedure was done through [facility] in [place], and it included a right axillary sentinel lymph node biopsy. He did not require any further treatment. 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 In July 2020 he presented to [facility] with a lump in the left side of his neck. He had been aware of it for about 6 months. An initial ultrasound on 09/04/2020 showed a left supraclavicular mass measuring 4.8 x 5.1 x 4.0 cm consistent with an abnormal lymph node. Further evaluation with CT scans of the neck and chest on 09/08/2020 showed a large heterogeneously enhancing left supraclavicular lymph node measuring 4.8 x 4.4 x 6.8 cm with additional enlarged pathologic lymph nodes in the lower cervical chain and supraclavicular region. A left hilar and suprahilar mass measuring approximately 3.1 x 2.9 x 4.8 cm was noted to abut the left hilum, extending into the left upper lobe. There were multiple surrounding satellite soft tissue nodules and there was associated pleural thickening in the left upper lobe medially. There were no other suspicious pulmonary parenchymal nodules and there was no mediastinal adenopathy. A 12 mm low-attenuation lesion in the right hepatic lobe was felt to be indeterminate. Haziness within the mid mesentery with prominent lymph nodes was partially visualized. Further evaluation with CT of the abdomen/pelvis on 09/18/2020 was reported to be negative for metastatic disease. The lesion in the right lobe of the liver was felt to probably be a cyst. He then underwent ultrasound directed biopsy of the left supraventricular mass on 10/07/2020. 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 By IHC, the tumor cells were positive for trim 29, melanin A, HMB-45, Sox 10, and S100 protein, consistent with metastatic melanoma. Staging PET/CT on 10/10/2020 showed FDG positive left supraclavicular mass measuring 6.1 x 4.2 cm, SUV 38.3. 2 additional adjacent nodes measuring 1.8 cm were also FDG positive. A left upper lobe lung mass measuring 4.2 x 4.6 cm and SUV 22.2 and a left upper quadrant small bowel mass measuring 5.6 x 5.2 cm had SUV 43.4, high probability of malignancy. Multiple enlarged mesenteric lymph nodes had minimal FDG activity, but were likely metastatic. I had seen him initially on 10/13/2020. I had discussed the possibility of proceeding with a trial of dual immunotherapy with nivolumab/ipilimumab. At that point I had also requested a BRAF mutation analysis, and that ultimately came back negative. In the meantime, on 10/16/2020 he was admitted to the hospital after presenting to the emergency room with worsening abdominal pain. His CT abdomen/pelvis showed worsening of the jejunojejunal intussusception with development of small bowel obstruction. He underwent diagnostic laparoscopy followed by exploratory laparotomy with partial small bowel resection and [id number] anastomosis. Pathology on the small bowel was consistent with metastatic melanoma. The proximal and distal margins were uninvolved. His medical history is otherwise significant for chronic back pain following previous back surgery. He has had no other ongoing medical illnesses. He also has a history of accidental electrocution. He is a non-smoker. INTERIM HISTORY: He began cycle 1 of dual immunotherapy with nivolumab/ipilimumab on 11/19/2020. He had subsequently developed a rash on his arms, chest, and back. It was not itchy and it otherwise was not bothering him. He said it was like a heat rash. It resolved within a week or so. He otherwise tolerated the treatment well. He continued with cycle 2 on 12/15/2020, with cycle 3 on 01/04/2021, and with cycle 4 on 01/25/2021. Restaging CT scans of the chest, abdomen, and pelvis on 02/11/2021 showed significant decrease in the size of the mass in the left upper lobe, measuring 1.9 x 1.1 cm compared to 3.1 x 2.9 x 4.8 cm on the August 2020 study. A few additional nodules throughout the lungs appeared stable with the exception of a 5 mm subpleural nodule in the left lower lobe. A 3-month follow-up was recommended. Also noted were central mesenteric misting subcentimeter lymph nodes without progression. He is seen for a follow-up visit. He has been feeling good generally. He does have some fatigue, but he thinks his energy may be a little better, and he does have normal activity. ECOG score 0. Appetite is good. He has no fever or night sweats. His mouth gets a little sore at times. He has not had sore throat or cough. He has no shortness of breath or chest pain. He has no GI or complaints. In particular, he has had no diarrhea. He has some mild joint pain, mainly in the hands. He does not complain of headache or dizziness. He has numbness now and then, also mainly in the hands. He has no other focal neurologic symptoms. Medications: HYDROcodone-Acetaminophen 1 (7.5-325 mg) Tablet Oral q 4 hours PRN Allergies: No Known Allergies. Vital Signs: Performed on Feb 16, 2021 09:57 Height - 66.00 in Weight - 173 lbs (LOW) BSA - 1.88 sq.m BMI - 27.92 Temperature - 98.5 F Pulse - 80 /min Respiration - 18 /min BP - 144/87 mm(hg) (HIGH) O2 Sat - 98 % Pain - 0 Fatigue - 5 Physical Examination: Constitutional - He looks good generally, Eyes - Sclerae nonicteric. Conjunctivae clear, ENMT - No lesions noted in the oral cavity, Hematologic/Lymphatic - No cervical, clavicular, or axillary adenopathy noted, Respiratory - Lungs are clear with good air movement bilaterally, Cardiovascular - Heart rhythm is regular. There is no murmur, gallop, or rub noted, Abdomen - Soft . Liver and spleen are not enlarged. There is no abdominal mass or ascites noted and there is no inguinal adenopathy, Extremities - No edema, Integumentary - He now has a fairly large area of hypopigmentation on both forearms, Neurologic - No focal neurologic deficits noted. Lab/Imaging: Test performed on Feb 11, 2021 11:03 LDH (Total) 179 U/L Sodium 140 mmol/L TSH 1.93 uIU/mL Potassium 3.6 mmol/L Chloride 104 mmol/L CO2 26 mmol/L Anion Gap 13.6 BUN 9 mg/dL Creatinine 0.8 mg/dL Cr Clearance (Est) 109.7500 mL/min eGFR 98.6 mL/min Glucose 115 mg/dL Osmolality - Calculated 290 mOsm/kg Calcium 8.8 mg/dL Protein, Total 6.8 g/dL Albumin 4.2 g/dL Globulin 2.6 g/dL Bilirubin, Total 0.3 mg/dL ALT (SGPT) 16 U/L AST (SGOT) 16 U/L Alkaline Phosphatase 93 IU/L WBC 5.9 10 3/uL RBC 5.43 10 6/uL HGB 14.4 g/dL HCT 44.7 % MCV 82.3 fl MCH 26.5 pg MCHC 32.2 g/dL RDW 15.8 % Platelet Count 352 10 3/cmm MPV 10.2 fL Neutrophils 4.22 10 3/uL Lymphocytes 1.0 10 3/uL Monocytes 0.4 10 3/uL Eosinophils 0.3 10 3/uL Basophils 0.0 10 3/uL Neutrophil % 71.4 % Lymphocyte % 17.3 % Monocyte % 5.9 % Eosinophil % 4.4 % Basophils % 0.7 % NRBC % 0 % Problem List: 1. Metastatic melanoma, BRAF mutation negative, confirmed by biopsy of left supraclavicular mass on 10/07/2020. By PET/CT, there were additional areas of involvement in the left suprahilar region and the left upper quadrant small bowel. 2. He had associated iron deficiency anemia. 3. On 10/16/2020 he underwent exploratory laparotomy with partial small bowel resection for intussusception/small bowel obstruction due to the metastatic melanoma. 4. He has a history of having undergone excision of melanoma from the right lower back 3 or 4 years ago. The procedure included right axillary sentinel lymph node biopsy. 5. He has chronic back pain. Problems Addressed with this Encounter and Plan: Patient with metastatic melanoma, BFAF mutation negative, presenting with large left supraclavicular mass. By PET/CT, there were additional areas of involvement in the left suprahilar region and the left upper quadrant small bowel. On 10/16/2020 he underwent exploratory laparotomy with partial small bowel resection for intussusception/small bowel obstruction due to the metastatic melanoma. On 11/20/2019 when he began cycle 1 of dual immunotherapy with nivolumab/ipilimumab. He has now completed 4 cycles of treatment. Toxicities have been limited to mild fatigue and a skin eruption, which appears to be evolving into vitiligo. Overall, though, he has tolerated treatment extremely well, and he has had a very good response by follow-up chest CT. As such, he will now continue treatment with nivolumab monotherapy at a standard dosage of 480 mg by IV infusion every 4 weeks. He began cycle 1 of nivolumab today, and I will see him again in 4 weeks. Signed By: Curtis Cole M.D. <<Signature on File>>
== END 2021-02-16 05:50 | disposition home or self-care (01) ==
PROVIDERS: PCP Family Medicine Adult Medicine; Visit Provider Internal Medicine Medical Oncology
DX: Z51.12 Encounter for antineoplastic immunotherapy (principal); C76.0 Malignant neoplasm of head, face and neck; C78.4 Secondary malignant neoplasm of small intestine; C78.02 Secondary malignant neoplasm of left lung; D50.9 Iron deficiency anemia, unspecified; M54.5 Low back pain; G89.29 Other chronic pain; Z79.899 Other long term (current) drug therapy
CPT/HCPCS: 96413; 99215; J7050; J9299

== ENCOUNTER 2021-03-15 08:32 | Outpatient (CLI) | payer MEDICARE, SELFPAY ==
[2021-03-15 09:11] LABS: Basophils % 0.5 %; Eosinophils # 0.4 10^3/uL (0.0-0.8); Eosinophils % 4.1 %; Hematocrit 41.4 % (42.0-52.0); Hemoglobin 13.4 g/dL (11.7-16.6); Lymphocytes # 1.1 10^3/uL (0.8-4.8); Lymphocytes % 12.4 %; Mean Corpuscular HGB Conc 32.4 g/dL (30.0-36.0); Mean Corpuscular Hemoglobin 27.2 pg (28.0-34.0); Mean Platelet Volume 9.7 fL (7.4-10.4); Monocytes # 0.5 10^3/uL (0.2-0.9); Monocytes % 6.4 %; Neutrophils # 6.48 10^3/uL (1.8-7.7); Neutrophils % 76.4 %; Nucleated Red Blood Cells % 0 %; Platelet Count 438 10^3/cmm (130-400); Red Blood Count 4.93 10^6/uL (4.1-5.3); Red Cell Distribution Width 13.4 % (12.1-15.1); White Blood Count 8.5 10^3/uL (4.0-10.0)
[2021-03-15 09:57] LABS: Alanine Aminotransferase 8 U/L (0-41); Albumin Level 3.8 g/dL (3.5-5.2); Alkaline Phosphatase 98 IU/L (40-130); Anion Gap 12.9 (5-19); Aspartate Amino Transferase 10 U/L (0-40); Blood Urea Nitrogen 10 mg/dL (8-23); Carbon Dioxide 25 mmol/L (22-29); Chloride 104 mmol/L (98-107); Globulin 3.2 g/dL (1.3-4.6); Glomerular Filtration Rate 137.4 mL/min (90-130); Glucose 119 mg/dL (65-115); Lactate Dehydrogenase 160 U/L (135-225); Osmolality Calculated 286 mOsm/kg (285-295); Potassium 3.9 mmol/L (3.5-5.1); Sodium 138 mmol/L (136-145); Thyroid Stimulating Hormone 2.04 uIU/mL (0.27-4.20); Total Bilirubin 0.3 mg/dL (0.15-1.2)
--- NOTE | 2021-03-15 10:35 | ONC FU_ITS ---
Dr. Cole Patient Follow-Up Note Patient: Adarsh Parson Unit #: [id number]: 1960 Dicatated By: Curtis Cole M.D.Date of Visit:Mar 15, 2021 Onc Med Follow-up/Prog Note Chief Complaint: Metastatic melanoma. History of Present Illness: This is a 61 year-old man with metastatic melanoma, BRAF mutation negative. He has a history of having undergone excision of a melanoma from the right lower back somewhere in the range of 3 to 4 years ago. The records were not available. The procedure was done through [facility] in [place], and it included a right axillary sentinel lymph node biopsy. He did not require any further treatment. 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 In July 2020 he presented to [facility] with a lump in the left side of his neck. He had been aware of it for about 6 months. An initial ultrasound on 09/04/2020 showed a left supraclavicular mass measuring 4.8 x 5.1 x 4.0 cm consistent with an abnormal lymph node. Further evaluation with CT scans of the neck and chest on 09/08/2020 showed a large heterogeneously enhancing left supraclavicular lymph node measuring 4.8 x 4.4 x 6.8 cm with additional enlarged pathologic lymph nodes in the lower cervical chain and supraclavicular region. A left hilar and suprahilar mass measuring approximately 3.1 x 2.9 x 4.8 cm was noted to abut the left hilum, extending into the left upper lobe. There were multiple surrounding satellite soft tissue nodules and there was associated pleural thickening in the left upper lobe medially. There were no other suspicious pulmonary parenchymal nodules and there was no mediastinal adenopathy. A 12 mm low-attenuation lesion in the right hepatic lobe was felt to be indeterminate. Haziness within the mid mesentery with prominent lymph nodes was partially visualized. Further evaluation with CT of the abdomen/pelvis on 09/18/2020 was reported to be negative for metastatic disease. The lesion in the right lobe of the liver was felt to probably be a cyst. He then underwent ultrasound directed biopsy of the left supraventricular mass on 10/07/2020. 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 By IHC, the tumor cells were positive for trim 29, melanin A, HMB-45, Sox 10, and S100 protein, consistent with metastatic melanoma. Staging PET/CT on 10/10/2020 showed FDG positive left supraclavicular mass measuring 6.1 x 4.2 cm, SUV 38.3. 2 additional adjacent nodes measuring 1.8 cm were also FDG positive. A left upper lobe lung mass measuring 4.2 x 4.6 cm and SUV 22.2 and a left upper quadrant small bowel mass measuring 5.6 x 5.2 cm had SUV 43.4, high probability of malignancy. Multiple enlarged mesenteric lymph nodes had minimal FDG activity, but were likely metastatic. I had seen him initially on 10/13/2020. I had discussed the possibility of proceeding with a trial of dual immunotherapy with nivolumab/ipilimumab. At that point I had also requested a BRAF mutation analysis, and that ultimately came back negative. In the meantime, on 10/16/2020 he was admitted to the hospital after presenting to the emergency room with worsening abdominal pain. His CT abdomen/pelvis showed worsening of the jejunojejunal intussusception with development of small bowel obstruction. He underwent diagnostic laparoscopy followed by exploratory laparotomy with partial small bowel resection and [id number] anastomosis. Pathology on the small bowel was consistent with metastatic melanoma. The proximal and distal margins were uninvolved. His medical history is otherwise significant for chronic back pain following previous back surgery. He has had no other ongoing medical illnesses. He also has a history of accidental electrocution. He is a non-smoker. INTERIM HISTORY: He began cycle 1 of dual immunotherapy with nivolumab/ipilimumab on 11/19/2020. He had subsequently developed a rash on his arms, chest, and back. It was not itchy and it otherwise was not bothering him. He said it was like a heat rash. It resolved within a week or so. He otherwise tolerated the treatment well. He continued with cycle 2 on 12/15/2020, with cycle 3 on 01/04/2021, and with cycle 4 on 01/25/2021. Restaging CT scans of the chest, abdomen, and pelvis on 02/11/2021 showed significant decrease in the size of the mass in the left upper lobe, measuring 1.9 x 1.1 cm compared to 3.1 x 2.9 x 4.8 cm on the August 2020 study. A few additional nodules throughout the lungs appeared stable with the exception of a 5 mm subpleural nodule in the left lower lobe. A 3-month follow-up was recommended. Also noted were central mesenteric misting subcentimeter lymph nodes without progression. With those findings, he then continued treatment with nivolumab monotherapy at a 4-week dosing schedule on 02/16/2021. He is seen for a follow-up visit. He has not been feeling good. Following his last treatment he developed significant muscle/joint pain. He has had poor mobility and difficulty walking. The pain is significant enough that he has trouble sleeping. He also complains that his hands have been going numb. Overall he has been feeling miserable, but he has continued working. His ECOG score is 1. Appetite is pretty good he has not had fever. He had one episode of night sweating. He has not had sore mouth or throat. He does not complain of cough and has not been having shortness of breath or chest pain. He has no GI complaints other than he has had a slight change in his bowel habit. He is also developed some mild hesitancy with urination. He does not complain of headache or dizziness. He has no other focal neurologic symptoms. Medications: HYDROcodone-Acetaminophen 1 (7.5-325 mg) Tablet Oral q 4 hours PRN Allergies: No Known Allergies. Vital Signs: Performed on Mar 15, 2021 10:03 Height - 66.00 in Weight - 174.4 lbs (HIGH) BSA - 1.89 sq.m BMI - 28.15 Temperature - 99.0 F (HIGH) Pulse - 94 /min Respiration - 18 /min BP - 148/91 mm(hg) (HIGH) O2 Sat - 98 % Pain - 0 Fatigue - 0 Physical Examination: Constitutional - He looks pretty good generally, Eyes - Sclerae nonicteric. Conjunctivae clear, ENMT - No lesions noted in the oral cavity, Hematologic/Lymphatic - There is residual nodule in the left supraclavicular fossa measuring 1 to 2 cm. No other adenopathy noted, Respiratory - Lungs are clear with good air movement bilaterally, Cardiovascular - Heart rhythm is regular. There is no murmur, gallop, or rub noted, Abdomen - Soft . Liver and spleen are not enlarged. There is no abdominal mass or ascites noted and there is no inguinal adenopathy, Extremities - No edema, Neurologic - No focal neurologic deficits noted. Lab/Imaging: Test performed on Mar 15, 2021 08:50 LDH (Total) 160 U/L Sodium 138 mmol/L TSH 2.04 uIU/mL Potassium 3.9 mmol/L Chloride 104 mmol/L CO2 25 mmol/L Anion Gap 12.9 BUN 10 mg/dL Creatinine 0.6 mg/dL Cr Clearance (Est) 146.50 mL/min eGFR 137.4 mL/min Glucose 119 mg/dL Osmolality - Calculated 286 mOsm/kg Calcium 9.0 mg/dL Protein, Total 7.0 g/dL Albumin 3.8 g/dL Globulin 3.2 g/dL Bilirubin, Total 0.3 mg/dL ALT (SGPT) 8 U/L AST (SGOT) 10 U/L Alkaline Phosphatase 98 IU/L WBC 8.5 10 3/uL RBC 4.93 10 6/uL HGB 13.4 g/dL HCT 41.4 % MCV 84.0 fl MCH 27.2 pg MCHC 32.4 g/dL RDW 13.4 % Platelet Count 438 10 3/cmm MPV 9.7 fL Neutrophils 6.48 10 3/uL Lymphocytes 1.1 10 3/uL Monocytes 0.5 10 3/uL Eosinophils 0.4 10 3/uL Basophils 0.0 10 3/uL Neutrophil % 76.4 % Lymphocyte % 12.4 % Monocyte % 6.4 % Eosinophil % 4.1 % Basophils % 0.5 % NRBC % 0 % Problem List: 1. Metastatic melanoma, BRAF mutation negative, confirmed by biopsy of left supraclavicular mass on 10/07/2020. By PET/CT, there were additional areas of involvement in the left suprahilar region and the left upper quadrant small bowel. 2. He had associated iron deficiency anemia. 3. On 10/16/2020 he underwent exploratory laparotomy with partial small bowel resection for intussusception/small bowel obstruction due to the metastatic melanoma. 4. He has a history of having undergone excision of melanoma from the right lower back 3 or 4 years ago. The procedure included right axillary sentinel lymph node biopsy. 5. He has chronic back pain. Problems Addressed with this Encounter and Plan: Patient with metastatic melanoma, BFAF mutation negative, presenting with large left supraclavicular mass. By PET/CT, there were additional areas of involvement in the left suprahilar region and the left upper quadrant small bowel. On 10/16/2020 he underwent exploratory laparotomy with partial small bowel resection for intussusception/small bowel obstruction due to the metastatic melanoma. On 11/19/2020 he began cycle 1 of dual immunotherapy with nivolumab/ipilimumab. He tolerated it well and he was able to continue treatment at 3-week intervals. He received his fourth cycle on 01/25/2021. He had a very good response by follow-up chest CT, and on 02/16/2021 he began nivolumab monotherapy at a standard dosage of 480 mg by IV infusion every 4 weeks. Following that treatment, he developed significant musculoskeletal pain with associated stiffness and poor mobility. I do not think there is any question but that this is an immune mediated side effect. As such, his treatment will be put on hold, and he will be given steroid therapy with prednisone 20 mg 3 times daily for 3 days, then twice daily for 3 days, then 20 mg daily. I will see him back in 2 weeks. Signed By: Curtis Cole M.D. <<Signature on File>>
== END 2021-03-15 08:33 | disposition home or self-care (01) ==
LOC: ONCMED 08:34
PROVIDERS: PCP Family Medicine Adult Medicine; Visit Provider Internal Medicine Medical Oncology
DX: C79.89 Secondary malignant neoplasm of other specified sites (principal); C78.4 Secondary malignant neoplasm of small intestine; Z85.820 Personal history of malignant melanoma of skin; D50.9 Iron deficiency anemia, unspecified; Z92.21 Personal history of antineoplastic chemotherapy; Z79.899 Other long term (current) drug therapy
CPT/HCPCS: 36591; 80053; 83615; 84443; 85025; 99214

== ENCOUNTER 2021-03-31 10:53 | Outpatient (CLI) | payer MEDICARE, SELFPAY ==
--- NOTE | 2021-03-31 18:57 | ONC FU_ITS ---
Dr. Cole Patient Follow-Up Note Patient: Adarsh Parson Unit #: [id number]: 1960 Dicatated By: Curtis Cole M.D.Date of Visit:Mar 31, 2021 Onc Med Follow-up/Prog Note Chief Complaint: Metastatic melanoma. History of Present Illness: This is a 61 year-old man with metastatic melanoma, BRAF mutation negative. He has a history of having undergone excision of a melanoma from the right lower back somewhere in the range of 3 to 4 years ago. The records were not available. The procedure was done through [facility] in [place], and it included a right axillary sentinel lymph node biopsy. He did not require any further treatment. 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 In July 2020 he presented to [facility] with a lump in the left side of his neck. He had been aware of it for about 6 months. An initial ultrasound on 09/04/2020 showed a left supraclavicular mass measuring 4.8 x 5.1 x 4.0 cm consistent with an abnormal lymph node. Further evaluation with CT scans of the neck and chest on 09/08/2020 showed a large heterogeneously enhancing left supraclavicular lymph node measuring 4.8 x 4.4 x 6.8 cm with additional enlarged pathologic lymph nodes in the lower cervical chain and supraclavicular region. A left hilar and suprahilar mass measuring approximately 3.1 x 2.9 x 4.8 cm was noted to abut the left hilum, extending into the left upper lobe. There were multiple surrounding satellite soft tissue nodules and there was associated pleural thickening in the left upper lobe medially. There were no other suspicious pulmonary parenchymal nodules and there was no mediastinal adenopathy. A 12 mm low-attenuation lesion in the right hepatic lobe was felt to be indeterminate. Haziness within the mid mesentery with prominent lymph nodes was partially visualized. Further evaluation with CT of the abdomen/pelvis on 09/18/2020 was reported to be negative for metastatic disease. The lesion in the right lobe of the liver was felt to probably be a cyst. He then underwent ultrasound directed biopsy of the left supraventricular mass on 10/07/2020. 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 By IHC, the tumor cells were positive for trim 29, melanin A, HMB-45, Sox 10, and S100 protein, consistent with metastatic melanoma. Staging PET/CT on 10/10/2020 showed FDG positive left supraclavicular mass measuring 6.1 x 4.2 cm, SUV 38.3. 2 additional adjacent nodes measuring 1.8 cm were also FDG positive. A left upper lobe lung mass measuring 4.2 x 4.6 cm and SUV 22.2 and a left upper quadrant small bowel mass measuring 5.6 x 5.2 cm had SUV 43.4, high probability of malignancy. Multiple enlarged mesenteric lymph nodes had minimal FDG activity, but were likely metastatic. I had seen him initially on 10/13/2020. I had discussed the possibility of proceeding with a trial of dual immunotherapy with nivolumab/ipilimumab. At that point I had also requested a BRAF mutation analysis, and that ultimately came back negative. In the meantime, on 10/16/2020 he was admitted to the hospital after presenting to the emergency room with worsening abdominal pain. His CT abdomen/pelvis showed worsening of the jejunojejunal intussusception with development of small bowel obstruction. He underwent diagnostic laparoscopy followed by exploratory laparotomy with partial small bowel resection and [id number] anastomosis. Pathology on the small bowel was consistent with metastatic melanoma. The proximal and distal margins were uninvolved. His medical history is otherwise significant for chronic back pain following previous back surgery. He has had no other ongoing medical illnesses. He also has a history of accidental electrocution. He is a non-smoker. INTERIM HISTORY: He began cycle 1 of dual immunotherapy with nivolumab/ipilimumab on 11/19/2020. He had subsequently developed a rash on his arms, chest, and back. It was not itchy and it otherwise was not bothering him. He said it was like a heat rash. It resolved within a week or so. He otherwise tolerated the treatment well. He continued with cycle 2 on 12/15/2020, with cycle 3 on 01/04/2021, and with cycle 4 on 01/25/2021. Restaging CT scans of the chest, abdomen, and pelvis on 02/11/2021 showed significant decrease in the size of the mass in the left upper lobe, measuring 1.9 x 1.1 cm compared to 3.1 x 2.9 x 4.8 cm on the August 2020 study. A few additional nodules throughout the lungs appeared stable with the exception of a 5 mm subpleural nodule in the left lower lobe. A 3-month follow-up was recommended. Also noted were central mesenteric misting subcentimeter lymph nodes without progression. With those findings, he then continued treatment with nivolumab monotherapy at a 4-week dosing schedule on 02/16/2021. At his scheduled follow-up visit on 03/15/2021 he reported significant joint and muscle pain which developed following the initial infusion of nivolumab monotherapy. It was significant that he was having difficulty functioning, and it appeared very likely to be treatment related. He began on steroid therapy with prednisone 20 mg 3 times daily, subsequently tapered to 20 mg daily. He is seen now for a follow-up visit. He felt much better almost immediately after starting the prednisone. He is pretty much back to normal activity now, though he still has some fatigue. ECOG score is 0. His appetite is good. He has no fever or night sweats. He has not had sore mouth or throat. He has no shortness of breath, cough, or chest pain. He has no GI complaints other than his stools have been more loose and gassy. Bladder function has been okay. He currently is not having any joint or bone pain. He does not complain of headache or dizziness. He still has some slight numbness in his fingertips. Medications: HYDROcodone-Acetaminophen 1 (7.5-325 mg) Tablet Oral q 4 hours PRN Allergies: No Known Allergies. Vital Signs: Performed on Mar 31, 2021 13:19 Height - 66.00 in Weight - 173 lbs (LOW) BSA - 1.88 sq.m BMI - 27.92 Temperature - 99.1 F (HIGH) Pulse - 87 /min Respiration - 18 /min BP - 155/90 mm(hg) (HIGH) O2 Sat - 99 % Pain - 0 Fatigue - 0 Physical Examination: Constitutional - He looks good generally, Eyes - Sclerae nonicteric. Conjunctivae clear, ENMT - No lesions noted in the oral cavity, Hematologic/Lymphatic - There is a residual nodule in the left supraclavicular fossa. No other adenopathy noted, Respiratory - Lungs are clear with good air movement bilaterally, Cardiovascular - Heart rhythm is regular. There is no murmur, gallop, or rub noted, Abdomen - Soft. Liver and spleen are not enlarged. There is no abdominal mass or ascites noted and there is no inguinal adenopathy, Extremities - No edema, Neurologic - No focal neurologic deficits noted. Lab/Imaging: Test performed on Mar 15, 2021 08:50 LDH (Total) 160 U/L Sodium 138 mmol/L TSH 2.04 uIU/mL Potassium 3.9 mmol/L Chloride 104 mmol/L CO2 25 mmol/L Anion Gap 12.9 BUN 10 mg/dL Creatinine 0.6 mg/dL Cr Clearance (Est) 146.50 mL/min eGFR 137.4 mL/min Glucose 119 mg/dL Osmolality - Calculated 286 mOsm/kg Calcium 9.0 mg/dL Protein, Total 7.0 g/dL Albumin 3.8 g/dL Globulin 3.2 g/dL Bilirubin, Total 0.3 mg/dL ALT (SGPT) 8 U/L AST (SGOT) 10 U/L Alkaline Phosphatase 98 IU/L WBC 8.5 10 3/uL RBC 4.93 10 6/uL HGB 13.4 g/dL HCT 41.4 % MCV 84.0 fl MCH 27.2 pg MCHC 32.4 g/dL RDW 13.4 % Platelet Count 438 10 3/cmm MPV 9.7 fL Neutrophils 6.48 10 3/uL Lymphocytes 1.1 10 3/uL Monocytes 0.5 10 3/uL Eosinophils 0.4 10 3/uL Basophils 0.0 10 3/uL Neutrophil % 76.4 % Lymphocyte % 12.4 % Monocyte % 6.4 % Eosinophil % 4.1 % Basophils % 0.5 % NRBC % 0 % Problem List: 1. Metastatic melanoma, BRAF mutation negative, confirmed by biopsy of left supraclavicular mass on 10/07/2020. By PET/CT, there were additional areas of involvement in the left suprahilar region and the left upper quadrant small bowel. 2. He had associated iron deficiency anemia. 3. On 10/16/2020 he underwent exploratory laparotomy with partial small bowel resection for intussusception/small bowel obstruction due to the metastatic melanoma. 4. He has a history of having undergone excision of melanoma from the right lower back 3 or 4 years ago. The procedure included right axillary sentinel lymph node biopsy. 5. He has chronic back pain. Problems Addressed with this Encounter and Plan: Patient with metastatic melanoma, BFAF mutation negative, presenting with large left supraclavicular mass. By PET/CT, there were additional areas of involvement in the left suprahilar region and the left upper quadrant small bowel. On 10/16/2020 he underwent exploratory laparotomy with partial small bowel resection for intussusception/small bowel obstruction due to the metastatic melanoma. On 11/19/2020 he began cycle 1 of dual immunotherapy with nivolumab/ipilimumab. He tolerated it well and he was able to continue treatment at 3-week intervals. He received his 4th cycle on 01/25/2021. He had a very good response by follow-up chest CT. On 02/16/2021 he began nivolumab monotherapy at a standard dosage of 480 mg by IV infusion every 4 weeks. Following that treatment, he developed significant musculoskeletal pain with associated stiffness and poor mobility. It was presumed to be an immune mediated side effect. His treatment was put on hold, and he began steroid therapy with prednisone 20 mg 3 times daily, subsequently tapered to 20 mg daily. His symptoms have completely resolved on the steroid therapy. As such, I am going to have him resume nivolumab monotherapy, but I will try changing him to the 2-week dosing schedule. He will be given nivolumab 240 mg by IV infusion today. His prednisone dosage will be reduced to 10 mg daily. He will return for treatment in 2 weeks and 4 weeks. I will see him for a follow-up visit again in 6 weeks, or sooner as needed. Signed By: Curtis Cole M.D. <<Signature on File>>
== END 2021-03-31 10:54 | disposition home or self-care (01) ==
LOC: ONCMED 10:56
PROVIDERS: PCP Family Medicine Adult Medicine; Visit Provider Internal Medicine Medical Oncology
DX: C43.59 Malignant melanoma of other part of trunk (principal); C77.0 Secondary and unspecified malignant neoplasm of lymph nodes of head, face and neck; D50.9 Iron deficiency anemia, unspecified; M54.50 Low back pain, unspecified; G89.29 Other chronic pain; Z79.899 Other long term (current) drug therapy; Z92.21 Personal history of antineoplastic chemotherapy
CPT/HCPCS: 96413; 99215; J7050; J9299

== ENCOUNTER 2021-04-12 13:21 | Outpatient (CLI) | payer MEDICARE, SELFPAY | END 2021-04-12 13:22 | disposition home or self-care (01) | LOC: ONCMED 13:24 | PROVIDERS: PCP Family Medicine Adult Medicine; Visit Provider Internal Medicine Medical Oncology | DX: Z51.12 Encounter for antineoplastic immunotherapy (principal); C43.59 Malignant melanoma of other part of trunk; C77.0 Secondary and unspecified malignant neoplasm of lymph nodes of head, face and neck | CPT/HCPCS: 96413; J7050; J9299 ==

== ENCOUNTER 2021-04-26 08:18 | Outpatient (CLI) | payer MEDICARE, SELFPAY | END 2021-04-26 08:19 | disposition home or self-care (01) | LOC: ONCMED 08:19 | PROVIDERS: PCP Family Medicine Adult Medicine; Visit Provider Internal Medicine Medical Oncology | DX: Z51.12 Encounter for antineoplastic immunotherapy (principal); C43.59 Malignant melanoma of other part of trunk; C77.0 Secondary and unspecified malignant neoplasm of lymph nodes of head, face and neck | CPT/HCPCS: 96413; J7050; J9299 ==

== ENCOUNTER 2021-05-10 09:50 | Outpatient (CLI) | payer MEDICARE, SELFPAY ==
[2021-05-10 10:56] LABS: Basophils % 0.4 %; Eosinophils # 0.1 10^3/uL (0.0-0.8); Eosinophils % 0.6 %; Hematocrit 42.4 % (42.0-52.0); Hemoglobin 14.3 g/dL (11.7-16.6); Lymphocytes # 0.7 10^3/uL (0.8-4.8); Lymphocytes % 7.6 %; Mean Corpuscular HGB Conc 33.7 g/dL (30.0-36.0); Mean Corpuscular Hemoglobin 28.5 pg (28.0-34.0); Mean Corpuscular Volume 84.6 fl (80-94); Mean Platelet Volume 9.8 fL (7.4-10.4); Monocytes # 0.6 10^3/uL (0.2-0.9); Monocytes % 6.3 %; Neutrophils # 8.16 10^3/uL (1.8-7.7); Neutrophils % 84.6 %; Nucleated Red Blood Cells % 0 %; Platelet Count 412 10^3/cmm (130-400); Red Blood Count 5.01 10^6/uL (4.1-5.3); Red Cell Distribution Width 13.8 % (12.1-15.1); White Blood Count 9.7 10^3/uL (4.0-10.0)
[2021-05-10 11:27] LABS: Alanine Aminotransferase 17 U/L (0-41); Albumin Level 3.9 g/dL (3.5-5.2); Alkaline Phosphatase 89 IU/L (40-130); Anion Gap 13.7 (5-19); Aspartate Amino Transferase 13 U/L (0-40); Blood Urea Nitrogen 10 mg/dL (8-23); Calcium 8.9 mg/dL (8.5-10.5); Carbon Dioxide 24 mmol/L (22-29); Chloride 103 mmol/L (98-107); Globulin 2.6 g/dL (1.3-4.6); Glomerular Filtration Rate 98.6 mL/min (90-130); Glucose 81 mg/dL (65-115); Lactate Dehydrogenase 155 U/L (135-225); Osmolality Calculated 282 mOsm/kg (285-295); Potassium 3.7 mmol/L (3.5-5.1); Sodium 137 mmol/L (136-145); Thyroid Stimulating Hormone 2.18 uIU/mL (0.27-4.20); Total Bilirubin 0.3 mg/dL (0.15-1.2); Total Protein 6.5 g/dL (6.6-8.7)
--- NOTE | 2021-05-14 19:07 | ONC FU_ITS ---
Dr. Cole Patient Follow-Up Note Patient: Adarsh Parson Unit #: [id number]: 1960 Dicatated By: Curtis Cole M.D.Date of Visit:May 10, 2021 Onc Med Follow-up/Prog Note Chief Complaint: Metastatic melanoma. History of Present Illness: This is a 61 year-old man with metastatic melanoma, BRAF mutation negative. He has a history of having undergone excision of a melanoma from the right lower back somewhere in the range of 3 to 4 years ago. The records were not available. The procedure was done through [facility] in [place], and it included a right axillary sentinel lymph node biopsy. He did not require any further treatment. He continued regular follow-up with his capsule filler in [place]. In July 2020 he presented to [facility] with a lump in the left side of his neck. He had been aware of it for about 6 months. An initial ultrasound on 09/04/2020 showed a left supraclavicular mass measuring 4.8 x 5.1 x 4.0 cm consistent with an abnormal lymph node. Further evaluation with CT scans of the neck and chest on 09/08/2020 showed a large heterogeneously enhancing left supraclavicular lymph node measuring 4.8 x 4.4 x 6.8 cm with additional enlarged pathologic lymph nodes in the lower cervical chain and supraclavicular region. A left hilar and suprahilar mass measuring approximately 3.1 x 2.9 x 4.8 cm was noted to abut the left hilum, extending into the left upper lobe. There were multiple surrounding satellite soft tissue nodules and there was associated pleural thickening in the left upper lobe medially. There were no other suspicious pulmonary parenchymal nodules and there was no mediastinal adenopathy. A 12 mm low-attenuation lesion in the right hepatic lobe was felt to be indeterminate. Haziness within the mid mesentery with prominent lymph nodes was partially visualized. Further evaluation with CT of the abdomen/pelvis on 09/18/2020 was reported to be negative for metastatic disease. The lesion in the right lobe of the liver was felt to probably be a cyst. He then underwent ultrasound directed biopsy of the left supraventricular mass on 10/07/2020. 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 By IHC, the tumor cells were positive for trim 29, melanin A, HMB-45, Sox 10, and S100 protein, consistent with metastatic melanoma. Staging PET/CT on 10/10/2020 showed FDG positive left supraclavicular mass measuring 6.1 x 4.2 cm, SUV 38.3. 2 additional adjacent nodes measuring 1.8 cm were also FDG positive. A left upper lobe lung mass measuring 4.2 x 4.6 cm and SUV 22.2 and a left upper quadrant small bowel mass measuring 5.6 x 5.2 cm had SUV 43.4, high probability of malignancy. Multiple enlarged mesenteric lymph nodes had minimal FDG activity, but were likely metastatic. I had seen him initially on 10/13/2020. I had discussed the possibility of proceeding with a trial of dual immunotherapy with nivolumab/ipilimumab. At that point I had also requested a BRAF mutation analysis, and that ultimately came back negative. In the meantime, on 10/16/2020 he was admitted to the hospital after presenting to the emergency room with worsening abdominal pain. His CT abdomen/pelvis showed worsening of the jejunojejunal intussusception with development of small bowel obstruction. He underwent diagnostic laparoscopy followed by exploratory laparotomy with partial small bowel resection and [id number] anastomosis. Pathology on the small bowel was consistent with metastatic melanoma. The proximal and distal margins were uninvolved. His medical history is otherwise significant for chronic back pain following previous back surgery. He has had no other ongoing medical illnesses. He also has a history of accidental electrocution. He is a non-smoker. INTERIM HISTORY: He began cycle 1 of dual immunotherapy with nivolumab/ipilimumab on 11/19/2020. He had subsequently developed a rash on his arms, chest, and back. It was not itchy and it otherwise was not bothering him. He said it was like a heat rash. It resolved within a week or so. He otherwise tolerated the treatment well. He continued with cycle 2 on 12/15/2020, with cycle 3 on 01/04/2021, and with cycle 4 on 01/25/2021. Restaging CT scans of the chest, abdomen, and pelvis on 02/11/2021 showed significant decrease in the size of the mass in the left upper lobe, measuring 1.9 x 1.1 cm compared to 3.1 x 2.9 x 4.8 cm on the August 2020 study. A few additional nodules throughout the lungs appeared stable with the exception of a 5 mm subpleural nodule in the left lower lobe. A 3-month follow-up was recommended. Also noted were central mesenteric misting subcentimeter lymph nodes without progression. With those findings, he then continued treatment with nivolumab monotherapy at a 4-week dosing schedule on 02/16/2021. At his scheduled follow-up visit on 03/15/2021 he reported significant joint and muscle pain which developed following the initial infusion of nivolumab monotherapy. It was significant that he was having difficulty functioning, and it appeared very likely to be treatment related. He began on steroid therapy with prednisone 20 mg 3 times daily, subsequently tapered to 20 mg daily. At his follow-up visit on 03/31/2021 his joint pain had improved significantly, and at that point he restarted treatment with nivolumab but at the 2-week dosing schedule. His prednisone dosage at that point was further reduced to 10 mg daily. He is seen for a follow-up visit. He has been feeling good generally. He still gets some soreness in his joints, mainly in the left arm but to a lesser extent also in the right hip and in both knees. It tends to be worse when he first gets up in the morning. It is tolerable, though. He has good energy and activity tolerance. ECOG score is 0. His appetite is good. He has no fever or night sweats. He has not had sore mouth or throat. He does not complain of cough, he has not been having shortness of breath or chest pain. He has no GI or complaints. He does not complain of headache or dizziness. He does have some numbness/tingling in his hands. Medications: HYDROcodone-Acetaminophen 1 (7.5-325 mg) Tablet Oral q 4 hours PRN, predniSONE 1 Tablet (of 10 mg) Oral daily Allergies: No Known Allergies. Vital Signs: Performed on May 10, 2021 11:31 Height - 66.00 in Weight - 178.4 lbs (HIGH) BSA - 1.91 sq.m BMI - 28.79 Temperature - 98.7 F Pulse - 92 /min Respiration - 16 /min BP - 148/87 mm(hg) (HIGH) O2 Sat - 97 % Pain - 3 Fatigue - 3 Physical Examination: Constitutional - He looks good generally, Eyes - Sclerae nonicteric. Conjunctivae clear, ENMT - No lesions noted in the oral cavity, Hematologic/Lymphatic - There is no cervical, clavicular, or axillary adenopathy noted, Respiratory - Lungs are clear with good air movement bilaterally, Cardiovascular - Heart rhythm is regular. There is no murmur, gallop, or rub noted, Abdomen - Soft. Liver and spleen are not enlarged. There is no abdominal mass or ascites noted and there is no inguinal adenopathy, Extremities - No edema, Neurologic - No focal neurologic deficits noted. Lab/Imaging: Test performed on May 10, 2021 10:12 LDH (Total) 155 U/L Sodium 137 mmol/L TSH 2.18 uIU/mL Potassium 3.7 mmol/L Chloride 103 mmol/L CO2 24 mmol/L Anion Gap 13.7 BUN 10 mg/dL Creatinine 0.8 mg/dL Cr Clearance (Est) 112.39 mL/min eGFR 98.6 mL/min Glucose 81 mg/dL Osmolality - Calculated 282 mOsm/kg Calcium 8.9 mg/dL Protein, Total 6.5 g/dL Albumin 3.9 g/dL Globulin 2.6 g/dL Bilirubin, Total 0.3 mg/dL ALT (SGPT) 17 U/L AST (SGOT) 13 U/L Alkaline Phosphatase 89 IU/L WBC 9.7 10 3/uL RBC 5.01 10 6/uL HGB 14.3 g/dL HCT 42.4 % MCV 84.6 fl MCH 28.5 pg MCHC 33.7 g/dL RDW 13.8 % Platelet Count 412 10 3/cmm MPV 9.8 fL Neutrophils 8.16 10 3/uL Lymphocytes 0.7 10 3/uL Monocytes 0.6 10 3/uL Eosinophils 0.1 10 3/uL Basophils 0.0 10 3/uL Neutrophil % 84.6 % Lymphocyte % 7.6 % Monocyte % 6.3 % Eosinophil % 0.6 % Basophils % 0.4 % NRBC % 0 % Problem List: 1. Metastatic melanoma, BRAF mutation negative, confirmed by biopsy of left supraclavicular mass on 10/07/2020. By PET/CT, there were additional areas of involvement in the left suprahilar region and the left upper quadrant small bowel. 2. He had associated iron deficiency anemia. 3. On 10/16/2020 he underwent exploratory laparotomy with partial small bowel resection for intussusception/small bowel obstruction due to the metastatic melanoma. 4. He has a history of having undergone excision of melanoma from the right lower back 3 or 4 years ago. The procedure included right axillary sentinel lymph node biopsy. 5. He has chronic back pain. Problems Addressed with this Encounter and Plan: Patient with metastatic melanoma, BFAF mutation negative, presenting with large left supraclavicular mass. By PET/CT, there were additional areas of involvement in the left suprahilar region and the left upper quadrant small bowel. On 10/16/2020 he underwent exploratory laparotomy with partial small bowel resection for intussusception/small bowel obstruction due to the metastatic melanoma. On 11/19/2020 he began cycle 1 of dual immunotherapy with nivolumab/ipilimumab. He tolerated it well and he was able to continue treatment at 3-week intervals. He received his 4th cycle on 01/25/2021. He had a very good response by follow-up chest CT. On 02/16/2021 he began nivolumab monotherapy at a standard dosage of 480 mg by IV infusion every 4 weeks. Following that treatment, he developed significant musculoskeletal pain with associated stiffness and poor mobility. It was presumed to be an immune mediated side effect. His treatment was put on hold, and he began steroid therapy with prednisone 20 mg 3 times daily, subsequently tapered to 20 mg daily. At his follow-up visit on 03/31/2021 his joint pain had improved significantly. He then restarted treatment with nivolumab, but at the 2-week dosing schedule. At that point his prednisone dosage was further reduced to 10 mg daily. During follow-up he has continued to have some joint pain, but it has been tolerable on the low-dose prednisone. He appears to be having no other adverse effects with his treatment, and he will continue nivolumab 240 mg by IV infusion every 2 weeks. His prednisone will be continued at 10 mg daily. He will be scheduled for a follow-up visit in 6 weeks. Signed By: Curtis Cole M.D. <<Signature on File>>
== END 2021-05-10 09:51 | disposition home or self-care (01) ==
PROVIDERS: PCP Family Medicine Adult Medicine; Visit Provider Internal Medicine Medical Oncology
DX: Z51.12 Encounter for antineoplastic immunotherapy (principal); C43.59 Malignant melanoma of other part of trunk; C77.0 Secondary and unspecified malignant neoplasm of lymph nodes of head, face and neck; C79.51 Secondary malignant neoplasm of bone; C78.02 Secondary malignant neoplasm of left lung; C78.4 Secondary malignant neoplasm of small intestine; D50.9 Iron deficiency anemia, unspecified; G89.29 Other chronic pain; M54.50 Low back pain, unspecified; Z79.899 Other long term (current) drug therapy
CPT/HCPCS: 80053; 83615; 84443; 85025; 96413; 99215; J7050; J9299

== ENCOUNTER 2021-05-24 13:10 | Outpatient (CLI) | payer MEDICARE, SELFPAY | END 2021-05-24 13:11 | disposition home or self-care (01) | LOC: ONCMED 13:12 | PROVIDERS: PCP Family Medicine Adult Medicine; Visit Provider Internal Medicine Medical Oncology | DX: Z51.12 Encounter for antineoplastic immunotherapy (principal); C43.59 Malignant melanoma of other part of trunk; C77.0 Secondary and unspecified malignant neoplasm of lymph nodes of head, face and neck | CPT/HCPCS: 96413; J7050; J9299 ==

== ENCOUNTER 2021-06-07 14:18 | Outpatient (CLI) | payer MEDICARE, SELFPAY | END 2021-06-07 14:19 | disposition home or self-care (01) | PROVIDERS: PCP Family Medicine Adult Medicine; Visit Provider Internal Medicine Medical Oncology | DX: Z51.12 Encounter for antineoplastic immunotherapy (principal); C43.59 Malignant melanoma of other part of trunk; C77.0 Secondary and unspecified malignant neoplasm of lymph nodes of head, face and neck; Z79.899 Other long term (current) drug therapy | CPT/HCPCS: 96413; J7050; J9299 ==

== ENCOUNTER 2021-06-21 09:27 | Outpatient (CLI) | payer MEDICARE, SELFPAY ==
[2021-06-21 09:54] LABS: Basophils % 0.2 %; Eosinophils % 0.3 %; Hematocrit 44.7 % (42.0-52.0); Hemoglobin 14.5 g/dL (11.7-16.6); Lymphocytes # 0.9 10^3/uL (0.8-4.8); Lymphocytes % 10.4 %; Mean Corpuscular HGB Conc 32.4 g/dL (30.0-36.0); Mean Corpuscular Volume 86.3 fl (80-94); Mean Platelet Volume 9.5 fL (7.4-10.4); Monocytes # 0.8 10^3/uL (0.2-0.9); Monocytes % 8.5 %; Neutrophils # 7.17 10^3/uL (1.8-7.7); Neutrophils % 80.3 %; Nucleated Red Blood Cells % 0 %; Platelet Count 415 10^3/cmm (130-400); Red Blood Count 5.18 10^6/uL (4.1-5.3); Red Cell Distribution Width 13.4 % (12.1-15.1); White Blood Count 8.9 10^3/uL (4.0-10.0)
[2021-06-21 10:24] LABS: Alanine Aminotransferase 17 U/L (0-41); Alkaline Phosphatase 95 IU/L (40-130); Anion Gap 16.7 (5-19); Aspartate Amino Transferase 13 U/L (0-40); Blood Urea Nitrogen 9 mg/dL (8-23); Calcium 8.3 mg/dL (8.5-10.5); Carbon Dioxide 23 mmol/L (22-29); Chloride 102 mmol/L (98-107); Globulin 2.1 g/dL (1.3-4.6); Glucose 84 mg/dL (65-115); Lactate Dehydrogenase 146 U/L (135-225); Osmolality Calculated 284 mOsm/kg (285-295); Potassium 3.7 mmol/L (3.5-5.1); Sodium 138 mmol/L (136-145); Thyroid Stimulating Hormone 3.22 uIU/mL (0.27-4.20); Total Bilirubin 0.3 mg/dL (0.15-1.2); Total Protein 6.1 g/dL (6.6-8.7)
== END 2021-06-21 09:28 | disposition home or self-care (01) ==
PROVIDERS: PCP Family Medicine Adult Medicine; Visit Provider Nurse Practitioner Family
DX: C41.3 Malignant neoplasm of ribs, sternum and clavicle (principal); C77.2 Secondary and unspecified malignant neoplasm of intra-abdominal lymph nodes; C78.4 Secondary malignant neoplasm of small intestine; D50.9 Iron deficiency anemia, unspecified; M54.50 Low back pain, unspecified; G89.29 Other chronic pain; Z85.820 Personal history of malignant melanoma of skin; Z79.899 Other long term (current) drug therapy; Z92.21 Personal history of antineoplastic chemotherapy
CPT/HCPCS: 36591; 80053; 83615; 84443; 85025; 99215

== ENCOUNTER 2021-07-05 08:46 | Outpatient (CLI) | payer MEDICARE, SELFPAY ==
[2021-07-05 09:25] LABS: Basophils % 0.1 %; Hematocrit 45.2 % (42.0-52.0); Hemoglobin 14.8 g/dL (11.7-16.6); Lymphocytes # 0.8 10^3/uL (0.8-4.8); Lymphocytes % 5.6 %; Mean Corpuscular HGB Conc 32.7 g/dL (30.0-36.0); Mean Corpuscular Hemoglobin 27.9 pg (28.0-34.0); Mean Corpuscular Volume 85.3 fl (80-94); Mean Platelet Volume 9.5 fL (7.4-10.4); Monocytes # 0.7 10^3/uL (0.2-0.9); Monocytes % 4.7 %; Neutrophils # 13.21 10^3/uL (1.8-7.7); Neutrophils % 88.5 %; Nucleated Red Blood Cells % 0 %; Platelet Count 478 10^3/cmm (130-400); Red Cell Distribution Width 13.9 % (12.1-15.1); White Blood Count 14.9 10^3/uL (4.0-10.0)
[2021-07-05 09:45] LABS: Alanine Aminotransferase 25 U/L (0-41); Alkaline Phosphatase 84 IU/L (40-130); Anion Gap 16.5 (5-19); Aspartate Amino Transferase 15 U/L (0-40); Blood Urea Nitrogen 12 mg/dL (8-23); Calcium 8.1 mg/dL (8.5-10.5); Carbon Dioxide 24 mmol/L (22-29); Chloride 101 mmol/L (98-107); Globulin 1.9 g/dL (1.3-4.6); Glomerular Filtration Rate 98.6 mL/min (90-130); Glucose 91 mg/dL (65-115); Osmolality Calculated 285 mOsm/kg (285-295); Potassium 3.5 mmol/L (3.5-5.1); Sodium 138 mmol/L (136-145); Total Bilirubin 0.4 mg/dL (0.15-1.2); Total Protein 5.9 g/dL (6.6-8.7)
--- NOTE | 2021-07-06 07:40 | ONC FU_ITS ---
Dr. Cole Patient Follow-Up Note Patient: Adarsh Parson Unit #: [id number]: [id number] Dicatated By: Curtis Cole M.D.Date of Visit:Jul 05, 2021 Onc Med Follow-up/Prog Note Chief Complaint: Metastatic melanoma. History of Present Illness: This is a 61 year-old man with metastatic melanoma, BRAF mutation negative. He has a history of having undergone excision of a melanoma from the right lower back somewhere in the range of 3 to 4 years ago. The records were not available to me. The procedure was done through [facility] in [place], and it included a right axillary sentinel lymph node biopsy. He did not require any further treatment. He continued regular follow-up with his joint filler in [place]. In July 2020 he had presented to [facility] with a lump in the left side of his neck. He had been aware of it for about 6 months. An initial ultrasound on 09/04/2020 showed a left supraclavicular mass measuring 4.8 x 5.1 x 4.0 cm consistent with an abnormal lymph node. Further evaluation with CT scans of the neck and chest on 09/08/2020 showed a large heterogeneously enhancing left supraclavicular lymph node measuring 4.8 x 4.4 x 6.8 cm with additional enlarged pathologic lymph nodes in the lower cervical chain and supraclavicular region. A left hilar and suprahilar mass measuring approximately 3.1 x 2.9 x 4.8 cm was noted to abut the left hilum, extending into the left upper lobe. There were multiple surrounding satellite soft tissue nodules and there was associated pleural thickening in the left upper lobe medially. There were no other suspicious pulmonary parenchymal nodules and there was no mediastinal adenopathy. A 12 mm low-attenuation lesion in the right hepatic lobe was felt to be indeterminate. Haziness within the mid mesentery with prominent lymph nodes was partially visualized. Further evaluation with CT of the abdomen/pelvis on 09/18/2020 was reported to be negative for metastatic disease. The lesion in the right lobe of the liver was felt to probably be a cyst. He then underwent ultrasound directed biopsy of the left supraventricular mass on 10/07/2020. 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 By IHC, the tumor cells were positive for trim 29, melanin A, HMB-45, Sox 10, and S100 protein, consistent with metastatic melanoma. Staging PET/CT on 10/10/2020 showed FDG positive left supraclavicular mass measuring 6.1 x 4.2 cm, SUV 38.3. 2 additional adjacent nodes measuring 1.8 cm were also FDG positive. A left upper lobe lung mass measuring 4.2 x 4.6 cm and SUV 22.2 and a left upper quadrant small bowel mass measuring 5.6 x 5.2 cm had SUV 43.4, high probability of malignancy. Multiple enlarged mesenteric lymph nodes had minimal FDG activity, but were likely metastatic. I had seen him initially on 10/13/2020. I had discussed the possibility of proceeding with a trial of dual immunotherapy with nivolumab/ipilimumab. At that point I had also requested a BRAF mutation analysis, and that ultimately came back negative. In the meantime, on 10/16/2020 he was admitted to the hospital after presenting to the emergency room with worsening abdominal pain. His CT abdomen/pelvis showed worsening of the jejunojejunal intussusception with development of small bowel obstruction. He underwent diagnostic laparoscopy followed by exploratory laparotomy with partial small bowel resection and [id number] anastomosis. Pathology on the small bowel was consistent with metastatic melanoma. The proximal and distal margins were uninvolved. His medical history is otherwise significant for chronic back pain following previous back surgery. He has had no other ongoing medical illnesses. He also has a history of accidental electrocution. He is a non-smoker. INTERIM HISTORY: He began cycle 1 of dual immunotherapy with nivolumab/ipilimumab on 11/19/2020. He had subsequently developed a rash on his arms, chest, and back. It was not itchy and it otherwise was not bothering him. He said it was like a heat rash. It resolved within a week or so. He otherwise tolerated the treatment well. He continued with cycle 2 on 12/15/2020, with cycle 3 on 01/04/2021, and with cycle 4 on 01/25/2021. Restaging CT scans of the chest, abdomen, and pelvis on 02/11/2021 showed significant decrease in the size of the mass in the left upper lobe, measuring 1.9 x 1.1 cm compared to 3.1 x 2.9 x 4.8 cm on the August 2020 study. A few additional nodules throughout the lungs appeared stable with the exception of a 5 mm subpleural nodule in the left lower lobe. A 3-month follow-up was recommended. Also noted were central mesenteric misting subcentimeter lymph nodes without progression. With those findings, he then continued treatment with nivolumab monotherapy at a 4-week dosing schedule on 02/16/2021. At his scheduled follow-up visit on 03/15/2021 he reported significant joint and muscle pain which developed following the initial infusion of nivolumab monotherapy. It was significant enough that he was having difficulty functioning, and it appeared very likely to be treatment related. He began on steroid therapy with prednisone 20 mg 3 times daily, subsequently tapered to 20 mg daily. At his follow-up visit on 03/31/2021 his joint pain had improved significantly, and he restarted nivolumab but with his treatment changed to the 2-week dosing schedule. His prednisone dosage at that point was further reduced to 10 mg daily. He was then able to continue treatment at 2-week intervals together with the low-dose prednisone. As of June 07, 2021 he received cycle 7 of nivolumab monotherapy. However, as of his follow-up visit on June 21, 2021 he had developed some diarrhea and rectal bleeding. His treatment was put on hold, and his prednisone dosage was increased to 20 mg 3 times daily. After 5 days his symptoms had improved and he began tapering the prednisone. However, at 10 mg daily the diarrhea and bleeding recurred, and he ultimately required 50 mg of prednisone daily to control the symptoms. He feels good generally. He has good energy and activity tolerance. ECOG score 0. Appetite is very good on the prednisone. He has no fever or night sweats. He has not had sore mouth or throat. He does not complain of cough, and he has not been having shortness of breath or chest pain. He has not had nausea or acid reflux symptoms. He has no complaints. His joint pain remains pretty well controlled on the higher dose of prednisone. He has had some slight headaches. He has no focal neurologic symptoms. Medications: HYDROcodone-Acetaminophen 1 (7.5-325 mg) Tablet Oral q 4 hours PRN, predniSONE 1 Tablet (of 20 mg) Oral daily Allergies: No Known Allergies. Vital Signs: Performed on Jul 05, 2021 10:42 Height - 66.00 in Weight - 179.0 lbs (LOW) BSA - 1.91 sq.m BMI - 28.89 Temperature - 98.7 F Pulse - 80 /min Respiration - 16 /min BP - 168/81 mm(hg) (HIGH) O2 Sat - 97 % Pain - 0 Fatigue - 5 Physical Examination: Constitutional - He looks good generally, Eyes - Sclerae nonicteric. Conjunctivae clear, ENMT - No lesions noted in the oral cavity, Hematologic/Lymphatic - There is a tiny residual nodule palpable in the posterior aspect of the left supraclavicular fossa. There is no other cervical, clavicular, or axillary adenopathy noted, Respiratory - Lungs are clear with good air movement bilaterally, Cardiovascular - Heart rhythm is regular. There is no murmur, gallop, or rub noted, Abdomen - Soft. Liver and spleen are not enlarged. There is no abdominal mass or ascites noted and there is no inguinal adenopathy, Extremities - No edema, Neurologic - No focal neurologic deficits noted. Lab/Imaging: Test performed on Jul 05, 2021 08:59 Sodium 138 mmol/L Potassium 3.5 mmol/L Chloride 101 mmol/L CO2 24 mmol/L Anion Gap 16.5 BUN 12 mg/dL Creatinine 0.8 mg/dL Cr Clearance (Est) 112.77 mL/min eGFR 98.6 mL/min Glucose 91 mg/dL Osmolality - Calculated 285 mOsm/kg Calcium 8.1 mg/dL Protein, Total 5.9 g/dL Albumin 4.0 g/dL Globulin 1.9 g/dL Bilirubin, Total 0.4 mg/dL ALT (SGPT) 25 U/L AST (SGOT) 15 U/L Alkaline Phosphatase 84 IU/L WBC 14.9 10 3/uL RBC 5.30 10 6/uL HGB 14.8 g/dL HCT 45.2 % MCV 85.3 fl MCH 27.9 pg MCHC 32.7 g/dL RDW 13.9 % Platelet Count 478 10 3/cmm MPV 9.5 fL Neutrophils 13.21 10 3/uL Lymphocytes 0.8 10 3/uL Monocytes 0.7 10 3/uL Eosinophils 0.0 10 3/uL Basophils 0.0 10 3/uL Neutrophil % 88.5 % Lymphocyte % 5.6 % Monocyte % 4.7 % Eosinophil % 0.0 % Basophils % 0.1 % NRBC % 0 % Problem List: 1. Metastatic melanoma, BRAF mutation negative, confirmed by biopsy of left supraclavicular mass on 10/07/2020. By PET/CT, there were additional areas of involvement in the left suprahilar region and the left upper quadrant small bowel. 2. He had associated iron deficiency anemia. 3. On 10/16/2020 he underwent exploratory laparotomy with partial small bowel resection for intussusception/small bowel obstruction due to the metastatic melanoma. 4. He has a history of having undergone excision of melanoma from the right lower back 3 or 4 years ago. The procedure included right axillary sentinel lymph node biopsy. 5. He has chronic back pain. Problems Addressed with this Encounter and Plan: Patient with metastatic melanoma, BFAF mutation negative, presenting with a large left supraclavicular mass. By PET/CT, there were additional areas of involvement in the left suprahilar region and the left upper quadrant small bowel. On 10/16/2020 he underwent exploratory laparotomy with partial small bowel resection for intussusception/small bowel obstruction due to the metastatic melanoma. On 11/19/2020 he began cycle 1 of dual immunotherapy with nivolumab/ipilimumab. He tolerated it well and he was able to continue treatment at 3-week intervals. He received his 4th cycle on 01/25/2021. He had a very good response by follow-up chest CT. On 02/16/2021 he began nivolumab monotherapy at a standard dosage of 480 mg by IV infusion every 4 weeks. Following that treatment, he developed significant musculoskeletal pain with associated stiffness and poor mobility. It was presumed to be an immune mediated side effect. His treatment was put on hold, and he began steroid therapy with prednisone 20 mg 3 times daily, subsequently tapered to 20 mg daily. At his follow-up visit on 03/31/2021 his joint pain had improved significantly. He then restarted treatment with nivolumab, but at the 2-week dosing schedule. At that point his prednisone dosage was further reduced to 10 mg daily. He was then able to continue nivolumab monotherapy at 2-week intervals together with prednisone 10 mg daily. As of his follow-up visit on June 21, 2021 his treatment was put on hold due to development of diarrhea and rectal bleeding. He improved on higher dose prednisone, but he had recurrence of the symptoms with the dosage reduced to 10 mg daily. At the present time his symptoms are controlled, but he is taking 50 mg of prednisone daily. As such, his treatment will remain on hold, and he will be scheduled for colonoscopy, preferably with Dr. Salinas. In the meantime, I will see if I can get his prednisone dosage tapered to 10 mg twice daily. Signed By: Curtis Cole M.D. <<Signature on File>>
== END 2021-07-05 08:47 | disposition home or self-care (01) ==
LOC: ONCMED 08:49
PROVIDERS: PCP Family Medicine Adult Medicine; Visit Provider Internal Medicine Medical Oncology
DX: C79.89 Secondary malignant neoplasm of other specified sites (principal); C78.02 Secondary malignant neoplasm of left lung; C78.4 Secondary malignant neoplasm of small intestine; D50.9 Iron deficiency anemia, unspecified; M54.9 Dorsalgia, unspecified; G89.29 Other chronic pain; Z79.899 Other long term (current) drug therapy; Z85.820 Personal history of malignant melanoma of skin
CPT/HCPCS: 36591; 80053; 85025; 99215

== ENCOUNTER → 2021-07-07 10:14 | Outpatient (BNVA) | payer MEDICARE, SELFPAY | PROVIDERS: PCP Family Medicine Adult Medicine; Visit Provider Internal Medicine | DX: Z01.812 Encounter for preprocedural laboratory examination (principal); Z20.822 Contact with and (suspected) exposure to COVID-19 | CPT/HCPCS: 87635 ==

== ENCOUNTER → 2021-07-19 11:06 | Outpatient (BNVA) | payer MEDICARE, SELFPAY | PROVIDERS: PCP Family Medicine Adult Medicine; Visit Provider Internal Medicine | DX: Z01.818 Encounter for other preprocedural examination (principal); Z20.822 Contact with and (suspected) exposure to COVID-19 | CPT/HCPCS: 87635 ==

== ENCOUNTER 2021-07-26 09:02 | Day surgery (SDC) | payer MEDICARE, SELFPAY ==
[2021-07-08 12:44] VITALS: BMI 29.0
[2021-07-26 09:26] VITALS: BP 148/116; PULSE 95; RESP 16; TEMP 36.3; O2SAT 96
[2021-07-26] MEDS: sodium chloride 0.9% 1,000 ML 30 ML IV (09:28)
--- NOTE | 2021-07-26 09:30 | ANES.PREANE2 ---
Pre-Anesthetic Assessment Height/Weight: Height 1.68 m Weight 81.647 kg Temp Pulse Resp BP Pulse Ox 97.3 F L 95 16 148/116 96 07/26/21 09:26 07/26/21 09:26 07/26/21 09:26 07/26/21 09:26 07/26/21 09:26 Preop Diagnosis: Hematochezia Operation Date: 07/12/21 14:15 Proposed Procedures p [id number]/k92.1(Not Applicable) - Jan Salinas MD Operation Date: 07/26/21 10:00 Proposed Procedures p Colonoscopy [id number]/k92.1(Not Applicable) - Jan Salinas MD Was Beta Champ taken within 24 hours: N/A Was Clonidine taken within 24 hours: N/A Last intake: Intake Last Liquid Date 07/25/21 Last Liquid Time 21:00 Last Solid Date 07/24/21 Last Solid Time 20:00 Social No alcohol and No tobacco Exam alert and oriented x 3 Airway Submandibular: within normal limits Cervical ROM: within normal limits Mallampati: Class II Dentition: full History/ROS No significant history except as noted Pulmonary None reported CV/HEM lymphoma- currently recieving chemotherapy for treatment None reported Hepatic None reported GI None reported Metabolic None reported Musc/skel None reported Neuropsych None reported Anesthetic Plan ASA status: 2 Anesthesia: Anesthesia Evaluation and MAC Risk of > 500 ml blood loss (7ml/kg in children): No Medications/Allergies Home Medications Medication Instructions Recorded Confirmed Last Taken Type hydrocodone 7.5 mg-acetaminophen 1 tab PO Q4H PRN 08/03/20 07/22/21 07/25/21 History 325 mg tablet prednisone 10 mg tablet 10 mg PO BID 07/07/21 07/22/21 07/25/21 History Allergies Allergy/AdvReac Type Severity Reaction Status Date / Time No Known Allergies Allergy Verified 07/26/21 09:25 Current Medications Generic Name Dose Route Start Last Admin Trade Name Freq PRN Reason Stop Dose Admin Sodium Chloride 1,000 mls @ 30 mls/hr 07/26/21 09:15 07/26/21 09:28 Sodium Chloride 0.9% IV 30 mls/hr .Q24H BIBIANA Administration PFSH Anesthesia Medical History (Updated 07/19/21 @ 09:46 by Stacey Perry LPN) Accidental electrocution Anemia Bowel obstruction Hospital discharge follow-up Hx of lymphadenopathy Hypokalemia Hyponatremia Intussusception Lymphadenopathy of head and neck region Mass of left lung Mass of left side of neck Melanoma Metastatic melanoma Thrombocytosis Surgical History History of back surgery Hx of arthroscopy of left knee Family History Other Family history non-contributory Social History Smoking and tobacco status: never smoked Alcohol intake: never Marital status: / Number of children: 1 Number of grandchildren: 3 Current occupational status: retired Data Anesthesia Cardiac Studies: No Data to Display
--- NOTE | 2021-07-26 09:41 | P.HP_ITS ---
Same Day Surgery H&P Indication for Procedure/HPI DATE OF PROCEDURE: July 26, 2021 CHIEF COMPLAINT/INDICATIONFOR SURGICAL PROCEDURE: hematochezia PREOP DIAGNOSIS: Hematochezia PLANNED PROCEDURE: Operation Date: 07/12/21 14:15 Proposed Procedures p [id number]/k92.1(Not Applicable) - Jan Salinas MD Operation Date: 07/26/21 10:00 Proposed Procedures p Colonoscopy [id number]/k92.1(Not Applicable) - Jan Salinas MD Medications/Allergies* Home Medications Medication Instructions Recorded Confirmed Type hydrocodone 7.5 mg-acetaminophen 1 tab PO Q4H PRN 08/03/20 07/22/21 History 325 mg tablet prednisone 10 mg tablet 10 mg PO BID 07/07/21 07/22/21 History Allergies/Adverse Reactions Allergy/AdvReac Type Severity Reaction Status Date / Time No Known Allergies Allergy Verified 07/26/21 09:25 Current Medications: Generic Name Dose Route Start Last Admin Trade Name Freq PRN Reason Stop Dose Admin Sodium Chloride 1,000 mls @ 30 mls/hr 07/26/21 09:15 07/26/21 09:28 Sodium Chloride 0.9% IV 30 mls/hr .Q24H BIBIANA Administration Pertinent History/Comorbid Conditions* Medical History (Updated 07/07/21 @ 09:42 by Jan Salinas MD) Accidental electrocution Anemia Bowel obstruction Hospital discharge follow-up Hx of lymphadenopathy Hypokalemia Hyponatremia Intussusception Lymphadenopathy of head and neck region Mass of left lung Mass of left side of neck Melanoma Metastatic melanoma Thrombocytosis Surgical History (Updated 09/14/20 @ 17:38 by Onofre Churchill MD) History of back surgery Hx of arthroscopy of left knee Family History (Updated 10/16/20 @ 06:57 by Malik Godinez MD) Family history non-contributory Social History Smoking and tobacco status: never smoked Alcohol intake: never Marital status: / Number of children: 1 Number of grandchildren: 3 Current occupational status: retired Pertinent Exam Findings alert, oriented x 3, clear to auscultation bilaterally, regular rate & rhythm, operative site marked and procedure specific exam findings Recommendations Surgery/Procedure today Coding Level of Care Code 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
[2021-07-26 10:04] VITALS: BP 132/92; PULSE 99; RESP 18; TEMP 36.3; O2SAT 95
[2021-07-26 10:18] VITALS: BP 124/97; PULSE 90; RESP 17; O2SAT 96
--- NOTE | 2021-07-26 15:52 | ANE.PACU2 ---
Inpatient post-anesthesia follow up: Airway intact: Yes Vital signs: Temperature 97.4 F Pulse Rate 90 Respiratory Rate 17 Blood Pressure 124/97 Pulse Oximetry 96 Oxygen Delivery Me thod Room Air Oxygen Flow Rate Fraction of Inspir ed Oxygen Hydration adequate: Yes Nausea and vomiting: No Pain level: 1 Mental status: Baseline
== END 2021-07-26 10:27 | disposition home or self-care (01) ==
PROVIDERS: PCP Family Medicine Adult Medicine; Visit Provider Internal Medicine
PROC: 0DJD8ZZ Inspection of Lower Intestinal Tract, Via Natural or Artificial Opening Endoscopic (ICD-10-PCS; CPT 45378; principal; 2021-07-26 10:00)
DX: K92.1 Melena (principal); D12.0 Benign neoplasm of cecum; D12.3 Benign neoplasm of transverse colon
CPT/HCPCS: 45385; 88305; J2704; J7030

== ENCOUNTER 2021-08-10 13:33 | Outpatient (CLI) | payer MEDICARE, SELFPAY ==
--- NOTE | 2021-08-13 17:52 | ONC FU_ITS ---
Dr. Cole Patient Follow-Up Note Patient: Adarsh Parson Unit #: [id number]: 1960 Dicatated By: Curtis Cole M.D.Date of Visit:Aug 10, 2021 Onc Med Follow-up/Prog Note Chief Complaint: Metastatic melanoma. History of Present Illness: This is a 61 year-old man with metastatic melanoma, BRAF mutation negative. He has a history of having undergone excision of a melanoma from the right lower back somewhere in the range of 3 to 4 years ago. The records were not available to me. The procedure was done through [facility] in [place], and it included a right axillary sentinel lymph node biopsy. He did not require any further treatment. He continued regular follow-up with his information consultant in [place]. In July 2020 he had presented to [facility] with a lump in the left side of his neck. He had been aware of it for about 6 months. An initial ultrasound on 09/04/2020 showed a left supraclavicular mass measuring 4.8 x 5.1 x 4.0 cm consistent with an abnormal lymph node. Further evaluation with CT scans of the neck and chest on 09/08/2020 showed a large heterogeneously enhancing left supraclavicular lymph node measuring 4.8 x 4.4 x 6.8 cm with additional enlarged pathologic lymph nodes in the lower cervical chain and supraclavicular region. A left hilar and suprahilar mass measuring approximately 3.1 x 2.9 x 4.8 cm was noted to abut the left hilum, extending into the left upper lobe. There were multiple surrounding satellite soft tissue nodules and there was associated pleural thickening in the left upper lobe medially. There were no other suspicious pulmonary parenchymal nodules and there was no mediastinal adenopathy. A 12 mm low-attenuation lesion in the right hepatic lobe was felt to be indeterminate. Haziness within the mid mesentery with prominent lymph nodes was partially visualized. Further evaluation with CT of the abdomen/pelvis on 09/18/2020 was reported to be negative for metastatic disease. The lesion in the right lobe of the liver was felt to probably be a cyst. He then underwent ultrasound directed biopsy of the left supraventricular mass on 10/07/2020. 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 By IHC, the tumor cells were positive for trim 29, melanin A, HMB-45, Sox 10, and S100 protein, consistent with metastatic melanoma. Staging PET/CT on 10/10/2020 showed FDG positive left supraclavicular mass measuring 6.1 x 4.2 cm, SUV 38.3. 2 additional adjacent nodes measuring 1.8 cm were also FDG positive. A left upper lobe lung mass measuring 4.2 x 4.6 cm and SUV 22.2 and a left upper quadrant small bowel mass measuring 5.6 x 5.2 cm had SUV 43.4, high probability of malignancy. Multiple enlarged mesenteric lymph nodes had minimal FDG activity, but were likely metastatic. I had seen him initially on 10/13/2020. I had discussed the possibility of proceeding with a trial of dual immunotherapy with nivolumab/ipilimumab. At that point I had also requested a BRAF mutation analysis, and that ultimately came back negative. In the meantime, on 10/16/2020 he was admitted to the hospital after presenting to the emergency room with worsening abdominal pain. His CT abdomen/pelvis showed worsening of the jejunojejunal intussusception with development of small bowel obstruction. He underwent diagnostic laparoscopy followed by exploratory laparotomy with partial small bowel resection and [id number] anastomosis. Pathology on the small bowel was consistent with metastatic melanoma. The proximal and distal margins were uninvolved. His medical history is otherwise significant for chronic back pain following previous back surgery. He has had no other ongoing medical illnesses. He also has a history of accidental electrocution. He is a non-smoker. INTERIM HISTORY: He began cycle 1 of dual immunotherapy with nivolumab/ipilimumab on 11/19/2020. He had subsequently developed a rash on his arms, chest, and back. It was not itchy and it otherwise was not bothering him. He said it was like a heat rash. It resolved within a week or so. He otherwise tolerated the treatment well. He continued with cycle 2 on 12/15/2020, with cycle 3 on 01/04/2021, and with cycle 4 on 01/25/2021. Restaging CT scans of the chest, abdomen, and pelvis on 02/11/2021 showed significant decrease in the size of the mass in the left upper lobe, measuring 1.9 x 1.1 cm compared to 3.1 x 2.9 x 4.8 cm on the August 2020 study. A few additional nodules throughout the lungs appeared stable with the exception of a 5 mm subpleural nodule in the left lower lobe. A 3-month follow-up was recommended. Also noted were central mesenteric misting subcentimeter lymph nodes without progression. With those findings, he then continued treatment with nivolumab monotherapy at a 4-week dosing schedule on 02/16/2021. At his scheduled follow-up visit on 03/15/2021 he reported significant joint and muscle pain which developed following the initial infusion of nivolumab monotherapy. It was significant enough that he was having difficulty functioning, and it appeared very likely to be treatment related. He began on steroid therapy with prednisone 20 mg 3 times daily, subsequently tapered to 20 mg daily. At his follow-up visit on 03/31/2021 his joint pain had improved significantly, and he restarted nivolumab but with his treatment changed to the 2-week dosing schedule. His prednisone dosage at that point was further reduced to 10 mg daily. He was then able to continue treatment at 2-week intervals together with the low-dose prednisone. As of June 07, 2021 he received cycle 7 of nivolumab monotherapy. At his follow-up visit on June 21, 2021 he had developed some diarrhea and rectal bleeding. His treatment was put on hold, and his prednisone dosage was increased to 20 mg 3 times daily. After 5 days his symptoms had improved and he began tapering the prednisone. However, at 10 mg daily the diarrhea and bleeding recurred, and he ultimately required 50 mg of prednisone daily to control the symptoms. As of his follow-up visit on 07/05/2021 he was feeling better, and I did have him start tapering the prednisone. His colonoscopy on 07/26/2021 showed a sessile polyp in the cecum and an adenomatous appearing polyp in the mid transverse colon. Both were removed endoscopically. Pathology showed tubular adenomas with no high-grade dysplasia identified. He is seen for a follow-up visit. He has been able to taper the prednisone to 5 mg twice daily with no recurrence of GI symptoms. He has been feeling good generally. He has good energy and he has normal activity. ECOG score is 0. His appetite is good. He has no fever or night sweats. He has not had sore mouth or throat. He does not complain of cough, and has not been having shortness of breath or chest pain. He has no complaints. He is not having a significant musculoskeletal pain. He still has some tingling, but he says it is a little better. Medications: HYDROcodone-Acetaminophen 1 (7.5-325 mg) Tablet Oral q 4 hours PRN, predniSONE 1 Tablet (of 20 mg) Oral daily Allergies: No Known Allergies. Vital Signs: Performed on Aug 10, 2021 14:12 Height - 66.00 in Weight - 175.6 lbs (LOW) BSA - 1.89 sq.m BMI - 28.34 Temperature - 99.4 F (HIGH) Pulse - 96 /min Respiration - 16 /min BP - 155/93 mm(hg) (HIGH) O2 Sat - 97 % Pain - 0 Fatigue - 3 Physical Examination: Constitutional - He looks good generally, Eyes - Sclerae nonicteric. Conjunctivae clear, ENMT - No lesions noted in the oral cavity, Hematologic/Lymphatic - There no cervical, clavicular, or axillary adenopathy noted, Respiratory - Lungs are clear with good air movement bilaterally, Cardiovascular - Heart rhythm is regular. There is no murmur, gallop, or rub noted, Abdomen - Soft. Liver and spleen are not enlarged. There is no abdominal mass or ascites noted and there is no inguinal adenopathy, Extremities - No edema, Neurologic - No focal neurologic deficits noted. Lab/Imaging: Test performed on Jul 05, 2021 08:59 Sodium 138 mmol/L Potassium 3.5 mmol/L Chloride 101 mmol/L CO2 24 mmol/L Anion Gap 16.5 BUN 12 mg/dL Creatinine 0.8 mg/dL Cr Clearance (Est) 112.77 mL/min eGFR 98.6 mL/min Glucose 91 mg/dL Osmolality - Calculated 285 mOsm/kg Calcium 8.1 mg/dL Protein, Total 5.9 g/dL Albumin 4.0 g/dL Globulin 1.9 g/dL Bilirubin, Total 0.4 mg/dL ALT (SGPT) 25 U/L AST (SGOT) 15 U/L Alkaline Phosphatase 84 IU/L WBC 14.9 10 3/uL RBC 5.30 10 6/uL HGB 14.8 g/dL HCT 45.2 % MCV 85.3 fl MCH 27.9 pg MCHC 32.7 g/dL RDW 13.9 % Platelet Count 478 10 3/cmm MPV 9.5 fL Neutrophils 13.21 10 3/uL Lymphocytes 0.8 10 3/uL Monocytes 0.7 10 3/uL Eosinophils 0.0 10 3/uL Basophils 0.0 10 3/uL Neutrophil % 88.5 % Lymphocyte % 5.6 % Monocyte % 4.7 % Eosinophil % 0.0 % Basophils % 0.1 % NRBC % 0 % Problem List: 1. Metastatic melanoma, BRAF mutation negative, confirmed by biopsy of left supraclavicular mass on 10/07/2020. By PET/CT, there were additional areas of involvement in the left suprahilar region and the left upper quadrant small bowel. 2. He had associated iron deficiency anemia. 3. On 10/16/2020 he underwent exploratory laparotomy with partial small bowel resection for intussusception/small bowel obstruction due to the metastatic melanoma. 4. He has a history of having undergone excision of melanoma from the right lower back 3 or 4 years ago. The procedure included right axillary sentinel lymph node biopsy. 5. He has chronic back pain. Problems Addressed with this Encounter and Plan: Patient with metastatic melanoma, BFAF mutation negative, presenting with a large left supraclavicular mass. By PET/CT, there were additional areas of involvement in the left suprahilar region and the left upper quadrant small bowel. On 10/16/2020 he underwent exploratory laparotomy with partial small bowel resection for intussusception/small bowel obstruction due to the metastatic melanoma. On 11/19/2020 he began cycle 1 of dual immunotherapy with nivolumab/ipilimumab. He tolerated it well and he was able to continue treatment at 3-week intervals. He received his 4th cycle on 01/25/2021. He had a very good response by follow-up chest CT. On 02/16/2021 he began nivolumab monotherapy at a standard dosage of 480 mg by IV infusion every 4 weeks. Following that treatment, he developed significant musculoskeletal pain with associated stiffness and poor mobility. It was presumed to be an immune mediated side effect. His treatment was put on hold, and he began steroid therapy with prednisone 20 mg 3 times daily, subsequently tapered to 20 mg daily. At his follow-up visit on 03/31/2021 his joint pain had improved significantly. He then restarted treatment with nivolumab, but at the 2-week dosing schedule. At that point his prednisone dosage was further reduced to 10 mg daily. He was then able to continue nivolumab monotherapy at 2-week intervals together with prednisone 10 mg daily. As of his follow-up visit on June 21, 2021 his treatment was put on hold due to development of diarrhea and rectal bleeding. He improved on higher dose prednisone, but he had recurrence of the symptoms with the dosage reduced to 10 mg daily. With his prednisone increased to 50 mg daily, his symptoms did improve. As of his follow-up visit on 07/05/2021 I did have him start tapering his steroid. His colonoscopy on 07/26/2021 showed tubular adenomas in the cecum and mid transverse colon, both removed endoscopically. At this point he is having no GI symptoms with his prednisone dosage decreased to 5 mg twice daily. As such, I will have him restart nivolumab 240 mg by IV infusion. His prednisone will be further reduced to 5 mg daily. He returns for treatment in 2 weeks and for a follow-up visit in 4 weeks. Signed By: Curtis Cole M.D. <<Signature on File>>
== END 2021-08-10 13:34 | disposition home or self-care (01) ==
PROVIDERS: PCP Family Medicine Adult Medicine; Visit Provider Internal Medicine Medical Oncology
DX: Z51.11 Encounter for antineoplastic chemotherapy (principal); C78.02 Secondary malignant neoplasm of left lung; C78.4 Secondary malignant neoplasm of small intestine; D50.9 Iron deficiency anemia, unspecified; Z85.820 Personal history of malignant melanoma of skin; Z79.899 Other long term (current) drug therapy
CPT/HCPCS: 96413; 99215; J7050; J9299

== ENCOUNTER 2021-08-24 14:20 | Outpatient (CLI) | payer MEDICARE, SELFPAY | END 2021-08-24 14:21 | disposition home or self-care (01) | PROVIDERS: PCP Family Medicine Adult Medicine; Visit Provider Internal Medicine Medical Oncology | DX: Z51.12 Encounter for antineoplastic immunotherapy (principal); C41.3 Malignant neoplasm of ribs, sternum and clavicle; C78.02 Secondary malignant neoplasm of left lung; C78.4 Secondary malignant neoplasm of small intestine | CPT/HCPCS: 96413; J7050; J9299 ==

== ENCOUNTER 2021-09-03 14:24 | Emergency (ER) | payer MEDICARE, SELFPAY ==
[2021-09-03 14:28] VITALS: BP 122/88; PULSE 118; RESP 16; TEMP 37.1; O2SAT 96; BMI 27.4
--- NOTE | 2021-09-03 14:42 | CTR_ITS ---
PROCEDURE INFORMATION: Exam: CT Abdomen And Pelvis With Contrast Exam date and time: 09/03/2021 5:21 PM Age: 61 years old Clinical indication: Abdominal pain; Generalized; Patient HX: 10 days S/P chemo C/O abd pain HX of melanoma w mets; Additional info: Eval for infection TECHNIQUE: Imaging protocol: Computed tomography of the abdomen and pelvis with contrast. Radiation optimization: All CT scans at this facility use at least one of these dose optimization techniques: automated exposure control; mA and/or kV adjustment per patient size (includes targeted exams where dose is matched to clinical indication); or iterative reconstruction. Contrast material: OMNI 300; Contrast volume: 95 ml; Contrast route: INTRAVENOUS (IV); COMPARISON: CT chest abd pel w con* 02/11/2021 12:57 PM RADIATION DOSE METRICS: Total DLP (mGy-cm): 1560.44 FINDINGS: Lungs: Calcified granulomas in the left lung base. Liver: Stable cyst in the left liver lobe, Hounsfield units less than 20. Additional tiny lesions in the liver are too small to characterize but are most likely cysts. No follow-up imaging is recommended. Gallbladder and bile ducts: Multiple small calcified stones in the gallbladder. No gallbladder wall thickening. The bile ducts are normal. Pancreas: Normal. No ductal dilation. Spleen: Normal. No splenomegaly. Adrenal glands: Normal. No mass. 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 No calculus or hydronephrosis. Stomach and bowel: Partial small bowel resection in the left upper quadrant. The stomach and small bowel are otherwise unremarkable. No obstruction. Mild mucosal enhancement and suspected mild wall thickening in the distal sigmoid colon and rectum, without adjacent fat stranding. Appendix: The appendix is visualized and is normal. Intraperitoneal space: Stable hazy opacities in the central mesenteric fat with multiple prominent mesenteric lymph nodes measuring up to 0.7 cm short axis. Vasculature: Unremarkable. No abdominal aortic aneurysm. Lymph nodes: Unremarkable. No enlarged lymph nodes. Urinary bladder: Unremarkable as visualized. Reproductive: Mildly enlarged inhomogenous prostate. Bones/joints: Unremarkable. No acute fracture. Soft tissues: Unremarkable. Other findings: Anterior laparotomy scar. CT/CT abdomen pelvis w con* [id number] IMPRESSION: 1. Mucosal enhancement and suspected mild wall thickening in the distal sigmoid colon and rectum could represent mild infectious or inflammatory colitis/proctitis. 2. Findings consistent with chronic sclerosing mesenteritis. 3. Cholelithiasis.
--- NOTE | 2021-09-03 14:46 | W.ED.GENADLT ---
HPI - General Adult General: Chief complaint: Abdominal Pain Stated complaint: ABD pain, Nausea Time Seen by Provider: 09/03/21 14:33 History of Present Illness: Patient is a 61-year-old male with a history of melanoma currently on nivolumab (last round was 10 days prior) followed by Dr. 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 Patient tells me for the last 10 days, he has had dull lower quadrant abdominal pain with occasional stabbing pain lasting for 1 minute at a time. Patient says that these episodes of stabbing pain has increased to 20-30 times a day. Patient says that he has never had these dull/sharp pain prior to 10 days ago. Patient denies any diarrhea, melena/hematochezia. Patient has no urinary complaints. Patient is concerned that the pain has gotten worse and came to the emergency room for evaluation. Patient denies any fever or chills, history of prior kidney stone, or other prior abdominal surgeries. 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 Onset:10 days ago Duration:10 days Location:abdomen Severity:moderate Associated symptoms: Reports nausea; Deny chest pain, dyspnea, rash, palpitations or vomiting Review of Systems Const: Denies: fever(s) or chills Eyes: Denies: change in vision ENMT: Denies: mouth pain Card: Denies: chest pain or palpitations Resp: Denies: dyspnea or non-productive cough GI: Reports: abdominal pain and nausea; Denies: vomiting or diarrhea : Denies: dysuria Musc: Denies: extremity pain Skin/Breast: Denies: rash or new lesions Neuro: Denies: weakness in extremities Psych: Reports: other (Normal mood) Gómez/Lymph: Denies: easy bruising PFSH ED PFSH: Medical History Accidental electrocution Anemia Bowel obstruction Hospital discharge follow-up Hx of lymphadenopathy Hypokalemia Hyponatremia Intussusception Lymphadenopathy of head and neck region Mass of left lung Mass of left side of neck Melanoma Metastatic melanoma Thrombocytosis Surgical History History of back surgery Hx of arthroscopy of left knee Family History Other Family history non-contributory Social History Smoking and tobacco status: never smoked Alcohol intake: never Marital status: / Number of children: 1 Number of grandchildren: 3 Current occupational status: retired Physical Exam Const: COMMON NORMALS: alert HENMT: COMMON NORMALS: atraumatic HEAD & SCALP: atraumatic MOUTH: moist mucous membranes not abnormal Eye: COMMON NORMALS: EOMs intact bilaterally and conjunctivae normal CONJUNCTIVA: Yes conjunctivae normal Neck/C-Spine: COMMON NORMALS: full ROM and supple Resp: COMMON NORMALS: normal respiratory effort and clear to auscultation bilaterally AUSCULTATION: clear to auscultation bilaterally Cardio: COMMON NORMALS: regular rate RATE: regular rate GI: COMMON NORMALS: Soft to palpation PALPATION: Yes Soft to palpation OTHER: +mild LLQ tenderness to palpation, mild diffuse tenderness palpation, no guarding or rebound tenderness, no CVA tenderness, no McBurney's point tenderness, no Lopez sign Extremity: COMMON NORMALS: full ROM Neuro: SENSORIUM/ORIENTATION: Yes alert MOTOR EXAM: No Abnormal motor strength present and Other motor observations present (no focal motor deficits) Psych: COMMON NORMALS: speech normal SPEECH: Yes normal speech MOOD & AFFECT: Yes euthymic mood Course Vital Signs: Vital signs: Vital Signs Temperature 98.0 F 09/03/21 20:27 Pulse Rate 92 09/03/21 19:06 Respiratory Rate 15 09/03/21 20:27 Blood Pressure 113/72 09/03/21 20:27 Pulse Oximetry 98 09/03/21 20:27 [facility] - General Adult Medical Decision Making 61-year-old male with history of chemotherapy for metastatic melanoma presenting to the emergency room for evaluation of generalized abdominal pain worse in the left lower quadrant. On exam, patient has moderate tenderness palpation of the left lower quadrant with no guarding or rebound tenderness. Patient is afebrile. White count of 7.2, patient not neutropenic. Rest of labs within normal limit. CT abdomen pelvis showed proctitis with colitis. No signs of abscess. Patient is also found to have mesenteric adenitis. I have discussed these findings with Dr. Cole who is on-call for oncology at 6:00 PM, who recommended close outpatient follow-up with antibiotics. Dr. Cole states that the findings of colitis and proctitis are likely related to the use of nivolumab and inflammatory in nature. Given the fact the patient is well-appearing, afebrile initially not neutropenic, not complaining of significant pain currently nausea or vomiting, Dr. Cole recommended close outpatient follow-up after a dose of 60 mg of IV Solu-Medrol and empiric IV antibiotics. Dr. Cole wants patient to be seen in his clinic on Monday (in 3 days). Patient is aware of this and will call Dr. Cole''s office. Patient received IV Zosyn and 60mg of Solu-Medrol in the emergency room. Patient is able to tolerate p.o. in the emergency room. He is clinically well-appearing, not complaining significant pain. Rx ciprofloxacin and metronidazole for proctitis and colitis, tylenol PRN abd pain, maalox/pepcid PRN dyspepsia, and zofran PRN nausea/vomiting, percocet PRN severe pain Disposition: Discharge. Patient counseled regarding diagnostic impression, treatment plan. Patient given ED strict return precautions to return for continuation, worsening, or development of new symptoms. Instructed to f/u w/ Dr. Cole regarding symptoms today. Patient verbalized understanding. Patient is given strict return precaution for any signs of bloody diarrhea, fever/chills, worsening pain, inability to tolerate p.o., or any new or concerning complaints. Lab Data : 09/03/21 15:17 09/03/21 16:32 Radiology Impressions Abdomen/Pelvis CT 09/03/21 14:42 IMPRESSION: 1. Mucosal enhancement and suspected mild wall thickening in the distal sigmoid colon and rectum could represent mild infectious or inflammatory colitis/proctitis. 2. Findings consistent with chronic sclerosing mesenteritis. 3. Cholelithiasis. Laboratory Results WBC 7.2 10^3/uL (4.0-10.0) 09/03/21 15:17 RBC 5.57 10^6/uL (4.1-5.3) H 09/03/21 15:17 Hgb 15.9 g/dL (11.7-16.6) 09/03/21 15:17 Hct 46.6 % (42.0-52.0) 09/03/21 15:17 MCV 83.7 fl (80-94) 09/03/21 15:17 MCH 28.5 pg (28.0-34.0) 09/03/21 15:17 MCHC 34.1 g/dL (30.0-36.0) 09/03/21 15:17 RDW 13.7 % (12.1-15.1) 09/03/21 15:17 Plt Count 375 10^3/cmm (130-400) 09/03/21 15:17 MPV 9.6 fL (7.4-10.4) 09/03/21 15:17 Neut % (Auto) 72.4 % 09/03/21 15:17 Lymph % (Auto) 9.5 % 09/03/21 15:17 [place] % (Auto) 17.0 % 09/03/21 15:17 Eos % (Auto) 0.4 % 09/03/21 15:17 Baso % (Auto) 0.4 % 09/03/21 15:17 Neut # (Auto) 5.19 10^3/uL (1.8-7.7) 09/03/21 15:17 Lymph # (Auto) 0.7 10^3/uL (0.8-4.8) L 09/03/21 15:17 [place] # (Auto) 1.2 10^3/uL (0.2-0.9) H 09/03/21 15:17 Eos # (Auto) 0.0 10^3/uL (0.0-0.8) 09/03/21 15:17 Baso # (Auto) 0.0 10^3/uL (0.0-0.1) 09/03/21 15:17 Nucleated RBC % (auto) 0 % 09/03/21 15:17 Nucleated RBCs # 0.0 /100WBC 09/03/21 15:17 Sodium 135 mmol/L (136-145) L 09/03/21 16:32 Potassium 3.7 mmol/L (3.5-5.1) 09/03/21 16:32 Chloride 103 mmol/L (98-107) 09/03/21 16:32 Carbon Dioxide 22 mmol/L (22-29) 09/03/21 16:32 Anion Gap 13.7 (5-19) 09/03/21 16:32 BUN 4 mg/dL (8-23) L 09/03/21 16:32 Creatinine 0.6 mg/dL (0.7-1.2) L 09/03/21 16:32 GFR Calculation 137.4 mL/min (90-130) H 09/03/21 16:32 Glucose 94 mg/dL (65-115) 09/03/21 16:32 Calculated Osmolality 277 mOsm/kg (285-295) L 09/03/21 16:32 Calcium 8.0 mg/dL (8.5-10.5) L 09/03/21 16: Total Bilirubin 0.2 mg/dL (0.15-1.2) 09/03/21 16: AST 10 U/L (0-40) 09/03/21 16: ALT 19 U/L (0-41) 09/03/21 16: Alkaline Phosphatase 57 IU/L (40-130) 09/03/21 16: Total Protein 5.1 g/dL (6.6-8.7) L 09/03/21 16: Albumin 2.7 g/dL (3.5-5.2) L 09/03/21 16: Globulin 2.4 g/dL (1.3-4.6) 09/03/21 16: Lipase 35 U/L (13-60) 09/03/21 16:32 Urine Color Straw (Yellow) 09/03/21 16:00 Urine Appearance Clear (CLEAR) 09/03/21 16:00 Urine pH 6 (5-7) 09/03/21 16:00 Ur Specific [place] 1.015 (1.005-1.030) 09/03/21 16:00 Urine Protein Neg (Negative) 09/03/21 16:00 Urine Glucose (UA) Norm (Normal) 09/03/21 16:00 Urine Ketones Negative (Negative) 09/03/21 16:00 Urine Blood Neg (Negative) 09/03/21 16:00 Urine Nitrate Negative (Negative) 09/03/21 16:00 Urine Bilirubin Neg (Negative) 09/03/21 16:00 Urine Urobilinogen Norm mg/dL (Negative) 09/03/21 16:00 Ur Leukocyte Esterase Negative (Negative) 09/03/21 16:00 Imaging Data Other Imaging: Radiologist's impression: [facility] [address] [place] [address] CT Scan Report Signed Patient: Adarsh Parson Unit #: [id number] : 1960 Age/Sex: 61 / M ADM Date: 09/03/21 Loc: ER Room/Bed: Attending Dr: Ordering Provider/Ordering MD: Mariah Latif MD Date of Service: 09/03/21 Procedure(s): CT abdomen pelvis w con* [id number] Accession Number(s): [id number] Report Number: [id number] PROCEDURE INFORMATION: Exam: CT Abdomen And Pelvis With Contrast Exam date and time: 09/03/2021 5:21 PM Age: 61 years old Clinical indication: Abdominal pain; Generalized; Patient HX: 10 days S/P chemo C/O abd pain HX of melanoma w mets; Additional info: Eval for infection TECHNIQUE: Imaging protocol: Computed tomography of the abdomen and pelvis with contrast. Radiation optimization: All CT scans at this facility use at least one of these dose optimization techniques: automated exposure control; mA and/or kV adjustment per patient size (includes targeted exams where dose is matched to clinical indication); or iterative reconstruction. Contrast material: OMNI 300; Contrast volume: 95 ml; Contrast route: INTRAVENOUS (IV);? COMPARISON: CT chest abd pel w con* 02/11/2021 12:57 PM RADIATION DOSE METRICS: Total DLP (mGy-cm): 1560.44 FINDINGS: Lungs: Calcified granulomas in the left lung base. Liver: Stable cyst in the left liver lobe, Hounsfield units less than 20. Additional tiny lesions in the liver are too small to characterize but are most likely cysts. No follow-up imaging is recommended. Gallbladder and bile ducts: Multiple small calcified stones in the gallbladder. No gallbladder wall thickening. The bile ducts are normal. Pancreas: Normal. No ductal dilation. Spleen: Normal. No splenomegaly. Adrenal glands: Normal. No mass. 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 No calculus or hydronephrosis. Stomach and bowel: Partial small bowel resection in the left upper quadrant. The stomach and small bowel are otherwise unremarkable. No obstruction. Mild mucosal enhancement and suspected mild wall thickening in the distal sigmoid colon and rectum, without adjacent fat stranding. Appendix: The appendix is visualized and is normal. Intraperitoneal space: Stable hazy opacities in the central mesenteric fat with multiple prominent mesenteric lymph nodes measuring up to 0.7 cm short axis. Vasculature: Unremarkable. No abdominal aortic aneurysm. Lymph nodes: Unremarkable. No enlarged lymph nodes. Urinary bladder: Unremarkable as visualized. Reproductive: Mildly enlarged inhomogenous prostate. Bones/joints: Unremarkable. No acute fracture. Soft tissues: Unremarkable. Other findings: Anterior laparotomy scar. CT/CT abdomen pelvis w con* [id number] IMPRESSION: 1. Mucosal enhancement and suspected mild wall thickening in the distal sigmoid colon and rectum could represent mild infectious or inflammatory colitis/proctitis.? 2. Findings consistent with chronic sclerosing mesenteritis. 3. Cholelithiasis. ? Dictated By: Jimbo Garay Signed By: Jimbo Garay Signed Date/Time: 09/03/211801 DD/ 172 Discharge Plan Discharge Patient Disposition: Home Clinical Impression: Abdominal pain, Colitis, Proctocolitis Condition: Stable Prescriptions: New Zofran 4 mg tablet 4 mg PO TID PRN (Reason: nausea and vomiting) 4 Days Qty: 12 0RF Pepcid 20 mg tablet 20 mg PO BID PRN (Reason: abdominal pain) 10 Days Qty: 20 0RF Maalox Advanced 1,000-60 mg tablet,chewable 1 tab PO TID PRN (Reason: abdominal pain) 7 Days Qty: 21 0RF ciprofloxacin HCl 500 mg tablet 500 mg PO BID 10 Days Qty: 20 0RF metronidazole 500 mg tablet 500 mg PO BID 10 Days Qty: 20 0RF prednisone 50 mg tablet 50 mg PO DAILY 7 Days Qty: 7 0RF Zofran 4 mg tablet 4 mg PO TID PRN (Reason: nausea and vomiting) 4 Days Qty: 12 0RF Percocet 5-325 mg tablet 1 tab PO Q8H PRN (Reason: pain) Qty: 9 0RF Discontinued prednisone 10 mg tablet 10 mg PO BID 0RF No Action hydrocodone-acetaminophen 7.5-325 mg tablet 1 tab PO Q4H PRN (Reason: Pain) 0RF Discharge Orders: Discharge ED (Routine); Ordered 09/03/21 Ordered By: Mariah Latif Referrals: Onofre Cuhrchill MD [Primary Care Provider] - Discharge Diet: Advance as tolerated Discharge Activity: Increase activity as tolerated Patient Instructions: Abdominal Pain (ED), Opioid Safety Activity Restrictions/Additional Instructions: Please come back if you have any worsening abdominal pain, fever or chills, nausea or vomiting, diarrhea, blood in the stool, inability hold down liquid or solids, or any new concerning complaints. Please follow-up with Dr. Cole on Monday for reassessment of your symptoms. Come back to the emergency room if anything is worse. Coding Level of Care Code ED [employer] for [employer] Fwd Exam Comprehensive
[2021-09-03 15:24] LABS: Basophils % 0.4 %; Eosinophils % 0.4 %; Hematocrit 46.6 % (42.0-52.0); Hemoglobin 15.9 g/dL (11.7-16.6); Lymphocytes # 0.7 10^3/uL (0.8-4.8); Lymphocytes % 9.5 %; Mean Corpuscular HGB Conc 34.1 g/dL (30.0-36.0); Mean Corpuscular Hemoglobin 28.5 pg (28.0-34.0); Mean Corpuscular Volume 83.7 fl (80-94); Mean Platelet Volume 9.6 fL (7.4-10.4); Monocytes # 1.2 10^3/uL (0.2-0.9); Neutrophils # 5.19 10^3/uL (1.8-7.7); Neutrophils % 72.4 %; Nucleated Red Blood Cells % 0 %; Platelet Count 375 10^3/cmm (130-400); Red Blood Count 5.57 10^6/uL (4.1-5.3); Red Cell Distribution Width 13.7 % (12.1-15.1); White Blood Count 7.2 10^3/uL (4.0-10.0)
[2021-09-03] MEDS: famotidine 20 mg/2 mL INJ IVP (15:55)
[2021-09-03] MEDS: sodium chloride 0.9% 1,000 ML 999 ML IV (15:55)
--- NOTE | 2021-09-03 16:19 | PC.NURSE ---
Lab reports that the cmp will need to be redrawn. Lab coming now to draw. CT stated they are waiting on results of kidney function before doing the CT.
--- NOTE | 2021-09-03 16:20 | PC.NURSE ---
Patient comes in today for abdominal pain after his last dose of chemo last week. Patient states that he has done this chemo for 1 year and this has never happened. Patient states that he has his gallbladder and appendix.
[2021-09-03 16:36] VITALS: BP 123/90; PULSE 92; RESP 18; O2SAT 99
--- NOTE | 2021-09-03 16:44 | PC.NURSE ---
Patient in bed, denies any needs at this time. call light within reach. CT will be coming for patient when kidney function returns, CMP lab pending at this time.
[2021-09-03 16:49] LABS: Add Urine Microscopic? NO; Charge for UA Resulting for Rev
[2021-09-03 16:59] LABS: Albumin Level 2.7 g/dL (3.5-5.2); Alkaline Phosphatase 57 IU/L (40-130); Blood Urea Nitrogen 4 mg/dL (8-23); Carbon Dioxide 22 mmol/L (22-29); Chloride 103 mmol/L (98-107); Globulin 2.4 g/dL (1.3-4.6); Glomerular Filtration Rate 137.4 mL/min (90-130); Glucose 94 mg/dL (65-115); Lipase 35 U/L (13-60); Osmolality Calculated 277 mOsm/kg (285-295); Sodium 135 mmol/L (136-145); Total Bilirubin 0.2 mg/dL (0.15-1.2); Total Protein 5.1 g/dL (6.6-8.7)
[2021-09-03 17:01] LABS: Alanine Aminotransferase 19 U/L (0-41); Anion Gap 13.7 (5-19); Aspartate Amino Transferase 10 U/L (0-40); Potassium 3.7 mmol/L (3.5-5.1)
[2021-09-03 17:07] LABS: Bilirubin Urine Neg (Negative); Blood Urine Neg (Negative); Glucose Urine UA Norm (Normal); Ketones Urine Negative (Negative); Leukocyte Esterase Urine Negative (Negative); Nitrate Urine Negative (Negative); Protein Urine Neg (Negative); Specific Gravity, Urine 1.015 (1.005-1.030); Urine Appearance Clear (CLEAR); Urine Color Straw (Yellow); Urobilinogen Urine Norm (Negative); pH Urine 6 (5-7)
[2021-09-03 17:13] VITALS: BP 143/90; PULSE 98; RESP 12; O2SAT 93
[2021-09-03] MEDS: iohexol 300 mg/mL 100 mL Btl IV (17:20)
[2021-09-03 17:31] VITALS: BP 128/96; PULSE 98; RESP 18; O2SAT 93
[2021-09-03 19:06] VITALS: BP 114/82; PULSE 92; O2SAT 92
--- NOTE | 2021-09-03 19:10 | PC.NURSE ---
Patient in bed, denies any needs at this time. patient requested urinal, 800 ml of urine voided. Patient vitals stable at this time.
[2021-09-03] MEDS: piperacillin-tazobactam 4.5 GM in sodium chloride 0.9% (plus) 50 ML IV (19:16)
--- NOTE | 2021-09-03 19:16 | PC.NURSE ---
Report given to night RN. patient requested at shift change that he would like pain medication.
[2021-09-03 20:27] VITALS: BP 113/72; RESP 15; TEMP 36.7; O2SAT 98
== END 2021-09-03 20:49 | disposition home or self-care (01) ==
PROVIDERS: Emergency Provider Emergency Medicine; PCP Family Medicine Adult Medicine
DX: K52.9 Noninfective gastroenteritis and colitis, unspecified (principal); K51.30 Ulcerative (chronic) rectosigmoiditis without complications
CPT/HCPCS: 74177; 80053; 81003; 83690; 85025; 96365; 96375; 99284; J2543; J2930; J3490; J7030; Q9967

== ENCOUNTER 2021-09-07 11:57 | Outpatient (CLI) | payer MEDICARE, SELFPAY ==
[2021-09-07 12:40] LABS: Basophils % 0.1 %; Hematocrit 42.8 % (42.0-52.0); Lymphocytes # 0.8 10^3/uL (0.8-4.8); Lymphocytes % 5.4 %; Mean Corpuscular HGB Conc 32.7 g/dL (30.0-36.0); Mean Corpuscular Hemoglobin 28.1 pg (28.0-34.0); Mean Corpuscular Volume 85.9 fl (80-94); Mean Platelet Volume 9.4 fL (7.4-10.4); Monocytes % 6.7 %; Neutrophils % 86.4 %; Nucleated Red Blood Cells % 0 %; Platelet Count 458 10^3/cmm (130-400); Red Blood Count 4.98 10^6/uL (4.1-5.3); Red Cell Distribution Width 13.6 % (12.1-15.1); White Blood Count 14.6 10^3/uL (4.0-10.0)
[2021-09-07 13:11] LABS: Alanine Aminotransferase 24 U/L (0-41); Albumin Level 3.2 g/dL (3.5-5.2); Alkaline Phosphatase 56 IU/L (40-130); Anion Gap 12.8 (5-19); Aspartate Amino Transferase 18 U/L (0-40); Blood Urea Nitrogen 9 mg/dL (8-23); Calcium 8.5 mg/dL (8.5-10.5); Carbon Dioxide 25 mmol/L (22-29); Chloride 104 mmol/L (98-107); Globulin 1.8 g/dL (1.3-4.6); Glomerular Filtration Rate 98.6 mL/min (90-130); Glucose 100 mg/dL (65-115); Lactate Dehydrogenase 146 U/L (135-225); Osmolality Calculated 287 mOsm/kg (285-295); Sodium 139 mmol/L (136-145); Thyroid Stimulating Hormone 0.66 uIU/mL (0.27-4.20); Total Bilirubin 0.2 mg/dL (0.15-1.2)
[2021-09-07 13:13] LABS: Potassium 2.8 mmol/L (3.5-5.1)
--- NOTE | 2021-09-07 15:57 | ONC FU_ITS ---
Pamella Hernandez Progress Note Patient: Adarsh Parson Unit #: [id number]: [id number] Dicatated By: Pamella Hernandez N.P.Date of Visit:Sep 07, 2021 Onc MED Follow-up/Prog Note Chief Complaint: Metastatic melanoma. History of Present Illness: Philip flores is a 61 year-old man with metastatic melanoma, BRAF mutation negative. He has a history of having undergone excision of a melanoma from the right lower back somewhere in the range of 3 to 4 years ago. The records were not available to me. The procedure was done through [facility] in [place], and it included a right axillary sentinel lymph node biopsy. He did not require any further treatment. He continued regular follow-up with his lead pastor in [place]. In July 2020 he had presented to [facility] with a lump in the left side of his neck. He had been aware of it for about 6 months. An initial ultrasound on 09/04/2020 showed a left supraclavicular mass measuring 4.8 x 5.1 x 4.0 cm consistent with an abnormal lymph node. Further evaluation with CT scans of the neck and chest on 09/08/2020 showed a large heterogeneously enhancing left supraclavicular lymph node measuring 4.8 x 4.4 x 6.8 cm with additional enlarged pathologic lymph nodes in the lower cervical chain and supraclavicular region. A left hilar and suprahilar mass measuring approximately 3.1 x 2.9 x 4.8 cm was noted to abut the left hilum, extending into the left upper lobe. There were multiple surrounding satellite soft tissue nodules and there was associated pleural thickening in the left upper lobe medially. There were no other suspicious pulmonary parenchymal nodules and there was no mediastinal adenopathy. A 12 mm low-attenuation lesion in the right hepatic lobe was felt to be indeterminate. Haziness within the mid mesentery with prominent lymph nodes was partially visualized. Further evaluation with CT of the abdomen/pelvis on 09/18/2020 was reported to be negative for metastatic disease. The lesion in the right lobe of the liver was felt to probably be a cyst. He then underwent ultrasound directed biopsy of the left supraventricular mass on 10/07/2020. 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 By IHC, the tumor cells were positive for trim 29, melanin A, HMB-45, Sox 10, and S100 protein, consistent with metastatic melanoma. Staging PET/CT on 10/10/2020 showed FDG positive left supraclavicular mass measuring 6.1 x 4.2 cm, SUV 38.3. 2 additional adjacent nodes measuring 1.8 cm were also FDG positive. A left upper lobe lung mass measuring 4.2 x 4.6 cm and SUV 22.2 and a left upper quadrant small bowel mass measuring 5.6 x 5.2 cm had SUV 43.4, high probability of malignancy. Multiple enlarged mesenteric lymph nodes had minimal FDG activity, but were likely metastatic. I had seen him initially on 10/13/2020. I had discussed the possibility of proceeding with a trial of dual immunotherapy with nivolumab/ipilimumab. At that point I had also requested a BRAF mutation analysis, and that ultimately came back negative. In the meantime, on 10/16/2020 he was admitted to the hospital after presenting to the emergency room with worsening abdominal pain. His CT abdomen/pelvis showed worsening of the jejunojejunal intussusception with development of small bowel obstruction. He underwent diagnostic laparoscopy followed by exploratory laparotomy with partial small bowel resection and [id number] anastomosis. Pathology on the small bowel was consistent with metastatic melanoma. The proximal and distal margins were uninvolved. His medical history is otherwise significant for chronic back pain following previous back surgery. He has had no other ongoing medical illnesses. He also has a history of accidental electrocution. He is a non-smoker. INTERIM HISTORY: He began cycle 1 of dual immunotherapy with nivolumab/ipilimumab on 11/19/2020. He had subsequently developed a rash on his arms, chest, and back. It was not itchy and it otherwise was not bothering him. He said it was like a heat rash. It resolved within a week or so. He otherwise tolerated the treatment well. He continued with cycle 2 on 12/15/2020, with cycle 3 on 01/04/2021, and with cycle 4 on 01/25/2021. Restaging CT scans of the chest, abdomen, and pelvis on 02/11/2021 showed significant decrease in the size of the mass in the left upper lobe, measuring 1.9 x 1.1 cm compared to 3.1 x 2.9 x 4.8 cm on the August 2020 study. A few additional nodules throughout the lungs appeared stable with the exception of a 5 mm subpleural nodule in the left lower lobe. A 3-month follow-up was recommended. Also noted were central mesenteric misting subcentimeter lymph nodes without progression. With those findings, he then continued treatment with nivolumab monotherapy at a 4-week dosing schedule on 02/16/2021. At his scheduled follow-up visit on 03/15/2021 he reported significant joint and muscle pain which developed following the initial infusion of nivolumab monotherapy. It was significant enough that he was having difficulty functioning, and it appeared very likely to be treatment related. He began on steroid therapy with prednisone 20 mg 3 times daily, subsequently tapered to 20 mg daily. At his follow-up visit on 03/31/2021 his joint pain had improved significantly, and he restarted nivolumab but with his treatment changed to the 2-week dosing schedule. His prednisone dosage at that point was further reduced to 10 mg daily. He was then able to continue treatment at 2-week intervals together with the low-dose prednisone. As of June 07, 2021 he received cycle 7 of nivolumab monotherapy. At his follow-up visit on June 21, 2021 he had developed some diarrhea and rectal bleeding. His treatment was put on hold, and his prednisone dosage was increased to 20 mg 3 times daily. After 5 days his symptoms had improved and he began tapering the prednisone. However, at 10 mg daily the diarrhea and bleeding recurred, and he ultimately required 50 mg of prednisone daily to control the symptoms. As of his follow-up visit on 07/05/2021 he was feeling better, and I did have him start tapering the prednisone. His colonoscopy on 07/26/2021 showed a sessile polyp in the cecum and an adenomatous appearing polyp in the mid transverse colon. Both were removed endoscopically. Pathology showed tubular adenomas with no high-grade dysplasia identified. Patient presents today for follow-up. He states he has been feeling well. After receiving his treatment of nivolumab on 08/24/2021, he started having abdominal pain and was seen in the ER on 09/03/2021 with colitis and proctitis. He was given high-dose steroids at that time and started on antibiotic therapy. He is currently on prednisone 5 mg p.o. twice daily and states he feels great. His appetite has been good. He denies fever, chills, night sweats. No cough or chest pain. No abdominal pain and no problems with his bowels. His urinary function is good and he denies joint or muscle pain. Review Of Symptoms: See above. Past Medical History: Chronic back pain History of accidental electrocution History of melanoma skin cancer Past Surgical History: Arthroscopic knee surgery Back surgery Excision of melanoma from the right lower back with sentinel right axillary lymph node biopsy Allergies: No Known Allergies. Medications: HYDROcodone-Acetaminophen 1 (7.5-325 mg) Tablet Oral q 4 hours PRN predniSONE 1 Tablet (of 20 mg) Oral daily Family History: Mr. Parson's mother at age 62. Mr. Parson has 1 brother who is . He has 1 sister who is . He has very little knowledge regarding his family history. He does not know anything about his father. His mother, his brother, and one sister are all , but specific cause in each case is unknown to him. Three sisters are still living. Social History: Mr. Parson is . Mr. Parson has never smoked. He has no history of drinking. He is a non-smoker. He does not drink alcohol. Physical Examination: Performed on Sep 07, 2021 13:31: Height - 66.00 in, Weight - 178.2 lbs (HIGH), BSA - 1.90 sq.m, BMI - 28.76, Temperature - 97.2 F (LOW), Pulse - 82 /min, Respiration - 17 /min, BP - 143/82 mm(hg) (HIGH), O2 Sat - 98 %, Pain - 0, and Fatigue - 0. Performance Status: 0 - Fully active, able to carry on all predisease activities without restrictions. (ECOG) Constitutional Alert, cooperative, oriented. Mood and affect appropriate. Appears close to chronological age. Well nourished. Well developed. Head Normocephalic; no scars. Respiratory Lungs are clear to auscultation without rhonchi or wheezing. Cardiovascular Regular rate and rhythm of heart without murmurs, gallops or rubs. Abdomen Non-tender, non-distended, no masses, ascites or hepatosplenomegaly. Good bowel sounds. No guarding or rebound tenderness. Extremities No edema Musculoskeletal No tenderness or swelling, normal range of motion without obvious weakness. Psychiatric Alert and oriented times three. Coherent speech. Verbalizes understanding of our discussions today. Laboratory: Test performed on Sep 07, 2021 12:28 LDH (Total) 146 U/L Sodium 139 mmol/L TSH 0.66 uIU/mL Potassium 2.8 mmol/L Chloride 104 mmol/L CO2 25 mmol/L Anion Gap 12.8 BUN 9 mg/dL Creatinine 0.8 mg/dL Cr Clearance (Est) 112.27 mL/min eGFR 98.6 mL/min Glucose 100 mg/dL Osmolality - Calculated 287 mOsm/kg Calcium 8.5 mg/dL Protein, Total 5.0 g/dL Albumin 3.2 g/dL Globulin 1.8 g/dL Bilirubin, Total 0.2 mg/dL ALT (SGPT) 24 U/L AST (SGOT) 18 U/L Alkaline Phosphatase 56 IU/L WBC 14.6 10 3/uL RBC 4.98 10 6/uL HGB 14.0 g/dL HCT 42.8 % MCV 85.9 fl MCH 28.1 pg MCHC 32.7 g/dL RDW 13.6 % Platelet Count 458 10 3/cmm MPV 9.4 fL Neutrophils 12.60 10 3/uL Lymphocytes 0.8 10 3/uL Monocytes 1.0 10 3/uL Eosinophils 0.0 10 3/uL Basophils 0.0 10 3/uL Neutrophil % 86.4 % Lymphocyte % 5.4 % Monocyte % 6.7 % Eosinophil % 0.0 % Basophils % 0.1 % NRBC % 0 % Impression: 1. Metastatic melanoma, BRAF mutation negative, confirmed by biopsy of left supraclavicular mass on 10/07/2020. By PET/CT, there were additional areas of involvement in the left suprahilar region and the left upper quadrant small bowel. 2. He had associated iron deficiency anemia. 3. On 10/16/2020 he underwent exploratory laparotomy with partial small bowel resection for intussusception/small bowel obstruction due to the metastatic melanoma. 4. He has a history of having undergone excision of melanoma from the right lower back 3 or 4 years ago. The procedure included right axillary sentinel lymph node biopsy. 5. He has chronic back pain. Plan: Patient with metastatic melanoma, BFAF mutation negative, presenting with a large left supraclavicular mass. By PET/CT, there were additional areas of involvement in the left suprahilar region and the left upper quadrant small bowel. On 10/16/2020 he underwent exploratory laparotomy with partial small bowel resection for intussusception/small bowel obstruction due to the metastatic melanoma. On 11/19/2020 he began cycle 1 of dual immunotherapy with nivolumab/ipilimumab. He tolerated it well and he was able to continue treatment at 3-week intervals. He received his 4th cycle on 01/25/2021. He had a very good response by follow-up chest CT. On 02/16/2021 he began nivolumab monotherapy at a standard dosage of 480 mg by IV infusion every 4 weeks. Following that treatment, he developed significant musculoskeletal pain with associated stiffness and poor mobility. It was presumed to be an immune mediated side effect. His treatment was put on hold, and he began steroid therapy with prednisone 20 mg 3 times daily, subsequently tapered to 20 mg daily. At his follow-up visit on 03/31/2021 his joint pain had improved significantly. He then restarted treatment with nivolumab, but at the 2-week dosing schedule. At that point his prednisone dosage was further reduced to 10 mg daily. He was then able to continue nivolumab monotherapy at 2-week intervals together with prednisone 10 mg daily. As of his follow-up visit on June 21, 2021 his treatment was put on hold due to development of diarrhea and rectal bleeding. He improved on higher dose prednisone, but he had recurrence of the symptoms with the dosage reduced to 10 mg daily. With his prednisone increased to 50 mg daily, his symptoms did improve. As of his follow-up visit on 07/05/2021 I did have him start tapering his steroid. His colonoscopy on 07/26/2021 showed tubular adenomas in the cecum and mid transverse colon, both removed endoscopically. He was having no GI symptoms with his prednisone dosage decreased to 5 mg twice daily. Nivolumab 240 mg by IV infusion was restarted on 08/10/2021 which was cycle 8 and he tolerated it well. His prednisone was further reduced to 5 mg daily. He received cycle 9 on 08/24/2021. He was then seen in the ER on 09/03/2021 with complaints of abdominal pain and was diagnosed with colitis and proctitis. He was given high-dose steroids at that time and started on antibiotic therapy. He is seen today for follow-up. He is currently on prednisone 5 mg p.o. twice daily. He denies abdominal pain or diarrhea or constipation. Due to colitis at last treatment, his treatment will be put on hold and he will continue with the prednisone 5 mg p.o. twice daily. He will return to the clinic in 3 weeks and if no problems we will consider restarting nivolumab. If he receives treatment at next visit and he has problems with colitis, then nivolumab will be discontinued and he will be started on prednisone high-dose. He may need to be changed to a different treatment and that will be discussed if symptoms recur with the colitis. It was noted that patient has hypokalemia with potassium level at 2.8. Potassium chloride has been ordered at 20 mEq daily x5 days for recheck potassium level at next visit. Signed By: Pamella Hernandez N.P. <<Signature on File>>
== END 2021-09-07 11:58 | disposition home or self-care (01) ==
PROVIDERS: PCP Family Medicine Adult Medicine; Visit Provider Nurse Practitioner Family
DX: C76.0 Malignant neoplasm of head, face and neck (principal); C78.02 Secondary malignant neoplasm of left lung; C78.4 Secondary malignant neoplasm of small intestine; D50.9 Iron deficiency anemia, unspecified; E03.9 Hypothyroidism, unspecified; G89.29 Other chronic pain; M54.9 Dorsalgia, unspecified; Z79.52 Long term (current) use of systemic steroids; Z79.01 Long term (current) use of anticoagulants; Z79.899 Other long term (current) drug therapy
CPT/HCPCS: 36591; 80053; 83615; 84443; 85025; 99215

== ENCOUNTER 2021-09-28 09:15 | Outpatient (CLI) | payer MEDICARE, SELFPAY ==
[2021-09-28] MEDS: alteplase 1 mg/mL SDV 2 mL 2 MG IV (09:51)
[2021-09-28 10:04] LABS: Basophils % 0.5 %; Eosinophils # 0.2 10^3/uL (0.0-0.8); Eosinophils % 3.4 %; Hematocrit 42.9 % (42.0-52.0); Hemoglobin 14.2 g/dL (11.7-16.6); Lymphocytes # 0.8 10^3/uL (0.8-4.8); Lymphocytes % 14.9 %; Mean Corpuscular HGB Conc 33.1 g/dL (30.0-36.0); Mean Corpuscular Hemoglobin 28.2 pg (28.0-34.0); Mean Corpuscular Volume 85.1 fl (80-94); Mean Platelet Volume 9.7 fL (7.4-10.4); Monocytes # 0.5 10^3/uL (0.2-0.9); Monocytes % 8.6 %; Neutrophils # 4.03 10^3/uL (1.8-7.7); Neutrophils % 72.2 %; Nucleated Red Blood Cells % 0 %; Platelet Count 306 10^3/cmm (130-400); Red Blood Count 5.04 10^6/uL (4.1-5.3); Red Cell Distribution Width 13.3 % (12.1-15.1); White Blood Count 5.6 10^3/uL (4.0-10.0)
[2021-09-28 10:33] LABS: Alanine Aminotransferase 20 U/L (0-41); Albumin Level 3.9 g/dL (3.5-5.2); Alkaline Phosphatase 96 IU/L (40-130); Anion Gap 13.4 (5-19); Aspartate Amino Transferase 15 U/L (0-40); Blood Urea Nitrogen 4 mg/dL (8-23); Carbon Dioxide 24 mmol/L (22-29); Chloride 107 mmol/L (98-107); Globulin 1.9 g/dL (1.3-4.6); Glomerular Filtration Rate 98.6 mL/min (90-130); Glucose 125 mg/dL (65-115); Osmolality Calculated 290 mOsm/kg (285-295); Potassium 3.4 mmol/L (3.5-5.1); Sodium 141 mmol/L (136-145); Total Bilirubin 0.2 mg/dL (0.15-1.2); Total Protein 5.8 g/dL (6.6-8.7)
--- NOTE | 2021-09-29 08:39 | ONC FU_ITS ---
Pamella Hernandez Progress Note Patient: Adarsh Parson Unit #: [id number]: 1960 Dicatated By: Pamella Hernandez N.P.Date of Visit:Sep 28, 2021 Onc MED Follow-up/Prog Note Chief Complaint: Metastatic melanoma. History of Present Illness: Philip flores is a 61 year-old man with metastatic melanoma, BRAF mutation negative. He has a history of having undergone excision of a melanoma from the right lower back somewhere in the range of 3 to 4 years ago. The records were not available to me. The procedure was done through [facility] in [place], and it included a right axillary sentinel lymph node biopsy. He did not require any further treatment. 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 In July 2020 he had presented to [facility] with a lump in the left side of his neck. He had been aware of it for about 6 months. An initial ultrasound on 09/04/2020 showed a left supraclavicular mass measuring 4.8 x 5.1 x 4.0 cm consistent with an abnormal lymph node. Further evaluation with CT scans of the neck and chest on 09/08/2020 showed a large heterogeneously enhancing left supraclavicular lymph node measuring 4.8 x 4.4 x 6.8 cm with additional enlarged pathologic lymph nodes in the lower cervical chain and supraclavicular region. A left hilar and suprahilar mass measuring approximately 3.1 x 2.9 x 4.8 cm was noted to abut the left hilum, extending into the left upper lobe. There were multiple surrounding satellite soft tissue nodules and there was associated pleural thickening in the left upper lobe medially. There were no other suspicious pulmonary parenchymal nodules and there was no mediastinal adenopathy. A 12 mm low-attenuation lesion in the right hepatic lobe was felt to be indeterminate. Haziness within the mid mesentery with prominent lymph nodes was partially visualized. Further evaluation with CT of the abdomen/pelvis on 09/18/2020 was reported to be negative for metastatic disease. The lesion in the right lobe of the liver was felt to probably be a cyst. He then underwent ultrasound directed biopsy of the left supraventricular mass on 10/07/2020. 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 By IHC, the tumor cells were positive for trim 29, melanin A, HMB-45, Sox 10, and S100 protein, consistent with metastatic melanoma. Staging PET/CT on 10/10/2020 showed FDG positive left supraclavicular mass measuring 6.1 x 4.2 cm, SUV 38.3. 2 additional adjacent nodes measuring 1.8 cm were also FDG positive. A left upper lobe lung mass measuring 4.2 x 4.6 cm and SUV 22.2 and a left upper quadrant small bowel mass measuring 5.6 x 5.2 cm had SUV 43.4, high probability of malignancy. Multiple enlarged mesenteric lymph nodes had minimal FDG activity, but were likely metastatic. I had seen him initially on 10/13/2020. I had discussed the possibility of proceeding with a trial of dual immunotherapy with nivolumab/ipilimumab. At that point I had also requested a BRAF mutation analysis, and that ultimately came back negative. In the meantime, on 10/16/2020 he was admitted to the hospital after presenting to the emergency room with worsening abdominal pain. His CT abdomen/pelvis showed worsening of the jejunojejunal intussusception with development of small bowel obstruction. He underwent diagnostic laparoscopy followed by exploratory laparotomy with partial small bowel resection and [id number] anastomosis. Pathology on the small bowel was consistent with metastatic melanoma. The proximal and distal margins were uninvolved. His medical history is otherwise significant for chronic back pain following previous back surgery. He has had no other ongoing medical illnesses. He also has a history of accidental electrocution. He is a non-smoker. INTERIM HISTORY: He began cycle 1 of dual immunotherapy with nivolumab/ipilimumab on 11/19/2020. He had subsequently developed a rash on his arms, chest, and back. It was not itchy and it otherwise was not bothering him. He said it was like a heat rash. It resolved within a week or so. He otherwise tolerated the treatment well. He continued with cycle 2 on 12/15/2020, with cycle 3 on 01/04/2021, and with cycle 4 on 01/25/2021. Restaging CT scans of the chest, abdomen, and pelvis on 02/11/2021 showed significant decrease in the size of the mass in the left upper lobe, measuring 1.9 x 1.1 cm compared to 3.1 x 2.9 x 4.8 cm on the August 2020 study. A few additional nodules throughout the lungs appeared stable with the exception of a 5 mm subpleural nodule in the left lower lobe. A 3-month follow-up was recommended. Also noted were central mesenteric misting subcentimeter lymph nodes without progression. With those findings, he then continued treatment with nivolumab monotherapy at a 4-week dosing schedule on 02/16/2021. At his scheduled follow-up visit on 03/15/2021 he reported significant joint and muscle pain which developed following the initial infusion of nivolumab monotherapy. It was significant enough that he was having difficulty functioning, and it appeared very likely to be treatment related. He began on steroid therapy with prednisone 20 mg 3 times daily, subsequently tapered to 20 mg daily. At his follow-up visit on 03/31/2021 his joint pain had improved significantly, and he restarted nivolumab but with his treatment changed to the 2-week dosing schedule. His prednisone dosage at that point was further reduced to 10 mg daily. He was then able to continue treatment at 2-week intervals together with the low-dose prednisone. As of June 07, 2021 he received cycle 7 of nivolumab monotherapy. At his follow-up visit on June 21, 2021 he had developed some diarrhea and rectal bleeding. His treatment was put on hold, and his prednisone dosage was increased to 20 mg 3 times daily. After 5 days his symptoms had improved and he began tapering the prednisone. However, at 10 mg daily the diarrhea and bleeding recurred, and he ultimately required 50 mg of prednisone daily to control the symptoms. As of his follow-up visit on 07/05/2021 he was feeling better, and I did have him start tapering the prednisone. His colonoscopy on 07/26/2021 showed a sessile polyp in the cecum and an adenomatous appearing polyp in the mid transverse colon. Both were removed endoscopically. Pathology showed tubular adenomas with no high-grade dysplasia identified. Patient presents today for follow-up. He states he is feeling great. His Opdivo was put on hold after experiencing colitis and proctitis. All symptoms have resolved. He is no longer taking prednisone. He denies weakness or fatigue. His appetite is good. No fever, chills, night sweats. No sinus drainage or mouth sores. No shortness of breath, wheezing, COVID he denies nausea or vomiting. No diarrhea or constipation. No abdominal pain. He is voiding well. No joint or bone pain. No headaches or dizziness. He would like to restart his Opdivo. Review Of Symptoms: See above. Past Medical History: Chronic back pain History of accidental electrocution History of melanoma skin cancer Past Surgical History: Arthroscopic knee surgery Back surgery Excision of melanoma from the right lower back with sentinel right axillary lymph node biopsy Allergies: No Known Allergies. Medications: HYDROcodone-Acetaminophen 1 (7.5-325 mg) Tablet Oral q 4 hours PRN predniSONE 1 Tablet (of 20 mg) Oral daily PRN Family History: Mr. Parson's mother at age 62. Mr. Parson has 1 brother who is . He has 1 sister who is . He has very little knowledge regarding his family history. He does not know anything about his father. His mother, his brother, and one sister are all , but specific cause in each case is unknown to him. Three sisters are still living. Social History: Mr. Parson is . Mr. Parson has never smoked. He has no history of drinking. He is a non-smoker. He does not drink alcohol. Physical Examination: Performed on Sep 28, 2021 11:19: Height - 66.00 in, Weight - 173.2 lbs (LOW), BSA - 1.88 sq.m, BMI - 27.96, Temperature - 98.3 F (LOW), Pulse - 95 /min, Respiration - 16 /min, BP - 155/83 mm(hg) (HIGH), O2 Sat - 98 %, Pain - 0, and Fatigue - 4. Performance Status: 0 - Fully active, able to carry on all predisease activities without restrictions. (ECOG) Constitutional Alert, cooperative, oriented. Mood and affect appropriate. Appears close to chronological age. Well nourished. Well developed. Head Normocephalic; no scars. Eyes Conjunctivae and sclerae are clear and without icterus. Pupils are reactive and equal. Respiratory Lungs are clear to auscultation without rhonchi or wheezing. Cardiovascular Regular rate and rhythm of heart without murmurs, gallops or rubs. Abdomen Non-tender, non-distended, no masses, ascites or hepatosplenomegaly. Good bowel sounds. No guarding or rebound tenderness. Extremities No visible deformities, no cyanosis, clubbing or edema. Pulses 3+ and equal bilaterally. Musculoskeletal No tenderness or swelling, normal range of motion without obvious weakness. Psychiatric Alert and oriented times three. Coherent speech. Verbalizes understanding of our discussions today. Laboratory: Test performed on Sep 28, 2021 09:47 Sodium 141 mmol/L Potassium 3.4 mmol/L Chloride 107 mmol/L CO2 24 mmol/L Anion Gap 13.4 BUN 4 mg/dL Creatinine 0.8 mg/dL Cr Clearance (Est) 109.1200 mL/min eGFR 98.6 mL/min Glucose 125 mg/dL Osmolality - Calculated 290 mOsm/kg Calcium 9.0 mg/dL Protein, Total 5.8 g/dL Albumin 3.9 g/dL Globulin 1.9 g/dL Bilirubin, Total 0.2 mg/dL ALT (SGPT) 20 U/L AST (SGOT) 15 U/L Alkaline Phosphatase 96 IU/L WBC 5.6 10 3/uL RBC 5.04 10 6/uL HGB 14.2 g/dL HCT 42.9 % MCV 85.1 fl MCH 28.2 pg MCHC 33.1 g/dL RDW 13.3 % Platelet Count 306 10 3/cmm MPV 9.7 fL Neutrophils 4.03 10 3/uL Lymphocytes 0.8 10 3/uL Monocytes 0.5 10 3/uL Eosinophils 0.2 10 3/uL Basophils 0.0 10 3/uL Neutrophil % 72.2 % Lymphocyte % 14.9 % Monocyte % 8.6 % Eosinophil % 3.4 % Basophils % 0.5 % NRBC % 0 % Test performed on Sep 07, 2021 12:28 LDH (Total) 146 U/L TSH 0.66 uIU/mL Impression: 1. Metastatic melanoma, BRAF mutation negative, confirmed by biopsy of left supraclavicular mass on 10/07/2020. By PET/CT, there were additional areas of involvement in the left suprahilar region and the left upper quadrant small bowel. 2. He had associated iron deficiency anemia. 3. On 10/16/2020 he underwent exploratory laparotomy with partial small bowel resection for intussusception/small bowel obstruction due to the metastatic melanoma. 4. He has a history of having undergone excision of melanoma from the right lower back 3 or 4 years ago. The procedure included right axillary sentinel lymph node biopsy. 5. He has chronic back pain. Plan: Patient with metastatic melanoma, BFAF mutation negative, presenting with a large left supraclavicular mass. By PET/CT, there were additional areas of involvement in the left suprahilar region and the left upper quadrant small bowel. On 10/16/2020 he underwent exploratory laparotomy with partial small bowel resection for intussusception/small bowel obstruction due to the metastatic melanoma. On 11/19/2020 he began cycle 1 of dual immunotherapy with nivolumab/ipilimumab. He tolerated it well and he was able to continue treatment at 3-week intervals. He received his 4th cycle on 01/25/2021. He had a very good response by follow-up chest CT. On 02/16/2021 he began nivolumab monotherapy at a standard dosage of 480 mg by IV infusion every 4 weeks. Following that treatment, he developed significant musculoskeletal pain with associated stiffness and poor mobility. It was presumed to be an immune mediated side effect. His treatment was put on hold, and he began steroid therapy with prednisone 20 mg 3 times daily, subsequently tapered to 20 mg daily. At his follow-up visit on 03/31/2021 his joint pain had improved significantly. He then restarted treatment with nivolumab, but at the 2-week dosing schedule. At that point his prednisone dosage was further reduced to 10 mg daily. He was then able to continue nivolumab monotherapy at 2-week intervals together with prednisone 10 mg daily. As of his follow-up visit on June 21, 2021 his treatment was put on hold due to development of diarrhea and rectal bleeding. He improved on higher dose prednisone, but he had recurrence of the symptoms with the dosage reduced to 10 mg daily. With his prednisone increased to 50 mg daily, his symptoms did improve. As of his follow-up visit on 07/05/2021 I did have him start tapering his steroid. His colonoscopy on 07/26/2021 showed tubular adenomas in the cecum and mid transverse colon, both removed endoscopically. He was having no GI symptoms with his prednisone dosage decreased to 5 mg twice daily. Nivolumab 240 mg by IV infusion was restarted on 08/10/2021 which was cycle 8 and he tolerated it well. His prednisone was further reduced to 5 mg daily. He received cycle 9 on 08/24/2021. He was then seen in the ER on 09/03/2021 with complaints of abdominal pain and was diagnosed with colitis and proctitis. He was given high-dose steroids at that time and started on antibiotic therapy. Patient presents today for follow-up. He has a was held due to colitis. It is uncertain if Opdivo caused this. He was placed on high-dose steroids and at last visit had taper down to 5 mg p.o. twice daily. Today he is no longer taking any prednisone. We will restart treatment with Opdivo but it was explained to the patient that if any symptoms of colitis reoccurred the Opdivo would be discontinued. He has been prescribed prednisone 20 mg tablets in case colitis returns. He is going out of town and will be 1 week behind on his next treatment so he was scheduled for 3-week follow-up and if he tolerates this treatment today he would like to be placed on monthly instead of every 2-week treatment. He will return to the clinic with a CBC and CMP. Patient was treated with potassium for hyperal kalemia at last visit his potassium today has improved it is 3.4 patient was instructed to continue potassium supplements. Signed By: Pamella Hernandez N.P. <<Signature on File>>
== END 2021-09-28 09:16 | disposition home or self-care (01) ==
PROVIDERS: PCP Family Medicine Adult Medicine; Visit Provider Nurse Practitioner Family
DX: C43.59 Malignant melanoma of other part of trunk (principal); C79.89 Secondary malignant neoplasm of other specified sites; E87.5 Hyperkalemia; K52.9 Noninfective gastroenteritis and colitis, unspecified; D12.0 Benign neoplasm of cecum; D12.3 Benign neoplasm of transverse colon; K62.89 Other specified diseases of anus and rectum
CPT/HCPCS: 36593; 80053; 85025; 96413; 99215; J2997; J7050; J9299

== ENCOUNTER 2021-10-25 08:40 | Oncology outpatient (recurring) (ONCR) | payer MEDICARE, SELFPAY ==
[2021-10-25 09:00] VITALS: BMI 27.6
[2021-10-25 09:03] LABS: Basophils % 0.3 %; Eosinophils % 0.5 %; Hematocrit 43.6 % (42.0-52.0); Hemoglobin 14.3 g/dL (11.7-16.6); Lymphocytes # 0.7 10^3/uL (0.8-4.8); Lymphocytes % 9.3 %; Mean Corpuscular HGB Conc 32.8 g/dL (30.0-36.0); Mean Corpuscular Hemoglobin 28.6 pg (28.0-34.0); Mean Corpuscular Volume 87.2 fl (80-94); Monocytes # 0.4 10^3/uL (0.2-0.9); Neutrophils # 6.29 10^3/uL (1.8-7.7); Neutrophils % 84.5 %; Nucleated Red Blood Cells % 0 %; Platelet Count 356 10^3/cmm (130-400); Red Cell Distribution Width 13.5 % (12.1-15.1); White Blood Count 7.4 10^3/uL (4.0-10.0)
[2021-10-25 09:26] LABS: Alanine Aminotransferase 14 U/L (0-41); Albumin Level 4.1 g/dL (3.5-5.2); Alkaline Phosphatase 79 IU/L (40-130); Anion Gap 16.3 (5-19); Aspartate Amino Transferase 11 U/L (0-40); Blood Urea Nitrogen 4 mg/dL (8-23); Calcium 8.2 mg/dL (8.5-10.5); Carbon Dioxide 23 mmol/L (22-29); Chloride 105 mmol/L (98-107); Globulin 1.8 g/dL (1.3-4.6); Glucose 167 mg/dL (65-115); Osmolality Calculated 293 mOsm/kg (285-295); Potassium 3.3 mmol/L (3.5-5.1); Sodium 141 mmol/L (136-145); Total Bilirubin 0.2 mg/dL (0.15-1.2); Total Protein 5.9 g/dL (6.6-8.7)
[2021-10-25 09:51] LABS: Thyroid Stimulating Hormone 1.98 uIU/mL (0.27-4.20)
[2021-10-25] MEDS: sodium chloride 0.9% 250 ML 75 ML IV (11:30)
[2021-10-25] MEDS: nivolumab 480 MG in sodium chloride 0.9% 250 ML 596 MG IV (11:37)
[2021-10-25 13:06] VITALS: BP 145/80; PULSE 60; RESP 18; TEMP 36.4; O2SAT 97
== END 2021-11-09 23:59 | disposition home or self-care (01) ==
PROVIDERS: Nurse Practitioner Family; PCP Family Medicine Adult Medicine; Visit Provider Internal Medicine Medical Oncology
DX: Z51.12 Encounter for antineoplastic immunotherapy (principal); C43.59 Malignant melanoma of other part of trunk; C77.0 Secondary and unspecified malignant neoplasm of lymph nodes of head, face and neck; M79.18 Myalgia, other site; K52.1 Toxic gastroenteritis and colitis; T45.1X5A Adverse effect of antineoplastic and immunosuppressive drugs, initial encounter; K62.5 Hemorrhage of anus and rectum; Z79.52 Long term (current) use of systemic steroids; Z79.899 Other long term (current) drug therapy
CPT/HCPCS: 80053; 84443; 85025; 96413; 99215; 99999; J7050; J9299

== ENCOUNTER 2021-11-22 07:47 | Oncology outpatient (recurring) (ONCR) | payer MEDICARE, SELFPAY ==
[2021-11-22] MEDS: alteplase 1 mg/mL SDV 2 mL 2 MG INTRACATH (08:19)
[2021-11-22 08:27] LABS: Basophils % 0.6 %; Eosinophils # 0.1 10^3/uL (0.0-0.8); Eosinophils % 1.1 %; Hematocrit 42.3 % (42.0-52.0); Hemoglobin 14.3 g/dL (11.7-16.6); Lymphocytes % 18.8 %; Mean Corpuscular HGB Conc 33.8 g/dL (30.0-36.0); Mean Corpuscular Hemoglobin 28.1 pg (28.0-34.0); Mean Corpuscular Volume 83.3 fl (80-94); Mean Platelet Volume 9.7 fL (7.4-10.4); Monocytes # 0.6 10^3/uL (0.2-0.9); Monocytes % 11.7 %; Neutrophils # 3.57 10^3/uL (1.8-7.7); Neutrophils % 67.2 %; Nucleated Red Blood Cells % 0 %; Platelet Count 394 10^3/cmm (130-400); Red Blood Count 5.08 10^6/uL (4.1-5.3); Red Cell Distribution Width 13.4 % (12.1-15.1); White Blood Count 5.3 10^3/uL (4.0-10.0)
[2021-11-22 09:08] LABS: Alanine Aminotransferase 17 U/L (0-41); Alkaline Phosphatase 81 IU/L (40-130); Anion Gap 15.5 (5-19); Aspartate Amino Transferase 17 U/L (0-40); Blood Urea Nitrogen 5 mg/dL (8-23); Calcium 8.8 mg/dL (8.5-10.5); Carbon Dioxide 24 mmol/L (22-29); Chloride 105 mmol/L (98-107); Globulin 2.1 g/dL (1.3-4.6); Glucose 93 mg/dL (65-115); Osmolality Calculated 289 mOsm/kg (285-295); Potassium 3.5 mmol/L (3.5-5.1); Sodium 141 mmol/L (136-145); Thyroid Stimulating Hormone 2.11 uIU/mL (0.27-4.20); Total Bilirubin 0.2 mg/dL (0.15-1.2); Total Protein 6.1 g/dL (6.6-8.7)
[2021-11-22] MEDS: nivolumab 480 MG in sodium chloride 0.9% 250 ML 596 MG IV (09:53)
[2021-11-22 10:28] VITALS: BP 133/87; PULSE 76; RESP 16; TEMP 37.1; O2SAT 98
== END 2021-11-26 10:01 | disposition home or self-care (01) ==
PROVIDERS: PCP Family Medicine Adult Medicine; Visit Provider Internal Medicine Medical Oncology
DX: Z51.12 Encounter for antineoplastic immunotherapy (principal); C43.59 Malignant melanoma of other part of trunk; C79.51 Secondary malignant neoplasm of bone; C78.4 Secondary malignant neoplasm of small intestine; C77.8 Secondary and unspecified malignant neoplasm of lymph nodes of multiple regions; D12.0 Benign neoplasm of cecum; D12.3 Benign neoplasm of transverse colon; Z79.52 Long term (current) use of systemic steroids; Z79.899 Other long term (current) drug therapy
CPT/HCPCS: 36593; 80053; 84443; 85025; 96413; 99215; J2997; J7050; J9299

== ENCOUNTER 2021-12-20 07:47 | Oncology outpatient (recurring) (ONCR) | payer MEDICARE, SELFPAY ==
[2021-12-20 08:45] VITALS: BMI 27.5
[2021-12-20] MEDS: alteplase 1 mg/mL SDV 2 mL 2 MG INTRACATH (08:52)
[2021-12-20] MEDS: sodium chloride 0.9% 250 ML 75 ML IV (09:33)
[2021-12-20 10:33] VITALS: BP 156/90; PULSE 82; RESP 18; TEMP 36.8; O2SAT 98
== END 2021-12-22 23:59 | disposition home or self-care (01) ==
PROVIDERS: PCP Family Medicine Adult Medicine; Visit Provider Internal Medicine Medical Oncology
DX: Z51.11 Encounter for antineoplastic chemotherapy (principal); C77.8 Secondary and unspecified malignant neoplasm of lymph nodes of multiple regions; C43.59 Malignant melanoma of other part of trunk
CPT/HCPCS: 36593; 96413; J2997; J7050; J9299

== ENCOUNTER 2022-01-24 08:13 | Oncology outpatient (recurring) (ONCR) | payer MEDICARE, SELFPAY ==
[2022-01-24 08:43] LABS: Basophils % 0.4 %; Eosinophils # 0.1 10^3/uL (0.0-0.8); Eosinophils % 0.5 %; Hematocrit 43.8 % (42.0-52.0); Hemoglobin 14.2 g/dL (11.7-16.6); Lymphocytes # 0.8 10^3/uL (0.8-4.8); Lymphocytes % 8.1 %; Mean Corpuscular HGB Conc 32.4 g/dL (30.0-36.0); Mean Corpuscular Hemoglobin 28.4 pg (28.0-34.0); Mean Corpuscular Volume 87.6 fl (80-94); Mean Platelet Volume 9.5 fL (7.4-10.4); Monocytes # 0.6 10^3/uL (0.2-0.9); Monocytes % 6.2 %; Neutrophils # 7.99 10^3/uL (1.8-7.7); Neutrophils % 84.5 %; Nucleated Red Blood Cells % 0 %; Platelet Count 389 10^3/cmm (130-400); Red Cell Distribution Width 13.5 % (12.1-15.1); White Blood Count 9.5 10^3/uL (4.0-10.0)
[2022-01-24 09:19] LABS: Alanine Aminotransferase 20 U/L (0-41); Albumin Level 4.1 g/dL (3.5-5.2); Alkaline Phosphatase 83 IU/L (40-130); Anion Gap 13.4 (5-19); Aspartate Amino Transferase 15 U/L (0-40); Blood Urea Nitrogen 5 mg/dL (8-23); Carbon Dioxide 26 mmol/L (22-29); Chloride 106 mmol/L (98-107); Globulin 2.3 g/dL (1.3-4.6); Glomerular Filtration Rate 114.6 mL/min (90-130); Glucose 96 mg/dL (65-115); Osmolality Calculated 291 mOsm/kg (285-295); Potassium 3.4 mmol/L (3.5-5.1); Sodium 142 mmol/L (136-145); Total Bilirubin 0.4 mg/dL (0.15-1.2); Total Protein 6.4 g/dL (6.6-8.7)
[2022-01-24] MEDS: sodium chloride 0.9% 250 ML 75 ML IV (09:58)
[2022-01-24 10:11] VITALS: BMI 28.2
[2022-01-24 10:11] LABS: Lactate Dehydrogenase 192 U/L (135-225)
[2022-01-24] MEDS: nivolumab 480 MG in sodium chloride 0.9% 250 ML 596 MG IV (10:13)
[2022-01-24 11:01] VITALS: BP 129/83; PULSE 80; RESP 16; TEMP 36.8; O2SAT 97
== END 2022-02-09 23:59 | disposition home or self-care (01) ==
PROVIDERS: PCP Family Medicine Adult Medicine; Visit Provider Internal Medicine Medical Oncology
DX: C77.8 Secondary and unspecified malignant neoplasm of lymph nodes of multiple regions; Z85.820 Personal history of malignant melanoma of skin; Z51.12 Encounter for antineoplastic immunotherapy; C78.4 Secondary malignant neoplasm of small intestine; Z79.52 Long term (current) use of systemic steroids; Z90.49 Acquired absence of other specified parts of digestive tract; R53.83 Other fatigue
CPT/HCPCS: 80053; 83615; 84443; 85025; 96413; 99214; 99215; J7050; J9299

== ENCOUNTER 2022-02-21 08:06 | Oncology outpatient (recurring) (ONCR) | payer MEDICARE, SELFPAY ==
[2022-02-21 08:22] VITALS: BMI 27.8
[2022-02-21 08:40] LABS: Basophils % 0.3 %; Eosinophils # 0.1 10^3/uL (0.0-0.8); Eosinophils % 0.9 %; Hematocrit 42.6 % (42.0-52.0); Hemoglobin 13.9 g/dL (11.7-16.6); Lymphocytes % 15.3 %; Mean Corpuscular HGB Conc 32.6 g/dL (30.0-36.0); Mean Corpuscular Hemoglobin 28.4 pg (28.0-34.0); Mean Corpuscular Volume 87.1 fl (80-94); Monocytes # 0.5 10^3/uL (0.2-0.9); Monocytes % 7.9 %; Neutrophils # 4.79 10^3/uL (1.8-7.7); Neutrophils % 75.3 %; Nucleated Red Blood Cells % 0 %; Platelet Count 348 10^3/cmm (130-400); Red Blood Count 4.89 10^6/uL (4.1-5.3); Red Cell Distribution Width 13.7 % (12.1-15.1); White Blood Count 6.4 10^3/uL (4.0-10.0)
[2022-02-21 09:13] LABS: Alanine Aminotransferase 16 U/L (0-41); Albumin Level 3.9 g/dL (3.5-5.2); Alkaline Phosphatase 81 U/L (40-130); Anion Gap 13.6 (5-19); Aspartate Amino Transferase 21 U/L (0-40); Blood Urea Nitrogen 5 mg/dL (8-23); Calcium 8.6 mg/dL (8.5-10.5); Carbon Dioxide 27 mmol/L (22-29); Chloride 107 mmol/L (98-107); Globulin 2.8 g/dL (1.3-4.6); Glomerular Filtration Rate 98.3 mL/min (90-130); Glucose 103 mg/dL (65-115); Lactate Dehydrogenase 209 U/L (135-225); Osmolality Calculated 296 mOsm/kg (285-295); Potassium 3.6 mmol/L (3.5-5.1); Sodium 144 mmol/L (136-145); Thyroid Stimulating Hormone 2.67 uIU/mL (0.27-4.20); Total Bilirubin 0.3 mg/dL (0.15-1.2); Total Protein 6.7 g/dL (6.6-8.7)
[2022-02-21] MEDS: sodium chloride 0.9% 250 ML 75 ML IV (09:58)
[2022-02-21] MEDS: nivolumab 480 MG in sodium chloride 0.9% 250 ML 596 MG IV (10:02)
[2022-02-21 10:52] VITALS: BP 135/82; PULSE 75; RESP 16; TEMP 36.8; O2SAT 96
== END 2022-02-22 09:41 | disposition home or self-care (01) ==
PROVIDERS: Nurse Practitioner; PCP Family Medicine Adult Medicine; Visit Provider Internal Medicine Medical Oncology
DX: C43.59 Malignant melanoma of other part of trunk (principal); R53.83 Other fatigue; Z79.899 Other long term (current) drug therapy
CPT/HCPCS: 80053; 83615; 84443; 85025; 96413; J7050; J9299

== ENCOUNTER 2022-04-11 08:01 | Oncology outpatient (recurring) (ONCR) | payer MEDICARE, SELFPAY ==
[2022-04-11 08:33] LABS: Basophils % 0.3 %; Eosinophils # 0.1 10^3/uL (0.0-0.8); Eosinophils % 0.9 %; Hematocrit 44.2 % (42.0-52.0); Hemoglobin 14.5 g/dL (11.7-16.6); Lymphocytes % 15.7 %; Mean Corpuscular HGB Conc 32.8 g/dL (30.0-36.0); Mean Corpuscular Hemoglobin 28.8 pg (28.0-34.0); Mean Corpuscular Volume 87.7 fl (80-94); Mean Platelet Volume 9.7 fL (7.4-10.4); Monocytes # 0.5 10^3/uL (0.2-0.9); Neutrophils # 4.98 10^3/uL (1.8-7.7); Neutrophils % 75.9 %; Nucleated Red Blood Cells % 0 %; Platelet Count 373 10^3/cmm (130-400); Red Blood Count 5.04 10^6/uL (4.1-5.3); Red Cell Distribution Width 13.5 % (12.1-15.1); White Blood Count 6.6 10^3/uL (4.0-10.0)
[2022-04-11 09:36] LABS: Alanine Aminotransferase 18 U/L (0-41); Albumin Level 3.8 g/dL (3.5-5.2); Alkaline Phosphatase 85 U/L (40-130); Anion Gap 13.1 (5-19); Aspartate Amino Transferase 15 U/L (0-40); Blood Urea Nitrogen 6 mg/dL (8-23); Calcium 8.9 mg/dL (8.5-10.5); Carbon Dioxide 25 mmol/L (22-29); Chloride 100 mmol/L (98-107); Globulin 2.7 g/dL (1.3-4.6); Glomerular Filtration Rate 114.6 mL/min (90-130); Glucose 102 mg/dL (65-115); Lactate Dehydrogenase 166 U/L (135-225); Osmolality Calculated 278 mOsm/kg (285-295); Potassium 3.1 mmol/L (3.5-5.1); Sodium 135 mmol/L (136-145); Thyroid Stimulating Hormone 2.65 uIU/mL (0.27-4.20); Total Bilirubin 0.4 mg/dL (0.15-1.2); Total Protein 6.5 g/dL (6.6-8.7)
[2022-04-11] MEDS: nivolumab 480 MG in sodium chloride 0.9% 250 ML 596 MG IV (11:01)
[2022-04-11 11:45] VITALS: BP 154/98; PULSE 73; RESP 18; TEMP 37.2; O2SAT 95
== END 2022-04-11 23:59 | disposition home or self-care (01) ==
PROVIDERS: PCP Family Medicine Adult Medicine; Visit Provider Internal Medicine Medical Oncology
DX: Z51.12 Encounter for antineoplastic immunotherapy (principal); C77.8 Secondary and unspecified malignant neoplasm of lymph nodes of multiple regions
CPT/HCPCS: 80053; 83615; 84443; 85025; 96413; 99214; J7050; J9299

== ENCOUNTER 2022-05-09 08:00 | Oncology outpatient (recurring) (ONCR) | payer MEDICARE, SELFPAY ==
[2022-05-09 08:21] LABS: Basophils % 0.4 %; Eosinophils # 0.1 10^3/uL (0.0-0.8); Hematocrit 45.9 % (42.0-52.0); Lymphocytes # 1.2 10^3/uL (0.8-4.8); Lymphocytes % 15.9 %; Mean Corpuscular HGB Conc 32.7 g/dL (30.0-36.0); Mean Corpuscular Hemoglobin 28.9 pg (28.0-34.0); Mean Corpuscular Volume 88.4 fl (80-94); Mean Platelet Volume 9.6 fL (7.4-10.4); Monocytes # 0.5 10^3/uL (0.2-0.9); Monocytes % 7.4 %; Neutrophils # 5.47 10^3/uL (1.8-7.7); Nucleated Red Blood Cells % 0 %; Platelet Count 409 10^3/cmm (130-400); Red Blood Count 5.19 10^6/uL (4.1-5.3); Red Cell Distribution Width 13.4 % (12.1-15.1); White Blood Count 7.3 10^3/uL (4.0-10.0)
[2022-05-09 08:52] LABS: Alanine Aminotransferase 20 U/L (0-41); Albumin Level 4.1 g/dL (3.5-5.2); Alkaline Phosphatase 93 U/L (40-130); Anion Gap 15.7 (5-19); Aspartate Amino Transferase 17 U/L (0-40); Blood Urea Nitrogen 7 mg/dL (8-23); Calcium 9.1 mg/dL (8.5-10.5); Carbon Dioxide 24 mmol/L (22-29); Chloride 103 mmol/L (98-107); Globulin 2.5 g/dL (1.3-4.6); Glomerular Filtration Rate 98.3 mL/min (90-130); Glucose 110 mg/dL (65-115); Osmolality Calculated 287 mOsm/kg (285-295); Potassium 3.7 mmol/L (3.5-5.1); Sodium 139 mmol/L (136-145); Thyroid Stimulating Hormone 3.02 uIU/mL (0.27-4.20); Total Bilirubin 0.3 mg/dL (0.15-1.2); Total Protein 6.6 g/dL (6.6-8.7)
[2022-05-09] MEDS: sodium chloride 0.9% 250 ML 100 ML IV (09:47)
[2022-05-09] MEDS: nivolumab 480 MG in sodium chloride 0.9% 250 ML 596 MG IV (10:01)
== END 2022-05-11 23:59 | disposition home or self-care (01) ==
PROVIDERS: PCP Family Medicine Adult Medicine; Visit Provider Internal Medicine Medical Oncology
DX: Z51.12 Encounter for antineoplastic immunotherapy (principal); C43.59 Malignant melanoma of other part of trunk; D64.9 Anemia, unspecified
CPT/HCPCS: 80053; 84443; 85025; 96413; J7050; J9299

== ENCOUNTER 2022-06-08 07:53 | Oncology outpatient (recurring) (ONCR) | payer MEDICARE, SELFPAY ==
[2022-06-08 08:29] LABS: Basophils % 0.6 %; Eosinophils # 0.1 10^3/uL (0.0-0.8); Hematocrit 46.1 % (42.0-52.0); Hemoglobin 15.2 g/dL (11.7-16.6); Lymphocytes % 13.6 %; Mean Corpuscular Hemoglobin 28.5 pg (28.0-34.0); Mean Corpuscular Volume 86.3 fl (80-94); Mean Platelet Volume 9.6 fL (7.4-10.4); Monocytes # 0.5 10^3/uL (0.2-0.9); Monocytes % 7.1 %; Neutrophils # 5.56 10^3/uL (1.8-7.7); Neutrophils % 77.3 %; Nucleated Red Blood Cells % 0 %; Platelet Count 429 10^3/cmm (130-400); Red Blood Count 5.34 10^6/uL (4.1-5.3); Red Cell Distribution Width 13.3 % (12.1-15.1); White Blood Count 7.2 10^3/uL (4.0-10.0)
[2022-06-08 08:55] LABS: Alanine Aminotransferase 19 U/L (0-41); Albumin Level 4.4 g/dL (3.5-5.2); Alkaline Phosphatase 97 U/L (40-130); Anion Gap 13.3 (5-19); Aspartate Amino Transferase 16 U/L (0-40); Blood Urea Nitrogen 8 mg/dL (8-23); Calcium 8.9 mg/dL (8.5-10.5); Carbon Dioxide 26 mmol/L (22-29); Chloride 103 mmol/L (98-107); Globulin 2.2 g/dL (1.3-4.6); Glomerular Filtration Rate 114.6 mL/min (90-130); Glucose 99 mg/dL (65-115); Lactate Dehydrogenase 155 U/L (135-225); Osmolality Calculated 286 mOsm/kg (285-295); Potassium 3.3 mmol/L (3.5-5.1); Sodium 139 mmol/L (136-145); Total Bilirubin 0.3 mg/dL (0.15-1.2); Total Protein 6.6 g/dL (6.6-8.7)
[2022-06-08] MEDS: nivolumab 480 MG in sodium chloride 0.9% 250 ML 596 MG IV (11:25)
[2022-06-08 12:08] VITALS: BP 150/96; PULSE 68; RESP 16; TEMP 36.8; O2SAT 96
== END 2022-06-11 23:59 | disposition home or self-care (01) ==
PROVIDERS: PCP Family Medicine Adult Medicine; Visit Provider Internal Medicine Medical Oncology
DX: Z51.12 Encounter for antineoplastic immunotherapy (principal); C43.59 Malignant melanoma of other part of trunk; C77.8 Secondary and unspecified malignant neoplasm of lymph nodes of multiple regions; C78.4 Secondary malignant neoplasm of small intestine; K52.9 Noninfective gastroenteritis and colitis, unspecified; K62.5 Hemorrhage of anus and rectum; Z79.52 Long term (current) use of systemic steroids; Z79.899 Other long term (current) drug therapy
CPT/HCPCS: 80053; 83615; 85025; 96413; 99214; J7050; J9299

== ENCOUNTER 2022-07-04 07:56 | Oncology outpatient (recurring) (ONCR) | payer MEDICARE, SELFPAY ==
[2022-07-04] MEDS: nivolumab 480 MG in sodium chloride 0.9% 250 ML 596 MG IV (08:49)
[2022-07-04 09:35] VITALS: BP 142/95; PULSE 83; RESP 16; TEMP 36.9; O2SAT 96
== END 2022-07-12 23:59 | disposition home or self-care (01) ==
PROVIDERS: PCP Family Medicine Adult Medicine; Visit Provider Internal Medicine Medical Oncology
DX: Z51.12 Encounter for antineoplastic immunotherapy (principal); C43.59 Malignant melanoma of other part of trunk
CPT/HCPCS: 96413; J7050; J9299

== ENCOUNTER 2022-08-01 07:54 | Oncology outpatient (recurring) (ONCR) | payer MEDICARE, SELFPAY ==
[2022-08-01] MEDS: alteplase 1 mg/mL SDV 2 mL 2 MG INTRACATH (08:34)
[2022-08-01 09:08] LABS: Basophils % 0.5 %; Eosinophils % 0.5 %; Hematocrit 45.3 % (42.0-52.0); Hemoglobin 14.7 g/dL (11.7-16.6); Lymphocytes # 0.9 10^3/uL (0.8-4.8); Lymphocytes % 11.6 %; Mean Corpuscular HGB Conc 32.5 g/dL (30.0-36.0); Mean Corpuscular Hemoglobin 28.5 pg (28.0-34.0); Monocytes # 0.5 10^3/uL (0.2-0.9); Monocytes % 6.3 %; Neutrophils # 6.13 10^3/uL (1.8-7.7); Neutrophils % 80.8 %; Nucleated Red Blood Cells % 0 %; Platelet Count 388 10^3/cmm (130-400); Red Blood Count 5.15 10^6/uL (4.1-5.3); Red Cell Distribution Width 13.6 % (12.1-15.1); White Blood Count 7.6 10^3/uL (4.0-10.0)
[2022-08-01 09:11] LABS: Alanine Aminotransferase 25 U/L (0-41); Albumin Level 4.1 g/dL (3.5-5.2); Alkaline Phosphatase 86 U/L (40-130); Anion Gap 15.8 (5-19); Aspartate Amino Transferase 18 U/L (0-40); Blood Urea Nitrogen 7 mg/dL (8-23); Carbon Dioxide 24 mmol/L (22-29); Chloride 103 mmol/L (98-107); Globulin 2.4 g/dL (1.3-4.6); Glomerular Filtration Rate 98.3 mL/min (90-130); Glucose 100 mg/dL (65-115); Magnesium 2.1 mg/dL (1.7-2.3); Osmolality Calculated 286 mOsm/kg (285-295); Potassium 3.8 mmol/L (3.5-5.1); Sodium 139 mmol/L (136-145); Thyroid Stimulating Hormone 2.14 uIU/mL (0.27-4.20); Total Bilirubin 0.3 mg/dL (0.15-1.2); Total Protein 6.5 g/dL (6.6-8.7)
[2022-08-01] MEDS: nivolumab 480 MG in sodium chloride 0.9% 250 ML 596 MG IV (10:10)
[2022-08-01 10:54] VITALS: BP 164/95; PULSE 87; RESP 16; TEMP 36.9; O2SAT 95
== END 2022-08-09 23:59 | disposition home or self-care (01) ==
PROVIDERS: Nurse Practitioner; PCP Family Medicine Adult Medicine; Visit Provider Internal Medicine Medical Oncology
DX: Z51.12 Encounter for antineoplastic immunotherapy (principal); C43.59 Malignant melanoma of other part of trunk; C77.8 Secondary and unspecified malignant neoplasm of lymph nodes of multiple regions; M25.59 Pain in other specified joint; R19.7 Diarrhea, unspecified; K92.2 Gastrointestinal hemorrhage, unspecified; K52.1 Toxic gastroenteritis and colitis; T45.1X5A Adverse effect of antineoplastic and immunosuppressive drugs, initial encounter; Z79.52 Long term (current) use of systemic steroids; Z79.899 Other long term (current) drug therapy
CPT/HCPCS: 80053; 83735; 84443; 85025; 99214; J2997; J7050; J9299

== ENCOUNTER 2022-08-29 08:31 | Oncology outpatient (recurring) (ONCR) | payer MEDICARE, SELFPAY ==
[2022-08-29 09:06] LABS: Basophils % 0.3 %; Eosinophils % 0.3 %; Hematocrit 45.1 % (42.0-52.0); Hemoglobin 14.7 g/dL (11.7-16.6); Lymphocytes # 0.8 10^3/uL (0.8-4.8); Lymphocytes % 9.5 %; Mean Corpuscular HGB Conc 32.6 g/dL (30.0-36.0); Mean Corpuscular Hemoglobin 28.6 pg (28.0-34.0); Mean Corpuscular Volume 87.7 fl (80-94); Mean Platelet Volume 9.5 fL (7.4-10.4); Monocytes # 0.5 10^3/uL (0.2-0.9); Monocytes % 5.9 %; Neutrophils # 7.23 10^3/uL (1.8-7.7); Neutrophils % 83.5 %; Nucleated Red Blood Cells % 0 %; Platelet Count 412 10^3/cmm (130-400); Red Blood Count 5.14 10^6/uL (4.1-5.3); Red Cell Distribution Width 13.9 % (12.1-15.1); White Blood Count 8.7 10^3/uL (4.0-10.0)
[2022-08-29 09:47] LABS: Alanine Aminotransferase 21 U/L (0-41); Albumin Level 4.3 g/dL (3.5-5.2); Alkaline Phosphatase 84 U/L (40-130); Anion Gap 13.4 (5-19); Aspartate Amino Transferase 15 U/L (0-40); Blood Urea Nitrogen 10 mg/dL (8-23); Carbon Dioxide 24 mmol/L (22-29); Chloride 102 mmol/L (98-107); Globulin 2.2 g/dL (1.3-4.6); Glomerular Filtration Rate 98.3 mL/min (90-130); Glucose 109 mg/dL (65-115); Osmolality Calculated 282 mOsm/kg (285-295); Potassium 3.4 mmol/L (3.5-5.1); Sodium 136 mmol/L (136-145); Thyroid Stimulating Hormone 1.66 uIU/mL (0.27-4.20); Total Bilirubin 0.4 mg/dL (0.15-1.2); Total Protein 6.5 g/dL (6.6-8.7)
[2022-08-29] MEDS: sodium chloride 0.9% 250 ML 75 ML IV (10:47)
[2022-08-29] MEDS: nivolumab 480 MG in sodium chloride 0.9% 250 ML 596 MG IV (11:10)
[2022-08-29 12:49] VITALS: BP 135/88; PULSE 80; RESP 16; TEMP 37.4; O2SAT 95
== END 2022-09-09 23:59 | disposition home or self-care (01) ==
PROVIDERS: Nurse Practitioner Family; PCP Family Medicine Adult Medicine; Visit Provider Internal Medicine Medical Oncology
DX: Z51.12 Encounter for antineoplastic immunotherapy (principal); C43.59 Malignant melanoma of other part of trunk; C77.8 Secondary and unspecified malignant neoplasm of lymph nodes of multiple regions; Z79.52 Long term (current) use of systemic steroids; Z79.899 Other long term (current) drug therapy
CPT/HCPCS: 80053; 84443; 85025; 96413; 99214; J7050; J9299

== ENCOUNTER 2022-09-26 10:50 | Oncology outpatient (recurring) (ONCR) | payer MEDICARE, SELFPAY ==
[2022-09-26 11:05] VITALS: BP 156/93; PULSE 81; RESP 18; TEMP 36.9; O2SAT 97
[2022-09-26 11:22] LABS: Basophils % 0.4 %; Eosinophils # 0.1 10^3/uL (0.0-0.8); Eosinophils % 0.5 %; Hemoglobin 14.6 g/dL (11.7-16.6); Mean Corpuscular HGB Conc 32.4 g/dL (30.0-36.0); Mean Corpuscular Hemoglobin 28.7 pg (28.0-34.0); Mean Corpuscular Volume 88.4 fl (80-94); Mean Platelet Volume 9.5 fL (7.4-10.4); Monocytes # 0.5 10^3/uL (0.2-0.9); Monocytes % 5.7 %; Neutrophils # 7.92 10^3/uL (1.8-7.7); Neutrophils % 83.1 %; Nucleated Red Blood Cells % 0 %; Platelet Count 404 10^3/cmm (130-400); Red Blood Count 5.09 10^6/uL (4.1-5.3); Red Cell Distribution Width 13.7 % (12.1-15.1); White Blood Count 9.5 10^3/uL (4.0-10.0)
[2022-09-26 11:45] LABS: Alanine Aminotransferase 21 U/L (0-41); Albumin Level 4.2 g/dL (3.5-5.2); Alkaline Phosphatase 85 U/L (40-130); Anion Gap 12.9 (5-19); Aspartate Amino Transferase 17 U/L (0-40); Blood Urea Nitrogen 9 mg/dL (8-23); Calcium 8.5 mg/dL (8.5-10.5); Carbon Dioxide 24 mmol/L (22-29); Chloride 104 mmol/L (98-107); Globulin 2.4 g/dL (1.3-4.6); Glomerular Filtration Rate 114.6 mL/min (90-130); Glucose 93 mg/dL (65-115); Osmolality Calculated 282 mOsm/kg (285-295); Potassium 3.9 mmol/L (3.5-5.1); Sodium 137 mmol/L (136-145); Total Bilirubin 0.3 mg/dL (0.15-1.2); Total Protein 6.6 g/dL (6.6-8.7)
[2022-09-26] MEDS: sodium chloride 0.9% 250 ML 75 ML IV (13:14)
[2022-09-26] MEDS: nivolumab 480 MG in sodium chloride 0.9% 250 ML 596 MG IV (13:43)
[2022-09-26 14:35] VITALS: BP 122/77; PULSE 82; RESP 18; TEMP 37; O2SAT 93
== END 2022-09-26 23:59 | disposition home or self-care (01) ==
PROVIDERS: PCP Family Medicine Adult Medicine; Visit Provider Internal Medicine Medical Oncology
DX: Z51.12 Encounter for antineoplastic immunotherapy (principal); C43.59 Malignant melanoma of other part of trunk; C77.8 Secondary and unspecified malignant neoplasm of lymph nodes of multiple regions; Z79.52 Long term (current) use of systemic steroids; Z79.899 Other long term (current) drug therapy
CPT/HCPCS: 80053; 84443; 85025; 96413; 99214; J7050; J9299

== ENCOUNTER 2022-10-24 08:03 | Oncology outpatient (recurring) (ONCR) | payer OTHER, MEDICARE, SELFPAY ==
[2022-10-24 08:10] VITALS: BP 136/88; PULSE 83; TEMP 37.1; O2SAT 96
[2022-10-24] MEDS: alteplase 1 mg/mL SDV 2 mL 2 MG INTRACATH (08:36)
[2022-10-24] MEDS: nivolumab 480 MG in sodium chloride 0.9% 250 ML 596 MG IV (09:02)
[2022-10-24 09:35] VITALS: BP 122/83; PULSE 82; TEMP 37; O2SAT 99
== END 2022-10-24 23:59 | disposition home or self-care (01) ==
PROVIDERS: PCP Family Medicine Adult Medicine; Visit Provider Internal Medicine Medical Oncology
DX: Z51.12 Encounter for antineoplastic immunotherapy (principal); C43.59 Malignant melanoma of other part of trunk; C77.8 Secondary and unspecified malignant neoplasm of lymph nodes of multiple regions; Z79.52 Long term (current) use of systemic steroids; Z79.899 Other long term (current) drug therapy
CPT/HCPCS: 36593; 96413; J2997; J7050; J9299

== ENCOUNTER 2022-11-21 07:57 | Oncology outpatient (recurring) (ONCR) | payer OTHER, MEDICARE, SELFPAY ==
[2022-11-21 08:25] VITALS: BP 144/83; PULSE 68; RESP 16; TEMP 36.8; O2SAT 99
[2022-11-21 08:26] VITALS: BMI 28.7
[2022-11-21] MEDS: nivolumab 480 MG in sodium chloride 0.9% 250 ML 596 MG IV (08:59)
[2022-11-21 09:36] VITALS: BP 129/84; PULSE 63; RESP 16; TEMP 37; O2SAT 93
== END 2022-11-21 23:59 | disposition home or self-care (01) ==
PROVIDERS: PCP Family Medicine Adult Medicine; Visit Provider Internal Medicine Medical Oncology
DX: Z51.12 Encounter for antineoplastic immunotherapy (principal); C43.59 Malignant melanoma of other part of trunk; C77.8 Secondary and unspecified malignant neoplasm of lymph nodes of multiple regions; Z79.52 Long term (current) use of systemic steroids; Z79.899 Other long term (current) drug therapy
CPT/HCPCS: 96375; 96413; J1642; J7050; J9299

== ENCOUNTER 2023-01-17 09:27 | Oncology outpatient (recurring) (ONCR) | payer OTHER, MEDICARE, SELFPAY ==
--- OUTSIDE RECORDS SUMMARY | 2023-01-17 09:29 | XMS_ITS | Patient Health Record ---
Author Name Unknown Organization [facility] [address] [place], [place] [id number] Care Team Providers Care Mechanical Laboratory Technician Name Role Phone Watson CLINICAL ANALYST, Chari Primary Care Provider Marimar Pool MD, [place] Unavailable [phone] Anoop Hauser MD Unavailable Unavailable Blanca Kiser Unavailable [phone] ALLERGIES No Known Allergies RESULTS Component Value Reference Range Notes Urine tox screen / MS if ind icated Reviewed date:01/24/2022 02:29:55 PM Interpretation: Performing Lab: Notes/Report: Urine tox screen / MS if ind icated Reviewed date:08/16/2022 12:50:05 PM Interpretation: Performing Lab: Notes/Report: REASON FOR REFERRAL No Information MEDICATIONS Medication SIG (Take, Route, Frequency, Duration) Notes Start Date End Date Status predniSONE 10 mg 1 tab orally once a day Active lisinopril 10 mg 1 tab(s) orally once a day for 30 day(s) Active ibuprofen 800 mg 1 tab po orally TID prn pain; take with food Active acetaminophen-hydroco done 325 mg-7.5 mg 1-2 tabs po orally Q4-6H prn pain (max 6/day; hold within 4H of planned sleep) for 30 day(s) ICD-10: G89.29 Active acetaminophen-hydroco done 325 mg-7.5 mg 1-2 tabs po orally Q4-6H prn pain (max 6/day; hold within 4H of planned sleep) for 30 day(s) Do not fill prior to 01/14/23. ICD-10: G89.29 Active acetaminophen-hydroco done 325 mg-7.5 mg 1-2 tabs po orally Q4-6H prn pain (max 6/day; hold within 4H of planned sleep) for 30 day(s) Do not fill prior to 12/15/22. ICD-10: G89.29 Active SOCIAL HISTORY Tobacco Use: Social History Observation Description Date Details (start date - stop date) Never Smoker NA - NA Sex Assigned At : Social History Observation Description Sex Assigned At Unknown alcohol Question Answer Notes Did you have a drink containing alcohol in the p ast year? 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) Active confirmed High risk drug monitoring status (037488783) Problem Enthesopathy, unspecified (M77.9) Active confirmed Enthesopathy (06002540) Problem Other specified anxiety disorders (F41.8) Active confirmed Anxiety disorde r (273423564) Problem Hypersomnia, unspecified (G47.10) Active confirmed Hypersomnia (61786828) Problem Obstructive sleep apnea (adult) (pediatric) (G47.33) Active confirmed Obstructive sle ep apnea syndrome (40278202) Problem Other chronic pain (G89.29) Active confirmed Chronic pain (85925746) Problem Spondylolisthesis , lumbar region (M43.16) Active confirmed Acquired spondylolisthesis (738240584) Problem Other intervertebral disc disorders, lumbar region (M51.86) Active confirmed Disorder of lum bar disc (371718622) Problem Cervicalgia (M54.2) Active confirmed Cervicalgia (52629994) Problem Other correction (current) drug therapy (Z79.899) Active confirmed Long-term current use of drug therapy (360081415) Problem Vertebrogenic low back pain (M54.51) Active confirmed Pain in lumbar spine (564667368) Encounters Encounter Location Date Provider Diagnosis [facility] [address] [place], [place] [id number] 01/24/2022 [place] Pool Spondylosis without myelopathy or radiculopathy, lumbar region M47.816 ; Vertebrogenic low back pain M54.51 ; Spondylolisthesis, lumbar region M43.16 ; Other intervertebral disc disorders, lumbar region M51.86 ; Enthesopathy, unspecified M77.9 ; Cervicalgia M54.2 ; Obstructive sleep apnea (adult) (pediatric) G47.33 and prison (current) use of opiate analgesic Z79.891 [facility] 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 Z79.891 [facility], [address] [id number] 08/16/2022 [place] Pool Spondylosis without myelopathy or radiculopathy, lumbar region M47.816 ; Vertebrogenic low back pain M54.51 ; Spondylolisthesis, lumbar region M43.16 ; Other intervertebral disc disorders, lumbar region M51.86 ; Enthesopathy, unspecified M77.9 ; Cervicalgia M54.2 ; Obstructive sleep apnea (adult) (pediatric) G47.33 and 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 The prolonged benefit had since waned on the left side: more recent left L3, left L4 medial branch, left L5 dorsal ramus RFA procedure with efficacy appreciated 01/24/2022 Vertebrogenic low back pain (ICD-10 - M54.51) Oral opioid medication use with history of benefit. Plan to continue medication management 04/25/2022 Spondylosis without myelopathy or radiculopathy, lumbar region (ICD-10 - M47.816) Bilateral L3, bilateral L4 medial branch, bilateral L5 dorsal ramus RFA procedure with history of prolonged efficacy appreciated by patient. The prolonged benefit had since waned on the left side: more recent left L3, left L4 medial branch, left L5 dorsal ramus RFA procedure with efficacy appreciated 08/16/2022 Spondylosis without myelopathy or radiculopathy, lumbar region (ICD-10 - M47.816) Bilateral L3, bilateral L4 medial branch, bilateral L5 dorsal ramus RFA procedure with history of prolonged efficacy appreciated by patient. The prolonged benefit had since waned on the left side: more recent left L3, left L4 medial branch, left L5 dorsal ramus RFA procedure with efficacy appreciated 11/15/2022 Other chronic pain (ICD-10 - G89.29) Patient reports that taking his pain medication allows him to continue working. Plan to continue oral opioid medication management 11/15/2022 Vertebrogenic low back pain (ICD-10 - M54.51) Chronic axial lumbar spine pain 08/16/2022 Spondylolisthesis, lumbar region (ICD-10 - M43.16) Posterior subluxation of L3 and L4 that reduces in flexion as per 07/27/16 flexion - extension imaging study report 08/16/2022 Vertebrogenic low back pain (ICD-10 - M54.51) Chronic axial lumbar (and cervical) spine pain. Prior conservative treatment by patient as noted, below. Patient has a history of GI bleeding associated with use of NSAIA. Prior minimally invasive interventional spine treatment as noted, below. No prior surgical treatment noted. Oral opioid medication use with history of benefit. Plan to continue medication management 11/15/2022 Obstructive sleep apnea (adult) (pediatric) (ICD-10 - G47.33) Patient reports he continues to use his CPAP device nightly 04/25/2022 Spondylolisthesis, lumbar region (ICD-10 - M43.16) Posterior subluxation of L3 and L4 that reduces in flexion as per 07/27/16 flexion - extension imaging study report 04/25/2022 Vertebrogenic low back pain (ICD-10 - M54.51) Oral opioid medication use with history of benefit. Plan to continue medication management 01/24/2022 Spondylolisthesis, lumbar region (ICD-10 - M43.16) Posterior subluxation of L3 and L4 that reduces in flexion as per 07/27/16 flexion - extension imaging study report 01/24/2022 Other intervertebral disc disorders, lumbar region (ICD-10 - M51.86) 04/25/2022 Other intervertebral disc disorders, lumbar region (ICD-10 - M51.86) 08/16/2022 Other intervertebral disc disorders, lumbar region (ICD-10 - M51.86) 08/16/2022 Enthesopathy, unspecified (ICD-10 - M77.9) Patient previously reported of left hand / thumb pain that had it's onset after electrodiagnostic study. Tendon steroid injection with history of efficacy appreciated that had since waned. Previously recommended patient discuss possible orthopedic referral with his PCP 01/24/2022 Enthesopathy, unspecified (ICD-10 - M77.9) Patient previously reported of left hand / thumb pain that had it's onset after electrodiagnostic study. Tendon steroid injection with history of efficacy appreciated that had since waned. Previously recommended patient discuss possible orthopedic referral with his PCP 04/25/2022 Enthesopathy, unspecified (ICD-10 - M77.9) Patient previously reported of left hand / thumb pain that had it's onset after electrodiagnostic study. Tendon steroid injection with history of efficacy appreciated that had since waned. Previously recommended patient discuss possible orthopedic referral with his PCP 01/24/2022 Cervicalgia (ICD-10 - M54.2) Will consider work - up and possible imaging studies when such treatment is desired by patient 04/25/2022 Cervicalgia (ICD-10 - M54.2) Will consider work - up and possible imaging studies when such treatment is desired by patient 08/16/2022 Cervicalgia (ICD-10 - M54.2) Will consider work - up and possible imaging studies when such treatment is desired by patient 08/16/2022 Obstructive sleep apnea (adult) (pediatric) (ICD-10 - G47.33) Continue CPAP device use. Patient has history of benefit from use of the device and partial compliance with use of the device reported as of: 08/16/22. Plan to restrict opioid usage in relation to sleep: patient has verbalized understanding to hold short-acting opioids within four hours of planned sleep. Patient has been counseled on the risks of sleep apnea, with or without opioids or other sedatives, and the patient verbalized understanding and acceptance of the increased risk (worsened sleep apnea, respiratory depression, ) associated with sedative or narcotic (opioid) medication usage. Patient has also been counseled to hold opioid or sedative medications prior to planned sleep or dangerous activities and patient verbalized understanding that noncompliance would be at patient's increased risk 01/24/2022 Obstructive sleep apnea (adult) (pediatric) (ICD-10 - G47.33) Continue CPAP device use. Patient has history of benefit from use of the device and partial compliance with use of the device reported as of: 01/24/22. Plan to restrict opioid usage in relation to sleep: patient has verbalized understanding to hold short-acting opioids within four hours of planned sleep. Patient has been counseled on the risks of sleep apnea, with or without opioids or other sedatives, and the patient verbalized understanding and acceptance of the increased risk (worsened sleep apnea, respiratory depression, ) associated with sedative or narcotic (opioid) medication usage. Patient has also been counseled to hold opioid or sedative medications prior to planned sleep or dangerous activities and patient verbalized understanding that noncompliance would be at patient's increased risk 04/25/2022 Obstructive sleep apnea (adult) (pediatric) (ICD-10 - G47.33) Continue CPAP device use. Patient has history of benefit from use of the device and partial compliance with use of the device reported as of: 04/25/22. Plan to restrict opioid usage in relation to sleep: patient has verbalized understanding to hold short-acting opioids within four hours of planned sleep. Patient has been counseled on the risks of sleep apnea, with or without opioids or other sedatives, and the patient verbalized understanding and acceptance of the increased risk (worsened sleep apnea, respiratory depression, ) associated with sedative or narcotic (opioid) medication usage. Patient has also been counseled to hold opioid or sedative medications prior to planned sleep or dangerous activities and patient verbalized understanding that noncompliance would be at patient's increased risk 01/24/2022 prison (current) use of opiate analgesic (ICD-10 - Z79.891) Patient has a total daily MED of 45. This places the patient in the [facility] moderate risk category for total daily opioid usage (not to be confused with the separate potential significant risk in regards to sleep apnea, above). Have recommended patient taper daily doses to the lowest number of daily doses that provide effective analgesia. Patient has received the Opioid Analgesic [facility] Patient Counseling Guide. Patient has had opportunity to read the Guide and ask questions pertaining to the Guide. Patient has been advised on 03/23/20 that due to the Federal Government concerns and actions, any suspected patient misuse, abuse, or diversion of controlled substances (i.e. opioids/narcotics/pain killers) WILL result in dissolution of treatment from this clinic. Patients adhering to the concepts contained within the patient's Treatment Agreement will be protected from such termination of care. Patient was given a copy of the Treatment Agreement, signed by patient on 09/03/19. Patient signed an opioid consent form on 09/03/19. Patient has refused offer of a Narcan nasal spray prescription. 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 This places the patient in the [facility]' moderate risk category for total daily opioid usage (not to be confused with the separate potential significant risk in regards to sleep apnea, above). Have recommended patient taper daily doses to the lowest number of daily doses that provide effective analgesia. Patient has received the Opioid Analgesic [facility] Patient Counseling Guide. Patient has had opportunity to read the Guide and ask questions pertaining to the Guide. Patient has been advised on 03/23/20 that due to the [place] Government concerns and actions, any suspected patient misuse, abuse, or diversion of controlled substances (i.e. opioids/narcotics/pain killers) WILL result in dissolution of treatment from this clinic. Patients adhering to the concepts contained within the patient's Treatment Agreement will be protected from such termination of care. Patient was given a copy of the Treatment Agreement, signed by patient on 09/03/19. Patient signed an opioid consent form on 09/03/19. 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 This places the patient in the [facility] moderate risk category for total daily opioid usage (not to be confused with the separate potential significant risk in regards to sleep apnea, above). Have recommended patient taper daily doses to the lowest number of daily doses that provide effective analgesia. Patient has received the Opioid Analgesic [facility] Patient Counseling Guide. Patient has had opportunity to read the Guide and ask questions pertaining to the Guide. Patient has been advised on 03/23/20 that due to the Federal Government concerns and actions, any suspected patient misuse, abuse, or diversion of controlled substances (i.e. opioids/narcotics/pain killers) WILL result in dissolution of treatment from this clinic. Patients adhering to the concepts contained within the patient's Treatment Agreement will be protected from such termination of care. Patient was given a copy of the Treatment Agreement, signed by patient on 09/03/19. Patient signed an opioid consent form on 09/03/19. Patient has refused offer of a Narcan nasal spray prescription. Urine Tox screen today; random screens per protocol 01/24/2022 Other Above prescriptions printed for patient to hand carry to a [facility] pharmacy in [place] or [place] where he will be working over the next 3 months (various locations) Patient reports he is undergoing chemotherapy / immunotherapy for melanoma with Dr. Cole 04/25/2022 Other Patient reports he is undergoing chemotherapy / immunotherapy for melanoma with Dr. 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 PLAN OF TREATMENT Next Appt Details Provider Name:[place] Bradley son, 02/14/2023 07:30:00 AM, [address] [facility], [place], [place], [id number], Insurance Providers Payer Name Payer Address Payer Phone Subscriber Number Group Number Insured Name Patient Relationship to Insured Coverage Start Date Coverage End Date [employer] Medicare Part B Claims Department [address] [address] [place] [address] [id number] Adarsh Parson Self - patient is the insured [facility] [address] [address] [place] [address] [id number] Adarsh Parson Self - patient is the insured MEDICAL (GENERAL) HISTORY Medical History History ICD Code Chronic pain Low back pain Lumbar spondylosis and spondylolisthesis Lumbar disc disorder with radiculopathy Facet joint arthrosis Neck pain Cervical disc disorder with myelopathy, spondylosis, spinal stenosis Paresthesia Bilateral knee pain (L>R) GI bleeding associated with naproxen Bowel obstruction Cancer (melanoma excision, more recent c hemotherapy and immunotherapy) Surgical History Surgery Date(Month/Year) Right knee surgery, 2000 Mole removal x 2 Left elbow surgery, 2004 Melanoma excision, 08/2016 Bowel obstruction surgery, performed at [facility] by Dr. Slaughter, 10/16/20-10/22/20 Hospitalization History Reason Date(Month/Year)
[2023-01-17 09:33] VITALS: BP 143/89; PULSE 76; RESP 18; TEMP 36.8; O2SAT 97
[2023-01-17 09:34] VITALS: BMI 28.5
[2023-01-17 09:42] LABS: Basophils % 0.5 %; Eosinophils # 0.1 10^3/uL (0.0-0.8); Eosinophils % 1.3 %; Hemoglobin 14.6 g/dL (11.7-16.6); Lymphocytes # 1.5 10^3/uL (0.8-4.8); Lymphocytes % 16.9 %; Mean Corpuscular HGB Conc 33.2 g/dL (30.0-36.0); Mean Corpuscular Hemoglobin 29.3 pg (28.0-34.0); Mean Corpuscular Volume 88.4 fl (80-94); Mean Platelet Volume 9.4 fL (7.4-10.4); Monocytes # 0.8 10^3/uL (0.2-0.9); Monocytes % 9.2 %; Neutrophils # 6.17 10^3/uL (1.8-7.7); Neutrophils % 71.6 %; Nucleated Red Blood Cells % 0 %; Platelet Count 380 10^3/cmm (130-400); Red Blood Count 4.98 10^6/uL (4.1-5.3); Red Cell Distribution Width 13.4 % (12.1-15.1); White Blood Count 8.6 10^3/uL (4.0-10.0)
[2023-01-17 10:20] LABS: Alanine Aminotransferase 21 U/L (0-41); Albumin Level 4.2 g/dL (3.5-5.2); Alkaline Phosphatase 90 U/L (40-130); Anion Gap 13.5 (5-19); Aspartate Amino Transferase 15 U/L (0-40); Blood Urea Nitrogen 8 mg/dL (8-23); Calcium 9.1 mg/dL (8.5-10.5); Carbon Dioxide 26 mmol/L (22-29); Chloride 106 mmol/L (98-107); Globulin 2.3 g/dL (1.3-4.6); Glucose 80 mg/dL (65-115); Lactate Dehydrogenase 139 U/L (135-225); Osmolality Calculated 291 mOsm/kg (285-295); Potassium 3.5 mmol/L (3.5-5.1); Sodium 142 mmol/L (136-145); Total Bilirubin 0.3 mg/dL (0.15-1.2); Total Protein 6.5 g/dL (6.6-8.7)
== END 2023-02-09 23:59 | disposition home or self-care (01) ==
PROVIDERS: PCP Family Medicine Adult Medicine; Visit Provider Internal Medicine Medical Oncology
DX: C43.59 Malignant melanoma of other part of trunk; C77.3 Secondary and unspecified malignant neoplasm of axilla and upper limb lymph nodes; C78.4 Secondary malignant neoplasm of small intestine; M25.59 Pain in other specified joint; Z79.52 Long term (current) use of systemic steroids; Z79.899 Other long term (current) drug therapy; Z51.12 Encounter for antineoplastic immunotherapy
CPT/HCPCS: 80053; 83615; 85025; 99214; J1642

== ENCOUNTER 2023-02-06 06:33 | Outpatient (CLI) | payer OTHER, MEDICARE, SELFPAY ==
--- NOTE | 2023-02-06 07:30 | CT_ITS ---
WS: [id number] CT CHEST, ABDOMEN AND PELVIS WITH CONTRAST. HISTORY: melanoma TECHNIQUE: Contiguous 5 mm axial imaging performed through the chest, abdomen and pelvis with IV cont rast, oral contrast has been provided. Coronal and sagittal reformats chest. Coronal and sagittal ref ormats through the abdomen and pelvis. All CT scans at [facility] use at least one of these d ose optimization techniques: automated exposure control; mA and/or kV adjustment per patient size (in cludes targeted exams where dose is matched to clinical indication); or iterative reconstruction. CONTRAST: Omnipaque 350; 100 mL IV. DLP: 923.68 mGy.cm COMPARISON: 09/03/2021, 02/11/[address]: No new or enlarging pulmonary mass or nodule and no pneumonia. There are a few very small m icronodules which were present on the prior study from 02/11/2021. Previously described irregular nodul e in the LEFT upper lobe has resolved. No mediastinal or hilar adenopathy. Heart is normal size. No p ericardial or pleural effusions. RIGHT subclavian Port-A-Cath. Small hiatal hernia. Abdomen CT: Low-attenuation cyst in the anterior central liver. Stable since at least 09/18/2020. Gallb ladder is normally distended and contains stones. No acute cholecystitis. Normal spleen. Normal pancr eas and adrenal glands. Mild atherosclerosis aorta. Normal kidneys. No ascites, adenopathy or free air. Normal appearance of the stomach and small bowel. Normal appendix . No rectal wall thickening or colitis. Previously described mesenteric misting is improved. Near com plete resolution of the sclerosing mesenteritis and the lymph nodes. Pelvic CT: Well-distended urinary bladder. Prostate gland is mildly enlarged encroaching into the russell dder. No osteoblastic or osteolytic bone disease. IMPRESSION: 1. No evidence for metastatic lymphadenopathy within the chest, abdomen or pelvis. 2. Long-term stability of micronodules in the lungs. No metastatic nodules are identified. 3. No persistent colitis as seen on the study of 09/03/2021. 4. Improving sclerosing mesenteritis. The lymph nodes associated with the mesenteritis have significa ntly improved also. 5. Cholelithiasis without acute cholecystitis. 6. Stable hepatic cyst.
[2023-02-06] MEDS: iohexol 350 mg/mL 500 mL Btl (per mL) PO (07:35)
[2023-02-06] MEDS: iohexol 350 mg/mL 500 mL Btl (per mL) IV (07:36)
== END 2023-02-06 06:34 | disposition home or self-care (01) ==
LOC: RAD 06:34
PROVIDERS: PCP Family Medicine Adult Medicine; Visit Provider Internal Medicine Medical Oncology
DX: C43.59 Malignant melanoma of other part of trunk (principal); R91.8 Other nonspecific abnormal finding of lung field; K65.4 Sclerosing mesenteritis; K80.20 Calculus of gallbladder without cholecystitis without obstruction; K76.89 Other specified diseases of liver
CPT/HCPCS: 71260; 74177; Q9967

== ENCOUNTER → 2023-05-16 08:49 | Outpatient (BNVA) | payer OTHER, MEDICARE, SELFPAY | PROVIDERS: PCP Family Medicine Adult Medicine; Referring Provider Family Medicine Adult Medicine; Visit Provider Surgery | DX: K64.9 Unspecified hemorrhoids (principal) | CPT/HCPCS: 99214 ==

== ENCOUNTER 2023-07-27 10:01 | Outpatient (CLI) | payer OTHER, MEDICARE, SELFPAY | END 2023-07-27 10:02 | disposition home or self-care (01) | LOC: LAB 10:01 | PROVIDERS: PCP Family Medicine Adult Medicine; Visit Provider Internal Medicine Medical Oncology | DX: Z01.89 Encounter for other specified special examinations (principal) | CPT/HCPCS: 82274 ==

== ENCOUNTER 2023-08-01 08:00 | Oncology outpatient (recurring) (ONCR) | payer OTHER, MEDICARE, SELFPAY ==
[2023-07-25 12:39] LABS: Basophils % 0.5 %; Eosinophils # 0.1 10^3/uL (0.0-0.8); Eosinophils % 0.6 %; Hematocrit 36.9 % (37-53); Lymphocytes % 11.2 %; Mean Corpuscular HGB Conc 28.5 g/dL (30-55); Mean Corpuscular Hemoglobin 20.1 pg (27-33); Mean Corpuscular Volume 70.6 fl (82-101); Mean Platelet Volume 9.5 fL (7.4-10.4); Monocytes # 0.6 10^3/uL (0.2-0.9); Monocytes % 6.6 %; Neutrophils % 80.9 %; Nucleated Red Blood Cells % 0 %; Platelet Count 561 10^3/cmm (157-399); Red Blood Count 5.23 10^6/uL (3.85-5.65); Red Cell Distribution Width 16.8 % (12.1-15.1); White Blood Count 8.52 10^3/uL (3.29-11.43)
[2023-07-25 12:55] LABS: Alanine Aminotransferase 12 U/L (0-41); Albumin Level 4.3 g/dL (3.5-5.2); Alkaline Phosphatase 75 U/L (40-130); Anion Gap 14.7 (5-19); Aspartate Amino Transferase 18 U/L (0-40); Blood Urea Nitrogen 9 mg/dL (8-23); Calcium 8.7 mg/dL (8.5-10.5); Carbon Dioxide 25 mmol/L (22-29); Chloride 102 mmol/L (98-107); Globulin 2.7 g/dL (1.3-4.6); Glucose 100 mg/dL (65-115); Osmolality Calculated 285 mOsm/kg (285-295); Potassium 3.7 mmol/L (3.5-5.1); Sodium 138 mmol/L (136-145); Total Bilirubin 0.3 mg/dL (0.15-1.2)
[2023-07-25 13:28] LABS: Lactate Dehydrogenase 174 U/L (135-225)
[2023-07-25 14:00] LABS: Ferritin 8 ng/mL (30-400); Iron 18 ug/dL (59-158); Percent Saturation 4.8 % (20-50); Total Iron Binding Capacity 370 mcg/dl; Unsaturated Iron Binding 352 ug/dL (112-347)
[2023-07-25] MEDS: ferric carboxy (IVPB) 750 MG in sodium chloride 0.9% (100 ml) 100 ML 345 MG IV (15:00)
[2023-07-25] MEDS: sodium chloride 0.9% 250 ML 75 ML IV (15:00)
[2023-07-25 15:25] VITALS: BP 115/76; PULSE 67; RESP 16; TEMP 36.8; O2SAT 94
[2023-08-01] MEDS: ferric carboxy (IVPB) 750 MG in sodium chloride 0.9% (100 ml) 100 ML 345 MG IV (08:45)
[2023-08-01 09:11] VITALS: BP 124/83; PULSE 72; RESP 16; TEMP 36.8; O2SAT 98
== END 2023-08-10 23:59 | disposition home or self-care (01) ==
PROVIDERS: Nurse Practitioner Family; PCP Family Medicine Adult Medicine; Visit Provider Internal Medicine Medical Oncology
DX: D50.9 Iron deficiency anemia, unspecified; Z53.9 Procedure and treatment not carried out, unspecified reason
CPT/HCPCS: 36415; 80053; 82728; 83540; 83550; 83615; 85025; 96365; 99214; J1439; J7050

== ENCOUNTER 2023-08-15 13:10 | Outpatient (CLI) | payer OTHER, MEDICARE, SELFPAY ==
--- NOTE | 2023-08-15 13:30 | PETR_ITS ---
PROCEDURE INFORMATION: Exam: PET/CT Skull Base to Mid-thigh Exam date and time: 08/15/2023 2:11 PM Age: 63 years old Clinical indication: Restaging of metastatic melanoma. LABS AND CLINICAL REPORTS: Glucose: 89 mg/dl Treatment strategy for malignancy (PET staging): Restaging (PS) TECHNIQUE: Imaging protocol: Following at least four-hour fasting and following the injection of radiopharmaceutical, low dose CT images were obtained. Then, PET images were obtained. Attenuation corrected images were constructed using the CT scan. Fused images of PET and CT were reviewed. The standardized uptake values (SUV) reported below are maximum values within a region of interest, expressed in gm/ml. Exam includes orbital meatal line to mid-thigh. Radiopharmaceutical: 14.31 mCi F-18 FDG (Fluorodeoxyglucose), IV. Time of imaging post radiopharmaceutical administration: 1 hour Injection site: Right antecubital vein COMPARISON: PT PET Scan 10/10/2020, CT chest abdomen pelvis 02/06/2023 FINDINGS: Brain: Visualized brain has normal physiologic uptake. Pharynx: No abnormal uptake. Larynx: No abnormal uptake. Lungs, pleura and trachea: No abnormal uptake. Small calcified granulomas in both lungs. No suspicious noncalcified lung nodules. No pleural effusion. Heart: Normal physiologic uptake. There is no cardiomegaly. No coronary artery calcification is visualized. There is no pericardial effusion. Mediastinal space: No abnormal uptake. There is sequela of exposure to granulomatous disease with calcified granulomas in normal size bilateral hilar lymph nodes. Liver: No abnormal uptake. 1 cm subcapsular simple cyst in the segment 4 on axial image 160. Gallbladder and bile ducts: No abnormal uptake. There are calcified gallstones in the gallbladder measuring up to 8 mm. Pancreas: No abnormal uptake. Spleen: No abnormal uptake. No splenomegaly. Adrenal glands: No abnormal uptake. No nodules. Kidneys and ureters: Normal physiologic uptake. No hydronephrosis. Stomach and bowel: No abnormal uptake. Unremarkable small bowel anastomosis in the left upper abdomen. Intraperitoneal and retroperitoneal spaces: No abnormal uptake. No ascites. There is nonspecific haziness of the mesenteric fat with no discrete mass. Urinary bladder: Normal physiologic uptake. Reproductive: No abnormal uptake. The prostate is mildly enlarged (4.6 x 4.1 cm). Vasculature: No abnormal uptake. No aortic aneurysm. Lymph nodes: No abnormal uptake. No lymphadenopathy in the head, neck, chest, abdomen, pelvis, and extremities. Bones/joints: No abnormal uptake in the visualized axial and appendicular skeleton. Soft tissues: No abnormal uptake in the visualized head, neck, chest, abdomen, pelvis, and extremities. There are surgical clips in the right axilla. There are 2 small calcified nodules in the left supraclavicular area stable since 02/06/[address] of metastatic masses documented on prior PET-CT on 10/10/2020. This includes 1.5 x 0.8 cm nodule on axial image 84, and 0.8 x 0.6 cm nodule on axial image 95. [id number] IMPRESSION: No abnormal radiotracer uptake to suggest malignancy. In comparison with prior exam on 10/10/2020 there is complete response to treatment with resolution of multifocal metastatic disease previously involving the small bowel, the left lung, and the left supraclavicular area.
== END 2023-08-15 13:11 | disposition home or self-care (01) ==
LOC: RAD 13:11
PROVIDERS: PCP Family Medicine Adult Medicine; Visit Provider Nurse Practitioner Family
DX: C43.59 Malignant melanoma of other part of trunk (principal)
CPT/HCPCS: 78815; A9552

== ENCOUNTER 2023-08-16 13:23 | Oncology outpatient (recurring) (ONCR) | payer OTHER, MEDICARE, SELFPAY ==
[2023-08-16 13:33] LABS: Basophils # 0.1 10^3/uL (0.0-0.1); Basophils % 0.5 %; Eosinophils # 0.1 10^3/uL (0.0-0.8); Eosinophils % 0.6 %; Hematocrit 42.1 % (37-53); Lymphocytes # 0.9 10^3/uL (0.8-4.8); Lymphocytes % 9.4 %; Mean Corpuscular HGB Conc 30.2 g/dL (30-55); Mean Corpuscular Hemoglobin 22.9 pg (27-33); Mean Corpuscular Volume 75.9 fl (82-101); Mean Platelet Volume 9.7 fL (7.4-10.4); Monocytes # 0.4 10^3/uL (0.2-0.9); Monocytes % 4.4 %; Neutrophils # 8.22 10^3/uL (1.8-7.7); Neutrophils % 84.6 %; Nucleated Red Blood Cells % 0 %; Platelet Count 502 10^3/cmm (157-399); Red Blood Count 5.55 10^6/uL (3.85-5.65); White Blood Count 9.72 10^3/uL (3.29-11.43)
[2023-08-16 14:01] LABS: Alanine Aminotransferase 22 U/L (0-41); Albumin Level 4.3 g/dL (3.5-5.2); Alkaline Phosphatase 89 U/L (40-130); Anion Gap 14.6 (5-19); Aspartate Amino Transferase 20 U/L (0-40); Blood Urea Nitrogen 12 mg/dL (8-23); Calcium 8.5 mg/dL (8.5-10.5); Carbon Dioxide 24 mmol/L (22-29); Chloride 105 mmol/L (98-107); Globulin 2.4 g/dL (1.3-4.6); Glomerular Filtration Rate 85.5 mL/min (90-130); Glucose 82 mg/dL (65-115); Lactate Dehydrogenase 168 U/L (135-225); Osmolality Calculated 289 mOsm/kg (285-295); Potassium 3.6 mmol/L (3.5-5.1); Sodium 140 mmol/L (136-145); Total Bilirubin 0.3 mg/dL (0.15-1.2); Total Protein 6.7 g/dL (6.6-8.7)
== END 2023-09-10 23:59 | disposition home or self-care (01) ==
PROVIDERS: Nurse Practitioner Family; PCP Family Medicine Adult Medicine; Visit Provider Internal Medicine Medical Oncology
DX: C43.59 Malignant melanoma of other part of trunk
CPT/HCPCS: 36415; 80053; 83615; 85025

== ENCOUNTER 2024-04-23 12:52 | Oncology outpatient (recurring) (ONCR) | payer OTHER, MEDICARE, SELFPAY ==
[2024-04-23 13:37] LABS: Basophils % 0.5 %; Eosinophils # 0.1 10^3/uL (0.0-0.8); Eosinophils % 0.7 %; Hematocrit 43.5 % (37-53); Lymphocytes % 12.1 %; Mean Corpuscular HGB Conc 33.1 g/dL (30-55); Mean Corpuscular Hemoglobin 29.6 pg (27-33); Mean Corpuscular Volume 89.5 fl (82-101); Mean Platelet Volume 9.8 fL (7.4-10.4); Monocytes # 0.2 10^3/uL (0.2-0.9); Monocytes % 2.8 %; Neutrophils # 6.83 10^3/uL (1.8-7.7); Neutrophils % 83.5 %; Nucleated Red Blood Cells % 0 %; Platelet Count 365 10^3/cmm (157-399); Red Blood Count 4.86 10^6/uL (3.85-5.65); Red Cell Distribution Width 13.3 % (12.1-15.1); White Blood Count 8.18 10^3/uL (3.29-11.43)
[2024-04-23 13:50] LABS: Alanine Aminotransferase 13 U/L (0-41); Albumin Level 4.3 g/dL (3.5-5.2); Alkaline Phosphatase 84 U/L (40-130); Anion Gap 17.5 (5-19); Aspartate Amino Transferase 16 U/L (0-40); Blood Urea Nitrogen 10 mg/dL (8-23); Calcium 8.9 mg/dL (8.5-10.5); Carbon Dioxide 24 mmol/L (22-29); Chloride 106 mmol/L (98-107); Ferritin 217 ng/mL (30-400); Globulin 1.6 g/dL (1.3-4.6); Glomerular Filtration Rate 97.6 mL/min (90-130); Glucose 147 mg/dL (65-115); Iron 58 ug/dL (59-158); Lactate Dehydrogenase 166 U/L (135-225); Osmolality Calculated 298 mOsm/kg (285-295); Percent Saturation 25.2 % (20-50); Potassium 4.5 mmol/L (3.5-5.1); Sodium 143 mmol/L (136-145); Total Bilirubin 0.3 mg/dL (0.15-1.2); Total Iron Binding Capacity 230 mcg/dl; Total Protein 5.9 g/dL (6.6-8.7); Unsaturated Iron Binding 172 ug/dL (112-347)
== END 2024-05-11 23:59 | disposition home or self-care (01) ==
PROVIDERS: PCP Family Medicine Adult Medicine; Visit Provider Nurse Practitioner Family
DX: Z53.9 Procedure and treatment not carried out, unspecified reason; C43.59 Malignant melanoma of other part of trunk; D50.0 Iron deficiency anemia secondary to blood loss (chronic)
CPT/HCPCS: 36415; 80053; 82728; 83540; 83550; 83615; 85025

== ENCOUNTER 2024-05-06 15:09 | Outpatient (CLI) | payer OTHER, MEDICARE, SELFPAY ==
--- NOTE | 2024-05-06 15:10 | CTR_ITS ---
PROCEDURE INFORMATION: Exam: CT Chest With Contrast; Diagnostic Exam date and time: 05/06/2024 4:11 PM Age: 64 years old Clinical indication: Condition or disease; Other: Melanoma; Prior surgery; Surgery date: 6+ months; Surgery type: Stomach, back, port in/out; Additional info: Surveillance TECHNIQUE: Imaging protocol: Diagnostic computed tomography of the chest with contrast. Radiation optimization: All CT scans at this facility use at least one of these dose optimization techniques: automated exposure control; mA and/or kV adjustment per patient size (includes targeted exams where dose is matched to clinical indication); or iterative reconstruction. Contrast material: OMNI 350; Contrast volume: 100 ml; Contrast route: INTRAVENOUS (IV); COMPARISON: PT PET skull to thigh [id number] 08/15/2023 2:11 PM RADIATION DOSE METRICS: Total DLP (mGy-cm): 873.37 FINDINGS: Lungs: Unremarkable. No consolidation. No masses. Pleural spaces: Unremarkable. No pneumothorax. No pleural effusion. Heart: Unremarkable. No cardiomegaly. No pericardial effusion. Lymph nodes: Unremarkable. No enlarged lymph nodes. Vasculature: Unremarkable. No aortic aneurysm. Bones/joints: Unremarkable. No acute fracture. Soft tissues: Unremarkable. Other findings: Small scattered calcified granulomata. PROCEDURE INFORMATION: Exam: CT Abdomen And Pelvis With Contrast Exam date and time: 05/06/2024 4:11 PM Age: 64 years old Clinical indication: Condition or disease; Other: Melanoma; Prior surgery; Surgery date: 6+ months; Surgery type: Stomach, back, port in/out; Additional info: Surveillance TECHNIQUE: Imaging protocol: Computed tomography of the abdomen and pelvis with contrast. Radiation optimization: All CT scans at this facility use at least one of these dose optimization techniques: automated exposure control; mA and/or kV adjustment per patient size (includes targeted exams where dose is matched to clinical indication); or iterative reconstruction. Contrast material: OMNI 350; Contrast volume: 100 ml; Contrast route: INTRAVENOUS (IV); COMPARISON: PT PET skull to thigh [id number] [id number] 08/15/2023 2:11 PM RADIATION DOSE METRICS: Total DLP (mGy-cm): 873.37 FINDINGS: Liver: Small cyst or hemangioma in the subcapsular right lobe of the liver. Gallbladder and biliary ducts: Cholelithiasis. Pancreas: Normal. No ductal dilation. Spleen: Normal. No splenomegaly. Adrenal glands: Normal. No mass. Kidneys and ureters: Normal. No hydronephrosis. Stomach and bowel: Unremarkable. No obstruction. No mucosal thickening. Appendix: No evidence of appendicitis. Intraperitoneal space: Unremarkable. No free air. No significant fluid collection. Vasculature: Unremarkable. No abdominal aortic aneurysm. Lymph nodes: Minimal yousif appearing mesentery with very small mesenteric nodes. Urinary bladder: Unremarkable as visualized. Reproductive: Unremarkable as visualized. Bones/joints: Unremarkable. No acute fracture. Soft tissues: Unremarkable. CT/CT chest abdpe w/*[id number] IMPRESSION: No acute findings. IMPRESSION: No acute findings.
[2024-05-06] MEDS: iohexol 350 mg/mL 500 mL Btl (per mL) PO (16:02)
[2024-05-06] MEDS: iohexol 350 mg/mL 500 mL Btl (per mL) IV (16:18)
== END 2024-05-06 15:10 | disposition home or self-care (01) ==
LOC: RAD 15:09
PROVIDERS: PCP Family Medicine Adult Medicine; Visit Provider Nurse Practitioner Family
DX: C43.59 Malignant melanoma of other part of trunk (principal); K80.20 Calculus of gallbladder without cholecystitis without obstruction; Q44.6 Cystic disease of liver
CPT/HCPCS: 71260; 74177

== ENCOUNTER 2024-12-06 07:45 | Oncology outpatient (recurring) (ONCR) | payer OTHER, MEDICARE, SELFPAY ==
[2024-12-06 08:16] LABS: Basophils % 0.3 %; Eosinophils # 0.1 10^3/uL (0.0-0.8); Eosinophils % 0.9 %; Hematocrit 46.2 % (37-53); Lymphocytes # 1.4 10^3/uL (0.8-4.8); Lymphocytes % 18.8 %; Mean Corpuscular HGB Conc 32.7 g/dL (30-55); Mean Corpuscular Hemoglobin 28.9 pg (27-33); Mean Corpuscular Volume 88.3 fl (82-101); Mean Platelet Volume 9.4 fL (7.4-10.4); Monocytes # 0.5 10^3/uL (0.2-0.9); Monocytes % 6.1 %; Neutrophils # 5.53 10^3/uL (1.8-7.7); Neutrophils % 73.5 %; Nucleated Red Blood Cells % 0 %; Platelet Count 348 10^3/cmm (157-399); Red Blood Count 5.23 10^6/uL (3.85-5.65); Red Cell Distribution Width 13.5 % (12.1-15.1); White Blood Count 7.52 10^3/uL (3.29-11.43)
[2024-12-06 08:35] LABS: Alanine Aminotransferase 25 U/L (0-41); Albumin Level 4.2 g/dL (3.5-5.2); Alkaline Phosphatase 92 U/L (40-130); Anion Gap 15.5 (5-19); Aspartate Amino Transferase 17 U/L (0-40); Blood Urea Nitrogen 10 mg/dL (8-23); Calcium 9.1 mg/dL (8.5-10.5); Carbon Dioxide 26 mmol/L (22-29); Chloride 104 mmol/L (98-107); Globulin 2.6 g/dL (1.3-4.6); Glomerular Filtration Rate 85.2 mL/min (90-130); Glucose 108 mg/dL (65-115); Lactate Dehydrogenase 163 U/L (135-225); Osmolality Calculated 294 mOsm/kg (285-295); Potassium 3.5 mmol/L (3.5-5.1); Sodium 142 mmol/L (136-145); Total Bilirubin 0.5 mg/dL (0.15-1.2); Total Protein 6.8 g/dL (6.6-8.7)
== END 2024-12-09 23:59 | disposition home or self-care (01) ==
PROVIDERS: PCP Family Medicine Adult Medicine; Visit Provider Nurse Practitioner Family
DX: Z53.9 Procedure and treatment not carried out, unspecified reason (principal); C43.59 Malignant melanoma of other part of trunk
CPT/HCPCS: 36415; 80053; 83615; 85025

== ENCOUNTER → 2024-12-09 10:43 | Outpatient (BNVA) | payer MEDICARE, OTHER, SELFPAY | PROVIDERS: PCP Family Medicine Adult Medicine; Visit Provider Nurse Practitioner Family | DX: L80 Vitiligo (principal); D22.39 Melanocytic nevi of other parts of face; L82.1 Other seborrheic keratosis; L81.8 Other specified disorders of pigmentation; L57.8 Other skin changes due to chronic exposure to nonionizing radiation; Z85.820 Personal history of malignant melanoma of skin; Z08 Encounter for follow-up examination after completed treatment for malignant neoplasm; Z85.828 Personal history of other malignant neoplasm of skin; D48.5 Neoplasm of uncertain behavior of skin; L57.0 Actinic keratosis | CPT/HCPCS: 11102; 17000; 99204 ==

== ENCOUNTER 2025-05-01 07:02 | Oncology outpatient (recurring) (ONCR) | payer OTHER, MEDICARE, SELFPAY ==
--- NOTE | 2025-05-01 08:00 | CTR_ITS ---
PROCEDURE INFORMATION: Exam: CT Chest With Contrast; Diagnostic Exam date and time: 05/01/2025 8:52 AM Age: 65 years old Clinical indication: Condition or disease; Other: Metastatic melanoma; Prior surgery; Surgery date: 6+ months; Surgery type: Stomach, back, port in/out TECHNIQUE: Imaging protocol: Diagnostic computed tomography of the chest with contrast. Radiation optimization: All CT scans at this facility use at least one of these dose optimization techniques: automated exposure control; mA and/or kV adjustment per patient size (includes targeted exams where dose is matched to clinical indication); or iterative reconstruction. Contrast material: OMNI 350; Contrast volume: 100 ml; Contrast route: INTRAVENOUS (IV); COMPARISON: CT chest abdpel w/*[id number] 05/06/2024 4:11 PM RADIATION DOSE METRICS: Total DLP (mGy-cm): 924.2 FINDINGS: Lungs: Unremarkable. No consolidation. No masses. Pleural spaces: Unremarkable. No pneumothorax. No pleural effusion. Heart: Unremarkable. No cardiomegaly. No pericardial effusion. Lymph nodes: Unremarkable. No enlarged lymph nodes. Vasculature: Unremarkable. No aortic aneurysm. Bones/joints: Unremarkable. No acute fracture. Soft tissues: Unremarkable. Other findings: Small calcified granulomas. PROCEDURE INFORMATION: Exam: CT Abdomen And Pelvis With Contrast Exam date and time: 05/01/2025 8:52 AM Age: 65 years old Clinical indication: Condition or disease; Other: Metastatic melanoma; Prior surgery; Surgery date: 6+ months; Surgery type: Stomach, back, port in/out TECHNIQUE: Imaging protocol: Computed tomography of the abdomen and pelvis with contrast. Radiation optimization: All CT scans at this facility use at least one of these dose optimization techniques: automated exposure control; mA and/or kV adjustment per patient size (includes targeted exams where dose is matched to clinical indication); or iterative reconstruction. Contrast material: OMNI 350; Contrast volume: 100 ml; Contrast route: INTRAVENOUS (IV); COMPARISON: PT PET skull to thigh [id number] [id number] 08/15/2023 2:11 PM RADIATION DOSE METRICS: Total DLP (mGy-cm): 924.2 FINDINGS: Liver: Small hepatic cysts. Gallbladder and biliary ducts: Cholelithiasis. Pancreas: Normal. No ductal dilation. Spleen: Borderline 12 cm splenomegaly. Adrenal glands: Normal. No mass. Kidneys and ureters: Normal. No hydronephrosis. Stomach and bowel: Unremarkable. No obstruction. No mucosal thickening. Appendix: No evidence of appendicitis. Intraperitoneal space: Unremarkable. No free air. No significant fluid collection. Vasculature: Unremarkable. No abdominal aortic aneurysm. Lymph nodes: Unremarkable. No enlarged lymph nodes. Urinary bladder: Unremarkable as visualized. Reproductive: Unremarkable as visualized. Bones/joints: Unremarkable. No acute fracture. Soft tissues: Unremarkable. CT/CT chest abdpel w/*[id number] IMPRESSION: 1. No significant change. 2. No evidence of metastatic disease. IMPRESSION: 1. No significant change. No evidence of metastatic disease. 2. Cholelithiasis.
[2025-05-01 08:38] LABS: Blood Urea Nitrogen 9 mg/dL (8-23)
[2025-05-01] MEDS: iohexol 350 mg/mL 500 mL Btl (per mL) PO (08:57)
[2025-05-01] MEDS: iohexol 350 mg/mL 500 mL Btl (per mL) IV (08:58)
== END 2025-05-11 23:59 | disposition home or self-care (01) ==
LOC: RAD 07:03 → ONCMED 08:26
PROVIDERS: Internal Medicine Medical Oncology; Visit Provider Nurse Practitioner Family
DX: C43.59 Malignant melanoma of other part of trunk (principal); D50.0 Iron deficiency anemia secondary to blood loss (chronic); C43.9 Malignant melanoma of skin, unspecified
CPT/HCPCS: 71260; 74177; 82565; 84520

== ENCOUNTER 2025-06-09 11:07 | Oncology outpatient (recurring) (ONCR) | payer OTHER, MEDICARE, SELFPAY ==
[2025-06-09 11:30] LABS: Hematocrit 46.2 % (37-53); Hemoglobin 15.20 g/dL (11.27-16.99); Mean Corpuscular HGB Conc 32.9 g/dL (30-55); Mean Corpuscular Hemoglobin 29.2 pg (27-33); Mean Corpuscular Volume 88.7 fl (82-101); Nucleated Red Blood Cells % 0 %; Platelet Count 334 10^3/cmm (157-399); Red Blood Count 5.21 10^6/uL (3.85-5.65); White Blood Count 9.82 10^3/uL (3.29-11.43)
[2025-06-09 11:48] LABS: Alanine Aminotransferase 17 U/L (0-41); Albumin Level 4.4 g/dL (3.5-5.2); Alkaline Phosphatase 77 U/L (40-130); Anion Gap 14.7 (5-19); Aspartate Amino Transferase 17 U/L (0-40); Blood Urea Nitrogen 13 mg/dL (8-23); Calcium 9.1 mg/dL (8.5-10.5); Carbon Dioxide 26 mmol/L (22-29); Chloride 102 mmol/L (98-107); Globulin 1.9 g/dL (1.3-4.6); Glucose 127 mg/dL (65-115); Osmolality Calculated 290 mOsm/kg (285-295); Potassium 3.7 mmol/L (3.5-5.1); Sodium 139 mmol/L (136-145); Total Protein 6.3 g/dL (6.6-8.7)
== END 2025-06-11 23:59 | disposition home or self-care (01) ==
PROVIDERS: Nurse Practitioner Family; Visit Provider Nurse Practitioner Family
DX: C43.9 Malignant melanoma of skin, unspecified (principal)
CPT/HCPCS: 80053; 85025